=== PATIENT | male | born 1940 | race Caucasian/White ===

== ENCOUNTER → 2016-10-05 | Outpatient (CLI) | payer OTHER ==
[~2016-10-05] MED LIST: AMLO-114 PO; BNC40 PO; CLOP1TAB15 PO; CRD4 PO; CRG25 PO; CYCL5TAB PO; FURO80TA63 PO; INSDGI SC; LEVO50TA6 PO; LISI-461 PO; METF1TAB53 PO; TAMS0.4C59 PO; VSC/5 PO; [UNRECOGNIZED DRUG - CODE] PO
== END | disposition home or self-care (01) ==
LOC: C.PATHSPEC 17:17
PROVIDERS: ATTEND Plastic Surgery
DX: D03.62 Melanoma in situ of left upper limb, including shoulder (principal)

== ENCOUNTER 2019-07-23 18:27 | Inpatient (IN) ==
--- NOTE | 2019-07-23 18:38 | Emergency Department Note ---
Impression & Plan CHARLIE (acute kidney injury), Acute dehydration, Diarrhea, Weakness ED Provider Note NAME: CHANEL WOLFE AGE: 78 SEX: M : 1940 ARRIVES VIA: Ambulance INFORMANT: Patient, ED PROVIDER(S): Sandip Rivero DO CHIEF COMPLAINT: Kidney issues HPI: Patient is a 78-year-old male who was referred in by PCP for kidney issues per the patient. Patient notes that he has had diarrhea which has been about 2- 3 times a day with only a small amount out at a time. This has been present for the past week. He denies any belly pain. Denies any nausea/vomiting. No dysu eh urgency or frequency. No headache chest pain shortness of breath fevers or any other complaints. He does note that he feels a little weak. He lives at home. Patient has been treated for infection of his right toe which he notes is significantly improved. He is on IV cefepime 3 times a day. ROS: See above HPI for pertinent positives & negatives. A total of 10 systems reviewed and were otherwise negative. PAST MEDICAL HISTORY:See Below PAST SURGICAL HISTORY:See Below FAMILY HISTORY:See Below SOCIAL HISTORY:See Below HOME MEDICATIONS:See Below ALLERGIES:See Below VITALS:See Below PHYSICAL EXAMINATION: GENERAL: Sitting up in bed, alert, well appearing, well nourished, no distress, non-toxic EYE EXAM: normal conjunctiva. PERRL and EOM's grossly intact. OROPHARYNX: no exudate, no erythema, lips, buccal mucosa, and tongue normal and mucous membranes are moist NECK: supple, no nuchal rigidity, no adenopathy, non-tender LUNGS: Clear to auscultation. Normal chest wall mechanics HEART: no murmurs, S1 normal and S2 normal ABDOMEN: abdomen soft, non-tender, normo-active bowel sounds, no masses, no rebound or guarding. BACK: Back is symmetrical on inspection and there is no deformity, no midline tenderness, no CVA tenderness. SKIN: no rashes and no bruising UPPER EXTREMITIES: upper extremities are grossly normal. PICC line in left mid humerus. LOWER EXTREMITIES: No pitting edema. NEURO EXAM: Normal sensorium, cranial nerves II-XII grossly intact, normal speech, no gross weakness of arms, no gross weakness of legs. MEDICAL DECISION MAKING: Patient is a 78-year-old male with a past medical history of diabetes and an infection of his foot on IV cefepime presents the ER for weakness. He has been having diarrhea for the past week about 3 times a day with a low volume. He denies any belly pain. He initially denies any headache, chest pain, shortness of breath, nausea or vomiting. Later he did admit that he had some chest tightness yesterday due to stress. Labs show no significant leukocytosis or anemia. BMP with a slightly low CO2 at 20 consistent with diarrhea. Creatinine is up at 3 with an elevated BUN. Baseline creatinine previously was about 1.2. LFTs bilirubin and troponin was unremarkable. Patient was updated bedside. Given IV fluids. Discussed with the hospitalist for observation due to the CHARLIE. Triage Nursing notes reviewed. Prior medical records reviewed Vital Signs: reviewed and remarkable for no significant abnormalities Differential diagnosis: Differential diagnosis includes etiologies such as ectopic , dysfunction uterine bleeding, bleeding dyscrasia, trauma, infection, as well as others were entertained. ER treatment provided: See below Diagnostics interpreted by me: ECG: Sinus bradycardia Rate of 58 No PVCs Normal QTC Cardiac Monitoring: Sinus rhythm rate of 61 Laboratory studies: As stated above and show below. Imaging studies: Portable AP upright 1 view of the chest shows no focal infiltrate or pneumothorax. Consultation(s): Discussed with Dr. Vasques ED COURSE: Procedures: none Critical Care: None Past Med/Surg History Social History Preferred Language: Beninese Budget Coordinator Required: No Beliefs That Will Affect Care: None Current Living Situation: Spouse Other Information That Helps Us Care for You: No Feels Safe at Home: Yes Safety Concerns: Feels Safe At This Time Smoking Status: Former smoker Tobacco Type: cigarettes ; Cigarettes Per Day: one and a half packs 50 years ago ; Do You Dip or Chew Tobacco: No ; Hx Alcohol Use: No Hx Substance Use: No Allergies Allergies Allergy/AdvReac Type Severity Reaction Status Date / Time Sulfa (Sulfonamide Allergy Unknown HIVES Verified 07/23/19 19:23 Antibiotics) Home Meds Home Medications Medication Instructions Recorded Confirmed acetaminophen [Tylenol Extra 500 mg PO Q6H PRN 07/23/19 07/23/19 Strength] amlodipine 10 mg PO DAILY 07/23/19 07/23/19 ammonium lactate 1 applic TOPICAL DAILY 07/23/19 07/23/19 aspirin [Aspir-81] 81 mg PO DAILY 07/23/19 07/23/19 atorvastatin 10 mg PO HS 07/23/19 07/23/19 carvedilol [Coreg] 25 mg PO BID 07/23/19 07/23/19 cefepime [Maxipime] 2 g IV Q8 07/23/19 07/23/19 clopidogrel [Plavix] 75 mg PO DAILY 07/23/19 07/23/19 doxazosin 4 mg PO DAILY 07/23/19 07/23/19 gabapentin [Neurontin] 300 mg PO TID 07/23/19 07/23/19 insulin glargine [Lantus Solostar 20 unit SUBCUT DAILY 07/23/19 07/23/19 U-100 Insulin] levothyroxine 50 mcg PO DAILY 07/23/19 07/23/19 lisinopril 10 mg PO DAILY 07/23/19 07/23/19 metformin 1,000 mg PO BID 07/23/19 07/23/19 mirabegron [Myrbetriq] 25 mg PO DAILY 07/23/19 07/23/19 multivitamin 1 tab PO DAILY 07/23/19 07/23/19 pentoxifylline 400 mg PO BID 07/23/19 07/23/19 Results & Data (ED) Vital Signs Vital Signs - 24 hr 07/23/19 18:32 07/23/19 18:35 07/23/19 18:37 Temperature Temperature Source Pulse Rate 54 L 58 L Pulse Rate [Apical] Pulse Rate from SpO2 Sensor 55 L 58 L Pulse Rhythm Pulse Strength Respiratory Rate 24 21 Respiratory Effort / Characteristics Respiratory Depth Blood Pressure 179/76 H Blood Pressure [Right Arm] Blood Pressure Mean 87 Blood Pressure Mean [Right Arm] Pulse Oximetry 98 97 98 Oxygen Delivery Method Room Air Sepsis Recent Fever Within 48 Hours Sepsis New/Unexplained Change in Mental Status Sepsis Action Taken by Nursing 07/23/19 18:38 07/23/19 19:00 07/23/19 19:30 Temperature 36.8 C Temperature Source Oral Pulse Rate 62 55 L 50 L Pulse Rate [Apical] Pulse Rate from SpO2 Sensor 54 L 51 L Pulse Rhythm Regular Pulse Strength Normal Respiratory Rate 18 20 19 Respiratory Effort / Characteristics Non-Labored Respiratory Depth Normal Blood Pressure 179/76 H Blood Pressure [Right Arm] Blood Pressure Mean 110 Blood Pressure Mean [Right Arm] Pulse Oximetry 97 98 99 Oxygen Delivery Method Room Air Sepsis Recent Fever Within 48 Hours No Sepsis New/Unexplained Change in Mental Status No Sepsis Action Taken by Nursing No Action Required 07/23/19 20:00 07/23/19 20:13 07/23/19 20:14 Temperature Temperature Source Pulse Rate 45 L 56 L Pulse Rate [Apical] 54 L Pulse Rate from SpO2 Sensor 45 L 55 L Pulse Rhythm Pulse Strength Respiratory Rate 20 22 18 Respiratory Effort / Characteristics Respiratory Depth Blood Pressure 162/70 H Blood Pressure [Right Arm] 162/70 H Blood Pressure Mean 88 Blood Pressure Mean [Right Arm] 100 Pulse Oximetry 99 98 100 Oxygen Delivery Method Sepsis Recent Fever Within 48 Hours Sepsis New/Unexplained Change in Mental Status Sepsis Action Taken by Nursing 07/23/19 20:30 07/23/19 21:00 07/23/19 21:01 Temperature Temperature Source Pulse Rate 60 62 59 L Pulse Rate [Apical] Pulse Rate from SpO2 Sensor 60 59 L 58 L Pulse Rhythm Pulse Strength Respiratory Rate 20 19 20 Respiratory Effort / Characteristics Respiratory Depth Blood Pressure 162/76 H Blood Pressure [Right Arm] Blood Pressure Mean 93 Blood Pressure Mean [Right Arm] Pulse Oximetry 99 98 98 Oxygen Delivery Method Sepsis Recent Fever Within 48 Hours Sepsis New/Unexplained Change in Mental Status Sepsis Action Taken by Nursing Laboratory Data Result diagrams: 07/23/19 18:51 07/23/19 18:51 Lab Results 07/23/19 07/23/19 Range/Units 18:51 18:51 WBC 6.87 (4.8-10.8) K/uL RBC 3.93 L (4.7-6.1) M/uL Hgb 12.1 L (14.0-18.0) g/dL Hct 34.2 L (42-52) % MCV 87.0 (80-100) fL MCH 30.8 (25-34) pg MCHC 35.4 (32-36) g/dL RDW Std Deviation 42.6 (36.4-46.3) fL RDW Coeff of Jimmy 13.2 (11.5-14.5) % Plt Count 151 (130-400) K/uL MPV 10.5 H (7.4-10.4) fL Immature Gran % (Auto) 0.3 % Neut % (Auto) 72.5 % Lymph % (Auto) 16.6 % Major % (Auto) 7.1 % Eos % (Auto) 2.9 % Baso % (Auto) 0.6 % Immature Gran # (Auto) 0.02 (0.00-0.02) K/uL Neut # (Auto) 4.98 (1.4-6.5) K/uL Lymph # (Auto) 1.14 L (1.2-3.4) K/uL Major # (Auto) 0.49 (0.11-0.59) K/uL Eos # (Auto) 0.20 (0-0.5) K/uL Baso # (Auto) 0.04 (0-0.2) K/uL Absolute Nucleated RBC 0.04 H (0-0) K/uL Nucleated RBC % (auto) 0.6 % Sodium 137 (136-145) mmol/L Potassium 4.7 (3.5-5.1) mmol/L Chloride 110 H (98-107) mmol/L Carbon Dioxide 20 L (21-32) mmol/L Anion Gap 7.0 (3-11) BUN 70 H (7-18) mg/dl Creatinine 3.02 H (0.6-1.4) mg/dl Est Cr Clr Drug Dosing 20.2 ml/min Est GFR ( Amer) 21.9 Est GFR (Non-Af Amer) 18.9 BUN/Creatinine Ratio 23.1 H (10-20) Glucose 107 H (70-99) mg/dl Calcium 9.5 (8.5-10.1) mg/dl Magnesium 2.1 (1.8-2.4) mg/dl Total Bilirubin 0.3 (0.2-1) mg/dl AST 18 (15-37) U/L ALT 32 (12-78) U/L Alkaline Phosphatase 66 (45-117) U/L Troponin I < 0.015 (0-0.045) ng/ml Total Protein 7.1 (6.4-8.2) gm/dl Albumin 3.3 L (3.4-5.0) gm/dl Globulin 3.8 (2.5-4.0) gm/dl Albumin/Globulin Ratio 0.9 (0.9-2) TSH 4.110 (0.300-4.500) uIu/ml Administered Medications Discontinued Medications Sodium Chloride (Nss 1000ml) 1,000 mls @ 999 mls/hr IV .Q1H1M AKASH Stop: 07/23/19 19:45 Last Infusion: 07/23/19 20:12 Dose: 0 mls/hr Documented by: [id number] Admin: 07/23/19 19:13 Dose: 999 mls/hr Documented by: [id number] Discharge Plan Visit Data *Final* Discharge Date/Time: 07/23/19 21:42 Chief Complaint: Abnormal Labs/Diagnostic Testing Stated Complaint: ABNORMAL LABS ED Provider: Sandip Rivero Discharge Problem: CHARLIE (acute kidney injury), Acute dehydration, Diarrhea, Weakness Patient Disposition: Admitted As Inpatient Discharge Instructions Interventions: ED Discharge Assessment Last Done: 07/23/19 21:42 Discharge Problem: Diarrhea Qualifiers: Diarrhea type: unspecified type Qualified Code(s): R19.7 - Diarrhea, unspecified
[2019-07-23] MEDS ORDERED: SODIUM CHLORIDE 0.9% 1000ML 1,000 ML IV SCH (18:45)
[2019-07-23 19:09] LABS: Basophils # (auto) 0.04 K/uL (0-0.2); Basophils % (auto) 0.6 %; Eosinophils % (auto) 2.9 %; Hematocrit (blood only) 34.2 % (42-52); Hemoglobin 12.1 g/dL (14.0-18.0); Immature Granulocytes # (auto) 0.02 K/uL (0.00-0.02); Immature Granulocytes % (auto) 0.3 %; Lymphocytes # (auto) 1.14 K/uL (1.2-3.4); Lymphocytes % (auto) 16.6 %; Mean Corpuscular Hemoglobin 30.8 pg (25-34); Mean Corpuscular Hgb Conc 35.4 g/dL (32-36); Mean Platelet Volume 10.5 fL (7.4-10.4); Monocytes # (auto) 0.49 K/uL (0.11-0.59); Monocytes % (auto) 7.1 %; Neutrophils # (auto) 4.98 K/uL (1.4-6.5); Neutrophils % (auto) 72.5 %; Nucleated RBC # (auto) 0.04 K/uL (0-0); Nucleated RBC % (auto) 0.6 %; Platelet Count 151 K/uL (130-400); RDW Coefficient of Variation 13.2 % (11.5-14.5); RDW Standard Deviation 42.6 fL (36.4-46.3); Red Blood Count 3.93 M/uL (4.7-6.1); White Blood Count 6.87 K/uL (4.8-10.8)
--- NOTE | 2019-07-23 19:17 | XRay Report ---
XR chest 1V portable CLINICAL HISTORY: weakness COMPARISON STUDY: Chest radiograph January 30, 2013. FINDINGS: Lung volumes are mildly diminished with elevation of the hemidiaphragms. This is unchanged. Lungs are clear. There is no pneumothorax or pleural effusion. Cardiac size is normal. Mediastinal c ontours are normal. There is no evidence for pulmonary edema. Left PICC is in place. Catheter tip pro jects over the proximal SVC. IMPRESSION: No acute cardiopulmonary findings. ACT 112: Negative or not required by law. Electronically signed by: Maurilio Arboleda M.D. 07/23/2019 7:16 PM
[2019-07-23 19:26] LABS: Alanine Aminotransferase 32 U/L (12-78); Albumin Level 3.3 gm/dl (3.4-5.0); Aspartate Aminotransferase 18 U/L (15-37); BUN Creatinine Ratio 23.1 (10-20); Blood Urea Nitrogen 70 mg/dl (7-18); Calcium 9.5 mg/dl (8.5-10.1); Carbon Dioxide 20 mmol/L (21-32); Chloride 110 mmol/L (98-107); Creatinine Clr Calc Pharmacy 20.2 ml/min; Est GFR (African American) 21.9; Est GFR (Non-African American) 18.9; Glucose 107 mg/dl (70-99); Magnesium 2.1 mg/dl (1.8-2.4); Potassium 4.7 mmol/L (3.5-5.1); Sodium 137 mmol/L (136-145)
[2019-07-23 19:37] LABS: Albumin Globulin Ratio 0.9 (0.9-2); Alkaline Phosphatase 66 U/L (45-117); Bilirubin,Total 0.3 mg/dl (0.2-1); Globulin 3.8 gm/dl (2.5-4.0); Total Protein 7.1 gm/dl (6.4-8.2); Troponin I < 0.015 ng/ml (0-0.045)
[2019-07-23 22:05] LABS: Appearance Urine Clear (Clear); Bacteria Urine Automated Negative (Negative); Bilirubin Urine Negative (Negative); Blood Urine 2+ (Negative); Color Urine Yellow; Epithelial Cell Urine Auto 20-30 /lpf (0-5); Glucose Urine UA Negative (Negative); Ketones Urine Negative (Negative); Leukocyte Esterase Urine Negative (Negative); Nitrite Urine Negative (Negative); Protein Urine 2+ (Negative); RBC Urine Automated 0-4 /hpf (0-4); Specific Gravity Urine 1.017 (1.000-1.030); Urobilinogen Urine Negative (Negative)
[2019-07-23] MEDS ORDERED: ONDANSETRON INJ 2 MG/ML 2 ML VIAL IV PRN (22:19)
[2019-07-23] MEDS ORDERED: POLYETHYLENE (MIRALAX) 17 GM PACK PO PRN (22:19)
[2019-07-23] MEDS ORDERED: ACETAMINOPHEN 325 MG TAB PO PRN (22:19)
[2019-07-23] MEDS ORDERED: MAGNESIUM HYDROXIDE SUSP 30 ML UDC PO PRN (22:19)
[2019-07-23] MEDS ORDERED: ALUMINUM/MAGNESIUM SUSP 30 ML UDC PO PRN (22:19)
[2019-07-23] MEDS ORDERED: GLUCAGON FOR INJ 1 MG VIAL IM PRN (22:30)
[2019-07-23] MEDS ORDERED: GLUCOSE 40% GEL 15 GM TUBE PO PRN ×2 (22:30→22:32)
[2019-07-23] MEDS ORDERED: DEXTROSE 50% 50 ML SYRINGE IV PRN ×2 (22:30→22:32)
[2019-07-23] MEDS ORDERED: GLUCOSE 10 TABS/TUBE PO PRN ×2 (22:30→22:32)
[2019-07-23] MEDS ORDERED: CARBOHYDRATES FOR HYPOGLYCEMIA PO PRN (22:32)
[2019-07-23] MEDS ORDERED: GLUCAGON FOR INJ 1 MG VIAL SQ PRN (22:32)
--- NOTE | 2019-07-23 22:33 | History & Physical Report ---
Date of Service July 23, 2019 Assessment & Plan (1) Kidney injury: Steph Baird is a 78y/o M with PMH significant for T2DM, peripheral vascular disease, and a foot infection; presented to the emergency room after being having labs drawn by [facility] this afternoon, and was told he had an abnormal lab and need to be evaluated. Kidney injury: - [facility] monitored Cr weekly from 06/24 with Cr 1.2, increased to 2.1 on 07/15, and then 3.0 on admission - patient with inadequate oral intake over the last several weeks in the setting of continued diarrhea - ? if 2/2 to pre-renal etiology vs intrinsic damage - Urine lytes and creatinine ordered for FeNa calculation - Urinalysis ordered - encourage oral intake, can reduce IV supplementation once oral intake improves - continue to monitor Diarrhea: - seems unlikely to be C. diff related; however, with chronic cephalosporin abx treatment raises suspicion for this chronic diarrhea - C. diff ordered - continue to monitor T2DM: - holding home oral regimen - continue Lantus SQ daily - started SSI - continue to monitor Peripheral vascular disease: - continue home Plavix Foot infection: - [facility] discontinued abx today - continue to monitor Diet: Carb consistent DVT ppx: continue Plavix Code Status: Full code (2) Peripheral vascular disease: (3) Foot infection: (4) Diabetes: Admission and Anticipated Discharge Date Admission Date: July 23, 2019 History of Present Illness Chief Complaint: kidney injury Primary Care Provider: Daniel Trivedi MD Steph Baird is a 78y/o M with PMH significant for T2DM, peripheral vascular disease, and a foot infection; presented to the emergency room after being having labs drawn by [facility] this afternoon, and was told he had an abnormal lab and need to be further evaluated. Patient has been following with [facility] for a foot infection for >8 weeks, and over this time he has been treated with Cefepime out of apparent concern for the infection spreading into his bone. During this time, patient notes that he has consistently had diarrhea about 2-3 times a day with only a small amount out at a time, and occasionally with solid formed stool during this time. He denies abdominal pain, discomfort, nausea, vomiting, dysuria, changes in urinary frequency, or urgency. He does note that he feels a little weak and that this has just been the case for awhile. Has very little interest in most meals, and over this time has had lowered oral intake; he attributes this to a recent argument with insurance that has made him more stressed than normal, however, it has been present over the last several weeks. At most over the last week he has drank about 16 ounces of fluids, with occasional oatmeal. He lives at home. Patient has been treated for infection of his right toe which he notes has improved, he states that the antibiotics were stopped this afternoon after he was called about the elevated kidney levels. [facility] has been trending his labs over the last several weeks, with noted Cr of 1.2 on 06/24 and continued raise on weekly checks. Allergies Allergy/AdvReac Type Severity Reaction Status Date / Time Sulfa (Sulfonamide Allergy Unknown HIVES Verified 07/23/19 19:23 Antibiotics) Home Medications Home Medications Medication Instructions Recorded Confirmed Type acetaminophen [Tylenol Extra 500 mg PO Q6H PRN 07/23/19 07/23/19 History Strength] amlodipine 10 mg PO DAILY 07/23/19 07/23/19 History ammonium lactate 1 applic TOPICAL DAILY 07/23/19 07/23/19 History aspirin [Aspir-81] 81 mg PO DAILY 07/23/19 07/23/19 History atorvastatin 10 mg PO HS 07/23/19 07/23/19 History carvedilol [Coreg] 25 mg PO BID 07/23/19 07/23/19 History cefepime [Maxipime] 2 g IV Q8 07/23/19 07/23/19 History clopidogrel [Plavix] 75 mg PO DAILY 07/23/19 07/23/19 History doxazosin 4 mg PO DAILY 07/23/19 07/23/19 History gabapentin [Neurontin] 300 mg PO TID 07/23/19 07/23/19 History insulin glargine [Lantus Solostar 20 unit SUBCUT DAILY 07/23/19 07/23/19 History U-100 Insulin] levothyroxine 50 mcg PO DAILY 07/23/19 07/23/19 History lisinopril 10 mg PO DAILY 07/23/19 07/23/19 History metformin 1,000 mg PO BID 07/23/19 07/23/19 History mirabegron [Myrbetriq] 25 mg PO HS 07/23/19 07/24/19 History multivitamin 1 tab PO DAILY 07/23/19 07/23/19 History pentoxifylline 400 mg PO BID 07/23/19 07/23/19 History Past Med/Surg History Social History Preferred Language: Nepali Communication Ability: Effective 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 Truck 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 Required: No Beliefs That Will Affect Care: None marital status: Current Living Situation: Spouse Other Information That Helps Us Care for You: No Feels Safe at Home: Yes Safety Concerns: Feels Safe At This Time Smoking Status: Former smoker Tobacco Type: cigarettes ; Cigarettes Per Day: one and a half packs 50 years ago ; Do You Dip or Chew Tobacco: No ; Hx Alcohol Use: No Hx Substance Use: No Review of Systems Review of Systems: All systems reviewed & are unremarkable except as noted in HPI & below Physical Exam Constitutional: WD/WN, vitals as above Eyes: PERRL, conjunctivae normal, anicteric sclerae ENMT: external ear and nose normal, oropharynx normal Neck: normal visual inspection Respiratory: normal respiratory effort, lungs clear to auscultation Cardiovascular: Rate/Rhythm: regular rate and regular rhythm Heart Sounds: normal S1 and normal S2; no gallop, no murmur and no cardiac rub Vessels: no JVD Extremities: no pedal edema Gastrointestinal (Abdomen): normal bowel sounds, soft, nontender, no hepatosplenomegaly Musculoskeletal: no cyanosis or clubbing, extremities motor strength 5/5 Skin: no rashes, warm and dry Neurologic: patellar DTR's 2+ bilat, sensation intact Psychiatric: A+Ox3, euthymic affect Lymphatic: no cervical or axillary lymphadenopathy Results & Data Results & Data ([facility] Vital Signs (Past 12 Hours) Vital Signs Temp Pulse Pulse Resp BP BP Pulse Ox 07/23/19 21:30 55 L 23 98 07/23/19 21:01 59 L 20 162/76 H 98 07/23/19 21:00 62 19 98 07/23/19 20:30 60 20 99 07/23/19 20:14 54 L 18 162/70 H 100 07/23/19 20:13 56 L 22 162/70 H 98 07/23/19 20:00 45 L 20 99 07/23/19 19:30 50 L 19 99 07/23/19 19:00 55 L 20 98 07/23/19 18:38 36.8 C 62 18 179/76 H 97 07/23/19 18:37 58 L 21 98 07/23/19 18:35 97 07/23/19 18:32 54 L 24 179/76 H 98 Laboratory Results 07/23/19 07/23/19 07/23/19 Range/Units 22:43 21:32 18:51 WBC 6.87 (4.8-10.8) K/uL RBC 3.93 L (4.7-6.1) M/uL Hgb 12.1 L (14.0-18.0) g/dL Hct 34.2 L (42-52) % MCV 87.0 (80-100) fL MCH 30.8 (25-34) pg MCHC 35.4 (32-36) g/dL RDW Std Deviation 42.6 (36.4-46.3) fL RDW Coeff of Jimmy 13.2 (11.5-14.5) % Plt Count 151 (130-400) K/uL MPV 10.5 H (7.4-10.4) fL Immature Gran % (Auto) 0.3 % Neut % (Auto) 72.5 % Lymph % (Auto) 16.6 % Ponce % (Auto) 7.1 % Eos % (Auto) 2.9 % Baso % (Auto) 0.6 % Immature Gran # (Auto) 0.02 (0.00-0.02) K/uL Neut # (Auto) 4.98 (1.4-6.5) K/uL Lymph # (Auto) 1.14 L (1.2-3.4) K/uL Ponce # (Auto) 0.49 (0.11-0.59) K/uL Eos # (Auto) 0.20 (0-0.5) K/uL Baso # (Auto) 0.04 (0-0.2) K/uL Absolute Nucleated RBC 0.04 H (0-0) K/uL Nucleated RBC % (auto) 0.6 % Sodium (136-145) mmol/L Potassium (3.5-5.1) mmol/L Chloride (98-107) mmol/L Carbon Dioxide (21-32) mmol/L Anion Gap (3-11) BUN (7-18) mg/dl Creatinine (0.6-1.4) mg/dl Est Cr Clr Drug Dosing ml/min Est GFR ( Amer) Est GFR (Non-Af Amer) BUN/Creatinine Ratio (10-20) Glucose (70-99) mg/dl POC Glucose Pending Calcium (8.5-10.1) mg/dl Magnesium (1.8-2.4) mg/dl Total Bilirubin (0.2-1) mg/dl AST (15-37) U/L ALT (12-78) U/L Alkaline Phosphatase (45-117) U/L Troponin I (0-0.045) ng/ml Total Protein (6.4-8.2) gm/dl Albumin (3.4-5.0) gm/dl Globulin (2.5-4.0) gm/dl Albumin/Globulin Ratio (0.9-2) TSH (0.300-4.500) uIu/ml Urine Color Yellow Urine Appearance Clear (Clear) Urine pH 5.0 (4.5-7.5) Ur Specific T[place] 1.017 (1.000-1.030) Urine Protein 2+ H (Negative) Urine Glucose (UA) Negative (Negative) Urine Ketones Negative (Negative) Urine Blood 2+ H (Negative) Urine Nitrite Negative (Negative) Urine Bilirubin Negative (Negative) Urine Urobilinogen Negative (Negative) Ur Leukocyte Esterase Negative (Negative) Urine WBC (Auto) 5-10 H (0-5) /hpf Urine RBC (Auto) 0-4 (0-4) /hpf U Hyaline Cast (Auto) 1-5 (0-5) /lpf U Epithel Cells (Auto) 20-30 H (0-5) /lpf Urine Bacteria (Auto) Negative (Negative) Granular Casts 1-5 H (0) /lpf Urine Yeast Not Reportable 07/23/19 Range/Units 18:51 WBC (4.8-10.8) K/uL RBC (4.7-6.1) M/uL Hgb (14.0-18.0) g/dL Hct (42-52) % MCV (80-100) fL MCH (25-34) pg MCHC (32-36) g/dL RDW Std Deviation (36.4-46.3) fL RDW Coeff of Jimmy (11.5-14.5) % Plt Count (130-400) K/uL MPV (7.4-10.4) fL Immature Gran % (Auto) % Neut % (Auto) % Lymph % (Auto) % Ponce % (Auto) % Eos % (Auto) % Baso % (Auto) % Immature Gran # (Auto) (0.00-0.02) K/uL Neut # (Auto) (1.4-6.5) K/uL Lymph # (Auto) (1.2-3.4) K/uL Ponce # (Auto) (0.11-0.59) K/uL Eos # (Auto) (0-0.5) K/uL Baso # (Auto) (0-0.2) K/uL Absolute Nucleated RBC (0-0) K/uL Nucleated RBC % (auto) % Sodium 137 (136-145) mmol/L Potassium 4.7 (3.5-5.1) mmol/L Chloride 110 H (98-107) mmol/L Carbon Dioxide 20 L (21-32) mmol/L Anion Gap 7.0 (3-11) BUN 70 H (7-18) mg/dl Creatinine 3.02 H (0.6-1.4) mg/dl Est Cr Clr Drug Dosing 20.2 ml/min Est GFR ( Amer) 21.9 Est GFR (Non-Af Amer) 18.9 BUN/Creatinine Ratio 23.1 H (10-20) Glucose 107 H (70-99) mg/dl POC Glucose Calcium 9.5 (8.5-10.1) mg/dl Magnesium 2.1 (1.8-2.4) mg/dl Total Bilirubin 0.3 (0.2-1) mg/dl AST 18 (15-37) U/L ALT 32 (12-78) U/L Alkaline Phosphatase 66 (45-117) U/L Troponin I < 0.015 (0-0.045) ng/ml Total Protein 7.1 (6.4-8.2) gm/dl Albumin 3.3 L (3.4-5.0) gm/dl Globulin 3.8 (2.5-4.0) gm/dl Albumin/Globulin Ratio 0.9 (0.9-2) TSH 4.110 (0.300-4.500) uIu/ml Urine Color Urine Appearance (Clear) Urine pH (4.5-7.5) Ur Specific [place] (1.000-1.030) Urine Protein (Negative) Urine Glucose (UA) (Negative) Urine Ketones (Negative) Urine Blood (Negative) Urine Nitrite (Negative) Urine Bilirubin (Negative) Urine Urobilinogen (Negative) Ur Leukocyte Esterase (Negative) Urine WBC (Auto) (0-5) /hpf Urine RBC (Auto) (0-4) /hpf U Hyaline Cast (Auto) (0-5) /lpf U Epithel Cells (Auto) (0-5) /lpf Urine Bacteria (Auto) (Negative) Granular Casts (0) /lpf Urine Yeast Medications Administered Current Inpatient Medications Acetaminophen (Tylenol) 650 mg PO Q4H PRN PRN Reason: pain/fever Stop: 08/22/19 22:18 Al Hydrox/Mg Hydrox/Simethicone (Maalox) 30 ml PO Q6H PRN PRN Reason: Dyspepsia Stop: 08/22/19 22:18 Amlodipine Besylate (Norvasc) 10 mg PO DAILY AKASH Stop: 08/23/19 08:59 Aspirin (Ecotrin Ectab) 81 mg PO DAILY AKASH Stop: 08/23/19 08:59 Atorvastatin Calcium (Lipitor) 10 mg PO HS AKASH Stop: 08/23/19 20:59 Carvedilol (Coreg) 25 mg PO BID AKASH Stop: 08/23/19 08:59 Clopidogrel Bisulfate (Plavix) 75 mg PO DAILY AKASH Stop: 08/23/19 08:59 Dextrose (Dextrose 50%) 25 - 50 ml IV UD PRN; Protocol PRN Reason: Hypoglycemia Protocol Stop: 08/22/19 22:29 Doxazosin Mesylate (Cardura) 4 mg PO DAILY AKASH Stop: 08/23/19 08:59 Gabapentin (Neurontin) 300 mg PO TID AKASH Stop: 08/23/19 08:59 Glucagon (Glucagen) 1 mg IM UD PRN; Protocol PRN Reason: Hypoglycemia Protocol Stop: 08/22/19 22:29 Glucose (Glucose 40%) 15 - 30 gm PO UD PRN; Protocol PRN Reason: Hypoglycemia Protocol Stop: 08/22/19 22:29 Glucose (Dex4 Glucose) 4 - 8 tabs PO UD PRN; Protocol PRN Reason: Hypoglycemia Protocol Stop: 08/22/19 22:29 Heparin Sodium (Beef Lung) (Heparin Sod 10 Unit/Ml Flush) 5 ml FLUSH PRN PRN PRN Reason: Flush Stop: 08/23/19 00:19 Insulin Aspart (Novolog Flexpen) 0 units SC ACHS AKASH Stop: 08/23/19 07:29 Insulin Glargine (Lantus Solostar Pen) 20 units SQ DAILY AKASH Stop: 08/23/19 08:59 Levothyroxine Sodium (Synthroid) 50 mcg PO DAILYBB AKASH Stop: 08/23/19 06:29 Lisinopril (Zestril) 10 mg PO DAILY AKASH Stop: 08/23/19 08:59 Magnesium Hydroxide (Milk Of Magnesia) 30 ml PO Q6H PRN PRN Reason: Constipation Stop: 08/22/19 22:18 Mirabegron (Myrbetriq Er) 25 mg PO DAILY AKASH Stop: 08/23/19 08:59 Miscellaneous (Carbohydrates For Hypoglycemia) 15 - 30 gm PO UD PRN PRN Reason: Hypoglycemia Treatment Stop: 08/22/19 22:29 Ondansetron HCl (Zofran) 4 mg IV Q6H PRN PRN Reason: Nausea Stop: 08/22/19 22:18 Pentoxifylline (Trental) 400 mg PO BID AKASH Stop: 08/23/19 08:59 Polyethylene Glycol (Miralax Powder Packet) 17 gm PO DAILY PRN PRN Reason: Constipation Stop: 08/22/19 22:18 Code Status & VTE Plan Code Status Full code Supervising Physician Co-Signing Physician Notes Attending addendum: I have physically seen this patient, have supervised the medical residents activities, and agree with the H&P unless as otherwise noted. Assessment and Plan: Acute kidney injury- Creatinine 3.0 upon admission, with baseline 1.2 Follow urine culture and sensitivity. Secondary to dehydration associated with diarrhea on chronic IV antibiotics Serial BMP and magnesium levels. Holding any further antibiotics at this time. Diarrhea send stool for C. difficile. Differential includes antibiotic associated diarrhea. Remainder of orders and notations as noted. Resident Activity Tracking Resident Involvement: Resident Care Provided Care Provided: Adult Hospital Medicine
[2019-07-24 01:04] LABS: Creatinine Urine Random 52.1 mg/dl; Urine Potassium 27.2 mmol/L
[2019-07-24] MEDS: LEVOTHYROXINE SODIUM 50 MCG TABLET PO SCH (06:12)
[2019-07-24] MEDS: DOXAZosin MESYLATE 4 MG TAB PO SCH (08:45)
[2019-07-24] MEDS: INSULIN ASPART 100 UNITS/ML 3 ML PEN SC SCH ×4 (08:52→21:33)
[2019-07-24] MEDS: carvediloL 25 MG TAB PO SCH ×2 (08:53→21:30)
[2019-07-24] MEDS: MIRABEGRON ER 25 MG TAB PO SCH ×3 (08:53→21:27)
[2019-07-24] MEDS: AMLODIPINE BESYLATE 5 MG TAB PO SCH (08:53)
[2019-07-24] MEDS: GABAPENTIN 300 MG CAP PO SCH ×4 (08:53→20:31)
[2019-07-24] MEDS: INSULIN GLARGINE SOLOSTAR 100 UNITS/ML 3 ML PEN SQ SCH (08:53)
[2019-07-24] MEDS: ASPIRIN 81 MG ECTAB PO SCH (08:53)
[2019-07-24] MEDS: PENTOXIFYLLINE 400MG EXT REL TAB PO SCH ×2 (08:54→20:32)
[2019-07-24] MEDS: CLOPIDOGREL BISULFATE 75 MG TAB PO SCH (08:54)
[2019-07-24] MEDS: lisinopriL 10 MG TAB PO SCH ×2 (08:54→09:17)
[2019-07-24 10:58] LABS: BUN Creatinine Ratio 22.4 (10-20); Calcium 8.8 mg/dl (8.5-10.1); Creatinine Clr Calc Pharmacy 20.4 ml/min; Est GFR (African American) 22.1; Est GFR (Non-African American) 19.1; Potassium 4.5 mmol/L (3.5-5.1)
[2019-07-24] MEDS ORDERED: Nursing to Pharmacy Communication ONE (11:04)
[2019-07-24 11:16] LABS: Estimated Average Glucose 146 mg/dl; Hemoglobin A1C 6.7 % (4.5-5.6)
[2019-07-24] MEDS: SODIUM CHLORIDE 0.9% 1000ML 1,000 ML IV SCH ×2 (11:46→23:47)
[2019-07-24] MEDS: LACTOBACILLUS ACIDOPHILUS (FLORANEX) TAB PO SCH ×2 (11:47→16:24)
--- NOTE | 2019-07-24 12:15 | Hospitalist Progress Note ---
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 diff related; however, with chronic cephalosporin abx treatment raises suspicion for this chronic diarrhea - C. diff not collected yet given no bowel movement making cdiff less likely Likely abx related, add probioitic (4) Diabetic foot ulcer: - Followed by [facility] (Tala Alonzo) and ID (Ladan) discontinued abx on 07/22 WCC c/s pending (5) BPH loc w urin obs/LUTS: continue home meds (6) Diabetic peripheral neuropathy associated with type 2 diabetes mellitus: - holding home oral regimen - continue Lantus SQ daily - started SSI - continue to monitor (7) Peripheral vascular disease: - continue home Plavix, aspirin (8) DVT prophylaxis: plavix at baseline Admission and Anticipated Discharge Date Admission Date: July 24, 2019 Subjective Pt states his appetite is improved and he ate his breakfast. He states he still feels "not right", but is having difficulty describing this. More or less just not as well as usual. No pain to his R foot, but a bit stiff today. Pt denies hx of renal c/s or abn renal function. He states that ID with [facility] was checking cr Qweek during ongoing abx use. States he was told that there was a "jump in his numbers" and sent to the ED. Abx stopped. States he tried yogurt for the last 2 weeks for his diarrhea, but no help. States about 2-3x/day and not excessive, just not having formed stools often. Again notes that he has not been eating or drinking much the last week or so. Pt denies fever, SOB, chest pain, abd pain, n/v/c, LE swelling. Review of Systems Review of Systems: Pertinent positives and negatives reviewed in HPI--all others negative Physical Exam Constitutional: WD/WN, vitals as above Eyes: normal visual junior by confrontation and + anicteric sclerae Neck: normal visual inspection and trachea midline Respiratory: normal respiratory effort, lungs clear to auscultation Cardiovascular: Rate/Rhythm: regular rate and regular rhythm Gastrointestinal (Abdomen): Inspection/Auscultation: abdomen not distended Percussion/Palpation: abdomen soft; abdomen nontender Musculoskeletal: Head/Neck/Chest: normocephalic and head atraumatic negative for edema, peripheral pulses intact Skin: no rashes, warm and dry Neurologic: awake; not confused Speech / Cognition: normal speech Psychiatric: A+Ox3, euthymic affect Results & Data Results & Data ([facility]) Vital Signs (Past 12 Hours) Vital Signs Temp Pulse Pulse Resp BP Pulse Ox 07/24/19 11:36 36.9 C 57 L 20 126/61 96 07/24/19 08:47 64 171/72 H 07/24/19 07:39 91 H 07/24/19 06:27 36.8 C 57 L 18 148/72 H 95 PG Care Time/CCT Total # of Minutes Spent Total Time Spent with Patient: Total time spent is greater than 50% in coordination of care (as documented) at patient's floor/unit and/or counseling patient: Coding Level of Care Code 70304 Subseq Hosp Care Lvl 3 Diagnoses CHARLIE (acute kidney injury) N17.9 Acute dehydration E86.0 Diarrhea R19.7 Diarrhea type: unspecified type Diabetic foot ulcer E11.621; L97.509 BPH loc w urin obs/LUTS N40.1 Diabetic peripheral neuropathy associated with type 2 diabetes mellitus E11.42 Peripheral vascular disease I73.9 DVT prophylaxis Z29.9 (1) Diarrhea Diarrhea type: unspecified type Qualified Code(s): R19.7 - Diarrhea, unspecified
--- NOTE | 2019-07-24 16:16 | Ultrasound Report ---
ULTRASOUND KIDNEYS AND BLADDER CLINICAL HISTORY: Elevated serum creatinine. COMPARISON STUDY: No priors. TECHNIQUE: Real-time, grayscale, and color flow sonography of the kidneys and bladder is performed. I mages are reviewed in the transverse and longitudinal planes. FINDINGS: Kidneys: The kidneys are normal in size and echotexture. The right kidney measures 9.5 cm in length a nd the left kidney measures 10.8 cm in length. There is no hydronephrosis. No shadowing renal calculi are identified. There is no sonographic evidence of contour deforming renal mass lesion. No perineph padmini fluid is identified. Bladder: The bladder is normal in appearance. Only the right ureteral jet was visualized. Intralumina l debris is noted. IMPRESSION: 1. The kidneys are normal in size and without hydronephrosis. 2. Intraluminal debris is noted in the bladder. Correlation with urinalysis will be required. ACT 112: Negative or not required by law. Electronically signed by: Francis South M.D. 07/24/2019 4:15 PM
[2019-07-24] MEDS: ATORVASTATIN 10 MG TAB PO SCH (20:31)
--- NOTE | 2019-07-24 22:39 | Billing Data ---
Date of Service July 24, 2019 Coding Level of Care Code 49351 Initial Inpt Care Lvl 2
[2019-07-25] MEDS: LEVOTHYROXINE SODIUM 50 MCG TABLET PO SCH (06:10)
[2019-07-25 06:53] LABS: BUN Creatinine Ratio 22.3 (10-20); Calcium 8.3 mg/dl (8.5-10.1); Creatinine Clr Calc Pharmacy 21.1 ml/min; Est GFR (African American) 23.1; Est GFR (Non-African American) 19.9; Potassium 4.1 mmol/L (3.5-5.1)
[2019-07-25] MEDS: LACTOBACILLUS ACIDOPHILUS (FLORANEX) TAB PO SCH ×3 (08:45→16:49)
[2019-07-25] MEDS: ASPIRIN 81 MG ECTAB PO SCH (08:46)
[2019-07-25] MEDS: DOXAZosin MESYLATE 4 MG TAB PO SCH (08:46)
[2019-07-25] MEDS: CLOPIDOGREL BISULFATE 75 MG TAB PO SCH (08:46)
[2019-07-25] MEDS: AMLODIPINE BESYLATE 5 MG TAB PO SCH (08:46)
[2019-07-25] MEDS: lisinopriL 10 MG TAB PO SCH ×3 (08:46→20:33)
[2019-07-25] MEDS: GABAPENTIN 300 MG CAP PO SCH ×3 (08:46→20:33)
[2019-07-25] MEDS: PENTOXIFYLLINE 400MG EXT REL TAB PO SCH ×2 (08:46→20:35)
[2019-07-25] MEDS: INSULIN GLARGINE SOLOSTAR 100 UNITS/ML 3 ML PEN SQ SCH (08:47)
[2019-07-25] MEDS: carvediloL 25 MG TAB PO SCH ×2 (08:47→20:34)
[2019-07-25] MEDS: INSULIN ASPART 100 UNITS/ML 3 ML PEN SC SCH ×4 (08:47→20:40)
[2019-07-25] MEDS ORDERED: Nursing to Pharmacy Communication ONE (09:05)
--- NOTE | 2019-07-25 10:18 | Electrocardiogram Report ---
Test Reason : Blood Pressure : / mmHG Vent. Rate : 058 BPM Atrial Rate : 058 BPM P-R Int : 200 ms QRS Dur : 094 ms QT Int : 398 ms P-R-T Axes : 034 012 032 degrees QTc Int : 390 ms Poor data quality, interpretation may be adversely affected Sinus bradycardia Otherwise normal ECG When compared with ECG of 30-JAN-2013 15:06, No significant change was found Confirmed by Eliezer Amado ([id number]) on 07/25/2019 10:18:34 AM Referred By: Emma Verduzco Confirmed By:Eliezer Amado
--- NOTE | 2019-07-25 11:13 | Hospitalist Progress Note ---
Date of Service July 25, 2019 Assessment & Plan (1) Kidney injury: Patient's creatinine has not improved. Patient did have some proteinuria as well as an elevated FeNa. Considering long-term cefepime use, consider AIN as a diagnosis. No real improvement with fluids. Will check urine eosinophils. Will ask nephrology to consult for further recommendations. Patient is no longer on antibiotics. (2) Foot infection: This appears to be resolved. In fact, patient was to discontinue the cefepime on 07/27. For now we will hold off on any further antibiotic use. (3) Diabetes: Continue medications as ordered. Blood glucose on [facility] earlier this morning was somewhat low but Accu-Chek was elevated. Patient is on sliding scale. Admission and Anticipated Discharge Date Admission Date: July 24, 2019 Subjective Patient seen and examined. Patient is sitting in a chair next to the bed, denies any acute complaint. Has been afebrile with mildly elevated blood pressure. He tells me that his foot is almost completely healed. He did note some issues with word finding, especially after speaking for a longer period of time. However, I did not note any significant expressive aphasia during our conversation. He did note some generalized weakness. Physical Exam Constitutional: cooperative; no acute distress Neck: trachea midline, no thyromegaly Respiratory: normal respiratory effort Auscultation: lungs clear to auscultation bilaterally; no crackles, no rales, no rhonchi and no wheezes Cardiovascular: Rate/Rhythm: regular rate and regular rhythm Heart Sounds: normal S1, normal S2 and + murmur Gastrointestinal (Abdomen): Inspection/Auscultation: abdomen normal to inspection Percussion/Palpation: abdomen soft; abdomen nontender, no guarding, abdomen not rigid and no hepatosplenomegaly Musculoskeletal: Left second toe, previously infected but per patient is essentially healed completely Skin: no rashes, warm and dry Results & Data Results & Data ([facility]) Vital Signs (Past 12 Hours) Vital Signs Temp Pulse Resp BP Pulse Ox 07/25/19 06:42 36.6 C 59 L 18 147/66 H 95 Diagnostic Findings ULTRASOUND KIDNEYS AND BLADDER CLINICAL HISTORY: Elevated serum creatinine. COMPARISON STUDY: No priors. TECHNIQUE: Real-time, grayscale, and color flow sonography of the kidneys and bladder is performed. Images are reviewed in the transverse and longitudinal planes. FINDINGS: Kidneys: The kidneys are normal in size and echotexture. The right kidney measures 9.5 cm in length and the left kidney measures 10.8 cm in length. There is no hydronephrosis. No shadowing renal calculi are identified. There is no sonographic evidence of contour deforming renal mass lesion. No perinephric fluid is identified. Bladder: The bladder is normal in appearance. Only the right ureteral jet was visualized. Intraluminal debris is noted. IMPRESSION: 1. The kidneys are normal in size and without hydronephrosis. PG Care Time/CCT Total # of Minutes Spent Total Time Spent with Patient: Total time spent is greater than 50% in coordination of care (as documented) at patient's floor/unit and/or counseling patient: Coding Level of Care Code 18703 Subseq Hosp Care Lvl 2 Diagnoses Kidney injury S37.009A Foot infection L08.9 Diabetes E11.9
[2019-07-25] MEDS: SODIUM CHLORIDE 0.9% 1000ML 1,000 ML IV SCH ×2 (12:24→23:42)
[2019-07-25] MEDS: MIRABEGRON ER 25 MG TAB PO SCH (20:34)
[2019-07-25] MEDS: ATORVASTATIN 10 MG TAB PO SCH (20:35)
[2019-07-26] MEDS: LEVOTHYROXINE SODIUM 50 MCG TABLET PO SCH (06:11)
[2019-07-26 06:34] LABS: BUN Creatinine Ratio 22.1 (10-20); Calcium 7.8 mg/dl (8.5-10.1); Creatinine Clr Calc Pharmacy 22.1 ml/min; Est GFR (African American) 24.4; Potassium 4.3 mmol/L (3.5-5.1)
[2019-07-26] MEDS: LACTOBACILLUS ACIDOPHILUS (FLORANEX) TAB PO SCH ×3 (08:18→16:49)
[2019-07-26] MEDS: ASPIRIN 81 MG ECTAB PO SCH (08:19)
[2019-07-26] MEDS: carvediloL 25 MG TAB PO SCH ×2 (08:19→20:35)
[2019-07-26] MEDS: CLOPIDOGREL BISULFATE 75 MG TAB PO SCH (08:19)
[2019-07-26] MEDS: PENTOXIFYLLINE 400MG EXT REL TAB PO SCH ×2 (08:19→20:32)
[2019-07-26] MEDS: AMLODIPINE BESYLATE 5 MG TAB PO SCH (08:19)
[2019-07-26] MEDS: GABAPENTIN 300 MG CAP PO SCH ×3 (08:19→20:33)
[2019-07-26] MEDS: DOXAZosin MESYLATE 4 MG TAB PO SCH (08:19)
[2019-07-26] MEDS: INSULIN GLARGINE SOLOSTAR 100 UNITS/ML 3 ML PEN SQ SCH (08:24)
[2019-07-26] MEDS: INSULIN ASPART 100 UNITS/ML 3 ML PEN SC SCH ×4 (08:24→21:42)
--- NOTE | 2019-07-26 10:34 | Hospitalist Progress Note ---
Date of Service July 26, 2019 Assessment & Plan (1) Kidney injury: Patient's creatinine has not improved. Patient did have some proteinuria as well as an elevated FeNa. Considering long-term cefepime use, consider AIN as a diagnosis. No real improvement with fluids. Awaiting urine eosinophils along with nephrology consultation. Patient is no longer on antibiotics. Continue to monitor renal function (2) Foot infection: This appears to be resolved. In fact, patient was to discontinue the cefepime on 07/27. For now we will hold off on any further antibiotic use. PT/OT consulted, can continue continue working with the patient as needed. (3) Diabetes: Continue medications as ordered. Blood glucose on [facility] earlier this morning was somewhat low but Accu-Chek was elevated. Patient is on sliding scale. Admission and Anticipated Discharge Date Admission Date: July 24, 2019 Subjective Patient with no new complaints. He is complaining of some deconditioning, PT/OT is already working with the patient. He notes that he has not had a bowel movement today but did have one yesterday. He has ongoing frequent urination, is on IV fluids. Unfortunately, his renal function by labs did not improve much, from 65/2.89 to 61/2.76. Physical Exam Constitutional: cooperative; no acute distress Neck: trachea midline, no thyromegaly Respiratory: normal respiratory effort Auscultation: lungs clear to auscultation bilaterally; no crackles, no rales, no rhonchi and no wheezes Cardiovascular: Rate/Rhythm: regular rate and regular rhythm Heart Sounds: normal S1 and normal S2 Gastrointestinal (Abdomen): Inspection/Auscultation: abdomen normal to inspection Percussion/Palpation: abdomen soft; abdomen nontender, no guardin g, abdomen not rigid and no hepatosplenomegaly Skin: no rashes, warm and dry Results & Data Results & Data ([facility]) Vital Signs (Past 12 Hours) Vital Signs Temp Pulse Resp BP Pulse Ox 07/26/19 08:15 63 07/26/19 07:16 36.5 C 54 L 20 155/73 H 96 07/26/19 02:33 36.4 C L 62 19 159/70 H 96 07/25/19 23:25 36.8 C 51 L 17 149/64 H 96 PG Care Time/CCT Total # of Minutes Spent Total Time Spent with Patient: Total time spent is greater than 50% in coordination of care (as documented) at patient's floor/unit and/or counseling patient: Coding Level of Care Code 65347 Subseq Hosp Care Lvl 2 Diagnoses Kidney injury S37.009A Foot infection L08.9 Diabetes E11.9
[2019-07-26] MEDS: SODIUM CHLORIDE 0.9% 1000ML 1,000 ML IV SCH (12:03)
--- NOTE | 2019-07-26 12:52 | Nephrology Consultation ---
Date of Consultation July 26, 2019 Assessment & Plan (1) CHARLIE (acute kidney injury): Mr. Baird is a 78-year-old male with DMII, hypertension, PAD, and a infected lesion on his right great toe. He was admitted with decreased appetite, diarrhea, slight tremors and weakness. The patient was referred for admission due to an elevated serum creatinine. Creatinine has been stable to subtly improved since admission. Baseline creatinine 1.2 mg/dL. Renal US negative for obstruction. UA +2 protein, microscopy demonstrating a few WBCs and granular casts. Clinical presentation is consistent with prerenal physiology due to dehydration and ATN. The patient is maintained on an GM. He denies any NSAID use. Noting that creatinine has been stable, AIN is unlikely but cannot be excluded. Urine eosinophils are not likely to help with diagnosis. In either way, it appears antibiotics have been stopped. There is no indication for tissue diagnosis or steroids at this time. An appropriately positive fluid balance of >5 L has been achieved. Weight has increased at least 4 kg. Volume status appears euvolemic at this time. Diarrhea has resolved. Steph is taking adequate PO. IVF's have been stopped. BP remains slightly high, lisinopril has not been held. It should be reasonable to continue with appropriate monitoring. Medications overall are acceptable but a dose adjustment of gabapentin, reducing from 300 mg TID to once daily should be considered. If Steph remains hospitalized, please recheck a metabolic profile tomorrow. Otherwise please coordinate outpatient follow up in the nephrology clinic next week. Nephrology will follow peripherally mainly by monitoring labs during the hospitalization so please call with any questions or concerns. History of Present Illness Reason for Consultation: CHARLIE Requesting Physician: Milton Esparza DO Attending Physician: Milton Esparza DO History of Present Illness Mr. Steph Baird is a 78-year-old male with diabetes mellitus II, hypertension, and PAD. He was admitted to [facility] on July 22 with an elevated serum creatinine. Laboratory studies were obtained by his education reporter. Steph has a persistent lesion on his right great toe for which he has been maintained on cefepime as an outpatient. He stated that recent MRI did not show involvement of the bone but there remained concern. Steph became concerned that the medication or infection were causing him to develop weakness and a slight tremor. He was also experiencing some low blood pressure, decreased appetite, and multiple watery stools each day at home. Laboratory studies demonstrated a serum creatinine of 3.0 mg/dL. Prior baseline creatinine was known to be 1.2 mg/dL on June 24. He was admitted for medical evaluation and management. IV saline has been provided to maintain a positive fluid balance. +5.4 L from admission at t his time and weight has increased 4.3 kg. Renal US demonstrated no evidence of obstruction. Steph is non-oliguric. Electrolytes are acceptable. UA demonstrated a few WBC's, 2+ protein, and some granular casts. He remains on lisinopril. Creatinine has improved slightly to 2.76 mg/dL. C diff testing has been negative. Diarrhea has resolved. OVerall, symptoms are improving. Steph denies any lightheadedness or dizziness. His appetite is good. Tremor is also improving. Allergies Allergy/AdvReac Type Severity Reaction Status Date / Time Sulfa (Sulfonamide Allergy Unknown HIVES Verified 07/23/19 19:23 Antibiotics) Home Medications Home Medications Medication Instructions Recorded Confirmed Type acetaminophen [Tylenol Extra 500 mg PO Q6H PRN 07/23/19 07/23/19 History Strength] amlodipine 10 mg PO DAILY 07/23/19 07/23/19 History ammonium lactate 1 applic TOPICAL DAILY 07/23/19 07/23/19 History aspirin [Aspir-81] 81 mg PO DAILY 07/23/19 07/23/19 History atorvastatin 10 mg PO HS 07/23/19 07/23/19 History carvedilol [Coreg] 25 mg PO BID 07/23/19 07/23/19 History cefepime [Maxipime] 2 g IV Q8 07/23/19 07/23/19 History clopidogrel [Plavix] 75 mg PO DAILY 07/23/19 07/23/19 History doxazosin 4 mg PO DAILY 07/23/19 07/23/19 History gabapentin [Neurontin] 300 mg PO TID 07/23/19 07/23/19 History insulin glargine [Lantus Solostar 20 unit SUBCUT DAILY 07/23/19 07/23/19 History U-100 Insulin] levothyroxine 50 mcg PO DAILY 07/23/19 07/23/19 History lisinopril 10 mg PO DAILY 07/23/19 07/23/19 History metformin 1,000 mg PO BID 07/23/19 07/23/19 History mirabegron [Myrbetriq] 25 mg PO HS 07/23/19 07/24/19 History multivitamin 1 tab PO DAILY 07/23/19 07/23/19 History pentoxifylline 400 mg PO BID 07/23/19 07/23/19 History Patient History Medical History Diabetic foot ulcer Diabetic peripheral neuropathy associated with type 2 diabetes mellitus Foot infection Peripheral vascular disease Social History Preferred Language: Slovenian Communication 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 Constitutional: well developed and + well hydrated; no acute distress, not ill appearing and not edematous Eyes: + anicteric sclerae ENMT: Mouth: no oral mucosal abnormality and oral mucous membranes not dry Neck: normal visual inspection and trachea midline Respiratory: normal respiratory effort Cardiovascular: Extremities: + edema (trace pedal edema) Musculoskeletal: Extremities: no cyanosis <0.5 cm erythematous circular lesion with callous formation and slight edema over the right great toe Skin: turgor not decreased Neurologic: Motor/Sensory: + tremor; no asterixis Results & Data Vital Signs (Past 12 Hours) Vital Signs Temp Pulse Resp BP Pulse Ox 07/26/19 08:15 63 07/26/19 07:16 36.5 C 54 L 20 155/73 H 96 07/26/19 02:33 36.4 C L 62 19 159/70 H 96 Laboratory Results Laboratory Results - last 24 hr 07/25/19 07/25/19 07/26/19 16:35 20:12 05:25 Sodium 140 Potassium 4.3 Chloride 113 H Carbon Dioxide 23 Anion Gap 4.0 BUN 61 H Creatinine 2.76 H Est Cr Clr Drug Dosing 22.1 Est GFR ( Amer) 24.4 Est GFR (Non-Af Amer) 21.0 BUN/Creatinine Ratio 22.1 H Glucose 73 POC Glucose 138 H 107 H Calcium 7.8 L Magnesium 2.0 07/26/19 07/26/19 07:28 11:39 Sodium Potassium Chloride Carbon Dioxide Anion Gap BUN Creatinine Est Cr Clr Drug Dosing Est GFR ( Amer) Est GFR (Non-Af Amer) BUN/Creatinine Ratio Glucose POC Glucose 75 209 H Calcium Magnesium PG Care Time/CCT Total # of Minutes Spent Total Time Spent with Patient: Total time spent is greater than 50% in coordination of care (as documented) at patient's floor/unit and/or counseling patient: Coding Level of Care Code 10821 Inpt Consult Level 4 Diagnoses CHARLIE (acute kidney injury) N17.9
[2019-07-26] MEDS: CARBOHYDRATES FOR HYPOGLYCEMIA PO PRN (20:25)
[2019-07-26] MEDS: ATORVASTATIN 10 MG TAB PO SCH (20:32)
[2019-07-26] MEDS: MIRABEGRON ER 25 MG TAB PO SCH (20:33)
[2019-07-26] MEDS: lisinopriL 10 MG TAB PO SCH (20:35)
[2019-07-27] MEDS: CARBOHYDRATES FOR HYPOGLYCEMIA PO PRN (03:12)
[2019-07-27] MEDS: LEVOTHYROXINE SODIUM 50 MCG TABLET PO SCH (05:35)
[2019-07-27 06:47] LABS: Basophils # (auto) 0.01 K/uL (0-0.2); Basophils % (auto) 0.2 %; Eosinophils # (auto) 0.27 K/uL (0-0.5); Eosinophils % (auto) 4.7 %; Hematocrit (blood only) 29.4 % (42-52); Hemoglobin 10.4 g/dL (14.0-18.0); Immature Granulocytes # (auto) 0.01 K/uL (0.00-0.02); Immature Granulocytes % (auto) 0.2 %; Lymphocytes # (auto) 1.39 K/uL (1.2-3.4); Lymphocytes % (auto) 24.3 %; Mean Corpuscular Hemoglobin 30.4 pg (25-34); Mean Corpuscular Hgb Conc 35.4 g/dL (32-36); Mean Platelet Volume 10.1 fL (7.4-10.4); Monocytes # (auto) 0.54 K/uL (0.11-0.59); Monocytes % (auto) 9.4 %; Neutrophils % (auto) 61.2 %; Platelet Count 129 K/uL (130-400); RDW Coefficient of Variation 13.4 % (11.5-14.5); RDW Standard Deviation 42.1 fL (36.4-46.3); Red Blood Count 3.42 M/uL (4.7-6.1); White Blood Count 5.72 K/uL (4.8-10.8)
[2019-07-27 07:08] LABS: BUN Creatinine Ratio 22.6 (10-20); Calcium 7.7 mg/dl (8.5-10.1); Creatinine Clr Calc Pharmacy 25.2 ml/min; Est GFR (African American) 28.6; Est GFR (Non-African American) 24.7; Potassium 4.3 mmol/L (3.5-5.1)
[2019-07-27] MEDS: carvediloL 25 MG TAB PO SCH (08:09)
[2019-07-27] MEDS: CLOPIDOGREL BISULFATE 75 MG TAB PO SCH (08:10)
[2019-07-27] MEDS: LACTOBACILLUS ACIDOPHILUS (FLORANEX) TAB PO SCH ×2 (08:10→13:14)
[2019-07-27] MEDS: PENTOXIFYLLINE 400MG EXT REL TAB PO SCH (08:10)
[2019-07-27] MEDS: ASPIRIN 81 MG ECTAB PO SCH (08:10)
[2019-07-27] MEDS: INSULIN GLARGINE SOLOSTAR 100 UNITS/ML 3 ML PEN SQ SCH (08:11)
[2019-07-27] MEDS: AMLODIPINE BESYLATE 5 MG TAB PO SCH (08:11)
[2019-07-27] MEDS: DOXAZosin MESYLATE 4 MG TAB PO SCH (08:11)
[2019-07-27] MEDS: INSULIN ASPART 100 UNITS/ML 3 ML PEN SC SCH ×2 (08:15→13:13)
[2019-07-27] MEDS: GABAPENTIN 300 MG CAP PO SCH (08:23)
--- NOTE | 2019-07-27 11:50 | Discharge Summary ---
Date of Service July 27, 2019 Admission HPI Per Admitting Provider Steph Baird is a 78y/o M with PMH significant for T2DM, peripheral vascular disease, and a foot infection; presented to the emergency room after being having labs drawn by [facility] this afternoon, and was told he had an abnormal lab and need to be further evaluated. Patient has been following with [facility] for a foot infection for >8 weeks, and over this time he has been treated with Cefepime out of apparent concern for the infection spreading into his bone. During this time, patient notes that he has consistently had diarrhea about 2-3 times a day with only a small amount out at a time, and occasionally with solid formed stool during this time. He denies abdominal pain, discomfort, nausea, vomiting, dysuria, changes in urinary frequency, or urgency. He does note that he feels a little weak and that this has just been the case for awhile. Has very little interest in most meals, and over this time has had lowered oral intake; he attributes this to a recent argument with insurance that has made him more stressed than normal, however, it has been present over the last several weeks. At most over the last week he has drank about 16 ounces of fluids, with occasional oatmeal. He lives at home. Patient has been treated for infection of his right toe which he notes has improved, he states that the antibiotics were stopped this afternoon after he was called about the elevated kidney levels. [facility] has been trending his labs over the last several weeks, with noted Cr of 1.2 on 06/24 and continued raise on weekly checks. Admission Exam Per Admitting Provider Constitutional: WD/WN, vitals as above Eyes: PERRL, conjunctivae normal, anicteric sclerae ENMT: external ear and nose normal, oropharynx normal Neck: normal visual inspection Respiratory: normal respiratory effort, lungs clear to auscultation Cardiovascular: Rate/Rhythm: regular rate and regular rhythm Heart Sounds: normal S1 and normal S2; no gallop, no murmur and no cardiac rub Vessels: no JVD Extremities: no pedal edema Gastrointestinal (Abdomen): normal bowel sounds, soft, nontender, no hepatosplenomegaly Musculoskeletal: no cyanosis or clubbing, extremities motor strength 5/5 Skin: no rashes, warm and dry Neurologic: patellar DTR's 2+ bilat, sensation intact Psychiatric: A+Ox3, euthymic affect Lymphatic: no cervical or axillary lymphadenopathy Principal Diagnosis 1. Acute kidney injury, possible side effect of cefepime versus dehydration/ATN 2. Type 2 diabetes 3. Peripheral vascular disease 4. Diabetic foot ulcer, successfully treated with cefepime Discharge Exam Constitutional cooperative; no acute distress Neck trachea midline, no thyromegaly Respiratory normal respiratory effort Auscultation: lungs clear to auscultation bilaterally; no crackles, no rales, no rhonchi and no wheezes Cardiovascular Rate/Rhythm: regular rate and regular rhythm Heart Sounds: normal S1 and normal S2 Gastrointestinal (Abdomen) Inspection/Auscultation: abdomen normal to inspection Percussion/Palpation: abdomen soft; abdomen nontender, no guarding, abdomen not rigid and no hepatosplenomegaly Musculoskeletal Left foot without obvious wound, patient previously had edema of t the left second digit which tells me acutely resolved Skin no rashes, warm and dry Discharge Data Allergies Allergy/AdvReac Type Severity Reaction Status Date / Time Sulfa (Sulfonamide Allergy Unknown HIVES Verified 07/23/19 19:23 Antibiotics) Consultations 07/23/19 19:41 ED Decision to Admit Stat 07/25/19 13:08 Consult Nephrology Routine Ordered Studies 07/24/19 11:11 US renal/blad retro comp Routine Hospital Course (1) Kidney injury: Patient's creatinine has not improved. Patient did have some proteinuria as well as an elevated FeNa. We did consult nephrology, consideration to AIN versus ATN versus dehydration. Patient was hydrated aggressively normal saline. He did have significant urine output. Creatinine was initially 3.02 on presentation. This is down to 2.42 at time of discharge. I did discuss with Dr. Juárez earlier, plan to discharge with a recheck of his BMP in 1 week with copy sent to him and his primary. Patient should follow-up for an appointment after. As the patient's infection is resolved, no further cefepime is needed. He did have a PICC line in place which can be removed prior to his discharge. (2) Foot infection: This appears to be resolved. In fact, patient was to discontinue the cefepime on 07/27. For now we will hold off on any further antibiotic use. PT/OT consulted, can continue continue working with the patient as needed. (3) Diabetes: Continue medications as ordered. Blood glucose on BMP earlier this morning was somewhat low but Accu-Chek was elevated. Patient is on sliding scale. Total Time Total Time Spent Total Time Spent (In Minutes): Time spent with discharge in excess of 30 minutes Discharge Plan Discharge Items Patient Disposition: Home - Home Health Services Reason For Visit: KIDNEY INJURY Discharge Diagnosis: 1. Acute renal failure, consider side effect of cefepime 2. Type 2 diabetes mellitus 3. Previous osteomyelitis of the left foot, since resolved 4. BPH by history 5. Peripheral vascular disease by history Condition on Discharge: Good Activity: Resume your previous activity Activity Comment: Ambulate with rolling walker as previously instructed Lifting: Gradually increase as tolerated Weightbearing: Full weightbearing Non-emergency contact: Primary Care Provider and Factory Representative Call non-emergency contact if: your symptoms worsen and your temperature is above 101 Follow-up/Referrals: Raul Juárez DO [Physician] - (Follow 1 to 2 weeks with lab work. Call for appointment) Daniel Trivedi MD [Primary Care Provider] - Diet: Carb Consistent or DM2 Ambulatory Orders: Basic Metabolic Panel (Routine) Timeframe: 1 Week Location: Determined by Patient Ordered By: Milton Luna Attending Provider Instructions: Increase fluid intake as possible Pending Studies at Discharge: No Stand-Alone Forms: My [facility] [employer], Smoking Cessation Medications and DC Order Prescriptions: Continued multivitamin Tablet 1 tab PO DAILY RF: 0 carvedilol [Coreg] 25 mg tablet 25 mg PO BID RF: 0 atorvastatin 10 mg Tablet 10 mg PO HS RF: 0 clopidogrel [Plavix] 75 mg tablet 75 mg PO DAILY RF: 0 aspirin [Aspir-81] 81 mg Tablet,Delayed Release (Dr/Ec) 81 mg PO DAILY RF: 0 acetaminophen [Tylenol Extra Strength] 500 mg Tablet 500 mg PO Q6H PRN (Reason: Pain) RF: 0 pentoxifylline 400 mg tablet extended release 400 mg PO BID RF: 0 levothyroxine 50 mcg tablet 50 mcg PO DAILY RF: 0 metformin 1,000 mg tablet 1,000 mg PO BID RF: 0 lisinopril 10 mg tablet 10 mg PO DAILY RF: 0 gabapentin [Neurontin] 300 mg capsule 300 mg PO TID RF: 0 doxazosin 4 mg tablet 4 mg PO DAILY RF: 0 ammonium lactate 12 % Cream 1 applic TOPICAL DAILY RF: 0 Lantus Solostar U-100 Insulin 100 unit/mL (3 mL) insulin pen 20 unit SUBCUT DAILY RF: 0 Myrbetriq 25 mg tablet extended release 24 hr 25 mg PO HS RF: 0 amlodipine 10 mg tablet 10 mg PO DAILY RF: 0 Discontinued cefepime [Maxipime] 2 gram recon soln 2 g IV Q8 RF: 0 Krames/Other Patient Handouts: Diabetes Type 2 Managing Admission Data Admit Date/Time: 07/24/19 11:14 Attending Provider: Milton Esparza Admit Provider: Yang Elmore Primary Care Provider: Daniel Trivedi Other Providers: Felipe Chandler ; [facility],Home Healthcare ; Raul Juárez Coding Level of Care Code D/C Day Management >30 mins Diagnoses Kidney injury S37.009A Foot infection L08.9 Diabetes E11.9
--- NOTE | 2019-07-27 12:23 | Nephrology Progress Note ---
Date of Service July 27, 2019 Assessment & Plan (1) CHARLIE (acute kidney injury): -- CHARLIE related to dehydration in the setting of GM inhibitor therapy. Recent antibiotic therapy and AIN also a concern. Antibiotics have been stopped -- Renal US was negative for obstruction -- Volume status and electrolyte balance are acceptable. Continue to monitor -- Hold Lisinopril until kidney function has recovered -- Baseline Cr has been 1.2 -- If discharge is anticipated, please continue to hold Lisinopril and have patient schedule follow up office visit w/ Dr. Juárez in 7 - 14 days Subjective Mr. Baird was seen & examined in his hospital room this morning. He reports that his diarrhea is improved and he is tolerating his diet. He voiced no new medical concerns. Review of Systems Constitutional: no fever, no chills and no weakness Eyes: no worsening vision and no problem reported Ear, Nose, Mouth, Throat: no problem reported Respiratory: no cough and no dyspnea Cardiovascular: no chest pain, no palpitations and no edema Gastrointestinal: no abdominal pain, no nausea and no vomiting Genitourinary: no dysuria, no urinary hesitancy and no hematuria Musculoskeletal: no back pain Integumentary: no rash Neurologic: no falls, no dizziness and no confusion Physical Exam Constitutional: not in distress Eyes: PERRL, conjunctivae normal, anicteric sclerae ENMT: external ear and nose normal, oropharynx normal Neck: trachea midline, no thyromegaly Respiratory: normal respiratory effort, lungs clear to auscultation Cardiovascular: RRR, no murmur, no edema Gastrointestinal (Abdomen): normal bowel sounds, soft, nontender, no hepatosplenomegaly Musculoskeletal: Extremities: no cyanosis Skin: no rashes, warm and dry Neurologic: awake; not confused Results & Data Vital Signs (Past 12 Hours) Vital Signs Temp Pulse Resp BP Pulse Ox 07/27/19 07:23 36.7 C 55 L 18 149/68 H 96 Laboratory Results Laboratory Tests 07/27/19 07/27/19 06:34 06:34 WBC 5.72 Hgb 10.4 L Hct 29.4 L Plt Count 129 L Sodium 137 Potassium 4.3 Chloride 113 H Carbon Dioxide 21 BUN 55 H Creatinine 2.42 H D PG Care Time/CCT Total # of Minutes Spent Total Time Spent with Patient: Total time spent is greater than 50% in coordination of care (as documented) at patient's floor/unit and/or counseling patient: Coding Level of Care Code 08431 Subseq Hosp Care Lvl 3 Diagnoses CHARLIE (acute kidney injury) N17.9
== END 2019-07-27 15:42 | disposition home health service (06) | DRG 684 ==
LOC: 2W 18:27 → ED 18:27 → SUATTDRO 21:26 → 2W 21:42 → SUATTDRO 07-24 11:14

== ENCOUNTER 2020-04-10 16:22 | Inpatient (IN) ==
--- NOTE | 2020-04-10 17:12 | Emergency Department Note ---
Impression & Plan COVID-19, Weakness, Fall, Hypoxia ED Provider Note Provider: Ashwin Treviño MD DATE OF SERVICE:04/10/2020 CHIEF COMPLAINT: Weakness HISTORY OF PRESENT ILLNESS: Patient is a 79-year-old gentleman history of diabetes, BPH, PVD, hypertension presenting here via ambulance today due to weakness. Patient states his is ill in the hospital and he was diagnosed with Covid from a swab 2 days ago. States today he felt very weak and was in his house and went to go sit down on a rolling office chair and it slid out from under him and he went down to the ground. Denies striking his head or loss of consciousness. Denies chest pain or significant shortness of breath. States that sometimes if he walks a little bit of distance he gets short of breath. Denies any abdominal symptoms of abdominal pain, nausea, vomiting, or significant diarrhea. Patient states his legs are very weak and is able to get up after this. Denies significant pain. States called ambulance and they were able to get him up and standing and he did have significant pain with this but still felt very weak in his legs. Denies significant back pain at this point. States he lives alone. Patient states he more or less slid to the ground and that was very minimal fall. Was on the ground for about 2 hours. REVIEW OF SYSTEMS: A total of 10 review of systems was obtained and negative except as stated above in the HPI. PAST MEDICAL HISTORY: As noted above MEDICATIONS: Reviewed home medications SOCIAL HISTORY: , lives at home usually with his who is currently hospitalized, distant former smoker PHYSICAL EXAM: GENERAL: alert and oriented in no acute distress on stretcher Head: normocephalic and atraumatic EYES: No injection, discharge or icterus. NECK: Trachea midline. Supple. ENT: Mucous membranes pink and moist. LUNGS: Airway patent. No retractions. Breath sounds clear with good air entry bilaterally. HEART: Regular rate and rhythm. No chest wall tenderness ABDOMEN: Soft and non-tender, without guarding or rebound. SKIN: Acyanotic, warm, dry, without rashes EXTREMITIES: With some mild trace bilateral swelling of the lower extremities no significant pain with palpation or ROM of the lower extremities. No significant tenderness of the hip area. NEUROLOGICAL: No focal deficits. No aphasia. No facial droop or slurred speech. EK bpm normal sinus rhythm without PVC or PAC. No acute ST segment elevation or depression. Normal QTC. CONTINUOUS CARDIAC MONITORING: was ordered and showed a heart rate of 65 bpm in normal sinus rhythm Patient's laboratory studies and imaging reviewed. Differential includes Infection, dehydration, metabolic abnormality, hypo/hype rglycemia, electrolyte disturbance, anemia, hypoxia, cardiac sources, intracerebral event, toxicologic, neurologic, as well as other pathologies. IMPRESSION/MEDICAL DECISION MAKING: Patient presents after weakness and fall today. Is coronavirus positive maintained on precautions here. Exam without significant findings for traumatic injury but a chest x-ray and pelvis x-ray were obtained. Did not strike his head lose conscious and do not believe any imaging is head or neck at this point. Denies significant chest pain and pulse ox is around 90% on room air. Denies significant shortness of breath. Basic labs EKG chest x-ray as well as the pelvics were obtained. Concern for weakness related to his coronavirus infection. With his permission discussed with his via phone who states she has some concerns about ability around at home given his weakness. She also states she has a virus although doing better than him unsure how will she be able to care for him at home at the current time. Blood work shows some slight leukopenia consistent with a viral infection. Somewhat improved anemia compared to previous. No significant electrolyte abnormality. No evidence of UTI. No significant thyroid dysfunction or evidence of ACS. Troponin not elevated. Did desaturate into the high 80s on room air here without any exertion. X-rays per my review and radiology without significant evidence of fractures. Some hypoinflation on the chest x-ray consistent likely with his mild viral illness. Given some steroid given his hypoxia discussed with him and his feel that further observation here in care would be reasonable given his significant weakness and mild hypoxia. Lower suspicion this represents acute PE at this point given minimal oxygen requirement and history. DIAGNOSIS: COVID-19, weakness, fall, hypoxia DISPOSITION: Hospitalist will evaluate Patient was agreeable with this plan. Past Med/Surg History Medical History (Updated 04/10/20 @ 18:43 by Ashwin Treviño M.D.) Diabetic foot ulcer Diabetic peripheral neuropathy associated with type 2 diabetes mellitus Foot infection Peripheral vascular disease Social History Smoking Status: Never smoker Cigarettes Per Day: one and a half packs 50 years ago; Hx Alcohol Use: No Hx Substance Use: No Preferred Language: Swedish Communication Ability: Effective Dynamometer Tester Required: No Beliefs That Will Affect Care: None marital status: Current Living Situation: Spouse Feels Safe at Home: Yes Assistive Devices: Walker Allergies Allergies Allergy/AdvReac Type Severity Reaction Status Date / Time Sulfa (Sulfonamide Allergy Unknown Hives Verified 04/10/20 17:45 Antibiotics) Home Meds Home Medications Medication Instructions Recorded Confirmed Lantus Solostar U-100 Insulin 20 unit SUBCUT QAM 07/23/19 04/10/20 acetaminophen [Tylenol Extra 500 mg PO Q6H PRN 07/23/19 04/10/20 Strength] amlodipine 10 mg PO DAILY 07/23/19 04/10/20 ammonium lactate 1 applic TOPICAL DAILY 07/23/19 04/10/20 atorvastatin 10 mg PO HS 07/23/19 04/10/20 carvedilol [Coreg] 25 mg PO BID 07/23/19 04/10/20 clopidogrel [Plavix] 75 mg PO DAILY 07/23/19 04/10/20 gabapentin [Neurontin] 300 mg PO TID 07/23/19 04/10/20 levothyroxine 50 mcg PO DAILY 07/23/19 04/10/20 metformin 1,000 mg PO BID 07/23/19 04/10/20 multivitamin 1 tab PO DAILY 07/23/19 04/10/20 pentoxifylline 400 mg PO BID 07/23/19 04/10/20 cholecalciferol (vitamin D3) 10 20 mcg PO DAILY cap 03/31/20 04/10/20 mcg (400 unit) capsule doxazosin 4 mg tablet 4 mg PO BID tab 03/31/20 04/10/20 aspirin [Aspirin Low Dose] 81 mg PO DAILY 04/10/20 04/10/20 azithromycin See Rx Instructions .ROUTE .COMPLEX 04/10/20 04/10/20 Previous Rx's Medication Instructions Recorded mirabegron 50 mg tablet,extended 50 mg PO DAILY #90 tab 03/23/20 release 24 hr solifenacin 10 mg tablet 10 mg PO DAILY #30 tab 03/23/20 Results & Data (ED) Vital Signs Vital Signs - 24 hr 04/10/20 16:28 04/10/20 17:03 04/10/20 18:06 Temperature 36.8 C Temperature Source Oral Pulse Rate 62 65 Pulse Rate from SpO2 Sensor 60 Pulse Rhythm Regular Pulse Strength Normal Respiratory Rate 20 20 Respiratory Effort / Characteristics Non-Labored Respiratory Depth Normal Respiratory Pattern Regular Blood Pressure 154/72 H 148/68 H Blood Pressure Mean 99 97 Blood Pressure Position Sitting Pulse Oximetry 90 86 L 99 Oxygen Delivery Method Room Air Room Air Nasal Cannula Oxygen Flow Rate 2 Sepsis Recent Fever Within 48 Hours No Sepsis New/Unexplained Change in Mental Status No Sepsis Action Taken by Nursing No Action Required Oxygen Flow Rate - Titration 2 Pulse Oximetry Post Tiitration 96 04/10/20 19:00 04/10/20 19:30 04/10/20 20:00 Temperature Temperature Source Pulse Rate 66 61 61 Pulse Rate from SpO2 Sensor 61 Pulse Rhythm Pulse Strength Respiratory Rate 21 20 19 Respiratory Effort / Characteristics Respiratory Depth Respiratory Pattern Blood Pressure Blood Pressure Mean Blood Pressure Position Pulse Oximetry 99 Oxygen Delivery Method Oxygen Flow Rate Sepsis Recent Fever Within 48 Hours Sepsis New/Unexplained Change in Mental Status Sepsis Action Taken by Nursing Oxygen Flow Rate - Titration Pulse Oximetry Post Tiitration 04/10/20 20:10 04/10/20 20:20 04/10/20 20:30 Temperature Temperature Source Pulse Rate 61 62 62 Pulse Rate from SpO2 Sensor Pulse Rhythm Pulse Strength Respiratory Rate 20 19 20 Respiratory Effort / Characteristics Respiratory Depth Respiratory Pattern Blood Pressure Blood Pressure Mean Blood Pressure Position Pulse Oximetry Oxygen Delivery Method Oxygen Flow Rate Sepsis Recent Fever Within 48 Hours Sepsis New/Unexplained Change in Mental Status Sepsis Action Taken by Nursing Oxygen Flow Rate - Titration Pulse Oximetry Post Tiitration 04/10/20 20:40 04/10/20 20:50 04/10/20 21:00 Temperature Temperature Source Pulse Rate 62 61 65 Pulse Rate from SpO2 Sensor Pulse Rhythm Pulse Strength Respiratory Rate 21 22 22 Respiratory Effort / Characteristics Respiratory Depth Respiratory Pattern Blood Pressure Blood Pressure Mean Blood Pressure Position Pulse Oximetry Oxygen Delivery Method Oxygen Flow Rate Sepsis Recent Fever Within 48 Hours Sepsis New/Unexplained Change in Mental Status Sepsis Action Taken by Nursing Oxygen Flow Rate - Titration Pulse Oximetry Post Tiitration 04/10/20 21:10 04/10/20 21:20 04/10/20 21:30 Temperature Temperature Source Pulse Rate 62 63 62 Pulse Rate from SpO2 Sensor Pulse Rhythm Pulse Strength Respiratory Rate 21 20 19 Respiratory Effort / Characteristics Respiratory Depth Respiratory Pattern Blood Pressure Blood Pressure Mean Blood Pressure Position Pulse Oximetry Oxygen Delivery Method Oxygen Flow Rate Sepsis Recent Fever Within 48 Hours Sepsis New/Unexplained Change in Mental Status Sepsis Action Taken by Nursing Oxygen Flow Rate - Titration Pulse Oximetry Post Tiitration 04/10/20 21:40 04/10/20 21:46 04/10/20 21:50 Temperature Temperature Source Pulse Rate 63 71 63 Pulse Rate from SpO2 Sensor 63 Pulse Rhythm Pulse Strength Respiratory Rate 24 22 20 Respiratory Effort / Characteristics Respiratory Depth Respiratory Pattern Blood Pressure 148/68 H Blood Pressure Mean 97 Blood Pressure Position Pulse Oximetry Oxygen Delivery Method Oxygen Flow Rate Sepsis Recent Fever Within 48 Hours Sepsis New/Unexplained Change in Mental Status Sepsis Action Taken by Nursing Oxygen Flow Rate - Titration Pulse Oximetry Post Tiitration Laboratory Data Result diagrams: 04/10/20 17:20 04/10/20 17:20 Lab Results 04/10/20 04/10/20 04/10/20 Range/Units 17:05 17:20 17:20 WBC 4.49 L (4.8-10.8) K/uL RBC 3.98 L (4.7-6.1) M/uL Hgb 12.2 L (14.0-18.0) g/dL Hct 34.6 L (42-52) % MCV 86.9 (80-100) fL MCH 30.7 (25-34) pg MCHC 35.3 (32-36) g/dL RDW Std Deviation 44.0 (36.4-46.3) fL RDW Coeff of Jimmy 13.7 (11.5-14.5) % Plt Count 133 (130-400) K/uL MPV 9.8 (7.4-10.4) fL Immature Gran % (Auto) 0.2 % Neut % (Auto) 67.5 % Lymph % (Auto) 17.4 % [place] % (Auto) 14.7 % Eos % (Auto) 0.0 % Baso % (Auto) 0.2 % Neut # (Auto) 3.03 (1.4-6.5) K/uL Lymph # (Auto) 0.78 L (1.2-3.4) K/uL [place] # (Auto) 0.66 H (0.11-0.59) K/uL Eos # (Auto) 0.00 (0-0.5) K/uL Baso # (Auto) 0.01 (0-0.2) K/uL Immature Gran # (Auto) 0.01 (0.00-0.02) K/uL PT 11.4 (9.0-12.0) Seconds INR 1.1 (0.9-1.1) Sodium (136-145) mmol/L Potassium (3.5-5.1) mmol/L Chloride (98-107) mmol/L Carbon Dioxide (21-32) mmol/L Anion Gap (3-11) BUN (7-18) mg/dl Creatinine (0.6-1.4) mg/dl Est Cr Clr Drug Dosing ml/min Est GFR ( Amer) Est GFR (Non-Af Amer) BUN/Creatinine Ratio (10-20) Glucose (70-99) mg/dl Calcium (8.5-10.1) mg/dl Magnesium (1.8-2.4) mg/dl Total Bilirubin (0.2-1) mg/dl AST (15-37) U/L ALT (12-78) U/L Alkaline Phosphatase (45-117) U/L Total Creatine Kinase (39-308) U/L Troponin I (0-0.045) ng/ml Total Protein (6.4-8.2) gm/dl Albumin (3.4-5.0) gm/dl Globulin (2.5-4.0) gm/dl Albumin/Globulin Ratio (0.9-2) TSH (0.300-4.500) uIu/ml Urine Color Yellow Urine Appearance Clear (Clear) Urine pH 5.0 (4.5-7.5) Ur Specific [place] 1.024 (1.000-1.030) Urine Protein 2+ H (Negative) Urine Glucose (UA) Negative (Negative) Urine Ketones Trace H (Negative) Urine Blood Negative (Negative) Urine Nitrite Negative (Negative) Urine Bilirubin Negative (Negative) Urine Urobilinogen Negative (Negative) Ur Leukocyte Esterase Negative (Negative) Urine WBC (Auto) 1-5 (0-5) /hpf Urine RBC (Auto) 0-4 (0-4) /hpf U Hyaline Cast (Auto) 1-5 (0-5) /lpf U Epithel Cells (Auto) 5-10 H (0-5) /lpf Urine Bacteria (Auto) Negative (Negative) Blood Type Antibody Screen 12/25/20 12/25/20 Range/Units 17:20 17:36 WBC (4.8-10.8) K/uL RBC (4.7-6.1) M/uL Hgb (14.0-18.0) g/dL Hct (42-52) % MCV (80-100) fL MCH (25-34) pg MCHC (32-36) g/dL RDW Std Deviation (36.4-46.3) fL RDW Coeff of Jimmy (11.5-14.5) % Plt Count (130-400) K/uL MPV (7.4-10.4) fL Immature Gran % (Auto) % Neut % (Auto) % Lymph % (Auto) % [place] % (Auto) % Eos % (Auto) % Baso % (Auto) % Neut # (Auto) (1.4-6.5) K/uL Lymph # (Auto) (1.2-3.4) K/uL [place] # (Auto) (0.11-0.59) K/uL Eos # (Auto) (0-0.5) K/uL Baso # (Auto) (0-0.2) K/uL Immature Gran # (Auto) (0.00-0.02) K/uL PT (9.0-12.0) Seconds INR (0.9-1.1) Sodium 136 (136-145) mmol/L Potassium 3.7 (3.5-5.1) mmol/L Chloride 101 (98-107) mmol/L Carbon Dioxide 28 (21-32) mmol/L Anion Gap 6.0 (3-11) BUN 22 H (7-18) mg/dl Creatinine 1.38 (0.6-1.4) mg/dl Est Cr Clr Drug Dosing 48.4 ml/min Est GFR ( Amer) 56.0 Est GFR (Non-Af Amer) 48.3 BUN/Creatinine Ratio 15.7 (10-20) Glucose 135 H (70-99) mg/dl Calcium 8.9 (8.5-10.1) mg/dl Magnesium 1.8 (1.8-2.4) mg/dl Total Bilirubin 0.5 (0.2-1) mg/dl AST 23 (15-37) U/L ALT 23 (12-78) U/L Alkaline Phosphatase 68 (45-117) U/L Total Creatine Kinase 123 (39-308) U/L Troponin I < 0.015 (0-0.045) ng/ml Total Protein 6.7 (6.4-8.2) gm/dl Albumin 3.7 (3.4-5.0) gm/dl Globulin 3.0 (2.5-4.0) gm/dl Albumin/Globulin Ratio 1.2 (0.9-2) TSH 2.920 (0.300-4.500) uIu/ml Urine Color Urine Appearance (Clear) Urine pH (4.5-7.5) Ur Specific [place] (1.000-1.030) Urine Protein (Negative) Urine Glucose (UA) (Negative) Urine Ketones (Negative) Urine Blood (Negative) Urine Nitrite (Negative) Urine Bilirubin (Negative) Urine Urobilinogen (Negative) Ur Leukocyte Esterase (Negative) Urine WBC (Auto) (0-5) /hpf Urine RBC (Auto) (0-4) /hpf U Hyaline Cast (Auto) (0-5) /lpf U Epithel Cells (Auto) (0-5) /lpf Urine Bacteria (Auto) (Negative) Blood Type O Negative Antibody Screen NEGATIVE Administered Medications Discontinued Medications Dexamethasone (Dexamethasone Sod Inj 10 Mg/Ml Vial) 6 mg IV NOW ONE Stop: 04/10/20 18:37 Last Admin: 04/10/20 18:46 Dose: 6 mg Documented by: [id number] Sodium Chloride (Nss) 250 mls @ 999 mls/hr IV .Q16M ONE Stop: 04/10/20 18:50 Last Infusion: 04/10/20 19:16 Dose: 0 mls/hr Documented by: [id number] Admin: 04/10/20 18:46 Dose: 999 mls/hr Documented by: [id number] Discharge Plan Visit Data Chief Complaint: Weakness ED Provider: Ashwin Treviño Discharge Problem: COVID-19, Weakness, Fall, Hypoxia Patient Disposition: Being Evaluated by Hospitalist Forms Stand Alone Forms: [facility] Prescriptions Prescriptions: No Action Myrbetriq 50 mg tablet extended release 24 hr 50 mg PO DAILY Qty: 90 RF: 3 solifenacin [Vesicare] 10 mg tablet 10 mg PO DAILY Qty: 30 RF: 11 cholecalciferol (vitamin D3) 10 mcg (400 unit) capsule 20 mcg PO DAILY RF: 0 multivitamin Tablet 1 tab PO DAILY RF: 0 carvedilol [Coreg] 25 mg tablet 25 mg PO BID RF: 0 atorvastatin 10 mg Tablet 10 mg PO HS RF: 0 clopidogrel [Plavix] 75 mg tablet 75 mg PO DAILY RF: 0 acetaminophen [Tylenol Extra Strength] 500 mg Tablet 500 mg PO Q6H PRN (Reason: Pain) RF: 0 pentoxifylline 400 mg tablet extended release 400 mg PO BID RF: 0 levothyroxine 50 mcg tablet 50 mcg PO DAILY RF: 0 metformin 1,000 mg tablet 1,000 mg PO BID RF: 0 gabapentin [Neurontin] 300 mg capsule 300 mg PO TID RF: 0 ammonium lactate 12 % Cream 1 applic TOPICAL DAILY RF: 0 Lantus Solostar U-100 Insulin 100 unit/mL (3 mL) insulin pen 20 unit SUBCUT QAM RF: 0 amlodipine 10 mg tablet 10 mg PO DAILY RF: 0 doxazosin 4 mg tablet 4 mg PO BID RF: 0 azithromycin 250 mg tablet See Rx Instructions .ROUTE .COMPLEX RF: 0 aspirin [Aspirin Low Dose] 81 mg Tablet,Delayed Release (Dr/Ec) 81 mg PO DAILY RF: 0 Referrals Referrals: Daniel Trivedi MD [Primary Care Provider] - Discharge Problem: Fall Qualifiers: Encounter type: initial encounter Qualified Code(s): W19.XXXA - Unspecified fall, initial encounter
[2020-04-10 17:36] LABS: Basophils # (auto) 0.01 K/uL (0-0.2); Basophils % (auto) 0.2 %; Hematocrit (blood only) 34.6 % (42-52); Hemoglobin 12.2 g/dL (14.0-18.0); Immature Granulocytes # (auto) 0.01 K/uL (0.00-0.02); Immature Granulocytes % (auto) 0.2 %; Lymphocytes # (auto) 0.78 K/uL (1.2-3.4); Lymphocytes % (auto) 17.4 %; Mean Corpuscular Hemoglobin 30.7 pg (25-34); Mean Corpuscular Hgb Conc 35.3 g/dL (32-36); Mean Corpuscular Volume 86.9 fL (80-100); Mean Platelet Volume 9.8 fL (7.4-10.4); Monocytes # (auto) 0.66 K/uL (0.11-0.59); Monocytes % (auto) 14.7 %; Neutrophils # (auto) 3.03 K/uL (1.4-6.5); Neutrophils % (auto) 67.5 %; Platelet Count 133 K/uL (130-400); RDW Coefficient of Variation 13.7 % (11.5-14.5); Red Blood Count 3.98 M/uL (4.7-6.1); White Blood Count 4.49 K/uL (4.8-10.8)
[2020-04-10 17:39] LABS: Appearance Urine Clear (Clear); Bacteria Urine Automated Negative (Negative); Bilirubin Urine Negative (Negative); Blood Urine Negative (Negative); Color Urine Yellow; Glucose Urine UA Negative (Negative); Ketones Urine Trace (Negative); Leukocyte Esterase Urine Negative (Negative); Nitrite Urine Negative (Negative); Protein Urine 2+ (Negative); RBC Urine Automated 0-4 /hpf (0-4); Specific Gravity Urine 1.024 (1.000-1.030); Urobilinogen Urine Negative (Negative)
[2020-04-10 17:44] LABS: INR 1.1 (0.9-1.1); Prothrombin Time 11.4 Seconds (9.0-12.0)
[2020-04-10 17:52] LABS: Alanine Aminotransferase 23 U/L (12-78); Albumin Level 3.7 gm/dl (3.4-5.0); Aspartate Aminotransferase 23 U/L (15-37); BUN Creatinine Ratio 15.7 (10-20); Blood Urea Nitrogen 22 mg/dl (7-18); Calcium 8.9 mg/dl (8.5-10.1); Carbon Dioxide 28 mmol/L (21-32); Chloride 101 mmol/L (98-107); Creatinine Clr Calc Pharmacy 48.4 ml/min; Est GFR (Non-African American) 48.3; Glucose 135 mg/dl (70-99); Magnesium 1.8 mg/dl (1.8-2.4); Potassium 3.7 mmol/L (3.5-5.1); Sodium 136 mmol/L (136-145)
--- NOTE | 2020-04-10 17:55 | XRay Report ---
XR chest 1V portable CLINICAL HISTORY: weakness COMPARISON STUDY: 07/23/2019 FINDINGS: The heart is borderline enlarged. There are low lung volumes. There are increased parenchym al markings likely on a hypoventilatory bases although an infectious/inflammatory processes could mary ann ear similar. There is no pneumothorax identified. There are no significant pleural effusions. IMPRESSION: 1. Low lung volumes with increased bilateral markings likely on a hypoventilatory basis. ACT 112: Negative or not required by law. Electronically signed by: Abimael Downey M.D. 04/10/2020 5:54 PM
--- NOTE | 2020-04-10 17:56 | XRay Report ---
XR pelvis 1-2V routine CLINICAL HISTORY: Pelvic pain status post trauma COMPARISON: None. DISCUSSION: Degenerative changes are present within the lower lumbar spine. There is no SI joint vazquez tases. There is no symphysis diastases. There are extensive vascular calcifications. No hip fractures are visualized. There is no dislocation. IMPRESSION: No acute fractures or dislocations identified. ACT 112: Negative or not required by law. Electronically signed by: Abimael Downey M.D. 04/10/2020 5:55 PM
[2020-04-10 18:03] LABS: Albumin Globulin Ratio 1.2 (0.9-2); Alkaline Phosphatase 68 U/L (45-117); Bilirubin,Total 0.5 mg/dl (0.2-1); Creatine Kinase 123 U/L (39-308); Total Protein 6.7 gm/dl (6.4-8.2); Troponin I < 0.015 ng/ml (0-0.045)
[2020-04-10] MEDS ORDERED: SODIUM CHLORIDE 0.9% 250 ML IV ONE (18:35)
[2020-04-10] MEDS ORDERED: DEXAMETHASONE SOD INJ 10 MG/ML VIAL IV ONE (18:36)
--- NOTE | 2020-04-10 22:43 | History & Physical Report ---
Date of Service April 10, 2020 Assessment & Plan (1) Pneumonia due to COVID-19 virus: Pneumonia due to COVID-19 virus with hypoxia, generalized weakness and fall- Dexamethasone 6 mg IV every morning Remdesivir IV per protocol Azithromycin 500 mg IV daily NSS + KCl 20 mEq at 60 mils per hour Oxygen titration to keep pulse ox 94 to 95% Will likely need PT and OT consults prior to discharge Present on Admission?: Yes (2) Hypoxia: See above Present on Admission?: Yes (3) Peripheral vascular disease: Peripheral vascular disease/hypertension- Continue pentoxifylline, carvedilol and amlodipine Continue aspirin and clopidogrel Present on Admission?: Yes (4) Hypertension: See above Present on Admission?: Yes (5) Hyperlipidemia: Continue atorvastatin Present on Admission?: Yes (6) Diabetes: Reduce Lantus insulin in half. Placed on Accu-Cheks before meals and at bedtime with NovoLog coverage per scale May need increase Lantus if becomes hyperglycemic on dexamethasone Hold metformin Present on Admission?: Yes (7) Hypothyroidism (acquired): Continue levothyroxine Present on Admission?: Yes (8) Diabetic peripheral neuropathy associated with type 2 diabetes mellitus: Continue gabapentin Present on Admission?: Yes (9) Benign prostatic hyperplasia (BPH) with urinary urgency: Continue doxazosin, mirabegron and solifenacin Present on Admission?: Yes History of Present Illness Chief Complaint: The patient presents to the emergency department with complaint of severe weakness, generalized fatigue, shortness of breath and dyspnea on exertion, and landed on the ground when he went to sit on a rolling chair that went out from under him earlier in the evening Primary Care Provider: Daniel Trivedi MD The patient is a 79-year-old male with past medical history including BPH with LUTS, peripheral vascular disease, diabetic peripheral neuropathy, diabetic foot ulcer, diabetes mellitus, acute kidney injury and recent diagnosis with COVID-19 infection from swab 2 days previously. He reports his is presently ill in the hospital, which prompted his COVID-19 testing. His pulse ox upon arrival to the emergency department was 86% on room air. He does report loss of taste and smell, and thus has little appetite Allergies Allergy/AdvReac Type Severity Reaction Status Date / Time Sulfa (Sulfonamide Allergy Unknown Hives Verified 04/10/20 17:45 Antibiotics) Home Medications Medication Instructions Recorded Confirmed Type Lantus Solostar U-100 Insulin 20 unit SUBCUT QAM 07/23/19 04/10/20 History acetaminophen [Tylenol Extra 500 mg PO Q6H PRN 07/23/19 04/10/20 History Strength] amlodipine 10 mg PO DAILY 07/23/19 04/10/20 History ammonium lactate 1 applic TOPICAL DAILY 07/23/19 04/10/20 History atorvastatin 10 mg PO HS 07/23/19 04/10/20 History carvedilol [Coreg] 25 mg PO BID 07/23/19 04/10/20 History clopidogrel [Plavix] 75 mg PO DAILY 07/23/19 04/10/20 History gabapentin [Neurontin] 300 mg PO TID 07/23/19 04/10/20 History levothyroxine 50 mcg PO DAILY 07/23/19 04/10/20 History metformin 1,000 mg PO BID 07/23/19 04/10/20 History multivitamin 1 tab PO DAILY 07/23/19 04/10/20 History pentoxifylline 400 mg PO BID 07/23/19 04/10/20 History mirabegron 50 mg tablet,extended 50 mg PO DAILY #90 tab 03/23/20 04/10/20 Rx release 24 hr solifenacin 10 mg tablet 10 mg PO DAILY #30 tab 03/23/20 04/10/20 Rx cholecalciferol (vitamin D3) 10 20 mcg PO DAILY cap 03/31/20 04/10/20 History mcg (400 unit) capsule doxazosin 4 mg tablet 4 mg PO BID tab 03/31/20 04/10/20 History aspirin [Aspirin Low Dose] 81 mg PO DAILY 04/10/20 04/10/20 History azithromycin See Rx Instructions .ROUTE .COMPLEX 04/10/20 04/10/20 History Past Med/Surg History Medical History (Updated 04/11/20 @ 04:40 by Felipe Chandler MD) Diabetic foot ulcer Diabetic peripheral neuropathy associated with type 2 diabetes mellitus Foot infection Hyperlipidemia Hypertension Hypothyroidism (acquired) Peripheral vascular disease Social History Smoking Status: Never smoker Cigarettes Per Day: one and a half packs 50 years ago; Hx Alcohol Use: No Hx Substance Use: No Preferred Language: Macedonian Communication Ability: Effective Through Operator Required: No Beliefs That Will Affect Care: None marital status: Current Living Situation: Spouse Feels Safe at Home: Yes Assistive Devices: Walker Review of Systems Review of Systems: The patient denies chest pain, palpitations, cough, lower extremity swelling, sore throat, fevers, chills, sweats, nausea, vomiting, diarrhea , constipation, abdominal pain, pelvic pain, blood in urine or stool, dysuria, urinary frequency or urgency, headache, memory loss, loss of consciousness, rash, abnormal bruising or bleeding, imbalance, focal weakness, generalized arthralgias or myalgias, back or neck pain, or night sweats. The review of systems is otherwise negative other than for that already noted above, and at least 10 systems have been reviewed. Physical Exam Physical Exam: The patient is awake, alert and oriented 3, looks very fatigued, normocephalic and atraumatic, lying in bed and in no acute distress. HEENT--PERRL, EOMI, mucous membranes and oropharynx dry. Neck--supple. No JVD. No bruits. Thyroid normal, trachea midline, no adenopathy. Heart--normal S1 and S2. No murmurs, rubs or gallops. Lungs--coarse breath sounds bilaterally. No respiratory distress, no accessory muscle use. Abdomen--normal bowel sounds and soft. Nontender. Nondistended, no hernias or masses, no organomegaly. Extremities--no cyanosis or clubbing. No edema. Dermatologic--normal skin turgor, normal color, no abnormal lymph nodes, no rash. Neurologic--cranial nerves II through XII grossly intact. Rheumatologic--normal range of motion. Psychiatric--normal affect. Results & Data Results & Data ([facility]) Vital Signs (Past 12 Hours) Vital Signs Temp Pulse Resp BP Pulse Ox 04/10/20 21:50 63 20 04/10/20 21:46 71 22 148/68 H 04/10/20 21:40 63 24 04/10/20 21:30 62 19 04/10/20 21:20 63 20 04/10/20 21:10 62 21 04/10/20 21:00 65 22 04/10/20 20:50 61 22 04/10/20 20:40 62 21 04/10/20 20:30 62 20 04/10/20 20:20 62 19 04/10/20 20:10 61 20 04/10/20 20:00 61 19 04/10/20 19:30 61 20 04/10/20 19:00 66 21 99 04/10/20 18:06 65 20 148/68 H 99 04/10/20 17:03 86 L 04/10/20 16:28 98.2 F 62 20 154/72 H 90 Laboratory Results Laboratory Results WBC 4.49 K/uL (4.8-10.8) L 04/10/20 17:20 RBC 3.98 M/uL (4.7-6.1) L 04/10/20 17:20 Hgb 12.2 g/dL (14.0-18.0) L 04/10/20 17:20 Hct 34.6 % (42-52) L 04/10/20 17:20 MCV 86.9 fL (80-100) 04/10/20 17:20 MCH 30.7 pg (25-34) 04/10/20 17:20 MCHC 35.3 g/dL (32-36) 04/10/20 17:20 RDW Std Deviation 44.0 fL (36.4-46.3) 04/10/20 17:20 RDW Coeff of Jimmy 13.7 % (11.5-14.5) 04/10/20 17:20 Plt Count 133 K/uL (130-400) 04/10/20 17:20 MPV 9.8 fL (7.4-10.4) 04/10/20 17:20 Immature Gran % (Auto) 0.2 % 04/10/20 17:20 Neut % (Auto) 67.5 % 04/10/20 17:20 Lymph % (Auto) 17.4 % 04/10/20 17:20 Boundary % (Auto) 14.7 % 04/10/20 17:20 Eos % (Auto) 0.0 % 04/10/20 17:20 Baso % (Auto) 0.2 % 04/10/20 17:20 Neut # (Auto) 3.03 K/uL (1.4-6.5) 04/10/20 17:20 Lymph # (Auto) 0.78 K/uL (1.2-3.4) L 04/10/20 17:20 Boundary # (Auto) 0.66 K/uL (0.11-0.59) H 04/10/20 17:20 Eos # (Auto) 0.00 K/uL (0-0.5) 04/10/20 17:20 Baso # (Auto) 0.01 K/uL (0-0.2) 04/10/20 17:20 Immature Gran # (Auto) 0.01 K/uL (0.00-0.02) 04/10/20 17:20 PT 11.4 Seconds (9.0-12.0) 04/10/20 17:20 INR 1.1 (0.9-1.1) 04/10/20 17:20 Sodium 136 mmol/L (136-145) 04/10/20 17:20 Potassium 3.7 mmol/L (3.5-5.1) 04/10/20 17:20 Chloride 101 mmol/L (98-107) 04/10/20 17:20 Carbon Dioxide 28 mmol/L (21-32) 04/10/20 17:20 Anion Gap 6.0 (3-11) 04/10/20 17:20 BUN 22 mg/dl (7-18) H 04/10/20 17:20 Creatinine 1.38 mg/dl (0.6-1.4) 04/10/20 17:20 Est Cr Clr Drug Dosing 48.4 ml/min 04/10/20 17:20 Est GFR ( Amer) 56.0 04/10/20 17:20 Est GFR (Non-Af Amer) 48.3 04/10/20 17:20 BUN/Creatinine Ratio 15.7 (10-20) 04/10/20 17:20 Glucose 135 mg/dl (70-99) H 04/10/20 17:20 POC Glucose 252 mg/dl (70-99) H 04/11/20 02:39 Calcium 8.9 mg/dl (8.5-10.1) 04/10/20 17:20 Magnesium 1.8 mg/dl (1.8-2.4) 04/10/20 17:20 Total Bilirubin 0.5 mg/dl (0.2-1) 04/10/20 17:20 AST 23 U/L (15-37) 12/25/20 17:20 ALT 23 U/L (12-78) 04/10/20 17:20 Alkaline Phosphatase 68 U/L (45-117) 04/10/20 17:20 Total Creatine Kinase 123 U/L (39-308) 04/10/20 17:20 Troponin I < 0.015 ng/ml (0-0.045) 04/10/20 17:20 Total Protein 6.7 gm/dl (6.4-8.2) 04/10/20 17:20 Albumin 3.7 gm/dl (3.4-5.0) 04/10/20 17:20 Globulin 3.0 gm/dl (2.5-4.0) 04/10/20 17:20 Albumin/Globulin Ratio 1.2 (0.9-2) 04/10/20 17:20 TSH 2.920 uIu/ml (0.300-4.500) 04/10/20 17:20 Urine Color Yellow 04/10/20 17:05 Urine Appearance Clear (Clear) 04/10/20 17:05 Urine pH 5.0 (4.5-7.5) 04/10/20 17:05 Ur Specific [place] 1.024 (1.000-1.030) 04/10/20 17:05 Urine Protein 2+ (Negative) H 04/10/20 17:05 Urine Glucose (UA) Negative (Negative) 04/10/20 17:05 Urine Ketones Trace (Negative) H 04/10/20 17:05 Urine Blood Negative (Negative) 04/10/20 17:05 Urine Nitrite Negative (Negative) 04/10/20 17:05 Urine Bilirubin Negative (Negative) 04/10/20 17:05 Urine Urobilinogen Negative (Negative) 04/10/20 17:05 Ur Leukocyte Esterase Negative (Negative) 04/10/20 17:05 Urine WBC (Auto) 1-5 /hpf (0-5) 04/10/20 17:05 Urine RBC (Auto) 0-4 /hpf (0-4) 04/10/20 17:05 U Hyaline Cast (Auto) 1-5 /lpf (0-5) 04/10/20 17:05 U Epithel Cells (Auto) 5-10 /lpf (0-5) H 04/10/20 17:05 Urine Bacteria (Auto) Negative (Negative) 04/10/20 17:05 Blood Type O Negative 04/10/20 17:36 Antibody Screen NEGATIVE 04/10/20 17:36 Diagnostic Findings [facility], [id number] XRay Report Patient: CHANEL WOLFE Date: 04/10/20MR#: [id number]: [id number] HUMA SHULTZAcct ID:[id number]: Date: [address] [place] [address] Zip: [place], [place] [address]Fvr: 79Location: EDSex: MRoom/Bed:Att Phy:Diagnosis: COVID +, SOBPri Phy: Daniel Trivedi, GAURIervice Date: 04/10Fa Phy:Interpreting Phy: Abimael Downey MDAdmit Phy: Ordering Phy: Ashwin Treviño M.D. cc: ~ XR chest 1V portable CLINICAL HISTORY: weakness COMPARISON STUDY: 07/23/2019 FINDINGS: The heart is borderline enlarged. There are low lung volumes. There are increased parenchymal markings likely on a hypoventilatory bases although an infectious/inflammatory processes could appear similar. There is no pneumothorax identified. There are no significant pleural effusions. IMPRESSION: 1. Low lung volumes with increased bilateral markings likely on a hypoventilatory basis. ACT 112: Negative or not required by law. Electronically signed by: Abimael Downey M.D. 04/10/2020 5:54 PM Dictated: 04/10/201752Transcribed: 04/10/20 1753 [facility], [id number] XRay Report Patient: CHANEL WOLFE Date: 04/10/20MR#: [id number]: [id number] HUMA SHULTZAcct ID:[id number]: Date: [address] [place] [address] Zip: [place], [place] [address]Hhg: 79Location: EDSex: MRoom/Bed:Att Phy:Diagnosis: COVID +, SOBPri Phy: Daniel Trivedi, MDService Date: 12/25/20Fam Phy:Interpreting Phy: Abimael Downey MDAdmit Phy: Ordering Phy: Ashwin Treviño M.D. cc: ~ XR pelvis 1-2V routine CLINICAL HISTORY: Pelvic pain status post trauma COMPARISON: None. DISCUSSION: Degenerative changes are present within the lower lumbar spine. There is no SI joint diastases. There is no symphysis diastases. There are extensive vascular calcifications. No hip fractures are visualized. There is no dislocation. IMPRESSION: No acute fractures or dislocations identified. ACT 112: Negative or not required by law. Electronically signed by: Abimael Downey M.D. 04/10/2020 5:55 PM Dictated: 04/10/201753Transcribed: 04/10/201753 Code Status & VTE Plan Code Status Full code VTE Prophylaxis Plan VTE Prophylaxis will be ordered: Yes PG Care Time/CCT Total # of Minutes Spent Total Time Spent with Patient: Total time spent is greater than 50% in coordination of care (as documented) at patient's floor/unit and/or counseling patient: Coding Level of Care Code 45676 Initial Inpt Care Lvl 3 Diagnoses Pneumonia due to COVID-19 virus U07.1; J12.89 Hypoxia R09.02 Peripheral vascular disease I73.9 Hypertension I10 Hyperlipidemia E78.5 Diabetes E11.9 Hypothyroidism (acquired) E03.9 Diabetic peripheral neuropathy associated with type 2 diabetes mellitus E11.42 Benign prostatic hyperplasia (BPH) with urinary urgency N40.1; R39.15
[2020-04-11] MEDS ORDERED: GLUCAGON FOR INJ 1 MG VIAL SQ PRN (01:55)
[2020-04-11] MEDS ORDERED: ACETAMINOPHEN 325 MG TAB PO PRN (01:55)
[2020-04-11] MEDS ORDERED: GLUCOSE 40% GEL 15 GM TUBE PO PRN (01:55)
[2020-04-11] MEDS ORDERED: DEXTROSE 50% 50 ML SYRINGE IV PRN (01:55)
[2020-04-11] MEDS ORDERED: CARBOHYDRATES FOR HYPOGLYCEMIA PO PRN (01:55)
[2020-04-11] MEDS ORDERED: NSS + 20MEQ KCL 20 MEQ/1,000 ML BAG IV SCH (01:55)
[2020-04-11] MEDS ORDERED: ONDANSETRON INJ 2 MG/ML 2 ML VIAL IV PRN (01:55)
[2020-04-11] MEDS ORDERED: GLUCOSE 10 TABS/TUBE PO PRN (01:55)
[2020-04-11] MEDS: PENTOXIFYLLINE 400MG EXT REL TAB PO SCH ×3 (02:37→21:34)
[2020-04-11] MEDS: GABAPENTIN 300 MG CAP PO SCH ×4 (02:38→21:34)
[2020-04-11] MEDS: ATORVASTATIN 10 MG TAB PO SCH ×2 (02:38→21:34)
[2020-04-11] MEDS: DOXAZosin MESYLATE 4 MG TAB PO SCH ×2 (02:39→21:33)
[2020-04-11] MEDS: carvediloL 25 MG TAB PO SCH ×3 (02:39→21:33)
[2020-04-11] MEDS: INSULIN ASPART 100 UNITS/ML 3 ML PEN SC SCH ×5 (02:51→21:14)
[2020-04-11] MEDS ORDERED: REMDESIVIR 200 MG in SODIUM CHLORIDE 0.9% 210 ML IV ONE (03:00)
[2020-04-11 04:37] LABS: Hemoglobin 11.7 g/dL (14.0-18.0); Mean Corpuscular Hemoglobin 30.7 pg (25-34); Mean Corpuscular Hgb Conc 35.5 g/dL (32-36); Mean Corpuscular Volume 86.6 fL (80-100); Mean Platelet Volume 9.9 fL (7.4-10.4); Monocytes # (auto) 0.08 K/uL (0.11-0.59); Monocytes % (auto) 3.4 %; Neutrophils # (auto) 1.87 K/uL (1.4-6.5); Neutrophils % (auto) 79.6 %; Platelet Count 127 K/uL (130-400); RDW Coefficient of Variation 13.5 % (11.5-14.5); RDW Standard Deviation 43.2 fL (36.4-46.3); Red Blood Count 3.81 M/uL (4.7-6.1); White Blood Count 2.35 K/uL (4.8-10.8)
[2020-04-11] MEDS: SODIUM CHLORIDE 0.9% 10ML FLUSH IV SCH (05:10)
[2020-04-11 05:16] LABS: Alanine Aminotransferase 20 U/L (12-78); Albumin Level 3.2 gm/dl (3.4-5.0); Aspartate Aminotransferase 15 U/L (15-37); BUN Creatinine Ratio 18.3 (10-20); Blood Urea Nitrogen 22 mg/dl (7-18); Calcium 7.8 mg/dl (8.5-10.1); Carbon Dioxide 27 mmol/L (21-32); Chloride 104 mmol/L (98-107); Creatinine Clr Calc Pharmacy 55.2 ml/min; Est GFR (African American) 65.6; Est GFR (Non-African American) 56.6; Glucose 210 mg/dl (70-99); Potassium 3.4 mmol/L (3.5-5.1); Sodium 135 mmol/L (136-145)
[2020-04-11 05:21] LABS: Albumin Globulin Ratio 1.1 (0.9-2); Alkaline Phosphatase 62 U/L (45-117); Bilirubin,Total 0.5 mg/dl (0.2-1); Total Protein 6.2 gm/dl (6.4-8.2); Troponin I < 0.015 ng/ml (0-0.045)
[2020-04-11 06:31] LABS: Estimated Average Glucose 131 mg/dl; Hemoglobin A1C 6.2 % (4.5-5.6)
[2020-04-11] MEDS: LEVOTHYROXINE SODIUM 50 MCG TABLET PO SCH (06:35)
--- NOTE | 2020-04-11 08:41 | Hospitalist Progress Note ---
Date of Service April 11, 2020 Assessment & Plan (1) Pneumonia due to COVID-19 virus: Pneumonia due to COVID-19 virus with hypoxia, generalized weakness and fall- Dexamethasone 6 mg IV last planned dose 04/21/20 Remdesivir IV 5 doses LD 04/16 Azithromycin 500 mg IV daily Oxygen titration to keep pulse ox 89% Will likely need PT and OT consults prior to discharge (2) Hypoxia: See above (3) Peripheral vascular disease: Peripheral vascular disease/hypertension- Continue pentoxifylline, carvedilol and amlodipine Continue aspirin and clopidogrel (4) Hypertension: See above (5) Hyperlipidemia: Continue atorvastatin (6) Diabetes: Reduce Lantus insulin in half. Placed on Accu-Cheks before meals and at bedtime with NovoLog coverage per scale May need increase Lantus if becomes hyperglycemic on dexamethasone Hold metformin (7) Hypothyroidism (acquired): Continue levothyroxine (8) Diabetic peripheral neuropathy associated with type 2 diabetes mellitus: Continue gabapentin (9) Benign prostatic hyperplasia (BPH) with urinary urgency: Continue doxazosin, mirabegron and solifenacin Admission and Anticipated Discharge Date Admission Date: April 10, 2020 Subjective Patient was seen in the ER holding area he was dyspneic with exertion he had to get out of the bed to go to the bathroom cannot stand without 2 person assist was helped to the bedside commode his oxygen supplementation however has been going down he is only been on 2 L of nasal cannula oxygen Review of Systems Review of Systems: Moderate distress and significant fatigue no headache, blurry or double vision no speech or swallowing issues no chest pain, pressure or palpitations Persistent shortness of breath, nonproductive cough no abdominal pain, nausea or vomiting, diarrhea or constipation no dysuria, hematuria or frequency no focal joint pain or swelling no back pain, CVA tenderness or radicular pain no bruising, bleeding or rashes no focal signs of weakness or numbness or altered sensation no complaints of anxiety or depression.. Physical Exam Physical Exam: The patient appeared significantly ill Vital signs as documented. Lungs are coarse bilaterally with decreased breath sounds at the bases Cardiac exam, Rhythm is regular.. Systolic ejection murmur Abdominal exam reveals normal bowel sounds, soft non tender, no masses Extremities are nonedematous and both pedal pulses are normal. Neurologic exam is alert and oriented, no focal loss of strength or sensation Skin is without bruises or rashes Psychologically is without concerns for anxiety or depression. Results & Data Results & Data ([facility]) Vital Signs (Past 12 Hours) Vital Signs Temp Pulse Pulse Resp BP BP Pulse Ox 04/11/20 07:52 97.7 F 56 L 15 141/70 H 97 04/11/20 06:00 55 L 18 125/63 98 04/11/20 04:02 62 18 137/64 92 04/11/20 03:02 62 18 150/71 H 97 04/10/20 23:17 65 16 137/69 04/10/20 23:10 69 20 04/10/20 23:00 64 21 04/10/20 22:50 77 16 04/10/20 22:40 66 21 04/10/20 22:30 64 22 04/10/20 22:20 65 22 04/10/20 22:10 63 22 04/10/20 22:00 64 23 04/10/20 21:50 63 20 04/10/20 21:46 71 22 148/68 H 04/10/20 21:40 63 24 04/10/20 21:30 62 19 04/10/20 21:20 63 20 04/10/20 21:10 62 21 04/10/20 21:00 65 22 04/10/20 20:50 61 22 04/10/20 20:40 62 21 PG Care Time/CCT Total # of Minutes Spent Total Time Spent with Patient: Total time spent is greater than 50% in coordination of care (as documented) at patient's floor/unit and/or counseling patient: Coding Level of Care Code 26174 Subseq Hosp Care Lvl 3 Diagnoses Pneumonia due to COVID-19 virus U07.1; J12.89 Hypoxia R09.02 Peripheral vascular disease I73.9 Hypertension I10 Hyperlipidemia E78.5 Diabetes E11.9 Hypothyroidism (acquired) E03.9 Diabetic peripheral neuropathy associated with type 2 diabetes mellitus E11.42 Benign prostatic hyperplasia (BPH) with urinary urgency N40.1; R39.15
[2020-04-11] MEDS: VESICARE~ORDER AWAITING ACTION SCH ×2 (08:46→15:31)
[2020-04-11] MEDS: AZITHROMYCIN 500 MG in DEXTROSE 5% 250 ML IV SCH (09:09)
[2020-04-11] MEDS: AMMONIUM LACTATE 12% LOTION 225 GM BTL EXT SCH (09:15)
[2020-04-11] MEDS: dexAMETHasone 6 MG in SYRINGE 0 ML IV SCH (09:16)
[2020-04-11] MEDS: MIRABEGRON ER 25 MG TAB PO SCH (09:18)
[2020-04-11] MEDS: amLODIPine BESYLATE 5 MG TAB PO SCH (09:18)
[2020-04-11] MEDS: CHOLECALCIFEROL 1,000 UNITS 25 MCG TAB PO SCH (09:19)
[2020-04-11] MEDS: ZINC SULFATE 220 MG CAPSULE PO SCH (09:19)
[2020-04-11] MEDS: MULTIVITAMIN TAB PO SCH (09:19)
[2020-04-11] MEDS: CLOPIDOGREL BISULFATE 75 MG TAB PO SCH (09:19)
[2020-04-11] MEDS: ASPIRIN 81 MG ECTAB PO SCH (09:20)
[2020-04-11] MEDS: ENOXAPARIN INJ 40 MG/0.4 ML SYR SQ SCH (09:21)
[2020-04-11] MEDS: INSULIN GLARGINE SOLOSTAR 100 UNITS/ML 3 ML PEN SQ SCH (09:35)
--- NOTE | 2020-04-11 13:31 | Electrocardiogram Report ---
Test Reason : Blood Pressure : / mmHG Vent. Rate : 064 BPM Atrial Rate : 064 BPM P-R Int : 190 ms QRS Dur : 108 ms QT Int : 420 ms P-R-T Axes : 055 040 002 degrees QTc Int : 433 ms Normal sinus rhythm Septal infarct , age undetermined Abnormal ECG When compared with ECG of 23-JUL-2019 18:50, Septal infarct is now Present Confirmed by Daniel Kraus ([id number]) on 04/11/2020 1:30:27 PM Referred By: REFERRED SELF Confirmed By:Daniel Kraus
[2020-04-11] MEDS ORDERED: REMDESIVIR 100 MG in SODIUM CHLORIDE 0.9% 230 ML IV SCH (20:00)
[2020-04-12] MEDS: VESICARE~ORDER AWAITING ACTION SCH ×4 (00:44→23:21)
[2020-04-12] MEDS: SODIUM CHLORIDE 0.9% 10ML FLUSH IV SCH (02:58)
[2020-04-12] MEDS: LEVOTHYROXINE SODIUM 50 MCG TABLET PO SCH (05:07)
[2020-04-12] MEDS: GABAPENTIN 300 MG CAP PO SCH ×3 (08:28→21:21)
[2020-04-12] MEDS: dexAMETHasone 6 MG in SYRINGE 0 ML IV SCH (08:28)
[2020-04-12] MEDS: CLOPIDOGREL BISULFATE 75 MG TAB PO SCH (08:29)
[2020-04-12] MEDS: PENTOXIFYLLINE 400MG EXT REL TAB PO SCH ×2 (08:29→21:20)
[2020-04-12] MEDS: ZINC SULFATE 220 MG CAPSULE PO SCH (08:29)
[2020-04-12] MEDS: MULTIVITAMIN TAB PO SCH (08:29)
[2020-04-12] MEDS: ASPIRIN 81 MG ECTAB PO SCH (08:30)
[2020-04-12] MEDS: ENOXAPARIN INJ 40 MG/0.4 ML SYR SQ SCH (08:30)
[2020-04-12] MEDS: MIRABEGRON ER 25 MG TAB PO SCH (08:30)
[2020-04-12] MEDS: amLODIPine BESYLATE 5 MG TAB PO SCH (08:31)
[2020-04-12] MEDS: AMMONIUM LACTATE 12% LOTION 225 GM BTL EXT SCH (08:31)
[2020-04-12] MEDS: carvediloL 25 MG TAB PO SCH ×2 (08:32→21:21)
[2020-04-12] MEDS: CHOLECALCIFEROL 1,000 UNITS 25 MCG TAB PO SCH (08:32)
[2020-04-12] MEDS: INSULIN GLARGINE SOLOSTAR 100 UNITS/ML 3 ML PEN SQ SCH ×2 (08:38→21:14)
[2020-04-12] MEDS: INSULIN ASPART 100 UNITS/ML 3 ML PEN SC SCH ×4 (08:39→21:14)
[2020-04-12] MEDS: AZITHROMYCIN 500 MG in DEXTROSE 5% 250 ML IV SCH (08:44)
[2020-04-12 09:11] LABS: Hematocrit (blood only) 36.8 % (42-52); Immature Granulocytes # (auto) 0.01 K/uL (0.00-0.02); Immature Granulocytes % (auto) 0.1 %; Lymphocytes # (auto) 0.59 K/uL (1.2-3.4); Lymphocytes % (auto) 6.3 %; Mean Corpuscular Hemoglobin 30.6 pg (25-34); Mean Corpuscular Hgb Conc 35.3 g/dL (32-36); Mean Corpuscular Volume 86.6 fL (80-100); Monocytes # (auto) 0.86 K/uL (0.11-0.59); Monocytes % (auto) 9.2 %; Neutrophils # (auto) 7.91 K/uL (1.4-6.5); Neutrophils % (auto) 84.4 %; Platelet Count 144 K/uL (130-400); RDW Coefficient of Variation 13.8 % (11.5-14.5); RDW Standard Deviation 43.9 fL (36.4-46.3); Red Blood Count 4.25 M/uL (4.7-6.1); White Blood Count 9.37 K/uL (4.8-10.8)
[2020-04-12 10:12] LABS: Alanine Aminotransferase 21 U/L (12-78); Albumin Level 3.2 gm/dl (3.4-5.0); Alkaline Phosphatase 65 U/L (45-117); Aspartate Aminotransferase 18 U/L (15-37); BUN Creatinine Ratio 22.6 (10-20); Bilirubin,Total 0.3 mg/dl (0.2-1); Blood Urea Nitrogen 25 mg/dl (7-18); Calcium 8.4 mg/dl (8.5-10.1); Carbon Dioxide 26 mmol/L (21-32); Chloride 104 mmol/L (98-107); Creatinine Clr Calc Pharmacy 59.5 ml/min; Est GFR (Non-African American) 62.1; Globulin 3.1 gm/dl (2.5-4.0); Glucose 167 mg/dl (70-99); Sodium 138 mmol/L (136-145); Total Protein 6.4 gm/dl (6.4-8.2); Troponin I < 0.015 ng/ml (0-0.045)
--- NOTE | 2020-04-12 14:33 | Hospitalist Progress Note ---
Date of Service April 12, 2020 Assessment & Plan (1) Pneumonia due to COVID-19 virus: Pneumonia due to COVID-19 virus with hypoxia, generalized weakness and fall-improving Dexamethasone 6 mg IV will stop 04/13 if on room air Remdesivir IV will stop as now on room air Azithromycin 500 mg IV daily Will likely need PT and OT consults prior to discharge (2) Hypoxia: See above (3) Peripheral vascular disease: Peripheral vascular disease/hypertension- Continue pentoxifylline, carvedilol and amlodipine Continue aspirin and clopidogrel (4) Hypertension: See above (5) Hyperlipidemia: Continue atorvastatin (6) Diabetes: Reduce Lantus insulin in half. Placed on Accu-Cheks before meals and at bedtime with NovoLog coverage per scale May need increase Lantus if becomes hyperglycemic on dexamethasone Hold metformin (7) Hypothyroidism (acquired): Continue levothyroxine (8) Diabetic peripheral neuropathy associated with type 2 diabetes mellitus: Continue gabapentin (9) Benign prostatic hyperplasia (BPH) with urinary urgency: Continue doxazosin, mirabegron and solifenacin Admission and Anticipated Discharge Date Admission Date: April 10, 2020 Subjective Patient has improved with less dyspnea with exertion oxygen supplementation however has been going down he is been tapered to room air Review of Systems Review of Systems: Moderate distress and significant fatigue no headache, blurry or double vision no speech or swallowing issues no chest pain, pressure or palpitations Persistent shortness of breath, nonproductive cough no abdominal pain, nausea or vomiting, diarrhea or constipation no dysuria, hematuria or frequency no focal joint pain or swelling no back pain, CVA tenderness or radicular pain no bruising, bleeding or rashes no focal signs of weakness or numbness or altered sensation no complaints of anxiety or depression.. Physical Exam Physical Exam: The patient appeared significantly ill Vital signs as documented. Lungs are coarse bilaterally with decreased breath sounds at the bases Cardiac exam, Rhythm is regular.. Systolic ejection murmur Abdominal exam reveals normal bowel sounds, soft non tender, no masses Extremities are nonedematous and both pedal pulses are normal. Neurologic exam is alert and oriented, no focal loss of strength or sensation Skin is without bruises or rashes Psychologically is without concerns for anxiety or depression. Results & Data Results & Data ([facility]) Vital Signs (Past 12 Hours) Vital Signs Temp Pulse Pulse Resp BP BP Pulse Ox 04/12/20 11:36 97.9 F 57 L 18 145/69 H 96 04/12/20 08:00 54 L 04/12/20 07:47 98.1 F 57 L 17 151/76 H 96 04/12/20 03:48 97.7 F 56 L 16 148/70 H 95 PG Care Time/CCT Total # of Minutes Spent Total Time Spent with Patient: Total time spent is greater than 50% in coordination of care (as documented) at patient's floor/unit and/or counseling patient: Coding Level of Care Code 54709 Subseq Hosp Care Lvl 3 Diagnoses Pneumonia due to COVID-19 virus U07.1; J12.89 Hypoxia R09.02 Peripheral vascular disease I73.9 Hypertension I10 Hyperlipidemia E78.5 Diabetes E11.9 Hypothyroidism (acquired) E03.9 Diabetic peripheral neuropathy associated with type 2 diabetes mellitus E11.42 Benign prostatic hyperplasia (BPH) with urinary urgency N40.1; R39.15
[2020-04-12] MEDS: ATORVASTATIN 10 MG TAB PO SCH (21:20)
[2020-04-12] MEDS: DOXAZosin MESYLATE 4 MG TAB PO SCH (21:21)
[2020-04-13] MEDS: LEVOTHYROXINE SODIUM 50 MCG TABLET PO SCH (06:04)
[2020-04-13] MEDS: VESICARE~ORDER AWAITING ACTION SCH ×2 (08:32→12:16)
[2020-04-13] MEDS: CLOPIDOGREL BISULFATE 75 MG TAB PO SCH (08:32)
[2020-04-13] MEDS: MIRABEGRON ER 25 MG TAB PO SCH (08:33)
[2020-04-13] MEDS: amLODIPine BESYLATE 5 MG TAB PO SCH (08:33)
[2020-04-13] MEDS: MULTIVITAMIN TAB PO SCH (08:33)
[2020-04-13] MEDS: carvediloL 25 MG TAB PO SCH ×2 (08:34→21:34)
[2020-04-13] MEDS: ZINC SULFATE 220 MG CAPSULE PO SCH (08:34)
[2020-04-13] MEDS: PENTOXIFYLLINE 400MG EXT REL TAB PO SCH ×2 (08:34→21:34)
[2020-04-13] MEDS: CHOLECALCIFEROL 1,000 UNITS 25 MCG TAB PO SCH (08:34)
[2020-04-13] MEDS: ENOXAPARIN INJ 40 MG/0.4 ML SYR SQ SCH (08:35)
[2020-04-13] MEDS: GABAPENTIN 300 MG CAP PO SCH ×3 (08:35→21:33)
[2020-04-13] MEDS: ASPIRIN 81 MG ECTAB PO SCH (08:35)
[2020-04-13] MEDS: AMMONIUM LACTATE 12% LOTION 225 GM BTL EXT SCH (08:36)
[2020-04-13] MEDS: INSULIN GLARGINE SOLOSTAR 100 UNITS/ML 3 ML PEN SQ SCH ×2 (08:36→21:38)
[2020-04-13] MEDS: INSULIN ASPART 100 UNITS/ML 3 ML PEN SC SCH ×4 (08:37→21:37)
[2020-04-13 08:39] LABS: Hematocrit (blood only) 38.4 % (42-52); Hemoglobin 13.1 g/dL (14.0-18.0); Immature Granulocytes # (auto) 0.03 K/uL (0.00-0.02); Immature Granulocytes % (auto) 0.3 %; Lymphocytes # (auto) 0.63 K/uL (1.2-3.4); Lymphocytes % (auto) 5.4 %; Mean Corpuscular Hemoglobin 29.9 pg (25-34); Mean Corpuscular Hgb Conc 34.1 g/dL (32-36); Mean Corpuscular Volume 87.7 fL (80-100); Mean Platelet Volume 10.6 fL (7.4-10.4); Monocytes # (auto) 1.26 K/uL (0.11-0.59); Monocytes % (auto) 10.9 %; Neutrophils # (auto) 9.66 K/uL (1.4-6.5); Neutrophils % (auto) 83.4 %; Platelet Count 161 K/uL (130-400); RDW Coefficient of Variation 13.6 % (11.5-14.5); RDW Standard Deviation 43.9 fL (36.4-46.3); Red Blood Count 4.38 M/uL (4.7-6.1); White Blood Count 11.58 K/uL (4.8-10.8)
[2020-04-13] MEDS: dexAMETHasone 6 MG in SYRINGE 0 ML IV SCH (08:51)
[2020-04-13 09:17] LABS: Albumin Level 3.2 gm/dl (3.4-5.0); BUN Creatinine Ratio 23.3 (10-20); Calcium 8.8 mg/dl (8.5-10.1); Creatinine Clr Calc Pharmacy 61.6 ml/min; Est GFR (African American) 76.1; Est GFR (Non-African American) 65.7; Potassium 3.6 mmol/L (3.5-5.1)
[2020-04-13 09:20] LABS: Bilirubin,Total 0.4 mg/dl (0.2-1); Globulin 3.1 gm/dl (2.5-4.0); Total Protein 6.4 gm/dl (6.4-8.2)
[2020-04-13] MEDS: AZITHROMYCIN 500 MG in DEXTROSE 5% 250 ML IV SCH (09:42)
--- NOTE | 2020-04-13 16:27 | Hospitalist Progress Note ---
Date of Service April 13, 2020 Assessment & Plan (1) Pneumonia due to COVID-19 virus: Pneumonia due to COVID-19 virus with hypoxia, generalized weakness and fall-improving Dexamethasone 6 mg IV will stop 04/13 if on room air Remdesivir IV will stop as now on room air Azithromycin 500 mg change to po PT and OT consults recommending home (2) Hypoxia: See above (3) Peripheral vascular disease: Peripheral vascular disease/hypertension- Continue pentoxifylline, carvedilol and amlodipine Continue aspirin and clopidogrel (4) Hypertension: See above (5) Hyperlipidemia: Continue atorvastatin (6) Diabetes: Reduce Lantus insulin in half. Placed on Accu-Cheks before meals and at bedtime with NovoLog coverage per scale May need increase Lantus if becomes hyperglycemic on dexamethasone Hold metformin (7) Hypothyroidism (acquired): Continue levothyroxine (8) Diabetic peripheral neuropathy associated with type 2 diabetes mellitus: Continue gabapentin (9) Benign prostatic hyperplasia (BPH) with urinary urgency: Continue doxazosin, mirabegron and solifenacin Admission and Anticipated Discharge Date Admission Date: April 10, 2020 Subjective Patient has improved with resolved dyspnea with exertion oxygen supplementation has been going down he is been tapered to room air Review of Systems Review of Systems: Moderate distress and significant fatigue no headache, blurry or double vision no speech or swallowing issues no chest pain, pressure or palpitations Persistent shortness of breath, nonproductive cough no abdominal pain, nausea or vomiting, diarrhea or constipation no dysuria, hematuria or frequency no focal joint pain or swelling no back pain, CVA tenderness or radicular pain no bruising, bleeding or rashes no focal signs of weakness or numbness or altered sensation no complaints of anxiety or depression.. Physical Exam Physical Exam: The patient appeared significantly ill Vital signs as documented. Lungs are coarse bilaterally with decreased breath sounds at the bases Cardiac exam, Rhythm is regular.. Systolic ejection murmur Abdominal exam reveals normal bowel sounds, soft non tender, no masses Extremities are nonedematous and both pedal pulses are normal. Neurologic exam is alert and oriented, no focal loss of strength or sensation Skin is without bruises or rashes Psychologically is without concerns for anxiety or depression. Results & Data Results & Data ([facility]) Vital Signs (Past 12 Hours) Vital Signs Temp Pulse Resp BP Pulse Ox 04/13/20 15:44 97.3 F L 55 L 19 133/67 94 04/13/20 07:37 97.9 F 83 79 H 153/75 H 94 PG Care Time/CCT Total # of Minutes Spent Total Time Spent with Patient: Total time spent is greater than 50% in coordination of care (as documented) at patient's floor/unit and/or counseling patient: Coding Level of Care Code 18959 Subseq Hosp Care Lvl 3 Diagnoses Pneumonia due to COVID-19 virus U07.1; J12.89 Hypoxia R09.02 Peripheral vascular disease I73.9 Hypertension I10 Hyperlipidemia E78.5 Diabetes E11.9 Hypothyroidism (acquired) E03.9 Diabetic peripheral neuropathy associated with type 2 diabetes mellitus E11.42 Benign prostatic hyperplasia (BPH) with urinary urgency N40.1; R39.15
[2020-04-13] MEDS ORDERED: COUGH DROP (SUGAR FREE) LOZ 24 LOZ/1 BOX BUCCAL PRN (20:45)
[2020-04-13] MEDS: DOXAZosin MESYLATE 4 MG TAB PO SCH (21:33)
[2020-04-13] MEDS: ATORVASTATIN 10 MG TAB PO SCH (21:34)
[2020-04-14] MEDS: VESICARE~ORDER AWAITING ACTION SCH ×4 (02:37→23:17)
[2020-04-14] MEDS: LEVOTHYROXINE SODIUM 50 MCG TABLET PO SCH (06:23)
[2020-04-14] MEDS: PENTOXIFYLLINE 400MG EXT REL TAB PO SCH ×2 (08:52→21:44)
[2020-04-14] MEDS: carvediloL 25 MG TAB PO SCH ×2 (08:52→21:43)
[2020-04-14] MEDS: INSULIN ASPART 100 UNITS/ML 3 ML PEN SC SCH ×4 (09:19→21:41)
[2020-04-14] MEDS: GABAPENTIN 300 MG CAP PO SCH ×3 (09:20→21:44)
[2020-04-14] MEDS: AMMONIUM LACTATE 12% LOTION 225 GM BTL EXT SCH (09:20)
[2020-04-14] MEDS: ASPIRIN 81 MG ECTAB PO SCH (09:21)
[2020-04-14] MEDS: CLOPIDOGREL BISULFATE 75 MG TAB PO SCH (09:21)
[2020-04-14] MEDS: ZINC SULFATE 220 MG CAPSULE PO SCH (09:21)
[2020-04-14] MEDS: amLODIPine BESYLATE 5 MG TAB PO SCH (09:21)
[2020-04-14] MEDS: MULTIVITAMIN TAB PO SCH (09:22)
[2020-04-14] MEDS: MIRABEGRON ER 25 MG TAB PO SCH (09:22)
[2020-04-14] MEDS: CHOLECALCIFEROL 1,000 UNITS 25 MCG TAB PO SCH (09:22)
[2020-04-14] MEDS: ENOXAPARIN INJ 40 MG/0.4 ML SYR SQ SCH (09:23)
[2020-04-14] MEDS: AZITHROMYCIN 250 MG TAB PO SCH (09:23)
[2020-04-14] MEDS: INSULIN GLARGINE SOLOSTAR 100 UNITS/ML 3 ML PEN SQ SCH ×2 (09:24→21:40)
--- NOTE | 2020-04-14 15:32 | Hospitalist Progress Note ---
Date of Service April 14, 2020 Assessment & Plan (1) Pneumonia due to COVID-19 virus: Pneumonia due to COVID-19 virus with hypoxia, generalized weakness and fall-improving Dexamethasone 6 mg IV will stop 04/13 if on room air Remdesivir IV will stop as now on room air Azithromycin 500 mg change to po 250 mg last dose 04/15/20 PT and OT consults recommending home updated 04/14/30 (2) Hypoxia: See above (3) Peripheral vascular disease: Peripheral vascular disease/hypertension- Continue pentoxifylline, carvedilol and amlodipine Continue aspirin and clopidogrel (4) Hypertension: See above (5) Hyperlipidemia: Continue atorvastatin (6) Diabetes: split lantus dose to bid Placed on Accu-Cheks before meals and at bedtime with NovoLog coverage per scale (7) Hypothyroidism (acquired): Continue levothyroxine (8) Diabetic peripheral neuropathy associated with type 2 diabetes mellitus: Continue gabapentin (9) Benign prostatic hyperplasia (BPH) with urinary urgency: Continue doxazosin, mirabegron and solifenacin Admission and Anticipated Discharge Date Admission Date: April 10, 2020 Subjective Patient has improved with resolved dyspnea with exertion oxygen supplementation has been going down he is been tapered to room air Review of Systems Review of Systems: Moderate distress and significant fatigue no headache, blurry or double vision no speech or swallowing issues no chest pain, pressure or palpitations Persistent shortness of breath, nonproductive cough no abdominal pain, nausea or vomiting, diarrhea or constipation no dysuria, hematuria or frequency no focal joint pain or swelling no back pain, CVA tenderness or radicular pain no bruising, bleeding or rashes no focal signs of weakness or numbness or altered sensation no complaints of anxiety or depression.. Physical Exam Physical Exam: The patient appeared significantly ill Vital signs as documented. Lungs are coarse bilaterally with decreased breath sounds at the bases Cardiac exam, Rhythm is regular.. Systolic ejection murmur Abdominal exam reveals normal bowel sounds, soft non tender, no masses Extremities are nonedematous and both pedal pulses are normal. Neurologic exam is alert and oriented, no focal loss of strength or sensation Skin is without bruises or rashes Psychologically is without concerns for anxiety or depression. Results & Data Results & Data ([facility]) Vital Signs (Past 12 Hours) Vital Signs Temp Pulse Resp BP BP Pulse Ox 04/14/20 15:10 98.1 F 54 L 16 152/83 H 92 04/14/20 08:07 98.1 F 55 L 16 176/82 H 92 PG Care Time/CCT Total # of Minutes Spent Total Time Spent with Patient: Total time spent is greater than 50% in coordination of care (as documented) at patient's floor/unit and/or counseling patient: Coding Level of Care Code 31713 Subseq Hosp Care Lvl 2 Diagnoses Pneumonia due to COVID-19 virus U07.1; J12.89 Hypoxia R09.02 Peripheral vascular disease I73.9 Hypertension I10 Hyperlipidemia E78.5 Diabetes E11.9 Hypothyroidism (acquired) E03.9 Diabetic peripheral neuropathy associated with type 2 diabetes mellitus E11.42 Benign prostatic hyperplasia (BPH) with urinary urgency N40.1; R39.15
[2020-04-14] MEDS: ATORVASTATIN 10 MG TAB PO SCH (21:43)
[2020-04-14] MEDS: DOXAZosin MESYLATE 4 MG TAB PO SCH (21:44)
[2020-04-15] MEDS: LEVOTHYROXINE SODIUM 50 MCG TABLET PO SCH (05:41)
[2020-04-15] MEDS: VESICARE~ORDER AWAITING ACTION SCH (08:44)
[2020-04-15] MEDS: INSULIN ASPART 100 UNITS/ML 3 ML PEN SC SCH ×2 (09:07→13:23)
[2020-04-15] MEDS: ENOXAPARIN INJ 40 MG/0.4 ML SYR SQ SCH (09:07)
[2020-04-15] MEDS: INSULIN GLARGINE SOLOSTAR 100 UNITS/ML 3 ML PEN SQ SCH (09:10)
[2020-04-15] MEDS: carvediloL 25 MG TAB PO SCH (09:10)
[2020-04-15] MEDS: MIRABEGRON ER 25 MG TAB PO SCH (09:12)
[2020-04-15] MEDS: MULTIVITAMIN TAB PO SCH (09:12)
[2020-04-15] MEDS: AZITHROMYCIN 250 MG TAB PO SCH (09:12)
[2020-04-15] MEDS: ASPIRIN 81 MG ECTAB PO SCH (09:13)
[2020-04-15] MEDS: CHOLECALCIFEROL 1,000 UNITS 25 MCG TAB PO SCH (09:13)
[2020-04-15] MEDS: PENTOXIFYLLINE 400MG EXT REL TAB PO SCH (09:13)
[2020-04-15] MEDS: ZINC SULFATE 220 MG CAPSULE PO SCH (09:13)
[2020-04-15] MEDS: amLODIPine BESYLATE 5 MG TAB PO SCH (09:13)
[2020-04-15] MEDS: GABAPENTIN 300 MG CAP PO SCH ×2 (09:14→13:23)
[2020-04-15] MEDS: CLOPIDOGREL BISULFATE 75 MG TAB PO SCH (09:14)
[2020-04-15] MEDS: AMMONIUM LACTATE 12% LOTION 225 GM BTL EXT SCH (09:15)
--- NOTE | 2020-04-15 18:48 | Discharge Summary ---
Date of Service April 15, 2020 Admission HPI Per Admitting Provider The patient is a 79-year-old male with past medical history including BPH with LUTS, peripheral vascular disease, diabetic peripheral neuropathy, diabetic foot ulcer, diabetes mellitus, acute kidney injury and recent diagnosis with COVID-19 infection from swab 2 days previously. He reports his is presently ill in the hospital, which prompted his COVID-19 testing. His pulse ox upon arrival to the emergency department was 86% on room air. He does report loss of taste and smell, and thus has little appetite Principal Diagnosis pneumonia covid Discharge Exam The patient appeared well Vital signs as documented. Lungs are prove still some left-sided of rales will have home on azithromycin Cardiac exam, Rhythm is regular.. No murmurs, rubs or gallops. Abdominal exam reveals normal bowel sounds, soft non tender, no masses Extremities are nonedematous and both pedal pulses are normal. Neurologic exam is alert and oriented, no focal loss of strength or sensation Skin is without bruises or rashes Psychologically is without concerns for anxiety or depression. Discharge Data Allergies Allergy/AdvReac Type Severity Reaction Status Date / Time Sulfa (Sulfonamide Allergy Unknown Hives Verified 04/10/20 17:45 Antibiotics) Consultations 04/10/20 19:26 ED Decision to Admit Stat 04/11/20 01:55 Consult Case Management - Discharge Planning Routine Hospital Course (1) Pneumonia due to COVID-19 virus: Pneumonia due to COVID-19 virus with hypoxia, generalized weakness and fall-improving Dexamethasone 6 mg IV did l stop 04/13 on room air Remdesivir IV did stop as now on room air Azithromycin 500 mg change to po 250 mg of 2 additional doses for home PT and OT consults recommending home and walking 145 feet updated 04/14/30 patient: Day of discharge is agreeable take the patient home she is also Covid positive (2) Hypoxia: See above (3) Peripheral vascular disease: Peripheral vascular disease/hypertension- Continue pentoxifylline, carvedilol and amlodipine Continue aspirin and clopidogrel (4) Hypertension: See above (5) Hyperlipidemia: Continue atorvastatin (6) Diabetes: split lantus dose to bid Placed on Accu-Cheks before meals and at bedtime with NovoLog coverage per scale (7) Hypothyroidism (acquired): Continue levothyroxine (8) Diabetic peripheral neuropathy associated with type 2 diabetes mellitus: Continue gabapentin (9) Benign prostatic hyperplasia (BPH) with urinary urgency: Continue doxazosin, mirabegron and solifenacin Total Time Total Time Spent Total Time Spent (In Minutes): It required greater than 30 minutes to prepare this patient for discharge Discharge Plan Discharge Items Patient Disposition: Home - Self-Care Reason For Visit: PNEUMONIA DUE TO COVID 19 VIRUS WITH HXPOXIA Discharge Diagnosis: covid pneumonia Activity: Per Instructions section Activity Comment: please move daily but gradually increase activity Non-emergency contact: Primary Care Provider Call non-emergency contact if: you have any medication questions and your symptoms worsen Follow-up/Referrals: Daniel Trivedi MD [Primary Care Provider] - Diet: Regular Addtl Attending Provider Instructions: Home Isolation COVID-19 Instructions The following information about Home Isolation is from the CDC Website: https://www.cdc.gov/coronavirus/2019-ncov/hcp/afbasuii-fjsmkgf-gujjuw.html Stay home except to get medical care People who are mildly ill with COVID-19 are able to isolate at home during their illness. You should restrict activities outside your home, except for getting medical care. Do not go to work, school, or public areas. Avoid using public transportation, ride-sharing, or taxis. Separate yourself from other people and animals in your home People: As much as possible, you should stay in a specific room and away from other people in your home. Also, you should use a separate bathroom, if available. Animals: You should restrict contact with pets and other animals while you are sick with COVID-19, just like you would around other people. Although there have not been reports of pets or other animals becoming sick with COVID-19, it is still recommended that people sick with COVID-19 limit contact with animals until more information is known about the virus. When possible, have another member of your household care for your animals while you are sick. If you are sick with COVID-19, avoid contact with your pet, including petting, snuggling, being kissed or licked, and sharing food. If you must care for your pet or be around animals while you are sick, wash your hands before and after you interact with pets and wear a face mask. Call ahead before visiting your doctor If you have a medical appointment, call the healthcare provider and tell them that you have or may have COVID-19. This will help the healthcare providers office take steps to keep other people from getting infected or exposed. Wear a face mask You should wear a face mask when you are around other people (e.g., sharing a room or vehicle) or pets and before you enter a healthcare providers office. If you are not able to wear a face mask (for example, because it causes trouble breathing), then people who live with you should not stay in the same room with you, or they should wear a face mask if they enter your room. Cover your coughs and sneezes Cover your mouth and nose with a tissue when you cough or sneeze. Throw used tissues in a lined trash can. Immediately wash your hands with soap and water for at least 20 seconds or, if soap and water are not available, clean your hands with an alcohol-based hand hoister that contains at least 60% alcohol. Clean your hands often Wash your hands often with soap and water for at least 20 seconds, especially after blowing your nose, coughing, or sneezing; going to the bathroom; and before eating or preparing food. If soap and water are not readily available, use an alcohol-based hand hoister with at least 60% alcohol, covering all surfaces of your hands and rubbing them together until they feel dry. Soap and water are the best option if hands are visibly dirty. Avoid touching your eyes, nose, and mouth with unwashed hands. Avoid sharing personal household items You should not share dishes, drinking glasses, cups, eating utensils, towels, or bedding with other people or pets in your home. After using these items, they should be washed thoroughly with soap and water. Clean all high-touch surfaces everyday High touch surfaces include counters, tabletops, doorknobs, bathroom fixtures, toilets, phones, keyboards, tablets, and bedside tables. Also, clean any surfaces that may have blood, stool, or body fluids on them. Use a household cleaning spray or wipe, according to the label instructions. Labels contain instructions for safe and effective use of the cleaning product including precautions you should take when applying the product, such as wearing gloves and making sure you have good ventilation during use of the product. Monitor your symptoms Seek prompt medical attention if your illness is worsening (e.g., difficulty breathing).Beforeseeking care, call your healthcare provider and tell them that you have, or are being evaluated for, COVID-19. Put on a face mask before you enter the facility. These steps will help the healthcare providers office to keep other people in the office or waiting room from getting infected or exposed. Ask your healthcare provider to call the local or state health department. Persons who are placed under active monitoring or facilitated self-monitoring should follow instructions provided by their local health department or occupational health professionals, as appropriate. When working with your local health department check their available hours. If you have a medical emergency and need to call 911, notify the dispatch personnel that you have, or are being evaluated for COVID-19. If possible, put on a face mask before emergency medical services arrive. Discontinuing home isolation Patients with confirmed COVID-19 should remain under home isolation precautions until the risk of secondary transmission to others is thought to be low. The decision to discontinue home isolation precautions should be made on a [id number] basis, in consultation with healthcare providers and formerly [facility] and [facility] health departments. Pending Studies at Discharge: Yes Stand-Alone Forms: [facility], Smoking Cessation Medications and DC Order Prescriptions: New azithromycin 250 mg Tablet 250 mg PO QAM Qty: 2 RF: 0 Continued Myrbetriq 50 mg tablet extended release 24 hr 50 mg PO DAILY Qty: 90 RF: 3 solifenacin [Vesicare] 10 mg tablet 10 mg PO DAILY Qty: 30 RF: 11 cholecalciferol (vitamin D3) 10 mcg (400 unit) capsule 20 mcg PO DAILY RF: 0 multivitamin Tablet 1 tab PO DAILY RF: 0 carvedilol [Coreg] 25 mg tablet 25 mg PO BID RF: 0 atorvastatin 10 mg Tablet 10 mg PO HS RF: 0 clopidogrel [Plavix] 75 mg tablet 75 mg PO DAILY RF: 0 acetaminophen [Tylenol Extra Strength] 500 mg Tablet 500 mg PO Q6H PRN (Reason: Pain) RF: 0 pentoxifylline 400 mg tablet extended release 400 mg PO BID RF: 0 levothyroxine 50 mcg tablet 50 mcg PO DAILY RF: 0 metformin 1,000 mg tablet 1,000 mg PO BID RF: 0 gabapentin [Neurontin] 300 mg capsule 300 mg PO TID RF: 0 ammonium lactate 12 % Cream 1 applic TOPICAL DAILY RF: 0 Lantus Solostar U-100 Insulin 100 unit/mL (3 mL) insulin pen 20 unit SUBCUT QAM RF: 0 amlodipine 10 mg tablet 10 mg PO DAILY RF: 0 doxazosin 4 mg tablet 4 mg PO BID RF: 0 aspirin [Aspirin Low Dose] 81 mg Tablet,Delayed Release (Dr/Ec) 81 mg PO DAILY RF: 0 Discontinued azithromycin 250 mg tablet See Rx Instructions .ROUTE .COMPLEX RF: 0 Discharge Orders: Discharge Order (Routine); Ordered 04/15/20 Ordered By: Abran Boland/Other Patient Handouts: Managing Type 2 Diabetes Admission Data Admit Date/Time: 04/10/20 20:46 Attending Provider: Abran Siddiqui Admit Provider: Felipe Chandler Primary Care Provider: Daniel Trivedi Other Providers: Felipe Chandler ; [facility] Other Interventions: Discharge Summary Assessment (RN) Last Done: 04/15/20 14:44 Coding Level of Care Code D/C Day Management >30 mins Diagnoses Pneumonia due to COVID-19 virus U07.1; J12.89 Hypoxia R09.02 Peripheral vascular disease I73.9 Hypertension I10 Hyperlipidemia E78.5 Diabetes E11.9 Hypothyroidism (acquired) E03.9 Diabetic peripheral neuropathy associated with type 2 diabetes mellitus E11.42 Benign prostatic hyperplasia (BPH) with urinary urgency N40.1; R39.15
== END 2020-04-15 16:27 | disposition home or self-care (01) | DRG 177 ==
LOC: ED 16:22 → EDINP 20:46 → SUATTDRO 20:46 → 2S 04-11 16:21 → 3E 04-13 19:36

== ENCOUNTER 2020-05-10 08:00 | Observation (INO) ==
[2020-05-10] MEDS ORDERED: SODIUM CHLORIDE 0.9% 1000ML 1,000 ML IV SCH (08:45)
--- NOTE | 2020-05-10 09:00 | Emergency Department Note ---
History of Present Illness General Chief complaint: Illness Time Seen by Provider: 05/10/20 08:17 Source: patient Mode of arrival: EMS Limitations: no limitations History of Present Illness Provider complaint: Generalized weakness This is a 79-year-old male who presents to the ED with a chief complaint of generalized weakness. The patient states that he feels dehydrated. He has been having decreased p.o. intake. He states that this morning he was weak and went to the bathroom. He states that his legs gave out while he was going to the bathroom and he could not get off the floor. EMS was called and transported the patient here. The patient reports that he was discharged from [facility] about a week ago. He had Covid on April 10, 2020. The patient has no additional complaints this time. Denies any fevers. No nausea or vomiting. No chest pains or shortness of breath. No abdominal pains. Home Medications Medication Instructions Recorded Confirmed Type Lantus Solostar U-100 Insulin 20 unit SUBCUT QA 07/23/19 05/10/20 History amlodipine 10 mg PO QAM 07/23/19 05/10/20 History atorvastatin 10 mg PO HS 07/23/19 05/10/20 History carvedilol [Coreg] 25 mg PO BIDM 07/23/19 05/10/20 History clopidogrel [Plavix] 75 mg PO QAM 07/23/19 05/10/20 History gabapentin [Neurontin] 300 mg PO TIDM 07/23/19 05/10/20 History levothyroxine 50 mcg PO DAILYBB 07/23/19 05/10/20 History metformin 1,000 mg PO BIDM 07/23/19 05/10/20 History multivitamin 1 tab PO QAM 07/23/19 05/10/20 History pentoxifylline 400 mg PO BIDM 07/23/19 05/10/20 History doxazosin 4 mg tablet 4 mg PO BID tab 03/31/20 05/10/20 History aspirin [Aspirin Low Dose] 81 mg PO QAM 04/10/20 05/10/20 History Myrbetriq 50 mg PO QAM 05/10/20 05/10/20 History ascorbic acid (vitamin C) [Vitamin 500 mg PO BIDM 05/10/20 05/10/20 History C] cholecalciferol (vitamin D3) 25 mcg PO QAM 05/10/20 05/10/20 History [Vitamin D3] solifenacin [Vesicare] 10 mg PO QAM 05/10/20 05/10/20 History zinc sulfate 220 mg PO QAM 05/10/20 05/10/20 History Allergies Allergy/AdvReac Type Severity Reaction Status Date / Time Sulfa (Sulfonamide Allergy Unknown Hives Verified 05/10/20 08:55 Antibiotics) Past Med/Surg History Medical History Diabetic foot ulcer Diabetic peripheral neuropathy associated with type 2 diabetes mellitus Foot infection Hyperlipidemia Hypertension Hypothyroidism (acquired) Peripheral vascular disease Social History Smoking Status: Former smoker Cigarettes Per Day: one and a half packs 50 years ago; Second Hand Exposure: No; Hx Alcohol Use: No Hx Substance Use: No Preferred Language: Macedonian Communication Ability: Effective 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 Beliefs That Will Affect Care: None marital status: Current Living Situation: Spouse Feels Safe at Home: Yes Assistive Devices: Walker Review of Systems A total of 10 systems reviewed and were otherwise negative Physical Exam Vital Signs Vital Signs - 24 hr 05/10/20 08:08 05/10/20 08:10 05/10/20 08:31 Temperature 36.6 C Temperature Source Oral Pulse Rate 117 H 59 L Pulse Rate from SpO2 Sensor 59 L Respiratory Rate 20 16 Respiratory Effort / Characteristics Non-Labored Respiratory Depth Normal Respiratory Pattern Regular Blood Pressure 162/75 H 134/69 Blood Pressure Mean 104 87 Pulse Oximetry 99 95 100 Oxygen Delivery Method Room Air Room Air Room Air Sepsis Recent Fever Within 48 Hours No Sepsis New/Unexplained Change in Mental Status N/A Sepsis Action Taken by Nursing No Action Required 05/10/20 09:00 05/10/20 09:01 05/10/20 09:30 Temperature Temperature Source Pulse Rate 58 L 57 L 57 L Pulse Rate from SpO2 Sensor 58 L 57 L 57 L Respiratory Rate 21 17 16 Respiratory Effort / Characteristics Respiratory Depth Respiratory Pattern Blood Pressure 140/67 157/69 H Blood Pressure Mean 102 113 Pulse Oximetry 94 94 95 Oxygen Delivery Method Room Air Sepsis Recent Fever Within 48 Hours Sepsis New/Unexplained Change in Mental Status Sepsis Action Taken by Nursing 05/10/20 09:31 05/10/20 10:00 05/10/20 10:30 Temperature Temperature Source Pulse Rate 59 L 64 63 Pulse Rate from SpO2 Sensor 59 L Respiratory Rate 15 15 12 Respiratory Effort / Characteristics Respiratory Depth Respiratory Pattern Blood Pressure 147/69 H 144/69 H Blood Pressure Mean 97 114 Pulse Oximetry 94 95 95 Oxygen Delivery Method Room Air Room Air Sepsis Recent Fever Within 48 Hours Sepsis New/Unexplained Change in Mental Status Sepsis Action Taken by Nursing 05/10/20 11:00 05/10/20 11:01 05/10/20 11:30 Temperature Temperature Source Pulse Rate 63 62 61 Pulse Rate from SpO2 Sensor Respiratory Rate 20 20 14 Respiratory Effort / Characteristics Respiratory Depth Respiratory Pattern Blood Pressure 145/68 H 127/69 Blood Pressure Mean 95 100 Pulse Oximetry Oxygen Delivery Method Sepsis Recent Fever Within 48 Hours Sepsis New/Unexplained Change in Mental Status Sepsis Action Taken by Nursing CONSTITUTIONAL/VITAL SIGNS: Reviewed / noted above. GENERAL: Non-toxic in appearance. INTEGUMENTARY: Warm, dry, and [place]. HEAD: Normocephalic. EYES: without scleral icterus or trauma. ENT/OROPHARYNX: clear and dry. LYMPHADENOPATHY/NECK: Is supple without lymphadenopathy or meningismus. RESPIRATORY: Lungs clear and equal. CARDIOVASCULAR: Regular rate and rhythm. GI/ABDOMEN: Soft and nontender. No organomegaly or pulsatile mass. No rebound or guarding. Normal bowel sounds. EXTREMITIES: Warm and well perfused. BACK: No CVA tenderness. NEUROLOGICAL: Intact without focal deficits. PSYCHIATRIC: normal affect. MUSCULOSKELETAL: Normally developed with good muscle tone. TRIAGE NURSING DOCUMENTATION REVIEWED. Course Administered Medications Discontinued Medications Sodium Chloride (Nss 1000ml) 1,000 mls @ 999 mls/hr IV .Q1H1M [facility] Stop: 05/10/20 09:45 Last Infusion: 05/10/20 10:08 Dose: 0 mls/hr Documented by: [id number] Admin: 05/10/20 09:05 Dose: 999 mls/hr Documented by: [id number] Medical Decision Making Differential Diagnosis Differential includes acute coronary syndrome, myocardial infarction, CVA, TIA, anemia, infection, pneumonia, UTI, pyelonephritis, poor nutrition, dehydration, electrolyte disturbance,hypoglycemia. Medical Records Attestation: I reviewed the patient's medical records. Home Medications Current Medication List: was personally reviewed by me Laboratory Data Attestation: I reviewed the patient's lab results. Result diagrams: 05/10/20 08:48 05/10/20 08:48 Lab Results 05/10/20 05/10/20 05/10/20 Range/Units 08:48 08:48 08:48 WBC 4.34 L (4.8-10.8) K/uL RBC 4.00 L (4.7-6.1) M/uL Hgb 12.3 L (14.0-18.0) g/dL Hct 35.1 L (42-52) % MCV 87.8 (80-100) fL MCH 30.8 (25-34) pg MCHC 35.0 (32-36) g/dL RDW Std Deviation 45.9 (36.4-46.3) fL RDW Coeff of Jimmy 14.2 (11.5-14.5) % Plt Count 168 (130-400) K/uL MPV 9.0 (7.4-10.4) fL Immature Gran % (Auto) 0.2 % Neut % (Auto) 62.5 % Lymph % (Auto) 20.0 % [place] % (Auto) 11.3 % Eos % (Auto) 5.8 % Baso % (Auto) 0.2 % Neut # (Auto) 2.71 (1.4-6.5) K/uL Lymph # (Auto) 0.87 L (1.2-3.4) K/uL [place] # (Auto) 0.49 (0.11-0.59) K/uL Eos # (Auto) 0.25 (0-0.5) K/uL Baso # (Auto) 0.01 (0-0.2) K/uL Immature Gran # (Auto) 0.01 (0.00-0.02) K/uL PT 12.2 H (9.0-12.0) Seconds INR 1.2 H (0.9-1.1) Sodium 139 (136-145) mmol/L Potassium 3.8 (3.5-5.1) mmol/L Chloride 103 (98-107) mmol/L Carbon Dioxide 31 (21-32) mmol/L Anion Gap 6.0 (3-11) BUN 16 (7-18) mg/dl Creatinine 1.05 (0.6-1.4) mg/dl Est Cr Clr Drug Dosing 57.0 ml/min Est GFR ( Amer) 77.9 Est GFR (Non-Af Amer) 67.2 BUN/Creatinine Ratio 15.2 (10-20) Glucose 96 (70-99) mg/dl Calcium 9.1 (8.5-10.1) mg/dl Total Bilirubin 0.5 (0.2-1) mg/dl AST 8 L (15-37) U/L ALT 26 (12-78) U/L Alkaline Phosphatase 84 (45-117) U/L Total Creatine Kinase 33 L (39-308) U/L Troponin I < 0.015 (0-0.045) ng/ml Total Protein 6.6 (6.4-8.2) gm/dl Albumin 3.1 L (3.4-5.0) gm/dl Globulin 3.5 (2.5-4.0) gm/dl Albumin/Globulin Ratio 0.9 (0.9-2) TSH 5.240 H (0.300-4.500) uIu/ml Free T4 1.44 (0.8-1.6) ng/dl Urine Color Urine Appearance (Clear) Urine pH (4.5-7.5) Ur Specific Tyner (1.000-1.030) Urine Protein (Negative) Urine Glucose (UA) (Negative) Urine Ketones (Negative) Urine Blood (Negative) Urine Nitrite (Negative) Urine Bilirubin (Negative) Urine Urobilinogen (Negative) Ur Leukocyte Esterase (Negative) Urine WBC (Auto) (0-5) /hpf Urine RBC (Auto) (0-4) /hpf U Hyaline Cast (Auto) (0-5) /lpf U Epithel Cells (Auto) (0-5) /lpf Urine Bacteria (Auto) (Negative) COVID-19 Eval Order SARS-CoV-2, RNA, NAAT (NEGATIVE) 05/10/20 05/10/20 05/10/20 Range/Units 09:50 Unknown Unknown WBC (4.8-10.8) K/uL RBC (4.7-6.1) M/uL Hgb (14.0-18.0) g/dL Hct (42-52) % MCV (80-100) fL MCH (25-34) pg MCHC (32-36) g/dL RDW Std Deviation (36.4-46.3) fL RDW Coeff of Jimmy (11.5-14.5) % Plt Count (130-400) K/uL MPV (7.4-10.4) fL Immature Gran % (Auto) % Neut % (Auto) % Lymph % (Auto) % [place] % (Auto) % Eos % (Auto) % Baso % (Auto) % Neut # (Auto) (1.4-6.5) K/uL Lymph # (Auto) (1.2-3.4) K/uL [place] # (Auto) (0.11-0.59) K/uL Eos # (Auto) (0-0.5) K/uL Baso # (Auto) (0-0.2) K/uL Immature Gran # (Auto) (0.00-0.02) K/uL PT (9.0-12.0) Seconds INR (0.9-1.1) Sodium (136-145) mmol/L Potassium (3.5-5.1) mmol/L Chloride (98-107) mmol/L Carbon Dioxide (21-32) mmol/L Anion Gap (3-11) BUN (7-18) mg/dl Creatinine (0.6-1.4) mg/dl Est Cr Clr Drug Dosing ml/min Est GFR ( Amer) Est GFR (Non-Af Amer) BUN/Creatinine Ratio (10-20) Glucose (70-99) mg/dl Calcium (8.5-10.1) mg/dl Total Bilirubin (0.2-1) mg/dl AST (15-37) U/L ALT (12-78) U/L Alkaline Phosphatase (45-117) U/L Total Creatine Kinase (39-308) U/L Troponin I (0-0.045) ng/ml Total Protein (6.4-8.2) gm/dl Albumin (3.4-5.0) gm/dl Globulin (2.5-4.0) gm/dl Albumin/Globulin Ratio (0.9-2) TSH (0.300-4.500) uIu/ml Free T4 (0.8-1.6) ng/dl Urine Color Yellow Urine Appearance Cloudy A (Clear) Urine pH 7.0 (4.5-7.5) Ur Specific Tyner 1.011 (1.000-1.030) Urine Protein Negative (Negative) Urine Glucose (UA) Negative (Negative) Urine Ketones Negative (Negative) Urine Blood Negative (Negative) Urine Nitrite Negative (Negative) Urine Bilirubin Negative (Negative) Urine Urobilinogen Negative (Negative) Ur Leukocyte Esterase Negative (Negative) Urine WBC (Auto) 0 (0-5) /hpf Urine RBC (Auto) 0-4 (0-4) /hpf U Hyaline Cast (Auto) 0 (0-5) /lpf U Epithel Cells (Auto) 0-5 (0-5) /lpf Urine Bacteria (Auto) Negative (Negative) [facility], RNA, NAAT NEGATIVE (NEGATIVE) Imaging Data Radiologist's Impression: SINGLE VIEW CHEST CLINICAL HISTORY: Generalized weakness. Covid. FINDINGS: An AP, portable, upright chest radiograph is compared to study dated 04/17/2020. The heart is enlarged noting atherosclerotic calcification of the thoracic aorta. There are low lung volumes. Multifocal bilateral airspace opacities are similar to 04/17/2020 examination. Small pleural effusions are suspected. No pneumothorax is seen. The skeletal structures are osteopenic. The bony thorax is grossly intact. Calcific tendinopathy is noted in the left shoulder. IMPRESSION: 1. Cardiomegaly. 2. Multifocal airspace opacities are similar in appearance to the 04/17/2020 examination. This could represent a multifocal infectious/inflammatory pneu monitis and/or mild pulmonary edema. Clinical correlation will be essential. 3. Small pleural effusions. ECG Data Attestation: I personally reviewed and interpreted this ECG as follows: Indication: + weakness Rate (beats per minute): 60 Rhythm: + normal sinus ECG Intervals/blocks: + First degree AV block ECG ST segments: no ST elevation ECG Findings: no PVCs MDM Narrative Patient presents with generalized weakness and dehydration. Details as noted above. The patient's vital signs reveal hypertension and tachycardia. He is afebrile. The patient's laboratory studies including a CBC and chemistry panel were unremarkable. Troponin is negative. Urine did not show infection. EKG showed a normal sinus rhythm at a rate of 60. Chest x-ray reveals bilateral airspace opacities similar to previous x-ray. Because of the patient's ongoing weakness in his symptoms, he will be seen by the hospitalist for further evaluation and care. The patient clinically does not have a clear-cut pneumonia at this point and these may be residual findings on his chest x-ray from his Covid. Placement at [facility] was not attempted because there facility is full at this time. Impression & Plan Generalized weakness, Post-COVID syndrome Discharge Plan Visit Data Chief Complaint: Illness ED Provider: Raul Horowitz Discharge Problem: Generalized weakness, Post-COVID syndrome Patient Disposition: Being Evaluated by Hospitalist Forms Stand Alone Forms: My [facility] Prescriptions Prescriptions: No Action multivitamin Tablet 1 tab PO QAM RF: 0 carvedilol [Coreg] 25 mg tablet 25 mg PO BIDM RF: 0 atorvastatin 10 mg Tablet 10 mg PO HS RF: 0 clopidogrel [Plavix] 75 mg tablet 75 mg PO QAM RF: 0 pentoxifylline 400 mg tablet extended release 400 mg PO BIDM RF: 0 levothyroxine 50 mcg tablet 50 mcg PO DAILYBB RF: 0 metformin 1,000 mg tablet 1,000 mg PO BIDM RF: 0 gabapentin [Neurontin] 300 mg capsule 300 mg PO TIDM RF: 0 Lantus Solostar U-100 Insulin 100 unit/mL (3 mL) insulin pen 20 unit SUBCUT QAM RF: 0 amlodipine 10 mg tablet 10 mg PO QAM RF: 0 doxazosin 4 mg tablet 4 mg PO BID RF: 0 aspirin [Aspirin Low Dose] 81 mg Tablet,Delayed Release (Dr/Ec) 81 mg PO QAM RF: 0 zinc sulfate 220 mg Tablet 220 mg PO QAM RF: 0 ascorbic acid (vitamin C) [Vitamin C] 500 mg Tablet 500 mg PO BIDM RF: 0 cholecalciferol (vitamin D3) [Vitamin D3] 25 mcg (1,000 unit) Tablet 25 mcg PO QAM RF: 0 solifenacin [Vesicare] 10 mg tablet 10 mg PO QAM RF: 0 Myrbetriq 50 mg tablet extended release 24 hr 50 mg PO QAM RF: 0 Referrals Referrals: Daniel Trivedi MD [Primary Care Provider] -
[2020-05-10 09:04] LABS: Basophils # (auto) 0.01 K/uL (0-0.2); Basophils % (auto) 0.2 %; Eosinophils # (auto) 0.25 K/uL (0-0.5); Eosinophils % (auto) 5.8 %; Hematocrit (blood only) 35.1 % (42-52); Hemoglobin 12.3 g/dL (14.0-18.0); Immature Granulocytes # (auto) 0.01 K/uL (0.00-0.02); Immature Granulocytes % (auto) 0.2 %; Lymphocytes # (auto) 0.87 K/uL (1.2-3.4); Mean Corpuscular Hemoglobin 30.8 pg (25-34); Mean Corpuscular Volume 87.8 fL (80-100); Monocytes # (auto) 0.49 K/uL (0.11-0.59); Monocytes % (auto) 11.3 %; Neutrophils # (auto) 2.71 K/uL (1.4-6.5); Neutrophils % (auto) 62.5 %; Platelet Count 168 K/uL (130-400); RDW Coefficient of Variation 14.2 % (11.5-14.5); RDW Standard Deviation 45.9 fL (36.4-46.3); White Blood Count 4.34 K/uL (4.8-10.8)
[2020-05-10 09:19] LABS: INR 1.2 (0.9-1.1); Prothrombin Time 12.2 Seconds (9.0-12.0)
--- NOTE | 2020-05-10 09:19 | XRay Report ---
SINGLE VIEW CHEST CLINICAL HISTORY: Generalized weakness. Covid. FINDINGS: An AP, portable, upright chest radiograph is compared to study dated 04/17/2020. The heart is enlarged noting atherosclerotic calcification of the thoracic aorta. There are low lung volumes. Mul tifocal bilateral airspace opacities are similar to 04/17/2020 examination. Small pleural effusions are suspected. No pneumothorax is seen. The skeletal structures are osteopenic. The bony thorax is gross ly intact. Calcific tendinopathy is noted in the left shoulder. IMPRESSION: 1. Cardiomegaly. 2. Multifocal airspace opacities are similar in appearance to the 04/17/2020 examination. This could re present a multifocal infectious/inflammatory pneumonitis and/or mild pulmonary edema. Clinical correl ation will be essential. 3. Small pleural effusions. ACT 112: Negative or not required by law. Electronically signed by: Francis South M.D. 05/10/2020 9:18 AM
[2020-05-10 09:24] LABS: Alanine Aminotransferase 26 U/L (12-78); Albumin Level 3.1 gm/dl (3.4-5.0); Aspartate Aminotransferase 8 U/L (15-37); BUN Creatinine Ratio 15.2 (10-20); Blood Urea Nitrogen 16 mg/dl (7-18); Calcium 9.1 mg/dl (8.5-10.1); Carbon Dioxide 31 mmol/L (21-32); Chloride 103 mmol/L (98-107); Est GFR (African American) 77.9; Est GFR (Non-African American) 67.2; Glucose 96 mg/dl (70-99); Potassium 3.8 mmol/L (3.5-5.1); Sodium 139 mmol/L (136-145)
[2020-05-10 09:35] LABS: Albumin Globulin Ratio 0.9 (0.9-2); Alkaline Phosphatase 84 U/L (45-117); Bilirubin,Total 0.5 mg/dl (0.2-1); Creatine Kinase 33 U/L (39-308); Globulin 3.5 gm/dl (2.5-4.0); Total Protein 6.6 gm/dl (6.4-8.2); Troponin I < 0.015 ng/ml (0-0.045)
[2020-05-10 09:47] LABS: T4 Free Thyroxine 1.44 ng/dl (0.8-1.6)
[2020-05-10 10:01] LABS: Appearance Urine Cloudy (Clear); Bacteria Urine Automated Negative (Negative); Bilirubin Urine Negative (Negative); Blood Urine Negative (Negative); Cast Urine Automated 0 /lpf (0-5); Color Urine Yellow; Epithelial Cell Urine Auto 0-5 /lpf (0-5); Glucose Urine UA Negative (Negative); Ketones Urine Negative (Negative); Leukocyte Esterase Urine Negative (Negative); Nitrite Urine Negative (Negative); Protein Urine Negative (Negative); RBC Urine Automated 0-4 /hpf (0-4); Specific Gravity Urine 1.011 (1.000-1.030); Urobilinogen Urine Negative (Negative); WBC Urine Automated 0 /hpf (0-5)
--- NOTE | 2020-05-10 10:53 | History & Physical Report ---
Date of Service May 10, 2020 Assessment & Plan (1) Fall: ?muscle spasm in b/l lower extremities (Mg level in AM) vs. sudden weakness from lumbar spinal stenosis vs. generalized weakness from recent COVID- 19 vs. balance from diabetes neuropathy No objective weakness on exam PT/OT (2) Generalized weakness: As above. PT/OT evals (3) History of COVID-19: No need for ongoing isolation. Finished course of dexamethasone (4) Hypothyroidism (acquired): TSH 5.24, free T4 1.44 Continue levothyroxine 50 mcg PO daily (5) Hyperlipidemia: Continue atorvastatin 10mg PO daily (6) Hypertension: Continue routine medications: amlodipine 10mg PO daily, carvedilol 25mg PO BID, doxazosin 4mg PO BID (7) Diabetic peripheral neuropathy associated with type 2 diabetes mellitus: Continue gabapentin 300mg PO TID (8) Diabetes: HbA1C 6.2 in March Given unclear appetite and low HbA1C will hold his usual Lantus and continue metformin only a this time with BSG ACHS T2DM diet (9) Peripheral edema: Persistent but improving CXR. O2 sats 96% on room air. Given poor oral intake will defer his previous prescribed diuretics at this time. BNP in AM (10) DVT prophylaxis: No SCDs due to risk of falling. Given likely short stay will defer anticoagulation at current time. Admission and Anticipated Discharge Date Admission Date: May 10, 2020 History of Present Illness Chief Complaint: Generalized weakness Primary Care Provider: Daniel Trivedi MD Steph Baird is a 79 year old male who presents to the ER with fall earlier today with sudden onset weakness. Since recent discharge for COVID-19 pneumonia he reports doing generally well although he thinks he gets dehydrated easily due to decreased PO intake. This morning he was feeling weak and while walking to the bathroom suddenly felt his legs give way. Thinks he may have had muscle twitches in his legs. He does report increased swelling in his bilateral lower extremities however shortness of breath has resolved. He has had two recent hospitalizations for COVID-19 pneumonia. Initial admission for hypoxia and COVID-19 from Apr 10-. Then subsequently from Apr 17 to with worsening hypoxia despite home O2 and generalized weakness. He was discharged to [facility] on the last occasion but subsequently discharged home from there. In the ER CXR similar to prior. Labs were generally unremarkable. He was referred to medicine for admission and ongoing management for weakness, fall, PNA. Allergies Allergy/AdvReac Type Severity Reaction Status Date / Time Sulfa (Sulfonamide Allergy Unknown Hives Verified 05/10/20 08:55 Antibiotics) Home Medications Medication Instructions Recorded Confirmed Type Lantus Solostar U-100 Insulin 20 unit SUBCUT QAM 07/23/19 05/10/20 History amlodipine 10 mg PO QAM 07/23/19 05/10/20 History atorvastatin 10 mg PO HS 07/23/19 05/10/20 History carvedilol [Coreg] 25 mg PO BIDM 07/23/19 05/10/20 History clopidogrel [Plavix] 75 mg PO QAM 07/23/19 05/10/20 History gabapentin [Neurontin] 300 mg PO TIDM 07/23/19 05/10/20 History levothyroxine 50 mcg PO DAILYBB 07/23/19 05/10/20 History metformin 1,000 mg PO BIDM 07/23/19 05/10/20 History multivitamin 1 tab PO QAM 07/23/19 05/10/20 History pentoxifylline 400 mg PO BIDM 07/23/19 05/10/20 History doxazosin 4 mg tablet 4 mg PO BID tab 03/31/20 05/10/20 History aspirin [Aspirin Low Dose] 81 mg PO QAM 04/10/20 05/10/20 History Myrbetriq 50 mg PO QAM 05/10/20 05/10/20 History ascorbic acid (vitamin C) [Vitamin 500 mg PO BIDM 05/10/20 05/10/20 History C] cholecalciferol (vitamin D3) 25 mcg PO QAM 05/10/20 05/10/20 History [Vitamin D3] solifenacin [Vesicare] 10 mg PO QAM 05/10/20 05/10/20 History zinc sulfate 220 mg PO QAM 05/10/20 05/10/20 History Past Med/Surg History Medical History Diabetic foot ulcer Diabetic peripheral neuropathy associated with type 2 diabetes mellitus Foot infection Hyperlipidemia Hypertension Hypothyroidism (acquired) Peripheral vascular disease Social History Smoking Status: Former smoker Cigarettes Per Day: one and a half packs 50 years ago; Second Hand Exposure: No; Hx Alcohol Use: No Hx Substance Use: No Preferred Language: Croatian Communication Ability: Effective Legislative Correspondent Required: No Beliefs That Will Affect Care: None marital status: Current Living Situation: Spouse Other Information That Helps Us Care for You: No Feels Safe at Home: Yes Safety Concerns: Feels Safe At This Time Assistive Devices: Walker Review of Systems Review of Systems: All systems reviewed & are unremarkable except as noted in HPI & below Physical Exam Constitutional: well developed and well nourished; no acute distress Eyes: + anicteric sclerae; normal pupil size ENMT: external ear and nose normal, oropharynx normal Neck: trachea midline Respiratory: normal respiratory effort and able to speak in complete sentences Auscultation: + diminished lung sounds (bibasal) and + crackles (fine b/l bases); no wheezes Cardiovascular: Rate/Rhythm: regular rate and regular rhythm Heart Sounds: no murmur Extremities: normal capillary refill and + pedal edema (1+ b/l equal edema to knees equal); no calf tenderness Musculoskeletal: no cyanosis or clubbing, extremities motor strength 5/5 Skin: no rashes, warm and dry Neurologic: awake; no focal motor deficits (b/l LE equal with MRC 5/5 power) Psychiatric: A+Ox3, euthymic affect Results & Data Results & Data ([facility]) Vital Signs (Past 12 Hours) Vital Signs Temp Pulse Resp BP Pulse Ox 05/10/20 09:31 59 L 15 94 05/10/20 09:30 57 L 16 157/69 H 95 05/10/20 09:01 57 L 17 94 05/10/20 09:00 58 L 21 140/67 94 05/10/20 08:31 59 L 16 134/69 100 05/10/20 08:10 95 05/10/20 08:08 36.6 C 117 H 20 162/75 H 99 Diagnostic Findings SINGLE VIEW CHEST IMPRESSION: 1. Cardiomegaly. 2. Multifocal airspace opacities are similar in appearance to the 04/17/2020 examination. This could represent a multifocal infectious/inflammatory pneumonitis and/or mild pulmonary edema. Clinical correlation will be essential. 3. Small pleural effusions. Medications Administered ER Medications given: NSS 1L bolus ECG Rate (beats per minute): 61 Findings: + other (nonspecific T wave abnormality) Comparison ECG Date: from (Apr 17, 2020) Change: no significant change Code Status & VTE Plan Code Status Full VTE Prophylaxis Plan VTE Prophylaxis will be ordered: No PG Care Time/CCT Total # of Minutes Spent Total Time Spent with Patient: Total time spent is greater than 50% in coordination of care (as documented) at patient's floor/unit and/or counseling patient: Coding Level of Care Code 60350 OBS Care - Level 3 Diagnoses Fall W19.XXXA Encounter type: initial encounter Generalized weakness R53.1 History of COVID-19 Z86.16 Hypothyroidism (acquired) E03.9 Hyperlipidemia E78.5 Hypertension I10 Diabetic peripheral neuropathy associated with type 2 diabetes mellitus E11.42 Diabetes E11.9 Peripheral edema R60.9 DVT prophylaxis Z29.9 (1) Fall Encounter type: initial encounter Qualified Code(s): W19.XXXA - Unspecified fall, initial encounter
--- NOTE | 2020-05-10 14:10 | Electrocardiogram Report ---
Test Reason : Blood Pressure : / mmHG Vent. Rate : 061 BPM Atrial Rate : 061 BPM P-R Int : 204 ms QRS Dur : 100 ms QT Int : 418 ms P-R-T Axes : 040 009 007 degrees QTc Int : 420 ms Normal sinus rhythm Nonspecific T wave abnormality When compared with ECG of 17-APR-2020 10:59, RSR' pattern in V1 is no longer Present Confirmed by Dionisio Borden ([id number]) on 05/10/2020 2:10:31 PM Referred By: REFERRED SELF Confirmed By:Dionisio Borden
[2020-05-10] MEDS ORDERED: ALUMINUM/MAGNESIUM SUSP 30 ML UDC PO PRN (15:24)
[2020-05-10] MEDS ORDERED: ONDANSETRON INJ 2 MG/ML 2 ML VIAL IV PRN (15:24)
[2020-05-10] MEDS ORDERED: ACETAMINOPHEN 325 MG TAB PO PRN (15:24)
[2020-05-10] MEDS: GABAPENTIN 300 MG CAP PO SCH (17:11)
[2020-05-10] MEDS: carvediloL 25 MG TAB PO SCH (17:12)
[2020-05-10] MEDS: PENTOXIFYLLINE 400MG EXT REL TAB PO SCH (17:12)
[2020-05-10] MEDS: metFORMIN HCL 500 MG TAB PO SCH (17:12)
[2020-05-10] MEDS: ASCORBIC ACID 500 MG TAB PO SCH (17:12)
[2020-05-10] MEDS ORDERED: GLUCOSE 40% GEL 15 GM TUBE PO PRN (18:00)
[2020-05-10] MEDS ORDERED: GLUCAGON FOR INJ 1 MG VIAL SQ PRN (18:00)
[2020-05-10] MEDS ORDERED: DEXTROSE 50% 50 ML SYRINGE IV PRN (18:00)
[2020-05-10] MEDS ORDERED: GLUCOSE 10 TABS/TUBE PO PRN (18:00)
[2020-05-10] MEDS ORDERED: CARBOHYDRATES FOR HYPOGLYCEMIA PO PRN (18:00)
[2020-05-10] MEDS: DOXAZosin MESYLATE 4 MG TAB PO SCH (21:26)
[2020-05-10] MEDS ORDERED: Nursing to Pharmacy Communication SCH (21:30)
[2020-05-10] MEDS: MIRABEGRON ER 25 MG TAB PO SCH (21:53)
[2020-05-11] MEDS: LEVOTHYROXINE SODIUM 50 MCG TABLET PO SCH (05:35)
[2020-05-11 08:00] LABS: BUN Creatinine Ratio 12.7 (10-20); Calcium 8.4 mg/dl (8.5-10.1); Est GFR (African American) 72.8; Est GFR (Non-African American) 62.8; Magnesium 1.9 mg/dl (1.8-2.4); Potassium 3.6 mmol/L (3.5-5.1)
[2020-05-11] MEDS: ASPIRIN 81 MG ECTAB PO SCH (08:48)
[2020-05-11] MEDS: amLODIPine BESYLATE 5 MG TAB PO SCH (08:48)
[2020-05-11] MEDS: metFORMIN HCL 500 MG TAB PO SCH ×2 (08:48→17:31)
[2020-05-11] MEDS: ASCORBIC ACID 500 MG TAB PO SCH ×2 (08:49→17:31)
[2020-05-11] MEDS: ZINC SULFATE 220 MG CAPSULE PO SCH (08:49)
[2020-05-11] MEDS: MULTIVITAMIN TAB PO SCH (08:49)
[2020-05-11] MEDS: CHOLECALCIFEROL 1,000 UNITS 25 MCG TAB PO SCH (08:49)
[2020-05-11] MEDS: CLOPIDOGREL BISULFATE 75 MG TAB PO SCH (08:49)
[2020-05-11] MEDS: PENTOXIFYLLINE 400MG EXT REL TAB PO SCH ×2 (08:50→17:31)
[2020-05-11] MEDS: DOXAZosin MESYLATE 4 MG TAB PO SCH ×2 (08:50→20:54)
[2020-05-11] MEDS: GABAPENTIN 300 MG CAP PO SCH ×3 (08:50→17:31)
[2020-05-11] MEDS: SOLIFENACIN 10 MG SCH (08:52)
[2020-05-11] MEDS: carvediloL 25 MG TAB PO SCH ×2 (08:58→17:30)
[2020-05-11] MEDS ORDERED: MIRABEGRON ER 25 MG TAB PO SCH (09:00)
[2020-05-11] MEDS: POLYETHYLENE (MIRALAX) 17 GM PACK PO SCH (12:14)
[2020-05-11] MEDS: DOCUSATE SODIUM 100 MG CAP PO SCH ×2 (12:14→17:32)
[2020-05-11] MEDS ORDERED: GLUCOSE 10 TABS/TUBE PO PRN (13:08)
[2020-05-11] MEDS ORDERED: GLUCOSE 40% GEL 15 GM TUBE PO PRN (13:08)
[2020-05-11] MEDS ORDERED: GLUCAGON FOR INJ 1 MG VIAL SQ PRN (13:08)
[2020-05-11] MEDS ORDERED: DEXTROSE 50% 50 ML SYRINGE IV PRN (13:08)
[2020-05-11] MEDS ORDERED: CARBOHYDRATES FOR HYPOGLYCEMIA PO PRN (13:08)
[2020-05-11] MEDS: INSULIN ASPART 100 UNITS/ML 3 ML PEN SC SCH ×3 (14:05→20:55)
--- NOTE | 2020-05-11 17:03 | Hospitalist Progress Note ---
Date of Service May 11, 2020 Assessment & Plan (1) Fall: Was walking and legs felt like hamstrings were twitching and then felt weak and lowered himself to the ground. ?muscle spasm in b/l lower extremities vs. generalized weakness from recent COVID-19 vs. balance from diabetes neuropathy He reports since he got home from rehab at [facility] one week prior, he has not really been doing much activity at the house-sitting around watching TV, etc. No objective weakness on exam here No signs or symptoms of ongoing infection, VSS PT/OT recommends home with home health but pt feels too weak to go home yet today (2) Generalized weakness: As above. Also encouraged laxatives to have a BM (3) History of COVID-19: No need for ongoing isolation. CXR with opacities residual from before, not requiring O2, doing well other than gen weakness Finished course of dexamethasone (4) Hypothyroidism (acquired): TSH 5.24, free T4 1.44 Continue levothyroxine 50 mcg PO daily and f/u as outpt (5) Hyperlipidemia: Continue atorvastatin 10mg PO daily (6) Hypertension: BPs stable Continue routine medications: amlodipine 10mg PO daily, carvedilol 25mg PO BID, doxazosin 4mg PO BID (7) Diabetic peripheral neuropathy associated with type 2 diabetes mellitus: Continue gabapentin 300mg PO TID (8) Diabetes: HbA1C 6.2 in March with hyperglycemia, add on Novolog SSI continue metformin T2DM diet (9) Peripheral edema: Persistent but improving CXR. O2 sats 96% on room air. Given poor oral intake will defer his previous prescribed diuretics at this time. BNP normal (10) DVT prophylaxis: No SCDs due to risk of falling. Given likely short stay will defer anticoagulation at current time. Dispo-continued stay for pt comfort, work on BM today and hopeful for dc to home with HH tomorrow Admission and Anticipated Discharge Date Admission Date: May 10, 2020 Subjective Pt still feels weak in general, but not specifically in his legs. Denies any low back, no numbness or focal weakness in his legs, denies radiating pain down the legs. No CP/SOB. Has not moved his bowels in 2 days and has been having hard stools lately. Is eating. Worked with PT who recommended home with home health. Pt refuses to go back to rehab. Review of Systems Review of Systems: All systems reviewed & are unremarkable except as noted in HPI & below Physical Exam Constitutional: WD/WN, vitals as above Eyes: + anicteric sclerae Neck: trachea midline, no thyromegaly Respiratory: normal respiratory effort, lungs clear to auscultation Cardiovascular: RRR, no murmur, no edema Chest (Breasts): Chest: normal inspection of chest Gastrointestinal (Abdomen): normal bowel sounds, soft, nontender, no hepatosplenomegaly Musculoskeletal: Extremities: extremities normal to inspection; no cyanosis and no clubbing Skin: no rashes, warm and dry Neurologic: moves all extremities and awake; no focal motor deficits (5/5 strength throughout) Motor/Sensory: no sensory deficit (intact to lt touch throughout LEs bilat) Psychiatric: A+Ox3, euthymic affect Genitourinary: no testicular masses, no penis abnormality Lymphatic: no lymphedema Results & Data Results & Data ([facility]) Vital Signs (Past 12 Hours) Vital Signs Temp Pulse Resp BP BP Pulse Ox 05/11/20 14:58 36.4 C L 59 L 18 153/82 H 94 05/11/20 08:57 66 177/92 H 96 05/11/20 07:45 36.7 C 56 L 16 138/65 95 Laboratory Results Labs reviewed PG Care Time/CCT Total # of Minutes Spent Total Time Spent with Patient: Total time spent is greater than 50% in coordination of care (as documented) at patient's floor/unit and/or counseling patient: Coding Level of Care Code 02726 Subseq Hosp Care Lvl 2 Diagnoses Fall W19.XXXA Encounter type: initial encounter Generalized weakness R53.1 History of COVID-19 Z86.16 Hypothyroidism (acquired) E03.9 Hyperlipidemia E78.5 Hypertension I10 Diabetic peripheral neuropathy associated with type 2 diabetes mellitus E11.42 Diabetes E11.9 Peripheral edema R60.9 DVT prophylaxis Z29.9 (1) Fall Encounter type: initial encounter Qualified Code(s): W19.XXXA - Unspecified fall, initial encounter
[2020-05-11] MEDS: MIRABEGRON ER 25 MG TAB PO SCH (20:54)
[2020-05-11] MEDS ORDERED: SOLIFENACIN 10 MG PO SCH (21:00)
[2020-05-12] MEDS: LEVOTHYROXINE SODIUM 50 MCG TABLET PO SCH (05:48)
[2020-05-12 07:20] LABS: Estimated Average Glucose 131 mg/dl; Hemoglobin A1C 6.2 % (4.5-5.6)
[2020-05-12] MEDS: INSULIN ASPART 100 UNITS/ML 3 ML PEN SC SCH ×2 (08:37→12:40)
[2020-05-12] MEDS: carvediloL 25 MG TAB PO SCH (08:38)
[2020-05-12] MEDS: metFORMIN HCL 500 MG TAB PO SCH (08:39)
[2020-05-12] MEDS: GABAPENTIN 300 MG CAP PO SCH ×2 (08:40→11:54)
[2020-05-12] MEDS: PENTOXIFYLLINE 400MG EXT REL TAB PO SCH (08:41)
[2020-05-12] MEDS: ASCORBIC ACID 500 MG TAB PO SCH (08:42)
[2020-05-12] MEDS: DOXAZosin MESYLATE 4 MG TAB PO SCH (08:42)
[2020-05-12] MEDS: DOCUSATE SODIUM 100 MG CAP PO SCH (08:43)
[2020-05-12] MEDS: POLYETHYLENE (MIRALAX) 17 GM PACK PO SCH (08:43)
[2020-05-12] MEDS: MULTIVITAMIN TAB PO SCH (08:44)
[2020-05-12] MEDS: amLODIPine BESYLATE 5 MG TAB PO SCH (08:44)
[2020-05-12] MEDS: ZINC SULFATE 220 MG CAPSULE PO SCH (08:45)
[2020-05-12] MEDS: ASPIRIN 81 MG ECTAB PO SCH (08:45)
[2020-05-12] MEDS: CLOPIDOGREL BISULFATE 75 MG TAB PO SCH (08:45)
[2020-05-12] MEDS: CHOLECALCIFEROL 1,000 UNITS 25 MCG TAB PO SCH (08:46)
[2020-05-12] MEDS: SOLIFENACIN 10 MG SCH (08:50)
--- NOTE | 2020-05-12 14:30 | Discharge Summary ---
Date of Service May 12, 2020 Admission HPI Per Admitting Provider Steph Baird is a 79 year old male who presents to the ER with fall earlier today with sudden onset weakness. Since recent discharge for COVID-19 pneumonia he reports doing generally well although he thinks he gets dehydrated easily due to decreased PO intake. This morning he was feeling weak and while walking to the bathroom suddenly felt his legs give way. Thinks he may have had muscle twitches in his legs. He does report increased swelling in his bilateral lower extremities however shortness of breath has resolved. He has had two recent hospitalizations for COVID-19 pneumonia. Initial admission for hypoxia and COVID-19 from Apr 10-. Then subsequently from Apr 17 to with worsening hypoxia despite home O2 and generalized weakness. He was discharged to [facility] on the last occasion but subsequently discharged home from there. In the ER CXR similar to prior. Labs were generally unremarkable. He was referred to medicine for admission and ongoing management for weakness, fall, PNA. Principal Diagnosis Generalized weakness, deconditioning Discharge Exam Constitutional WD/WN, vitals as above Eyes + anicteric sclerae Neck trachea midline, no thyromegaly Respiratory normal respiratory effort Auscultation: + crackles (mild crackles at bases); no rhonchi and no wheezes Cardiovascular RRR, no murmur, no edema Chest (Breasts) Chest: normal inspection of chest Gastrointestinal (Abdomen) normal bowel sounds, soft, nontender, no hepatosplenomegaly Musculoskeletal Extremities: extremities normal to inspection; no cyanosis and no clubbing Skin no rashes, warm and dry Neurologic moves all extremities and awake; no focal motor deficits (5/5 strength throughout) Motor/Sensory: no sensory deficit (intact to lt touch throughout LEs bilat) Psychiatric A+Ox3, euthymic affect Lymphatic no lymphedema Discharge Data Allergies Allergy/AdvReac Type Severity Reaction Status Date / Time Sulfa (Sulfonamide Allergy Unknown Hives Verified 05/10/20 08:55 Antibiotics) Consultations 05/10/20 10:16 ED Decision to Admit Stat Ordered Studies CXR Hospital Course (1) Fall: Was walking and legs felt like hamstrings were twitching and then felt weak and lowered himself to the ground. ?muscle spasm in b/l lower extremities vs. generalized weakness from recent COVID-19 vs. balance from diabetes neuropathy He reports since he got home from rehab at [facility] one week prior, he has not really been doing much activity at the house-sitting around watching TV, etc. He had two hospitalizations in the last month related to COVID-19 and hypoxia--> then went to rehab. Since being home from rehab he has not been doing much activity No objective weakness on exam here and seen by PT/OT who recommend home with home health. He was ambulating the wards on the day of discharge. He was eating/drinking, moving his bowels No signs or symptoms of ongoing infection, VSS (2) Generalized weakness: As above. Also encouraged laxatives to continue to have regular BM (3) History of COVID-19: No need for ongoing isolation. CXR with opacities residual from before, not requiring O2, doing well other than gen weakness Finished course of dexamethasone after last admission (4) Hypothyroidism (acquired): TSH 5.24, free T4 1.44 Continue levothyroxine 50 mcg PO daily and f/u as outpt (5) Hyperlipidemia: Continue atorvastatin 10mg PO daily (6) Hypertension: BPs stable Continue routine medications: amlodipine 10mg PO daily, carvedilol 25mg PO BID, doxazosin 4mg PO BID (7) Diabetic peripheral neuropathy associated with type 2 diabetes mellitus: Continue gabapentin 300mg PO TID (8) Diabetes: HbA1C 6.2 in March with hyperglycemia due to not receiving his usual insulin upon admission- was given Novolog SSI and Lantus continue metformin T2DM diet (9) Peripheral edema: Persistent but improving CXR. O2 sats 96% on room air. BNP normal (10) DVT prophylaxis: No SCDs due to risk of falling. Given likely short stay will defer anticoagulation at current time. Dispo-stable for dc to home with HH today Total Time Total Time Spent Total Time Spent (In Minutes): 35 min Total Time Includes: Examination of the Patient, Discharge Planning and Medication Reconciliation Discharge Plan Discharge Items Patient Disposition: Home - Home Health Services Reason For Visit: GENERALIZED WEAKNESS Discharge Diagnosis: Generalized weakness, deconditioning, fall Condition on Discharge: Good Activity: As commented below Lifting: Gradually increase as tolerated Bathing: No limitations Exercise/Sports: Gradually increase as tolerated Exercise Comment: with home PT/OT Weightbearing: Full weightbearing Non-emergency contact: Primary Care Provider Call non-emergency contact if: you have any medication questions and your symptoms worsen Follow-up/Referrals: Daniel Trivedi MD [Primary Care Provider] - 05/18/20 10:10 am (Follow up within 1-2 weeks.) Diet: Carb Consistent or DM2 and Heart Healthy Addtl Attending Provider Instructions: You were admitted to the hospital after having a fall with weakness. Your workup was negative for abnormalities and it is felt you have generalized deconditioning due to recent hospitalizations. Please continue home physical and occupational therapy. Follow up with your PCP within 1-2 weeks. Pending Studies at Discharge: No Stand-Alone Forms: My [facility] Medications and DC Order Prescriptions: New docusate sodium 100 mg Capsule 100 mg PO BID Qty: 30 RF: 0 polyethylene glycol 3350 [Miralax] 17 gram Powder In Packet 17 g PO DAILY Qty: 30 RF: 0 Continued multivitamin Tablet 1 tab PO QAM RF: 0 carvedilol [Coreg] 25 mg tablet 25 mg PO BIDM RF: 0 atorvastatin 10 mg Tablet 10 mg PO HS RF: 0 clopidogrel [Plavix] 75 mg tablet 75 mg PO QAM RF: 0 pentoxifylline 400 mg tablet extended release 400 mg PO BIDM RF: 0 levothyroxine 50 mcg tablet 50 mcg PO DAILYBB RF: 0 metformin 1,000 mg tablet 1,000 mg PO BIDM RF: 0 gabapentin [Neurontin] 300 mg capsule 300 mg PO TIDM RF: 0 Lantus Solostar U-100 Insulin 100 unit/mL (3 mL) insulin pen 20 unit SUBCUT QAM RF: 0 amlodipine 10 mg tablet 10 mg PO QAM RF: 0 doxazosin 4 mg tablet 4 mg PO BID RF: 0 aspirin [Aspirin Low Dose] 81 mg Tablet,Delayed Release (Dr/Ec) 81 mg PO QAM RF: 0 zinc sulfate 220 mg Tablet 220 mg PO QAM RF: 0 ascorbic acid (vitamin C) [Vitamin C] 500 mg Tablet 500 mg PO BIDM RF: 0 cholecalciferol (vitamin D3) [Vitamin D3] 25 mcg (1,000 unit) Tablet 25 mcg PO QAM RF: 0 solifenacin [Vesicare] 10 mg tablet 10 mg PO QAM RF: 0 Myrbetriq 50 mg tablet extended release 24 hr 50 mg PO QAM RF: 0 Discharge Orders: Discharge Order (Routine); Ordered 05/12/20 Ordered By: Sarah Boland/Other Patient Handouts: Managing Type 2 Diabetes Admission Data Admit Date/Time: 05/10/20 11:11 Attending Provider: Sarah Vaughn Admit Provider: Arley Thompson Primary Care Provider: Daniel Trivedi Other Providers: Arley Thompson ; [facility] Coding Level of Care Code 97691 OBS Care - Discharge Diagnoses Fall W19.XXXA Encounter type: initial encounter Generalized weakness R53.1 History of COVID-19 Z86.16 Hypothyroidism (acquired) E03.9 Hyperlipidemia E78.5 Hypertension I10 Diabetic peripheral neuropathy associated with type 2 diabetes mellitus E11.42 Diabetes E11.9 Peripheral edema R60.9 DVT prophylaxis Z29.9
[2020-05-12] MEDS ORDERED: INSULIN GLARGINE SOLOSTAR 100 UNITS/ML 3 ML PEN SQ SCH (14:45)
== END 2020-05-12 16:50 | disposition home health service (06) ==
LOC: 3W 08:00 → ED 08:00 → SUATTDRO 11:11 → 3W 13:33

== ENCOUNTER 2020-10-26 09:29 | Inpatient (IN) ==
[2020-10-26 10:21] LABS: Basophils # (auto) 0.01 K/uL (0-0.2); Basophils % (auto) 0.2 %; Eosinophils # (auto) 0.31 K/uL (0-0.5); Eosinophils % (auto) 5.8 %; Hematocrit (blood only) 34.3 % (42-52); Hemoglobin 11.7 g/dL (14.0-18.0); Lymphocytes % (auto) 22.4 %; Mean Corpuscular Hemoglobin 30.1 pg (25-34); Mean Corpuscular Hgb Conc 34.1 g/dL (32-36); Mean Corpuscular Volume 88.2 fL (80-100); Mean Platelet Volume 9.7 fL (7.4-10.4); Monocytes # (auto) 0.51 K/uL (0.11-0.59); Monocytes % (auto) 9.5 %; Neutrophils # (auto) 3.32 K/uL (1.4-6.5); Neutrophils % (auto) 62.1 %; Platelet Count 159 K/uL (130-400); RDW Coefficient of Variation 14.6 % (11.5-14.5); RDW Standard Deviation 47.3 fL (36.4-46.3); Red Blood Count 3.89 M/uL (4.7-6.1); White Blood Count 5.35 K/uL (4.8-10.8)
[2020-10-26 10:22] LABS: Appearance Urine Cloudy (Clear); Bacteria Urine Automated Negative (Negative); Bilirubin Urine Negative (Negative); Blood Urine Negative (Negative); Cast Urine Automated 0 /lpf (0-5); Color Urine Yellow; Glucose Urine UA Negative (Negative); Ketones Urine Negative (Negative); Leukocyte Esterase Urine Negative (Negative); Nitrite Urine Negative (Negative); Protein Urine Trace (Negative); RBC Urine Automated 0-4 /hpf (0-4); Specific Gravity Urine 1.015 (1.000-1.030); Urobilinogen Urine Negative (Negative)
--- NOTE | 2020-10-26 10:27 | Emergency Department Note ---
Impression & Plan Hypoglycemia, Acute confusion ED Provider Note INFORMANT: Patient and ED PROVIDER(S): Yamil Giraldo MD CHIEF COMPLAINT: Confusion PLAN: Disposition: Admitted Condition: Good Outpatient prescription management: none Referral: None patient presented MEDICAL DECISION MAKING: Due to increased confusion. He had weakness as well. The patient had hypoglycemia for EMS and was treated with glucose. He seemed to improve somewhat. He was noted to be very bradycardic on monitoring with a sinus bradycardia that varied from the high 30s to low 50s. states that he is typically in the 60 range at home. The patient is legs have edema but there is no signs of cellulitis. Work-up was initiated. His head CT did not reveal any acute findings. Patient's CBC and chemistry panel were unremarkable except for mild anemia. The patient started to feel worse and his blood glucose was checked. He was found to be mildly hypoglycemic again. He was given IV dextrose. Urinalysis was unremarkable. His ECG did not reveal any ischemia. Given his general decline, bradycardia, hypoglycemia, And confusion I discussed further management in the hospital.. The patient's and patient were in agreement. Consultation was made with the [facility] service, Dr. Flores. Triage Nursing notes reviewed and agree them. Vital Signs: reviewed and remarkable for no significant abnormalities Differential diagnosis: Infection, dehydration, metabolic abnormality, hypo/hyperglycemia, electrolyte disturbance, anemia, hypoxia, cardiac sources, intracerebral event, toxicologic, neurologic, as well as other pathologies. Diagnostics interpreted by me: ECG: Twelve-lead ECG reveals sinus bradycardia 49 bpm. First-degree AV block. Include right bundle branch block. No ST elevation or depression. No PACs or PVCs. Cardiac Monitoring: Cardiac monitoring ordered by me: The patient was placed on continuous cardiac monitoring and observed. It revealed a sinus bradycardic rhythm with heart rates Imaging studies: Head CT: A noncontrast CT scan of the head was performed and was negative for tumor, fracture, intracranial hemorrhage, or other acute pathology. HPI: The patient is a 79 year old male who presents to the Emergency Room with complaints of hypoglycemia. This started today and was 52 for the ambulance. The patient also notes the following associated symptoms, confusion, weakness, lower extermity edema and redness. The patient has glucose for relieving fac tors. Current pain is rated as 3/10, Chronic low back pain from spinal stenosis. Pt denies LOC, headache, fevers, chills, diaphoresis, visual changes, neck pain, chest pain, breathing difficulties, nausea, vomiting, abdominal pain, melena, hematochezia, urinary symptoms, numbness, lymphadenopathy, rash, or other complaints. ROS: See above HPI for pertinent positives & negatives. A total of 10 systems reviewed and were otherwise negative. PAST MEDICAL HISTORY:See Below , spinal stenosis, HTN PAST SURGICAL HISTORY:See Below, FAMILY HISTORY:See Below SOCIAL HISTORY:See Below, HOME MEDICATIONS:See Below ALLERGIES:See Below VITALS:See Below PHYSICAL EXAMINATION: GENERAL: Awake, alert, tired-appearing, in no distress HENT: Normocephalic, atraumatic. Oropharynx unremarkable. EYES: Normal conjunctiva. Sclera non-icteric. NECK: Inspection normal. Non-tender. Supple. No nuchal rigidity. FROM. No masses. RESPIRATORY: Clear to auscultation. No wheezes. No rales. Normal respiratory effort. CARDIAC: Normal rate. Normal rhythm. No murmurs. No rubs. Extremities warm and well perfused. Pulses equal. No JVD. GI: Soft, non-distended. No tenderness to palpation. No rebound or guarding. No masses. RECTAL: Deferred. MUSCULOSKELETAL: Atraumatic. Chest examination reveals no tenderness. The back is symmetrical on inspection without obvious abnormality. There is no CVA tenderness to palpation. No joint edema. LOWER EXTREMITIES: Calves are equal size bilaterally and non-tender. No edema. No discoloration. NEURO: Normal sensorium. No sensory or motor deficits noted. SKIN: No rash or jaundice noted. Yamil Giraldo MD Past Med/Surg History Medical History Chiari malformation (02/14/13) Diabetic foot ulcer Diabetic peripheral neuropathy associated with type 2 diabetes mellitus Hyperlipidemia Hypertension Hypothyroidism (acquired) Peripheral vascular disease Social History Smoking Status: Former smoker Tobacco Type: Cigarettes Cigarettes Per Day: one and a half packs 50 years ago; Second Hand Exposure: No; Do You Dip or Chew Tobacco: No; Hx Alcohol Use: No Hx Substance Use: No Preferred Language: German Communication Ability: Effective Communication Ability Comment: effective at communication, but lack of memory about self and events Tour Escort Required: No Beliefs That Will Affect Care: None marital status: Current Living Situation: Spouse Other Information That Helps Us Care for You: No Feels Safe at Home: Yes Safety Concerns: Feels Safe At This Time Assistive Devices: Walker Allergies Allergies Allergy/AdvReac Type Severity Reaction Status Date / Time Sulfa (Sulfonamide Allergy Unknown Hives Verified 10/26/20 10:54 Antibiotics) Home Meds Home Medications Medication Instructions Recorded Confirmed Lantus Solostar U-100 Insulin 20 unit SUBCUT QAM 07/23/19 10/26/20 atorvastatin 10 mg PO HS 07/23/19 10/26/20 clopidogrel [Plavix] 75 mg PO QAM 07/23/19 10/26/20 gabapentin [Neurontin] 300 mg PO TIDM 07/23/19 10/26/20 levothyroxine 50 mcg PO DAILYBB 07/23/19 10/26/20 metformin 1,000 mg PO BIDM 07/23/19 10/26/20 multivitamin 1 tab PO QAM 07/23/19 10/26/20 pentoxifylline 400 mg PO BIDM 07/23/19 10/26/20 doxazosin 4 mg tablet 4 mg PO BID tab 03/31/20 10/26/20 aspirin [Aspirin Low Dose] 81 mg PO QAM 04/10/20 10/26/20 ascorbic acid (vitamin C) [Vitamin 500 mg PO BIDM 05/10/20 10/26/20 C] cholecalciferol (vitamin D3) 25 mcg PO QAM 05/10/20 10/26/20 [Vitamin D3] solifenacin [Vesicare] 10 mg PO QAM 05/10/20 10/26/20 carvedilol 25 mg tablet 25 mg PO BID tab 10/06/20 10/26/20 mirabegron 50 mg tablet,extended 50 mg PO DAILY 10/06/20 10/26/20 release 24 hr amlodipine 10 mg PO DAILY 10/26/20 10/26/20 Previous Rx's Medication Instructions Recorded docusate sodium 100 mg PO BID #30 cap 05/12/20 losartan 25 mg tablet 25 mg PO DAILY #90 tab 10/06/20 Results & Data (ED) Vital Signs Vital Signs - 24 hr 10/26/20 09:36 10/26/20 09:41 10/26/20 10:01 Temperature 36.5 C Temperature Source Oral Pulse Rate 51 L 49 L 51 L Pulse Rate [Left] Pulse Rate from SpO2 Sensor 51 L 50 L Pulse Rhythm Regular Pulse Rhythm [Left] Pulse Strength Normal Pulse Strength [Left] Respiratory Rate 16 16 18 Respiratory Effort / Characteristics Non-Labored Spontaneous Respiratory Depth Normal Respiratory Pattern Regular Blood Pressure 183/81 H 183/81 H 190/78 H Blood Pressure [Right Arm] Blood Pressure Mean 115 115 115 Blood Pressure Mean [Right Arm] Blood Pressure Position [Right Arm] Pulse Oximetry 95 94 97 Oxygen Delivery Method Room Air Room Air Room Air Sepsis Recent Fever Within 48 Hours No Sepsis New/Unexplained Change in Mental Status N/A Sepsis Action Taken by Nursing No Action Required 10/26/20 10:31 10/26/20 11:01 10/26/20 11:30 Temperature Temperature Source Pulse Rate 47 L 50 L 46 L Pulse Rate [Left] Pulse Rate from SpO2 Sensor 46 L 50 L 47 L Pulse Rhythm Pulse Rhythm [Left] Pulse Strength Pulse Strength [Left] Respiratory Rate 19 21 14 Respiratory Effort / Characteristics Respiratory Depth Respiratory Pattern Blood Pressure 176/89 H 189/77 H 180/82 H Blood Pressure [Right Arm] Blood Pressure Mean 118 114 114 Blood Pressure Mean [Right Arm] Blood Pressure Position [Right Arm] Pulse Oximetry 96 97 96 Oxygen Delivery Method Sepsis Recent Fever Within 48 Hours Sepsis New/Unexplained Change in Mental Status Sepsis Action Taken by Nursing 10/26/20 12:00 10/26/20 12:30 10/26/20 13:00 Temperature Temperature Source Pulse Rate 46 L 44 L 47 L Pulse Rate [Left] 47 L Pulse Rate from SpO2 Sensor Pulse Rhythm Pulse Rhythm [Left] Regular Pulse Strength Pulse Strength [Left] Normal Respiratory Rate 18 18 17 Respiratory Effort / Characteristics Non-Labored Spontaneous Accessory Muscle Use Respiratory Depth Normal Respiratory Pattern Regular Blood Pressure 185/76 H 165/77 H 195/81 H Blood Pressure [Right Arm] 185/76 H Blood Pressure Mean 112 106 119 Blood Pressure Mean [Right Arm] 112 Blood Pressure Position [Right Arm] Lying Pulse Oximetry 99 Oxygen Delivery Method Room Air Sepsis Recent Fever Within 48 Hours Sepsis New/Unexplained Change in Mental Status Sepsis Action Taken by Nursing 10/26/20 13:30 10/26/20 14:00 10/26/20 14:30 Temperature Temperature Source Pulse Rate 48 L 46 L 47 L Pulse Rate [Left] Pulse Rate from SpO2 Sensor Pulse Rhythm Pulse Rhythm [Left] Pulse Strength Pulse Strength [Left] Respiratory Rate 24 18 14 Respiratory Effort / Characteristics Respiratory Depth Respiratory Pattern Blood Pressure 203/85 H 188/84 H 197/85 H Blood Pressure [Right Arm] Blood Pressure Mean 124 118 122 Blood Pressure Mean [Right Arm] Blood Pressure Position [Right Arm] Pulse Oximetry Oxygen Delivery Method Sepsis Recent Fever Within 48 Hours Sepsis New/Unexplained Change in Mental Status Sepsis Action Taken by Nursing 10/26/20 15:00 10/26/20 15:07 10/26/20 15:31 Temperature Temperature Source Pulse Rate 52 L 45 L Pulse Rate [Left] 46 L Pulse Rate from SpO2 Sensor Pulse Rhythm Pulse Rhythm [Left] Regular Pulse Strength Pulse Strength [Left] Normal Respiratory Rate 17 21 18 Respiratory Effort / Characteristics Non-Labored Spontaneous Respiratory Depth Normal Respiratory Pattern Blood Pressure 174/81 H 188/120 H Blood Pressure [Right Arm] 174/81 H Blood Pressure Mean 112 142 Blood Pressure Mean [Right Arm] 112 Blood Pressure Position [Right Arm] Lying Pulse Oximetry 99 Oxygen Delivery Method Room Air Sepsis Recent Fever Within 48 Hours Sepsis New/Unexplained Change in Mental Status Sepsis Action Taken by Nursing Laboratory Data Result diagrams: 10/27/20 05:09 10/27/20 05:09 Lab Results 10/26/20 10/26/20 10/26/20 Range/Units 09:35 09:55 09:55 WBC 5.35 (4.8-10.8) K/uL RBC 3.89 L (4.7-6.1) M/uL Hgb 11.7 L (14.0-18.0) g/dL Hct 34.3 L (42-52) % MCV 88.2 (80-100) fL MCH 30.1 (25-34) pg MCHC 34.1 (32-36) g/dL RDW Std Deviation 47.3 H (36.4-46.3) fL RDW Coeff of Jimmy 14.6 H (11.5-14.5) % Plt Count 159 (130-400) K/uL MPV 9.7 (7.4-10.4) fL Immature Gran % (Auto) 0.0 % Neut % (Auto) 62.1 % Lymph % (Auto) 22.4 % [place] % (Auto) 9.5 % Eos % (Auto) 5.8 % Baso % (Auto) 0.2 % Neut # (Auto) 3.32 (1.4-6.5) K/uL Lymph # (Auto) 1.20 (1.2-3.4) K/uL [place] # (Auto) 0.51 (0.11-0.59) K/uL Eos # (Auto) 0.31 (0-0.5) K/uL Baso # (Auto) 0.01 (0-0.2) K/uL Immature Gran # (Auto) 0.00 (0.00-0.02) K/uL Sodium 140 (136-145) mmol/L Potassium 3.6 (3.5-5.1) mmol/L Chloride 107 (98-107) mmol/L Carbon Dioxide 33 H (21-32) mmol/L Anion Gap 0 L (3-11) BUN 19 H (7-18) mg/dl Creatinine 1.13 (0.6-1.4) mg/dl Est Cr Clr Drug Dosing 60.1 ml/min Est GFR ( Amer) 71.3 ml/min Est GFR (Non-Af Amer) 61.5 ml/min BUN/Creatinine Ratio 17.2 (10-20) Glucose 124 H (70-99) mg/dl POC Glucose 140 H (70-99) mg/dl Calcium 8.5 (8.5-10.1) mg/dl Total Bilirubin 0.5 (0.2-1) mg/dl AST 15 (15-37) U/L ALT 19 (12-78) U/L Alkaline Phosphatase 65 (45-117) U/L Troponin I (0-0.045) ng/ml Total Protein 6.1 L (6.4-8.2) gm/dl Albumin 3.3 L (3.4-5.0) gm/dl Globulin 2.8 (2.5-4.0) gm/dl Albumin/Globulin Ratio 1.2 (0.9-2) Procalcitonin (0-0.5) ng/ml TSH (0.300-4.500) uIu/ml Free T4 (0.8-1.6) ng/dl Urine Color Urine Appearance (Clear) Urine pH (4.5-7.5) Ur Specific [place] (1.000-1.030) Urine Protein (Negative) Urine Glucose (UA) (Negative) Urine Ketones (Negative) Urine Blood (Negative) Urine Nitrite (Negative) Urine Bilirubin (Negative) Urine Urobilinogen (Negative) Ur Leukocyte Esterase (Negative) Urine WBC (Auto) (0-5) /hpf Urine RBC (Auto) (0-4) /hpf U Hyaline Cast (Auto) (0-5) /lpf U Epithel Cells (Auto) (0-5) /lpf Urine Bacteria (Auto) (Negative) Lyme Disease IgG Ab (Negative) Lyme Disease IgM Ab (Negative) COVID-19 Eval Order SARS-CoV-2 (PCR) (Negative) 10/26/20 10/26/20 10/26/20 Range/Units 09:55 09:55 09:55 WBC (4.8-10.8) K/uL RBC (4.7-6.1) M/uL Hgb (14.0-18.0) g/dL Hct (42-52) % MCV (80-100) fL MCH (25-34) pg MCHC (32-36) g/dL RDW Std Deviation (36.4-46.3) fL RDW Coeff of Jimmy (11.5-14.5) % Plt Count (130-400) K/uL MPV (7.4-10.4) fL Immature Gran % (Auto) % Neut % (Auto) % Lymph % (Auto) % [place] % (Auto) % Eos % (Auto) % Baso % (Auto) % Neut # (Auto) (1.4-6.5) K/uL Lymph # (Auto) (1.2-3.4) K/uL [place] # (Auto) (0.11-0.59) K/uL Eos # (Auto) (0-0.5) K/uL Baso # (Auto) (0-0.2) K/uL Immature Gran # (Auto) (0.00-0.02) K/uL Sodium (136-145) mmol/L Potassium (3.5-5.1) mmol/L Chloride (98-107) mmol/L Carbon Dioxide (21-32) mmol/L Anion Gap (3-11) BUN (7-18) mg/dl Creatinine (0.6-1.4) mg/dl Est Cr Clr Drug Dosing ml/min Est GFR ( Amer) ml/min Est GFR (Non-Af Amer) ml/min BUN/Creatinine Ratio (10-20) Glucose (70-99) mg/dl POC Glucose (70-99) mg/dl Calcium (8.5-10.1) mg/dl Total Bilirubin (0.2-1) mg/dl AST (15-37) U/L ALT (12-78) U/L Alkaline Phosphatase (45-117) U/L Troponin I < 0.015 (0-0.045) ng/ml Total Protein (6.4-8.2) gm/dl Albumin (3.4-5.0) gm/dl Globulin (2.5-4.0) gm/dl Albumin/Globulin Ratio (0.9-2) Procalcitonin (0-0.5) ng/ml TSH (0.300-4.500) uIu/ml Free T4 (0.8-1.6) ng/dl Urine Color Yellow Urine Appearance Cloudy A (Clear) Urine pH 6.0 (4.5-7.5) Ur Specific [place] 1.015 (1.000-1.030) Urine Protein Trace H (Negative) Urine Glucose (UA) Negative (Negative) Urine Ketones Negative (Negative) Urine Blood Negative (Negative) Urine Nitrite Negative (Negative) Urine Bilirubin Negative (Negative) Urine Urobilinogen Negative (Negative) Ur Leukocyte Esterase Negative (Negative) Urine WBC (Auto) 1-5 (0-5) /hpf Urine RBC (Auto) 0-4 (0-4) /hpf U Hyaline Cast (Auto) 0 (0-5) /lpf U Epithel Cells (Auto) 5-10 H (0-5) /lpf Urine Bacteria (Auto) Negative (Negative) Lyme Disease IgG Ab Negative (Negative) Lyme Disease IgM Ab Negative (Negative) COVID-19 Eval Order SARS-CoV-2 (PCR) (Negative) 10/26/20 10/26/20 10/26/20 Range/Units 09:55 10:35 10:35 WBC (4.8-10.8) K/uL RBC (4.7-6.1) M/uL Hgb (14.0-18.0) g/dL Hct (42-52) % MCV (80-100) fL MCH (25-34) pg MCHC (32-36) g/dL RDW Std Deviation (36.4-46.3) fL RDW Coeff of Jimmy (11.5-14.5) % Plt Count (130-400) K/uL MPV (7.4-10.4) fL Immature Gran % (Auto) % Neut % (Auto) % Lymph % (Auto) % [place] % (Auto) % Eos % (Auto) % Baso % (Auto) % Neut # (Auto) (1.4-6.5) K/uL Lymph # (Auto) (1.2-3.4) K/uL [place] # (Auto) (0.11-0.59) K/uL Eos # (Auto) (0-0.5) K/uL Baso # (Auto) (0-0.2) K/uL Immature Gran # (Auto) (0.00-0.02) K/uL Sodium (136-145) mmol/L Potassium (3.5-5.1) mmol/L Chloride (98-107) mmol/L Carbon Dioxide (21-32) mmol/L Anion Gap (3-11) BUN (7-18) mg/dl Creatinine (0.6-1.4) mg/dl Est Cr Clr Drug Dosing ml/min Est GFR ( Amer) ml/min Est GFR (Non-Af Amer) ml/min BUN/Creatinine Ratio (10-20) Glucose (70-99) mg/dl POC Glucose (70-99) mg/dl Calcium (8.5-10.1) mg/dl Total Bilirubin (0.2-1) mg/dl AST (15-37) U/L ALT (12-78) U/L Alkaline Phosphatase (45-117) U/L Troponin I (0-0.045) ng/ml Total Protein (6.4-8.2) gm/dl Albumin (3.4-5.0) gm/dl Globulin (2.5-4.0) gm/dl Albumin/Globulin Ratio (0.9-2) Procalcitonin (0-0.5) ng/ml TSH 4.540 H (0.300-4.500) uIu/ml Free T4 1.15 (0.8-1.6) ng/dl Urine Color Urine Appearance (Clear) Urine pH (4.5-7.5) Ur Specific [place] (1.000-1.030) Urine Protein (Negative) Urine Glucose (UA) (Negative) Urine Ketones (Negative) Urine Blood (Negative) Urine Nitrite (Negative) Urine Bilirubin (Negative) Urine Urobilinogen (Negative) Ur Leukocyte Esterase (Negative) Urine WBC (Auto) (0-5) /hpf Urine RBC (Auto) (0-4) /hpf U Hyaline Cast (Auto) (0-5) /lpf U Epithel Cells (Auto) (0-5) /lpf Urine Bacteria (Auto) (Negative) Lyme Disease IgG Ab (Negative) Lyme Disease IgM Ab (Negative) COVID-19 Eval Order Covid19 at [facility] SARS-CoV-2 (PCR) NEGATIVE (Negative) 10/26/20 10/26/20 10/26/20 Range/Units 14:05 14:07 14:54 WBC (4.8-10.8) K/uL RBC (4.7-6.1) M/uL Hgb (14.0-18.0) g/dL Hct (42-52) % MCV (80-100) fL MCH (25-34) pg MCHC (32-36) g/dL RDW Std Deviation (36.4-46.3) fL RDW Coeff of Jimmy (11.5-14.5) % Plt Count (130-400) K/uL MPV (7.4-10.4) fL Immature Gran % (Auto) % Neut % (Auto) % Lymph % (Auto) % [place] % (Auto) % Eos % (Auto) % Baso % (Auto) % Neut # (Auto) (1.4-6.5) K/uL Lymph # (Auto) (1.2-3.4) K/uL [place] # (Auto) (0.11-0.59) K/uL Eos # (Auto) (0-0.5) K/uL Baso # (Auto) (0-0.2) K/uL Immature Gran # (Auto) (0.00-0.02) K/uL Sodium (136-145) mmol/L Potassium (3.5-5.1) mmol/L Chloride (98-107) mmol/L Carbon Dioxide (21-32) mmol/L Anion Gap (3-11) BUN (7-18) mg/dl Creatinine (0.6-1.4) mg/dl Est Cr Clr Drug Dosing ml/min Est GFR ( Amer) ml/min Est GFR (Non-Af Amer) ml/min BUN/Creatinine Ratio (10-20) Glucose (70-99) mg/dl POC Glucose 67 L* 73 111 H (70-99) mg/dl Calcium (8.5-10.1) mg/dl Total Bilirubin (0.2-1) mg/dl AST (15-37) U/L ALT (12-78) U/L Alkaline Phosphatase (45-117) U/L Troponin I (0-0.045) ng/ml Total Protein (6.4-8.2) gm/dl Albumin (3.4-5.0) gm/dl Globulin (2.5-4.0) gm/dl Albumin/Globulin Ratio (0.9-2) Procalcitonin (0-0.5) ng/ml TSH (0.300-4.500) uIu/ml Free T4 (0.8-1.6) ng/dl Urine Color Urine Appearance (Clear) Urine pH (4.5-7.5) Ur Specific [place] (1.000-1.030) Urine Protein (Negative) Urine Glucose (UA) (Negative) Urine Ketones (Negative) Urine Blood (Negative) Urine Nitrite (Negative) Urine Bilirubin (Negative) Urine Urobilinogen (Negative) Ur Leukocyte Esterase (Negative) Urine WBC (Auto) (0-5) /hpf Urine RBC (Auto) (0-4) /hpf U Hyaline Cast (Auto) (0-5) /lpf U Epithel Cells (Auto) (0-5) /lpf Urine Bacteria (Auto) (Negative) Lyme Disease IgG Ab (Negative) Lyme Disease IgM Ab (Negative) COVID-19 Eval Order SARS-CoV-2 (PCR) (Negative) 10/26/20 Range/Units 15:30 WBC (4.8-10.8) K/uL RBC (4.7-6.1) M/uL Hgb (14.0-18.0) g/dL Hct (42-52) % MCV (80-100) fL MCH (25-34) pg MCHC (32-36) g/dL RDW Std Deviation (36.4-46.3) fL RDW Coeff of Jimmy (11.5-14.5) % Plt Count (130-400) K/uL MPV (7.4-10.4) fL Immature Gran % (Auto) % Neut % (Auto) % Lymph % (Auto) % [place] % (Auto) % Eos % (Auto) % Baso % (Auto) % Neut # (Auto) (1.4-6.5) K/uL Lymph # (Auto) (1.2-3.4) K/uL [place] # (Auto) (0.11-0.59) K/uL Eos # (Auto) (0-0.5) K/uL Baso # (Auto) (0-0.2) K/uL Immature Gran # (Auto) (0.00-0.02) K/uL Sodium (136-145) mmol/L Potassium (3.5-5.1) mmol/L Chloride (98-107) mmol/L Carbon Dioxide (21-32) mmol/L Anion Gap (3-11) BUN (7-18) mg/dl Creatinine (0.6-1.4) mg/dl Est Cr Clr Drug Dosing ml/min Est GFR ( Amer) ml/min Est GFR (Non-Af Amer) ml/min BUN/Creatinine Ratio (10-20) Glucose (70-99) mg/dl POC Glucose (70-99) mg/dl Calcium (8.5-10.1) mg/dl Total Bilirubin (0.2-1) mg/dl AST (15-37) U/L ALT (12-78) U/L Alkaline Phosphatase (45-117) U/L Troponin I (0-0.045) ng/ml Total Protein (6.4-8.2) gm/dl Albumin (3.4-5.0) gm/dl Globulin (2.5-4.0) gm/dl Albumin/Globulin Ratio (0.9-2) Procalcitonin < 0.05 (0-0.5) ng/ml TSH (0.300-4.500) uIu/ml Free T4 (0.8-1.6) ng/dl Urine Color Urine Appearance (Clear) Urine pH (4.5-7.5) Ur Specific [place] (1.000-1.030) Urine Protein (Negative) Urine Glucose (UA) (Negative) Urine Ketones (Negative) Urine Blood (Negative) Urine Nitrite (Negative) Urine Bilirubin (Negative) Urine Urobilinogen (Negative) Ur Leukocyte Esterase (Negative) Urine WBC (Auto) (0-5) /hpf Urine RBC (Auto) (0-4) /hpf U Hyaline Cast (Auto) (0-5) /lpf U Epithel Cells (Auto) (0-5) /lpf Urine Bacteria (Auto) (Negative) Lyme Disease IgG Ab (Negative) Lyme Disease IgM Ab (Negative) COVID-19 Eval Order SARS-CoV-2 (PCR) (Negative) Administered Medications Ascorbic Acid (Ascorbic Acid 500 Mg Tab) 500 mg PO BIDM AKASH Stop: 11/25/20 17:50 Last Admin: 10/26/20 18:27 Dose: 500 mg Documented by: [id number] Atorvastatin Calcium (Atorvastatin 10 Mg Tab) 10 mg PO HS AKASH Stop: 11/25/20 20:59 Last Admin: 10/26/20 22:23 Dose: 10 mg Documented by: [id number] Docusate Sodium (Docusate Sodium 100 Mg Cap) 100 mg PO BID AKASH Stop: 11/25/20 20:59 Last Admin: 10/26/20 22:24 Dose: 100 mg Documented by: [id number] Doxazosin Mesylate (Doxazosin Mesylate 4 Mg Tab) 4 mg PO BID AKASH Stop: 11/25/20 20:59 Last Admin: 10/26/20 22:24 Dose: 4 mg Documented by: [id number] Gabapentin (Gabapentin 300 Mg Cap) 300 mg PO TIDM AKASH Stop: 11/25/20 17:50 Last Admin: 10/26/20 18:28 Dose: 300 mg Documented by: [id number] Heparin Sodium (Porcine) (Heparin Sod 5,000 Unit/0.5 Ml Vial) 5,000 units SQ Q8 AKASH Stop: 11/25/20 21:59 Last Admin: 10/27/20 06:07 Dose: 5,000 units Documented by: [id number] Admin: 10/26/20 23:10 Dose: 5,000 units Documented by: [id number] Insulin Aspart (Insulin Aspart 100 Units/Ml 3 Ml Pen) 0 units SC ACHS [facility] Stop: 11/25/20 18:29 Last Admin: 10/26/20 22:24 Dose: Not Given Documented by: [id number] Admin: 10/26/20 18:32 Dose: Not Given Documented by: [id number] Levothyroxine Sodium (Levothyroxine Sodium 50 Mcg Tablet) 50 mcg PO DAILYBB [facility] Stop: 11/26/20 06:29 Last Admin: 10/27/20 06:08 Dose: 50 mcg Documented by: [id number] Mirabegron (Mirabegron Er 25 Mg Tab) 50 mg PO HS [facility] Stop: 11/25/20 22:14 Last Admin: 10/26/20 22:24 Dose: 50 mg Documented by: [id number] Miscellaneous (Order Awaiting Action (Solifenacin [Vesicare] 10 Mg Tablet)) 1 ea N/A QS [facility] Stop: 11/26/20 00:00 Last Admin: 10/26/20 23:11 Dose: Not Given Documented by: [id number] Miscellaneous (Carbohydrates For Hypoglycemia ) 15 - 30 gm PO UD PRN PRN Reason: Hypoglycemia Treatment Stop: 11/25/20 18:14 Last Admin: 10/26/20 18:25 Dose: 15 gm Documented by: [id number] Pentoxifylline (Pentoxifylline 400mg Ext Rel Tab) 400 mg PO BIDM [facility] Stop: 11/25/20 17:50 Last Admin: 10/26/20 18:30 Dose: 400 mg Documented by: [id number] Discontinued Medications Dextrose (Dextrose 50% 50 Ml Syringe) 25 ml IV NOW ONE Stop: 10/26/20 14:08 Last Admin: 10/26/20 14:14 Dose: 25 ml Documented by: [id number] Insulin Aspart (Insulin Aspart 100 Units/Ml 3 Ml Pen) 0 units SC 0000,[id number] [facility] Stop: 10/27/20 04:01 Last Admin: 10/27/20 05:34 Dose: Not Given Documented by: [id number] Cosigned by: [id number] Admin: 10/27/20 00:07 Dose: Not Given Documented by: [id number] Cosigned by: [id number] Discharge Plan Visit Data Chief Complaint: Hypoglycemia ED Provider: Yamil Giraldo Discharge Problem: Hypoglycemia, Acute confusion Patient Disposition: Admitted As Inpatient Discharge Instructions Interventions: ED Discharge Assessment Last Done: 10/26/20 17:35
[2020-10-26 10:40] LABS: Albumin Level 3.3 gm/dl (3.4-5.0); BUN Creatinine Ratio 17.2 (10-20); Calcium 8.5 mg/dl (8.5-10.1); Creatinine Clr Calc Pharmacy 60.1 ml/min; Est GFR (African American) 71.3 ml/min; Est GFR (Non-African American) 61.5 ml/min; Potassium 3.6 mmol/L (3.5-5.1)
[2020-10-26 10:42] LABS: Albumin Globulin Ratio 1.2 (0.9-2); Bilirubin,Total 0.5 mg/dl (0.2-1); Globulin 2.8 gm/dl (2.5-4.0); Total Protein 6.1 gm/dl (6.4-8.2)
--- NOTE | 2020-10-26 11:24 | CT Scan Report ---
CT head/brain wo con CLINICAL HISTORY: 79 years-old Male with confusion. Acutely altered mental status TECHNIQUE: Multiple axial CT images of the head were obtained without contrast. A dose lowering tech nique was utilized adhering to the principles of ALARA. CT DOSE: 638.56 mGycm COMPARISON: None. FINDINGS: No acute intracranial hemorrhage, midline shift, intracranial mass, hydrocephalus, territorial ischem ia or abnormal extra-axial collection. Age-related involutional changes. Patchy white matter hypodens ities suggestive of chronic microvascular ischemic disease. Cerebral vascular calcifications. The calvarium is intact. Mastoid air cells are clear. Mild mucosal thickening of the ethmoid air chinmay ls. Hypoplastic frontal sinuses. Unremarkable soft tissues. Prior bilateral lens repair. IMPRESSION: No acute intracranial abnormality. ACT 112: Negative or not required by law. The above report was generated using voice recognition software. It may contain grammatical, syntax o r spelling errors. Electronically signed by: Choco Davalos M.D. 10/26/2020 11:23 AM
[2020-10-26 14:06] LABS: Lyme Ab IgG w/WB Rflx Negative (Negative); Lyme Ab IgM w/WB Rflx Negative (Negative)
[2020-10-26] MEDS ORDERED: DEXTROSE 50% 50 ML SYRINGE IV ONE (14:07)
--- NOTE | 2020-10-26 14:50 | History & Physical Report ---
Date of Service October 26, 2020 Assessment & Plan (1) Acute confusion: Patient with a 2 week history of confusion, and generalized weakness which had worsened over the past 24 hours. Patient also found to be hypoglycemic and bradycardic Will check for lyme Check thyroid admit to tele (2) Hypoglycemia: Patient has low blood sugar, may be due to his forgetfulness. May be overmedicating vs CKD (decreased renal excretion as well as decreased renal gluconeogenesis will closely monitor his blood sugar and insulin usage while he is here (3) History of COVID-19: no longer active. However he has not recovered from his episode during this past winter. (4) Hypothyroidism (acquired): as statyed above, will check thyroid panel resume levothyroxine. (5) Hyperlipidemia: continue statin (6) Hypertension: hold beta romain will closely monitor hr, WILL RESUME LOSARTAN (7) Bradycardia: will hold beta romain and monitor. DVT: heparin History of Present Illness Chief Complaint: confusion Primary Care Provider: Daniel Trivedi MD Steph Baird is a 79 year old male who presents to the ER with a 2 week history of confusion. Patient has not been the same since he was diagnosed with COVID this past year and his is worried about that his confusion may be due to COVID-19. reports that he did improve and was at his best in August, but never was back to his pre covid level of alertness. She reports he is walking slower and talking slower. He was able to tend to his garden which he enjoys and was able to file his taxes. The last 2 weeks though he has been more confused, and yesterday appeared to have owned. He has chronic back pain but is not taking narcotics, only tylenol. When patient was brought into the ER, he was found to be hypoglycemic ENROUTE VIA THE AMBULANCE. Allergies Allergy/AdvReac Type Severity Reaction Status Date / Time Sulfa (Sulfonamide Allergy Unknown Hives Verified 10/26/20 10:54 Antibiotics) Home Medications Medication Instructions Recorded Confirmed Type Lantus Solostar U-100 Insulin 20 unit SUBCUT QAM 07/23/19 10/26/20 History atorvastatin 10 mg PO HS 07/23/19 10/26/20 History clopidogrel [Plavix] 75 mg PO QAM 07/23/19 10/26/20 History gabapentin [Neurontin] 300 mg PO TIDM 07/23/19 10/26/20 History levothyroxine 50 mcg PO DAILYBB 07/23/19 10/26/20 History metformin 1,000 mg PO BIDM 07/23/19 10/26/20 History multivitamin 1 tab PO QAM 07/23/19 10/26/20 History pentoxifylline 400 mg PO BIDM 07/23/19 10/26/20 History doxazosin 4 mg tablet 4 mg PO BID tab 03/31/20 10/26/20 History aspirin [Aspirin Low Dose] 81 mg PO QAM 04/10/20 10/26/20 History ascorbic acid (vitamin C) [Vitamin 500 mg PO BIDM 05/10/20 10/26/20 History C] cholecalciferol (vitamin D3) 25 mcg PO QAM 05/10/20 10/26/20 History [Vitamin D3] solifenacin [Vesicare] 10 mg PO QAM 05/10/20 10/26/20 History docusate sodium 100 mg PO BID #30 cap 05/12/20 10/26/20 Rx carvedilol 25 mg tablet 25 mg PO BID tab 10/06/20 10/26/20 History losartan 25 mg tablet 25 mg PO DAILY #90 tab 10/06/20 10/26/20 Rx mirabegron 50 mg tablet,extended 50 mg PO DAILY 10/06/20 10/26/20 History release 24 hr amlodipine 10 mg PO DAILY 10/26/20 10/26/20 History Past Med/Surg History Medical History Chiari malformation (02/14/13) Diabetic foot ulcer Diabetic peripheral neuropathy associated with type 2 diabetes mellitus Hyperlipidemia Hypertension Hypothyroidism (acquired) Peripheral vascular disease Social History Smoking Status: Former smoker Tobacco Type: Cigarettes Cigarettes Per Day: one and a half packs 50 years ago; Second Hand Exposure: No; Do You Dip or Chew Tobacco: No; Hx Alcohol Use: No Hx Substance Use: No Preferred Language: Kazakh Communication Ability: Effective Communication Ability Comment: effective at communication, but lack of memory about self and events 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 Beliefs That Will Affect Care: None marital status: Current Living Situation: Spouse Other Information That Helps Us Care for You: No Feels Safe at Home: Yes Safety Concerns: Feels Safe At This Time Assistive Devices: Walker Review of Systems Review of Systems: Unobtainable due to cognitive status Physical Exam Constitutional: WD/WN, vitals as above Eyes: PERRL, conjunctivae normal, anicteric sclerae ENMT: external ear and nose normal, oropharynx normal Neck: trachea midline, no thyromegaly Respiratory: normal respiratory effort, lungs clear to auscultation Cardiovascular: Rate/Rhythm: + bradycardic Gastrointestinal (Abdomen): normal bowel sounds, soft, nontender, no hepatosplenomegaly Musculoskeletal: no cyanosis or clubbing, extremities motor strength 5/5 Neurologic: PERRL, EOMI, accommodation nl, no face palsy, no dysarthria Psychiatric: Orientation: alert, oriented to person and oriented to place; + not oriented to time Results & Data Results [facility] Vital Signs (Past 12 Hours) Vital Signs Temp Pulse Pulse Resp BP BP Pulse Ox 10/26/20 12:30 44 L 18 165/77 H 10/26/20 12:00 46 L 47 L 18 185/76 H 185/76 H 99 10/26/20 11:30 46 L 14 180/82 H 96 10/26/20 11:01 50 L 21 189/77 H 97 10/26/20 10:31 47 L 19 176/89 H 96 10/26/20 10:01 51 L 18 190/78 H 97 10/26/20 09:41 36.5 C 49 L 16 183/81 H 94 10/26/20 09:36 51 L 16 183/81 H 95 PG Care Time/CCT Total # of Minutes Spent Total Time Spent with Patient: Total time spent is greater than 50% in coordination of care (as documented) at patient's floor/unit and/or counseling patient: Coding Level of Care Code 23644 Initial Inpt Care Lvl 3 Diagnoses Acute confusion R41.0 Hypoglycemia E16.2 History of COVID-19 Z86.16 Hypothyroidism (acquired) E03.9 Hyperlipidemia E78.5 Hypertension I10 Bradycardia R00.1
[2020-10-26] MEDS ORDERED: ACETAMINOPHEN 325 MG TAB PO PRN (15:53)
[2020-10-26 16:29] LABS: T4 Free Thyroxine 1.15 ng/dl (0.8-1.6); Thyroid Stimulating Hormone 4.54 uIu/ml (0.300-4.500)
--- NOTE | 2020-10-26 17:47 | Electrocardiogram Report ---
Test Reason : Blood Pressure : / mmHG Vent. Rate : 049 BPM Atrial Rate : 049 BPM P-R Int : 254 ms QRS Dur : 108 ms QT Int : 450 ms P-R-T Axes : 041 003 -08 degrees QTc Int : 406 ms Poor data quality, interpretation may be adversely affected Sinus bradycardia with 1st degree A-V block Incomplete right bundle branch block Borderline ECG When compared with ECG of 10-MAY-2020 08:06, MI interval has increased Incomplete right bundle branch block is now Present Confirmed by Yury De Dios ([id number]) on 10/26/2020 5:47:02 PM Referred By: Confirmed By:Chuy De Dios
[2020-10-26] MEDS ORDERED: hydrALAZINE HCL 20 MG/ML VIAL IV PRN (17:56)
[2020-10-26] MEDS ORDERED: PHARMACY GLYCEMIC MGMT CONSULT PRN (18:05)
[2020-10-26] MEDS ORDERED: GLUCAGON FOR INJ 1 MG VIAL IM PRN (18:15)
[2020-10-26] MEDS ORDERED: GLUCOSE 40% GEL 15 GM TUBE PO PRN (18:15)
[2020-10-26] MEDS ORDERED: CARBOHYDRATES FOR HYPOGLYCEMIA PO PRN (18:15)
[2020-10-26] MEDS ORDERED: GLUCOSE 10 TABS/TUBE PO PRN (18:15)
[2020-10-26] MEDS ORDERED: DEXTROSE 50% 50 ML SYRINGE IV PRN (18:15)
[2020-10-26] MEDS: ASCORBIC ACID 500 MG TAB PO SCH (18:27)
[2020-10-26] MEDS: GABAPENTIN 300 MG CAP PO SCH (18:28)
[2020-10-26] MEDS: PENTOXIFYLLINE 400MG EXT REL TAB PO SCH (18:30)
[2020-10-26] MEDS: INSULIN ASPART 100 UNITS/ML 3 ML PEN SC SCH ×2 (18:32→22:24)
[2020-10-26] MEDS ORDERED: Nursing to Pharmacy Communication SCH (22:00)
[2020-10-26] MEDS: ATORVASTATIN 10 MG TAB PO SCH (22:23)
[2020-10-26] MEDS: DOCUSATE SODIUM 100 MG CAP PO SCH (22:24)
[2020-10-26] MEDS: MIRABEGRON ER 25 MG TAB PO SCH (22:24)
[2020-10-26] MEDS: DOXAZosin MESYLATE 4 MG TAB PO SCH (22:24)
[2020-10-26] MEDS: HEPARIN SOD 5,000 UNIT/0.5 ML VIAL SQ SCH (23:10)
[2020-10-27] MEDS: INSULIN ASPART 100 UNITS/ML 3 ML PEN SC SCH ×6 (00:07→20:25)
[2020-10-27 05:37] LABS: Hematocrit (blood only) 35.1 % (42-52); Hemoglobin 11.9 g/dL (14.0-18.0); Mean Corpuscular Hemoglobin 29.8 pg (25-34); Mean Corpuscular Hgb Conc 33.9 g/dL (32-36); Mean Platelet Volume 9.9 fL (7.4-10.4); Platelet Count 165 K/uL (130-400); RDW Coefficient of Variation 14.5 % (11.5-14.5); Red Blood Count 3.99 M/uL (4.7-6.1)
[2020-10-27] MEDS: HEPARIN SOD 5,000 UNIT/0.5 ML VIAL SQ SCH ×3 (06:07→21:01)
[2020-10-27] MEDS: LEVOTHYROXINE SODIUM 50 MCG TABLET PO SCH (06:08)
[2020-10-27 06:11] LABS: Calcium 8.4 mg/dl (8.5-10.1); Est GFR (African American) 71.3 ml/min; Est GFR (Non-African American) 61.5 ml/min; Potassium 3.6 mmol/L (3.5-5.1)
[2020-10-27 08:18] LABS: Estimated Average Glucose 117 mg/dl; Hemoglobin A1C 5.7 % (4.5-5.6)
[2020-10-27] MEDS ORDERED: MIRABEGRON ER 25 MG TAB PO SCH (09:00)
[2020-10-27] MEDS ORDERED: LOSARTAN POTASSIUM 25 MG TAB PO SCH (09:00)
[2020-10-27] MEDS ORDERED: INSULIN GLARGINE SOLOSTAR 100 UNITS/ML 3 ML PEN SQ SCH (09:00)
[2020-10-27] MEDS: DOCUSATE SODIUM 100 MG CAP PO SCH ×2 (09:12→20:19)
[2020-10-27] MEDS: DOXAZosin MESYLATE 4 MG TAB PO SCH ×2 (09:13→20:23)
[2020-10-27] MEDS: CHOLECALCIFEROL 1,000 UNITS 25 MCG TAB PO SCH (09:14)
[2020-10-27] MEDS: PENTOXIFYLLINE 400MG EXT REL TAB PO SCH ×2 (09:14→17:24)
[2020-10-27] MEDS: ASCORBIC ACID 500 MG TAB PO SCH ×2 (09:14→17:22)
[2020-10-27] MEDS: CLOPIDOGREL BISULFATE 75 MG TAB PO SCH (09:15)
[2020-10-27] MEDS: ASPIRIN 81 MG ECTAB PO SCH (09:15)
[2020-10-27] MEDS: MULTIVITAMIN TAB PO SCH (09:15)
[2020-10-27] MEDS: GABAPENTIN 300 MG CAP PO SCH ×3 (09:15→17:23)
--- NOTE | 2020-10-27 10:25 | Pharmacy Report ---
Pharmacy Glycemic Short Note 2 - Date of Service October 27, 2020 - Glycemic Short BSG Results (Last 24 hours): 10/26/20 10/26/20 10/26/20 09:55 14:05 14:07 Glucose 124 H POC Glucose 67 L* 73 10/26/20 10/26/20 10/26/20 14:54 18:13 18:19 Glucose POC Glucose 111 H 64 L* 67 L* 10/26/20 10/26/20 10/27/20 18:45 22:13 00:01 Glucose POC Glucose 90 112 H 103 H 10/27/20 10/27/20 10/27/20 05:09 05:32 07:54 Glucose 95 POC Glucose 100 H 93 OUTPATIENT ANTIDIABETIC REGIMEN: * Lantus 20 units Q AM * Metformin 1gm PO BID * A1c = 5.7% 10/27/20 ASSESSMENT: * Patient admitted for confusion, hypoglycemia, bradycardia * Hypoglycemia has since resolved * 0 units of insulin have been administered since admission. * Patient is ordered a diet. Will continue Novolog correctional insulin alone at this time, with plans to likely resume small prandial insulin dose if post- prandial hyperglycemia observed. Will continue to hold basal insulin given latest A1c and recent hypoglycemic events. PLAN FOR INPATIENT GLYCEMIC CONTROL: * Hold outpatient oral diabetes medications (metformin) * Basal insulin * HOLD * Bolus insulin * NovoLog per scale ACHS or Q6hrs while NPO * Goal Range: Low 120 mg/dL - High 150 mg/dL * Correction Factor: 25 mg/dL/unit * Nutritional / Prandial insulin per carb ratio: none PLAN FOR DISCHARGE: * TO BE DETERMINED
[2020-10-27] MEDS ORDERED: LOSARTAN POTASSIUM 25 MG TAB PO ONE (11:20)
--- NOTE | 2020-10-27 12:41 | Magnetic Resonance Report ---
MR brain wo con HISTORY: 79 years-old Male confusion,r/o CVA acutely altered mental status with weakness COMPARISON: Head CT 10/26/2020 TECHNIQUE: Multiplanar multisequence MRI of the brain was obtained without the use of IV contrast. FINDINGS: There is no restricted diffusion to suggest acute or subacute infarct. No acute intracranial hemorrha ge, midline shift, abnormal extra-axial collection, hydrocephalus or intracranial mass. Age-related i nvolutional changes. 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 Extensive T2/FL AIR hyperintensities throughout the white matter. The cerebral venous sinuses and major arterial flow voids are patent. Mastoid air cells are clear. Mild mucosal thickening of the paranasal sinuses. The skull and soft tissues are unremarkable. Prior bilateral lens repair. IMPRESSION: 1. No acute intracranial abnormality. No acute or subacute infarct. 2. Age-related involutional changes with advanced chronic microvascular ischemic disease. ACT 112: Negative or not required by law. The above report was generated using voice recognition software. It may contain grammatical, syntax o r spelling errors. Electronically signed by: Choco Davalos M.D. 10/27/2020 12:40 PM
--- NOTE | 2020-10-27 15:18 | Cardiology Consultation ---
Date of Consultation October 27, 2020 Assessment & Plan (1) Bradycardia: At the time of presentation the patient did have heart rates documented in the high 40s. This was a sinus bradycardia. No evidence of high degree heart block. This later improved to heart rates generally in the 50s and occasionally 60s. His mentation appears better today although we do not have a good baseline upon which to make a determination. He does not describe symptoms of bradycardia at other times. While he could have an element of chronotropic incompetence, he appears very sedentary and I do not believe is limited by heart rate. I do not believe there is a good correlation between his confusion and b radycardia. In fact, review of his records suggest that during prior admissions he oftentimes has heart rates in the 50s. At the same time, he may not require as much carvedilol. This certainly reduces his overall heart rate. He does have a history of vascular disease but no known coronary disease. History of Present Illness Reason for Consultation: Bradycardia Requesting Physician: Johana Attending Physician: Sarah Vaughn MD History of Present Illness The patient is a 79-year-old gentleman without a known history of cardiac disease who was admitted to the hospital for symptoms of confusion. The patient has had several admissions over the past few months primarily associated with COVID-19. According to his the patient has been more confused recently. Discussing his symptoms this morning the patient did not endorse symptoms of dizziness or lightheadedness. He does state that he has some gait instability and has fallen once over the past few months. However, he did not believe this involved dizziness. He did not endorse symptoms of syncope. He has not had palpitations. He seems to be quite inactive overall. He states that previously he exercise but has not done so recently. He is able to ambulate around his residence but did not report limiting symptoms such as dyspnea or chest pain. Allergies Allergy/AdvReac Type Severity Reaction Status Date / Time Sulfa (Sulfonamide Allergy Unknown Hives Verified 10/26/20 10:54 Antibiotics) Home Medications Medication Instructions Recorded Confirmed Type atorvastatin 10 mg tablet 10 mg PO HS 07/23/19 10/26/20 History clopidogrel 75 mg tablet (Plavix) 75 mg PO QAM 07/23/19 10/26/20 History gabapentin 300 mg capsule 300 mg PO TIDM 07/23/19 10/26/20 History (Neurontin) levothyroxine 50 mcg tablet 50 mcg PO DAILYBB 07/23/19 10/26/20 History metformin 1,000 mg tablet 1,000 mg PO BIDM 07/23/19 10/26/20 History multivitamin 1 tab PO QAM 07/23/19 10/26/20 History pentoxifylline 400 mg 400 mg PO BIDM 07/23/19 10/26/20 History tablet,extended release doxazosin 4 mg tablet 4 mg PO BID tab 03/31/20 10/26/20 History aspirin 81 mg tablet,delayed 81 mg PO QAM 04/10/20 10/26/20 History release (Aspirin Low Dose) ascorbic acid (vitamin C) 500 mg 500 mg PO BIDM 05/10/20 10/26/20 History tablet (Vitamin C) cholecalciferol (vitamin D3) 25 25 mcg PO QAM 05/10/20 10/26/20 History mcg (1,000 unit) tablet (Vitamin D3) docusate sodium 100 mg capsule 100 mg PO BID #30 cap 05/12/20 10/26/20 Rx mirabegron 50 mg tablet,extended 50 mg PO DAILY 10/06/20 10/26/20 History release 24 hr (Myrbetriq) amlodipine 5 mg tablet (Norvasc) 5 mg PO QAM #30 tab 10/28/20 Rx carvedilol 3.125 mg tablet 3.125 mg PO BID #60 tab 10/28/20 Rx ferrous sulfate 325 mg (65 mg 325 mg PO BID #60 tab 10/28/20 Rx iron) tablet insulin glargine 100 unit/mL (3 8 unit SUBCUT QAM #0 ml 10/28/20 10/26/20 Rx mL) subcutaneous pen (Lantus Solostar U-100 Insulin) losartan 50 mg tablet 50 mg PO DAILY #30 tab 10/28/20 Rx methylcellulose (with sugar) 2 2 g PO DAILY #454 g 10/28/20 Rx gram/19 gram oral powder (Fiber Therapy (methylcellulose-sugar)) polyethylene glycol 3350 17 gram 17 g PO DAILY #30 ea 10/28/20 Rx oral powder packet (Miralax) sennosides 8.6 mg tablet (Senokot) 8.6 mg PO QAM #30 tab 10/28/20 Rx thiamine HCl (vitamin B1) 100 mg 100 mg PO DAILY #30 tab 10/28/20 Rx tablet Patient History Medical History Chiari malformation (02/14/13) Diabetic foot ulcer Diabetic peripheral neuropathy associated with type 2 diabetes mellitus Hyperlipidemia Hypertension Hypothyroidism (acquired) Peripheral vascular disease Social History Smoking Status: Former smoker Tobacco Type: Cigarettes Cigarettes Per Day: one and a half packs 50 years ago; Second Hand Exposure: No; Hx Alcohol Use: No Hx Substance Use: No Preferred Language: [place] Communication Ability: Impaired 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 Mood and affect appeared normal. He answered all questions appropriately. HEENT: Pupils are equal and reactive to light and accommodation. Extraocular movements are intact. The sclerae are anicteric. Neuro: Cranial nerves intact Neck: Patient's neck is supple. He has palpable carotid pulses bilaterally without bruits on auscultation. There is no evidence of jugular venous distention. The thyroid is not enlarged. Lungs: Clear to auscultation bilaterally. He has good air movement without use of accessory muscles. No rales wheezes or rhonchi. Cardiac: Heart demonstrates a regular rate and rhythm. Normal S1 and S2. No murmurs on examination. Pulses: The patient has palpable radial pulses bilaterally that are equal in intensity Extremities: There was no evidence of hypoperfusion. There is no cyanosis or clubbing. Mild lower extremity edema. Skin: I did not appreciate any rashes on examination today. Atrial fibrillation Results & Data ([facility]) Vital Signs (Past 12 Hours) Vital Signs Temp Pulse Resp BP Pulse Ox 10/27/20 13:00 63 20 10/27/20 12:21 36.8 C 62 17 10/27/20 10:32 59 L 23 186/88 H 97 Laboratory Results Abnormal Lab Results 10/26/20 10/26/20 10/26/20 09:55 15:30 17:43 WBC RBC Hgb Hct MCV MCH MCHC RDW Std Deviation RDW Coeff of Jimmy Plt Count MPV Sodium Potassium Chloride Carbon Dioxide Anion Gap BUN Creatinine Est Cr Clr Drug Dosing Est GFR ( Amer) Est GFR (Non-Af Amer) BUN/Creatinine Ratio Glucose POC Glucose Estimat Average Glucose Hemoglobin A1c Calcium Procalcitonin < 0.05 TSH 4.540 H Free T4 1.15 Nasal Screen MRSA (PCR) Negative 10/26/20 10/26/20 10/26/20 18:13 18:19 18:45 WBC RBC Hgb Hct MCV MCH MCHC RDW Std Deviation RDW Coeff of Jimmy Plt Count MPV Sodium Potassium Chloride Carbon Dioxide Anion Gap BUN Creatinine Est Cr Clr Drug Dosing Est GFR ( Amer) Est GFR (Non-Af Amer) BUN/Creatinine Ratio Glucose POC Glucose 64 L* 67 L* 90 Estimat Average Glucose Hemoglobin A1c Calcium Procalcitonin TSH Free T4 Nasal Screen MRSA (PCR) 10/26/20 10/27/20 10/27/20 22:13 00:01 05:09 WBC 6.30 RBC 3.99 L Hgb 11.9 L Hct 35.1 L MCV 88.0 MCH 29.8 MCHC 33.9 RDW Std Deviation 47.0 H RDW Coeff of Jimmy 14.5 Plt Count 165 MPV 9.9 Sodium Potassium Chloride Carbon Dioxide Anion Gap BUN Creatinine Est Cr Clr Drug Dosing Est GFR ( Amer) Est GFR (Non-Af Amer) BUN/Creatinine Ratio Glucose POC Glucose 112 H 103 H Estimat Average Glucose Hemoglobin A1c Calcium Procalcitonin TSH Free T4 Nasal Screen MRSA (PCR) 10/27/20 10/27/20 10/27/20 05:09 05:09 05:32 WBC RBC Hgb Hct MCV MCH MCHC RDW Std Deviation RDW Coeff of Jimmy Plt Count MPV Sodium 141 Potassium 3.6 Chloride 107 Carbon Dioxide 31 Anion Gap 3.0 BUN 17 Creatinine 1.13 Est Cr Clr Drug Dosing 55.0 Est GFR ( Amer) 71.3 Est GFR (Non-Af Amer) 61.5 BUN/Creatinine Ratio 15.0 Glucose 95 POC Glucose 100 H Estimat Average Glucose 117 Hemoglobin A1c 5.7 H Calcium 8.4 L Procalcitonin TSH Free T4 Nasal Screen MRSA (PCR) 10/27/20 10/27/20 07:54 12:17 WBC RBC Hgb Hct MCV MCH MCHC RDW Std Deviation RDW Coeff of Jimmy Plt Count MPV Sodium Potassium Chloride Carbon Dioxide Anion Gap BUN Creatinine Est Cr Clr Drug Dosing Est GFR ( Amer) Est GFR (Non-Af Amer) BUN/Creatinine Ratio Glucose POC Glucose 93 134 H Estimat Average Glucose Hemoglobin A1c Calcium Procalcitonin TSH Free T4 Nasal Screen MRSA (PCR) PG Care Time/CCT Total # of Minutes Spent Total Time Spent with Patient: Total time spent is greater than 50% in coordination of care (as documented) at patient's floor/unit and/or counseling patient: Coding Level of Care Code 89729 Initial Inpt Care Lvl 3 Diagnoses Bradycardia R00.1
[2020-10-27] MEDS: carvediloL 12.5 MG TAB PO SCH ×2 (16:12→20:27)
--- NOTE | 2020-10-27 18:40 | Hospitalist Progress Note ---
Date of Service October 27, 2020 Assessment & Plan (1) Acute confusion: Patient and his mostly describe worsening confusion and dementia over the last several months but especially worse in the last week patient with a 2 week history of confusion, and generalized weakness which had worsened over the past 1 week or so. Could be secondary to hypertensive encephalopathy versus constipation. TSH borderline elevated Covid negative, Lyme negative Perhaps some bradycardia is related but most likely not. Also with hypoglycemia Could be with developing dementia -Check brain MRI-no stroke but shows significant microvascular ischemic changes -Check B12 level, B1 level -Needs improved blood pressure control-decreased carvedilol to 12.5 mg twice daily due to bradycardia,, so will increase losartan to 50 mg daily -May need to add low-dose amlodipine back on to his regimen as this was discont inued 3 weeks ago for peripheral edema -Start bowel regimen for significant constipation -Treating hypoglycemia as below (2) Hypoglycemia: Hemoglobin A1c now only 5.7% He is being overmedicated with Lantus -Reduce home Lantus down to 15 units once daily -Encouraged to check blood sugars 4 times a day at home as he is typically only checking it twice a day (3) Bradycardia: Heart rates in the 30s to 40s upon admission without any high-grade blocks With incomplete right bundle branch block and first-degree AV block on EKG Initially held carvedilol -Appreciate cardiology consultation-plan to reduce dose of carvedilol to 12.5 mg p.o. twice daily Continue to monitor on telemetry (4) History of COVID-19: no longer active. However he has not recovered from his episode during this past winter with persistent "brain fog" (5) Hypothyroidism (acquired): TSH borderline elevated at 4.54 Continue home dose levothyroxine for now and repeat TSH in 4 weeks Consider increasing dose given some confusion and bradycardia (6) Hyperlipidemia: continue statin (7) Hypertension: Uncontrolled as above Increase losartan to 50 and consider adding on low-dose amlodipine Lowering dose of carvedilol as above for bradycardia IV hydralazine as needed (8) Diabetes: As noted above and hypoglycemia (9) Peripheral edema: Improved as per with discontinuing amlodipine but still residual Consider low-dose diuretic which also help blood pressure (10) Constipation: Start senna/docusate and MiraLAX daily (11) Anemia: Mild at 11.9, normocytic Check iron studies, B12, folate (12) DVT prophylaxis: Heparin SQ Disposition-continued stay on telemetry PT/OT consultations placed-recommending group home facility- would prefer [facility] Will involve case management Admission and Anticipated Discharge Date Admission Date: October 26, 2020 Subjective Patient reports constipation for several days, feeling off balance lately and feeling like he is in a "brain fog." He had some leg swelling which had been addressed by nephrology at his appointment 3 weeks ago by discontinuation of his amlodipine. Later in the day went back to see him and his is present and she reports that since stopping the amlodipine, his blood pressures have been persistently in the 160s to 170s systolic at home. He denies headache or numbness or tingling. He is becoming forgetful and his questions if he is developing dementia. He also reports that at times he sees a purple [place] in front of him. His also says that he has been looking out the window and saying there is a traffic light. I discussed his care with cardiology today. Telemetry with sinus bradycardia, first-degree AV block, rates in the 50s. Review of Systems Review of Systems: All systems reviewed & are unremarkable except as noted in HPI & below Physical Exam Constitutional: WD/WN, vitals as above Eyes: PERRL, conjunctivae normal, anicteric sclerae ENMT: external ear and nose normal, oropharynx normal Neck: trachea midline, no thyromegaly Respiratory: normal respiratory effort, lungs clear to auscultation Cardiovascular: Rate/Rhythm: regular rhythm and + bradycardic Heart Sounds: no murmur Extremities: + edema (Trace pitting edema to the mid tibia bilaterally) Chest (Breasts): Chest: normal inspection of chest Gastrointestinal (Abdomen): normal bowel sounds, soft, nontender, no hepatosplenomegaly Musculoskeletal: Extremities: extremities normal to inspection; no cyanosis and no clubbing Skin: no rashes, warm and dry Neurologic: PERRL, EOMI, accommodation nl, no face palsy, no dysarthria moves all extremities, awake and + confused (Occasionally); no focal motor deficits Motor/Sensory: no tremor Psychiatric: Orientation: alert, oriented to person, oriented to place, oriented to time and cooperative Speech: normal rate/rhythm/volume of speech Cognition: recent memory grossly intact Lymphatic: no lymphedema Results & Data Results & Data ([facility]) Vital Signs (Past 12 Hours) Vital Signs Temp Pulse Resp BP Pulse Ox 10/27/20 16:40 36.7 C 10/27/20 16:10 56 L 15 192/80 H 10/27/20 13:00 63 20 10/27/20 12:21 36.8 C 62 17 10/27/20 10:32 59 L 23 186/88 H 97 Laboratory Results 10/27/20 10/27/20 10/27/20 Range/Units 16:27 12:17 07:54 WBC (4.8-10.8) K/uL RBC (4.7-6.1) M/uL Hgb (14.0-18.0) g/dL Hct (42-52) % MCV (80-100) fL MCH (25-34) pg MCHC (32-36) g/dL RDW Std Deviation (36.4-46.3) fL RDW Coeff of Jimmy (11.5-14.5) % Plt Count (130-400) K/uL MPV (7.4-10.4) fL Sodium (136-145) mmol/L Potassium (3.5-5.1) mmol/L Chloride (98-107) mmol/L Carbon Dioxide (21-32) mmol/L Anion Gap (3-11) BUN (7-18) mg/dl Creatinine (0.6-1.4) mg/dl Est Cr Clr Drug Dosing ml/min Est GFR ( Amer) ml/min Est GFR (Non-Af Amer) ml/min BUN/Creatinine Ratio (10-20) Glucose (70-99) mg/dl POC Glucose 206 H 134 H 93 (70-99) mg/dl Estimat Average Glucose mg/dl Hemoglobin A1c (4.5-5.6) % Calcium (8.5-10.1) mg/dl Nasal Screen MRSA (PCR) (Negative) 10/27/20 10/27/20 10/27/20 Range/Units 05:32 05:09 05:09 WBC (4.8-10.8) K/uL RBC (4.7-6.1) M/uL Hgb (14.0-18.0) g/dL Hct (42-52) % MCV (80-100) fL MCH (25-34) pg MCHC (32-36) g/dL RDW Std Deviation (36.4-46.3) fL RDW Coeff of Jimmy (11.5-14.5) % Plt Count (130-400) K/uL MPV (7.4-10.4) fL Sodium 141 (136-145) mmol/L Potassium 3.6 (3.5-5.1) mmol/L Chloride 107 (98-107) mmol/L Carbon Dioxide 31 (21-32) mmol/L Anion Gap 3.0 (3-11) BUN 17 (7-18) mg/dl Creatinine 1.13 (0.6-1.4) mg/dl Est Cr Clr Drug Dosing 55.0 ml/min Est GFR ( Amer) 71.3 ml/min Est GFR (Non-Af Amer) 61.5 ml/min BUN/Creatinine Ratio 15.0 (10-20) Glucose 95 (70-99) mg/dl POC Glucose 100 H (70-99) mg/dl Estimat Average Glucose 117 mg/dl Hemoglobin A1c 5.7 H (4.5-5.6) % Calcium 8.4 L (8.5-10.1) mg/dl Nasal Screen MRSA (PCR) (Negative) 10/27/20 10/27/20 10/26/20 Range/Units 05:09 00:01 22:13 WBC 6.30 (4.8-10.8) K/uL RBC 3.99 L (4.7-6.1) M/uL Hgb 11.9 L (14.0-18.0) g/dL Hct 35.1 L (42-52) % MCV 88.0 (80-100) fL MCH 29.8 (25-34) pg MCHC 33.9 (32-36) g/dL RDW Std Deviation 47.0 H (36.4-46.3) fL RDW Coeff of Jimmy 14.5 (11.5-14.5) % Plt Count 165 (130-400) K/uL MPV 9.9 (7.4-10.4) fL Sodium (136-145) mmol/L Potassium (3.5-5.1) mmol/L Chloride (98-107) mmol/L Carbon Dioxide (21-32) mmol/L Anion Gap (3-11) BUN (7-18) mg/dl Creatinine (0.6-1.4) mg/dl Est Cr Clr Drug Dosing ml/min Est GFR ( Amer) ml/min Est GFR (Non-Af Amer) ml/min BUN/Creatinine Ratio (10-20) Glucose (70-99) mg/dl POC Glucose 103 H 112 H (70-99) mg/dl Estimat Average Glucose mg/dl Hemoglobin A1c (4.5-5.6) % Calcium (8.5-10.1) mg/dl Nasal Screen MRSA (PCR) (Negative) 10/26/20 Range/Units 17:43 WBC (4.8-10.8) K/uL RBC (4.7-6.1) M/uL Hgb (14.0-18.0) g/dL Hct (42-52) % MCV (80-100) fL MCH (25-34) pg MCHC (32-36) g/dL RDW Std Deviation (36.4-46.3) fL RDW Coeff of Jimmy (11.5-14.5) % Plt Count (130-400) K/uL MPV (7.4-10.4) fL Sodium (136-145) mmol/L Potassium (3.5-5.1) mmol/L Chloride (98-107) mmol/L Carbon Dioxide (21-32) mmol/L Anion Gap (3-11) BUN (7-18) mg/dl Creatinine (0.6-1.4) mg/dl Est Cr Clr Drug Dosing ml/min Est GFR ( Amer) ml/min Est GFR (Non-Af Amer) ml/min BUN/Creatinine Ratio (10-20) Glucose (70-99) mg/dl POC Glucose (70-99) mg/dl Estimat Average Glucose mg/dl Hemoglobin A1c (4.5-5.6) % Calcium (8.5-10.1) mg/dl Nasal Screen MRSA (PCR) Negative (Negative) Diagnostic Findings Brain MRI 10/27/20 08:45 MR brain wo con HISTORY: 79 years-old Male confusion,r/o CVA acutely altered mental status with weakness COMPARISON: Head CT 10/26/2020 TECHNIQUE: Multiplanar multisequence MRI of the brain was obtained without the use of IV contrast. FINDINGS: There is no restricted diffusion to suggest acute or subacute infarct. No acute intracranial hemorrhage, midline shift, abnormal extra-axial collection, hydrocephalus or intracranial mass. Age-related involutional changes. 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 Extensive T2/FLAIR hyperintensities throughout the white matter. The cerebral venous sinuses and major arterial flow voids are patent. Mastoid air cells are clear. Mild mucosal thickening of the paranasal sinuses. The skull and soft tissues are unremarkable. Prior bilateral lens repair. IMPRESSION: 1. No acute intracranial abnormality. No acute or subacute infarct. 2. Age-related involutional changes with advanced chronic microvascular ischemic disease. ACT 112: Negative or not required by law. The above report was generated using voice recognition software. It may contain grammatical, syntax or spelling errors. Electronically signed by: Choco Davalos M.D. 10/27/2020 12:40 PM PG Care Time/CCT Total # of Minutes Spent Total Time Spent with Patient: Total time spent is greater than 50% in coordination of care (as documented) at patient's floor/unit and/or counseling patient: Coding Level of Care Code 01999 Subseq Hosp Care Lvl 3 Diagnoses Acute confusion R41.0 Hypoglycemia E16.2 Bradycardia R00.1 History of COVID-19 Z86.16 Hypothyroidism (acquired) E03.9 Hyperlipidemia E78.5 Hypertension I10 Diabetes E11.9 Peripheral edema R60.9 Constipation K59.00 Anemia D64.9 DVT prophylaxis Z29.9
[2020-10-27] MEDS: ATORVASTATIN 10 MG TAB PO SCH (20:19)
[2020-10-27] MEDS: MIRABEGRON ER 25 MG TAB PO SCH (20:19)
[2020-10-27] MEDS: SENNA 8.6 MG TAB PO SCH (20:20)
[2020-10-28 05:33] LABS: BUN Creatinine Ratio 17.4 (10-20); Calcium 8.7 mg/dl (8.5-10.1); Creatinine Clr Calc Pharmacy 48.5 ml/min; Est GFR (African American) 61.3 ml/min; Est GFR (Non-African American) 52.9 ml/min; Potassium 3.7 mmol/L (3.5-5.1)
[2020-10-28 05:38] LABS: Ferritin 16.4 ng/ml (8-388)
[2020-10-28] MEDS: HEPARIN SOD 5,000 UNIT/0.5 ML VIAL SQ SCH ×2 (06:02→14:05)
[2020-10-28] MEDS: LEVOTHYROXINE SODIUM 50 MCG TABLET PO SCH (06:03)
[2020-10-28 07:19] LABS: Folate (Folic Acid) > 20.00 ng/ml (>5.38); Vitamin B12 535 pg/ml (193-986)
[2020-10-28] MEDS: INSULIN ASPART 100 UNITS/ML 3 ML PEN SC SCH ×2 (08:00→12:41)
[2020-10-28] MEDS: CHOLECALCIFEROL 1,000 UNITS 25 MCG TAB PO SCH (08:01)
[2020-10-28] MEDS: CLOPIDOGREL BISULFATE 75 MG TAB PO SCH (08:01)
[2020-10-28] MEDS: MULTIVITAMIN TAB PO SCH (08:01)
[2020-10-28] MEDS: ASCORBIC ACID 500 MG TAB PO SCH (08:01)
[2020-10-28] MEDS: SENNA 8.6 MG TAB PO SCH (08:01)
[2020-10-28] MEDS: ASPIRIN 81 MG ECTAB PO SCH (08:01)
[2020-10-28] MEDS: GABAPENTIN 300 MG CAP PO SCH ×2 (08:02→12:42)
[2020-10-28] MEDS: PENTOXIFYLLINE 400MG EXT REL TAB PO SCH (08:02)
[2020-10-28] MEDS: DOXAZosin MESYLATE 4 MG TAB PO SCH (08:02)
[2020-10-28] MEDS: DOCUSATE SODIUM 100 MG CAP PO SCH (08:02)
[2020-10-28] MEDS: carvediloL 12.5 MG TAB PO SCH (08:03)
[2020-10-28] MEDS ORDERED: POLYETHYLENE (MIRALAX) 17 GM PACK PO SCH (09:00)
[2020-10-28] MEDS ORDERED: carvediloL 6.25 MG TAB PO SCH (09:00)
[2020-10-28] MEDS ORDERED: LOSARTAN POTASSIUM 50 MG TAB PO SCH (09:00)
[2020-10-28] MEDS ORDERED: INSULIN GLARGINE SOLOSTAR 100 UNITS/ML 3 ML PEN SC ONE (11:15)
[2020-10-28] MEDS ORDERED: amLODIPine BESYLATE 5 MG TAB PO ONE (12:45)
[2020-10-28] MEDS ORDERED: carvediloL 3.125 MG TAB PO SCH (12:45)
[2020-10-28] MEDS ORDERED: METHYLCELLULOSE POWDER 454 GM JAR PO SCH (13:00)
--- NOTE | 2020-10-28 13:04 | Pharmacy Report ---
Pharmacy Glycemic Short Note 2 - Date of Service October 28, 2020 - Glycemic Short BSG Results (Last 24 hours): 10/27/20 10/27/20 10/28/20 16:27 20:14 04:53 Glucose 103 H POC Glucose 206 H 182 H 10/28/20 10/28/20 07:58 11:37 Glucose POC Glucose 104 H 202 H OUTPATIENT ANTIDIABETIC REGIMEN: * Lantus 20 units Q AM * Metformin 1gm PO BID * A1c = 5.7% 10/27/20 ASSESSMENT: 10/29/20 * Patient now consuming diet per RN, and BSG increased substantially post- prandially. Will add CHO ratio * AM fasting BSG now trending up, but still within range. Now that patient is consuming po, will add back very low dose x1 this AM 10/28/20 * Patient admitted for confusion, hypoglycemia, bradycardia * Hypoglycemia has since resolved * 0 units of insulin have been administered since admission. * Patient is ordered a diet. Will continue Novolog correctional insulin alone at this time, with plans to likely resume small prandial insulin dose if post- prandial hyperglycemia observed. Will continue to hold basal insulin given latest A1c and recent hypoglycemic events. PLAN FOR INPATIENT GLYCEMIC CONTROL: * Hold outpatient oral diabetes medications (metformin) * Basal insulin * Lantus 8 units SC x1 now * Bolus insulin * NovoLog per scale ACHS or Q6hrs while NPO * Goal Range: Low 110 mg/dL - High 140 mg/dL * Correction Factor: 25 mg/dL/unit * Nutritional / Prandial insulin per carb ratio: 9 g CHO/unit PLAN FOR DISCHARGE: * TO BE DETERMINED
--- NOTE | 2020-10-28 13:25 | Discharge Summary ---
Date of Service October 28, 2020 Admission HPI Per Admitting Provider Steph Baird is a 79 year old male who presents to the ER with a 2 week history of confusion. Patient has not been the same since he was diagnosed with COVID this past year and his is worried about that his confusion may be due to COVID-19. reports that he did improve and was at his best in August, but never was back to his pre covid level of alertness. She reports he is walking slower and talking slower. He was able to tend to his garden which he enjoys and was able to file his taxes. The last 2 weeks though he has been more confused, and yesterday appeared to have owned. He has chronic back pain but is not taking narcotics, only tylenol. When patient was brought into the ER, he was found to be hypoglycemic ENROUTE VIA THE AMBULANCE. Principal Diagnosis Acute metabolic encephalopathy, hypoglycemia, bradycardia, uncontrolled HTN Discharge Exam Constitutional WD/WN, vitals as above Eyes PERRL, conjunctivae normal, anicteric sclerae ENMT external ear and nose normal, oropharynx normal Neck trachea midline, no thyromegaly Respiratory normal respiratory effort, lungs clear to auscultation Cardiovascular Rate/Rhythm: regular rhythm and + bradycardic Heart Sounds: no murmur Extremities: + edema (Trace pitting edema to the mid tibia bilaterally) Chest (Breasts) Chest: normal inspection of chest Gastrointestinal (Abdomen) normal bowel sounds, soft, nontender, no hepatosplenomegaly Musculoskeletal Extremities: extremities normal to inspection; no cyanosis and no clubbing Skin no rashes, warm and dry Neurologic PERRL, EOMI, accommodation nl, no face palsy, no dysarthria moves all extremities, awake and + confused (Occasionally); no focal motor deficits Motor/Sensory: no tremor Psychiatric Orientation: alert, oriented to person, oriented to place, oriented to time and cooperative Speech: normal rate/rhythm/volume of speech Cognition: recent memory grossly intact Lymphatic no lymphedema Discharge Data Allergies Allergy/AdvReac Type Severity Reaction Status Date / Time Sulfa (Sulfonamide Allergy Unknown Hives Verified 10/26/20 10:54 Antibiotics) Consultations 10/27/20 08:43 Consult Cardiology Routine Ordered Studies 10/26/20 10:27 CT head/brain wo con Stat 10/27/20 08:45 MR brain wo con Urgent Head CT 10/26/20 10:27 CT head/brain wo con CLINICAL HISTORY: 79 years-old Male with confusion. Acutely altered mental s tatus TECHNIQUE: Multiple axial CT images of the head were obtained without contrast. A dose lowering technique was utilized adhering to the principles of ALARA. CT DOSE: 638.56 mGycm COMPARISON: None. FINDINGS: No acute intracranial hemorrhage, midline shift, intracranial mass, hydrocephalus, territorial ischemia or abnormal extra-axial collection. Age- related involutional changes. Patchy white matter hypodensities suggestive of chronic microvascular ischemic disease. Cerebral vascular calcifications. The calvarium is intact. Mastoid air cells are clear. Mild mucosal thickening of the ethmoid air cells. Hypoplastic frontal sinuses. Unremarkable soft tissues. Prior bilateral lens repair. IMPRESSION: No acute intracranial abnormality. ACT 112: Negative or not required by law. The above report was generated using voice recognition software. It may contain grammatical, syntax or spelling errors. Electronically signed by: hCoco Davalos M.D. 10/26/2020 11:23 AM Brain MRI 10/27/20 08:45 MR brain wo con HISTORY: 79 years-old Male confusion,r/o CVA acutely altered mental status with weakness COMPARISON: Head CT 10/26/2020 TECHNIQUE: Multiplanar multisequence MRI of the brain was obtained without the use of IV contrast. FINDINGS: There is no restricted diffusion to suggest acute or subacute infarct. No acute intracranial hemorrhage, midline shift, abnormal extra-axial collection, hydrocephalus or intracranial mass. Age-related involutional changes. 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 Extensive T2/FLAIR hyperintensities throughout the white matter. The cerebral venous sinuses and major arterial flow voids are patent. Mastoid air cells are clear. Mild mucosal thickening of the paranasal sinuses. The skull and soft tissues are unremarkable. Prior bilateral lens repair. IMPRESSION: 1. No acute intracranial abnormality. No acute or subacute infarct. 2. Age-related involutional changes with advanced chronic microvascular ischemic disease. ACT 112: Negative or not required by law. The above report was generated using voice recognition software. It may contain grammatical, syntax or spelling errors. Electronically signed by: Choco Davalos M.D. 10/27/2020 12:40 PM Hospital Course (1) Acute confusion: Patient and his mostly describe worsening confusion and dementia over the last several months but especially worse in the last week patient with a 2 week history of confusion, and generalized weakness which had worsened over the past 1 week or so. Could be secondary to hypertensive encephalopathy versus constipation, vs medication side effect perhaps from Vesicare which was started in 03/2020? TSH borderline elevated Covid negative, Lyme negative Perhaps some bradycardia is related but most likely not. Also with hypoglycemia which is now resolved Could be with developing dementia underlying as well -Checked brain MRI-no stroke but shows significant microvascular ischemic changes -Check B12 level-normal; B1 level pending -Needs improved blood pressure control-decreased carvedilol to 3.125 mg twice daily due to bradycardia,, and will increase losartan to 50 mg daily, add amlodipine 5mg daily back on (discontinued one month ago for peripheral edema but was on 10mg dose) -Start bowel regimen for significant constipation -Treating hypoglycemia as below -dc Vesicare -empirically start thiamine 100mg po daily -if not improving over next month, consult Neuro as outpt for dementia workup (2) Hypoglycemia: Hemoglobin A1c now only 5.7% He is being overmedicated with Lantus -Reduce home Lantus down to 8 units once daily -Encouraged to check blood sugars 4 times a day at home as he is typically only checking it twice a day (3) Bradycardia: Heart rates in the 30s to 40s upon admission without any high-grade blocks With incomplete right bundle branch block and first-degree AV block on EKG Initially held carvedilol and HR improved to the 60s -Appreciate cardiology consultation-plan to reduce dose of carvedilol--> down to 3.125mg bid (4) History of COVID-19: no longer active. However he has not recovered from his episode during this past winter with persistent "brain fog" (5) Hypothyroidism (acquired): TSH borderline elevated at 4.54 Continue home dose levothyroxine for now and repeat TSH in 4 weeks Consider increasing dose given some confusion and bradycardia (6) Hyperlipidemia: continue statin (7) Hypertension: Uncontrolled as above Increased losartan to 50 and restarted amlodipine 5mg daily Lowering dose of carvedilol as above for bradycardia (8) Diabetes: As noted above and hypoglycemia (9) Peripheral edema: Improved with discontinuing amlodipine but still residual avoid diuretics given recent h/o CHARLIE in setting of lisinopril use (10) Constipation: Start senna/docusate and MiraLAX daily, add Citrucel daily (11) Anemia: Mild at 11.9, normocytic Check iron studies, B12, folate--> Fe deficient, B12 and folate normal start Fe tabs (12) DVT prophylaxis: Heparin SQ Disposition-dc to rehab today Total Time Total Time Spent Total Time Spent (In Minutes): 45 min Discharge Plan Discharge Items Patient Disposition: Transfer Inpatient Rehab Fac Reason For Visit: CONFUSION, HYPOGLYCEMIA, BRADYCARDIA Discharge Diagnosis: Confusion, hypoglycemia, Uncontrolled hypertension, bradycardia Condition on Discharge: Fair Activity: As commented below Lifting: Gradually increase as tolerated Bathing: No limitations Exercise/Sports: Gradually increase as tolerated Weightbearing: Full weightbearing Non-emergency contact: Primary Care Provider Call non-emergency contact if: you have any medication questions and your symptoms worsen Follow-up/Referrals: Daniel Trivedi MD [Primary Care Provider] - Diet: Heart Healthy Addtl Attending Provider Instructions: You were admitted with low blood glucose, low heart rate, and worsening confusion. Your carvedilol dose was lowered to help increase your heart rate. Your elevated blood pressure, constipation, and low blood glucose and heart rate might all be contributing to your worsening confusion lately. You were started back on amlodipine and had your losartan dose increased to help with your elevated blood pressures. You were also started on a bowel regimen to help improve your constipation. You were found to have a mild iron deficiency and were started on iron tablets. Your vitamin B1 level was drawn an dis pending at the time of discharge, but you were started on a thiamine supplement to help improve memory also. The Vesicare medication you are on can also cause confusion and this will be discontinued to see if this helps improve your memory. If your memory issues and confusion do not improve over the next few weeks, please schedule an appointment with a Neurologist for evaluation for dementia. Pending Studies at Discharge: Yes Stand-Alone Forms: My [facility] Skilled Items Patient informed of condition?: Yes DNR: Yes Discharge Level of Care: Acute rehab Communicable Disease: No Discharge Prognosis: Improving Lines: None Urinary Catheter: No Medications and DC Order Prescriptions: New losartan 50 mg Tablet 50 mg PO DAILY Qty: 30 RF: 0 amlodipine [Norvasc] 5 mg Tablet 5 mg PO QAM Qty: 30 RF: 0 carvedilol 3.125 mg Tablet 3.125 mg PO BID Qty: 60 RF: 0 Fiber Therapy (m-cell/sugar) 2 gram/19 gram Powder 2 g PO DAILY Qty: 454 RF: 0 polyethylene glycol 3350 [Miralax] 17 gram Powder In Packet 17 g PO DAILY Qty: 30 RF: 0 sennosides [Senokot] 8.6 mg Tablet 8.6 mg PO QAM Qty: 30 RF: 0 ferrous sulfate 325 mg (65 mg iron) tablet 325 mg PO BID Qty: 60 RF: 0 thiamine HCl (vitamin B1) 100 mg tablet 100 mg PO DAILY Qty: 30 RF: 0 Continued Myrbetriq 50 mg tablet extended release 24 hr 50 mg PO DAILY RF: 0 multivitamin Tablet 1 tab PO QAM RF: 0 atorvastatin 10 mg Tablet 10 mg PO HS RF: 0 clopidogrel [Plavix] 75 mg tablet 75 mg PO QAM RF: 0 pentoxifylline 400 mg tablet extended release 400 mg PO BIDM RF: 0 levothyroxine 50 mcg tablet 50 mcg PO DAILYBB RF: 0 metformin 1,000 mg tablet 1,000 mg PO BIDM RF: 0 gabapentin [Neurontin] 300 mg capsule 300 mg PO TIDM RF: 0 doxazosin 4 mg tablet 4 mg PO BID RF: 0 aspirin [Aspirin Low Dose] 81 mg Tablet,Delayed Release (Dr/Ec) 81 mg PO QAM RF: 0 ascorbic acid (vitamin C) [Vitamin C] 500 mg Tablet 500 mg PO BIDM RF: 0 cholecalciferol (vitamin D3) [Vitamin D3] 25 mcg (1,000 unit) Tablet 25 mcg PO QAM RF: 0 docusate sodium 100 mg Capsule 100 mg PO BID Qty: 30 RF: 0 Changed Lantus Solostar U-100 Insulin 100 unit/mL (3 mL) insulin pen 8 unit SUBCUT QAM Qty: 0 RF: 0 Discontinued losartan 25 mg tablet 25 mg PO DAILY Qty: 90 RF: 3 carvedilol [Coreg] 25 mg tablet 25 mg PO BID RF: 0 solifenacin [Vesicare] 10 mg tablet 10 mg PO QAM RF: 0 Discharge Orders: Discharge Order (Routine); Ordered 10/28/20 Ordered By: Sarah Vaughn Admission Data Admit Date/Time: 10/26/20 15:54 Attending Provider: Sarah Vaughn Admit Provider: Carlos Flores Primary Care Provider: Daniel Trivedi Other Providers: Yvon De Dios ; [facility] Coding Level of Care Code D/C DAY MANAGEMENT >30 MINS Diagnoses Acute confusion R41.0 Hypoglycemia E16.2 Bradycardia R00.1 History of COVID-19 Z86.16 Hypothyroidism (acquired) E03.9 Hyperlipidemia E78.5 Hypertension I10 Diabetes E11.9 Peripheral edema R60.9 Constipation K59.00 Anemia D64.9 DVT prophylaxis Z29.9
[2020-10-29] MEDS ORDERED: amLODIPine BESYLATE 5 MG TAB PO SCH (09:00)
== END 2020-10-28 16:25 | DRG 637 ==
LOC: ED 09:29 → SUATTDRO 15:54 → 1E 15:54

== ENCOUNTER 2022-12-03 00:30 | Inpatient (IN) ==
[2022-12-03] MEDS ORDERED: hydrALAZINE HCL 20 MG/ML VIAL IV STA ×3 (01:10→03:10)
--- NOTE | 2022-12-03 01:30 | Emergency Department Note ---
History of Present Illness General Chief complaint: Abdominal Pain Stated complaint: ABDOMINAL PAIN/HYPERTENSION Time Seen by Provider: 12/03/22 00:51 History of Present Illness Maximum Pain Intensity: 6 This 82-year-old male presents to the ER for hypertension and not feeling right today with some abdominal discomfort. Patient states the abdominal pain comes and goes. His was concerned and checked his blood pressure noticed it was high. They then came here. Patient's been taking all his medications as directed. Patient denies chest pain, dyspnea, numbness, tingling, localized weakness, fever, chills, flulike illness. Home Medications Medication Instructions Recorded Confirmed Type atorvastatin 10 mg tablet 10 mg PO HS 07/23/19 09/14/22 History clopidogrel 75 mg tablet (Plavix) 75 mg PO 1200 07/23/19 09/14/22 History gabapentin 300 mg capsule 300 mg PO AMHS 07/23/19 09/14/22 History (Neurontin) metformin 1,000 mg tablet 1,000 mg PO BIDM 07/23/19 09/14/22 History multivitamin 1 tab PO 1200 07/23/19 09/14/22 History pentoxifylline 400 mg 400 mg PO BIDM 07/23/19 09/14/22 History tablet,extended release doxazosin 4 mg tablet 4 mg PO AMHS 03/31/20 09/14/22 History aspirin 81 mg tablet,delayed 81 mg PO 1200 04/10/20 09/14/22 History release (Waqas Low Dose Aspirin) ascorbic acid (vitamin C) 500 mg 500 mg PO BIDM 05/10/20 09/14/22 History tablet (Vitamin C) cholecalciferol (vitamin D3) 25 25 mcg PO QDD 05/10/20 09/14/22 History mcg (1,000 unit) tablet (Vitamin D3) ferrous sulfate 325 mg (65 mg 325 mg PO QAM 02/26/21 09/14/22 History iron) tablet insulin glargine 100 unit/mL (3 12 unit subcut QA 02/26/21 09/14/22 History mL) subcutaneous pen (Lantus Solostar U-100 Insulin) levothyroxine 88 mcg capsule 88 mcg PO DAILYBB 07/16/21 09/14/22 History losartan 100 mg tablet 100 mg PO QAM 07/16/21 09/14/22 History ammonium lactate 12 % lotion 1 applic topical DAILY PRN PER [facility] 07/30/21 09/14/22 History NEEDED carvedilol 3.125 mg tablet 3.125 mg PO BIDM 07/30/21 09/14/22 History thiamine HCl (vitamin B1) 100 mg 100 mg PO 1200 07/30/21 09/14/22 History tablet solifenacin 10 mg tablet (Vesicare) 10 mg PO DAILY #90 tabs 12/29/21 09/14/22 Rx Allergies Allergy/AdvReac Type Severity Reaction Status Date / Time Sulfa (Sulfonamide Allergy Unknown Hives Verified 09/14/22 15:30 Antibiotics) Past Med/Surg History Medical History Bradycardia Chiari malformation (02/14/13) Diabetic foot ulcer Diabetic peripheral neuropathy associated with type 2 diabetes mellitus Foot infection Hyperlipidemia Hypertension Hypothyroidism (acquired) Oral candidiasis Peripheral vascular disease Pneumonia due to COVID-19 virus Family History Father Heart disease Mother Heart disease Other No family history of adverse response to anesthesia No family history of bleeding disorder Social History Smoking Status: Former smoker Tobacco Type: Cigarettes packs per day: 0.5; Second Hand Exposure: No; Do You Dip or Chew Tobacco: No; Hx Alcohol Use: No Hx Substance Use: No Preferred Language: Pashto Communication Ability: Impaired Communication Ability Comment: effective at communication, but lack of memory about self and events Cad Manager Required: No Beliefs That Will Affect Care: None marital status: Current Living Situation: Spouse Feels Safe at Home: Yes Assistive Devices: Walker Review of Systems A total of 10 systems reviewed and were otherwise negative Physical Exam Vital Signs Vital Signs - 24 hr 12/03/22 00:56 12/03/22 00:36 12/03/22 01:08 Temperature 36.7 C Temperature Source Oral Pulse Rate 66 65 56 L Pulse Rate [Apical] Pulse Rhythm [Apical] Pulse Strength [Apical] Respiratory Rate 13 13 Respiratory Effort / Characteristics Non-Labored Respiratory Depth Normal Respiratory Pattern Regular Blood Pressure 221/121 H Blood Pressure [Right Arm] Blood Pressure Mean 154 Blood Pressure Mean [Right Arm] Pulse Oximetry 96 96 Oxygen Delivery Method Room Air Room Air Sepsis Recent Fever Within 48 Hours No Sepsis New/Unexplained Change in Mental Status N/A Sepsis Action Taken by Nursing No Action Required 12/03/22 00:38 12/03/22 01:00 12/03/22 01:30 Temperature Temperature Source Pulse Rate 68 61 68 Pulse Rate [Apical] Pulse Rhythm [Apical] Pulse Strength [Apical] Respiratory Rate 13 16 12 Respiratory Effort / Characteristics Respiratory Depth Respiratory Pattern Blood Pressure 235/112 H 207/98 H Blood Pressure [Right Arm] Blood Pressure Mean 153 134 Blood Pressure Mean [Right Arm] Pulse Oximetry 97 96 Oxygen Delivery Method Room Air Room Air Sepsis Recent Fever Within 48 Hours Sepsis New/Unexplained Change in Mental Status Sepsis Action Taken by Nursing 12/03/22 01:40 12/03/22 03:00 Temperature Temperature Source Pulse Rate 70 Pulse Rate [Apical] 74 Pulse Rhythm [Apical] Regular Pulse Strength [Apical] Normal Respiratory Rate 15 24 Respiratory Effort / Characteristics Spontaneous Respiratory Depth Normal Respiratory Pattern Regular Blood Pressure 205/100 H Blood Pressure [Right Arm] 171/82 H Blood Pressure Mean 135 Blood Pressure Mean [Right Arm] 111 Pulse Oximetry 99 Oxygen Delivery Method Room Air Sepsis Recent Fever Within 48 Hours Sepsis New/Unexplained Change in Mental Status Sepsis Action Taken by Nursing VITALS: Vitals are noted on the nurse's note and reviewed by myself. Vital signs hypertensive. GENERAL: Pleasant male following commands, in no acute distress, nondiaphoretic, well-developed well-nourished. SKIN: Pressure ulcer to gluteal region, the rest of the skin was without rashes, erythema, or bruising. There is no tenting of the skin. Capillary reflex less than 2 seconds. HEAD: Normocephalic atraumatic. EARS: External auditory canals clear, EYES: Pupils equal round and reactive to light and accommodation. Conjunctivae without injection, sclerae without icterus. Extraocular movements intact. NOSE: Patent, turbinates without inflammation or discharge. MOUTH: Mucous membranes moist. Pharynx without erythema or exudate. Uvula midline. Airway patent. Tongue does not deviate. NECK: Supple without nuchal rigidity. No lymphadenopathy. No thyromegaly. Cervical spine is nontender. No JVD. HEART: Regular rate and rhythm LUNGS: Clear to auscultation bilaterally without wheezes, rales or rhonchi. No retractions or accessory muscle use. ABDOMEN: Positive bowel sounds x 4. Normal tympanic percussion. Soft, diffusely minimally tender, without masses or organomegaly. Kendall sign negative. No guarding or rebound tenderness. No CVA tenderness MUSCULOSKELETAL: No muscle atrophy, erythema, noted. NEURO: Patient was alert and oriented to person place and time. Normal sensation to light and sharp touch. No focal neurological deficits. Course Administered Medications Discontinued Medications Hydralazine HCl (Hydralazine Hcl 20 Mg/Ml Vial) 10 mg IV NOW STA Stop: 12/03/22 01:11 Last Admin: 12/03/22 01:26 Dose: 10 mg Documented By: ORMAIN Hydralazine HCl (Hydralazine Hcl 20 Mg/Ml Vial) 10 mg IV NOW STA Stop: 12/03/22 01:57 Last Admin: 12/03/22 03:07 Dose: 10 mg Documented By: ROMAIN Ioversol (Optiray 320 100ml) 92 ml IV ONCE ONE Stop: 12/03/22 02:27 Last Admin: 12/03/22 02:26 Dose: 92 ml Documented By: KIRK Medical Decision Making Medical Records Attestation: I reviewed the patient's medical records. Home Medications Current Medication List: was personally reviewed by me Laboratory Data Attestation: I reviewed the patient's lab results. 12/03/22 00:40 12/03/22 00:40 Lab Results 12/03/22 12/03/22 12/03/22 Range/Units 00:40 00:40 00:40 WBC 8.16 (4.8-10.8) K/ul RBC 4.89 (4.70-6.10) M/uL Hgb 15.1 (14.0-18.0) g/dl Hct 43.1 (42.0-52.0) % MCV 88.1 (80.0-100.0) fL MCH 30.9 (25.0-34.0) pg MCHC 35.0 (32.0-36.0) g/dL RDW Std Deviation 42.7 (36.4-46.3) fL RDW Coeff of Jimmy 13.2 (11.5-14.5) % Plt Count 154 (130-400) K/uL MPV 11.1 (9.4-12.4) fL Immature Gran % (Auto) 0.4 % Neut % (Auto) 73.2 % Lymph % (Auto) 16.1 % Cascade % (Auto) 5.9 % Eos % (Auto) 3.8 % Baso % (Auto) 0.6 % Neut # (Auto) 5.98 (1.40-6.50) K/uL Lymph # (Auto) 1.31 (1.2-3.4) K/uL Cascade # (Auto) 0.48 (0.11-0.59) K/uL Eos # (Auto) 0.31 (0-0.50) K/uL Baso # (Auto) 0.05 (0-0.2) K/uL Immature Gran # (Auto) 0.03 (0.01-0.20) K/uL Sodium 136 (136-145) mmol/L Potassium 3.9 (3.5-5.1) mmol/L Chloride 99 (98-107) mmol/L Carbon Dioxide 28 (21-32) mmol/L Anion Gap 9 (3-11) BUN 22 (6-23) mg/dl Creatinine 0.90 (0.6-1.4) mg/dl Est Cr Clr Drug Dosing 63.3 ml/min Est GFR ( Amer) 91.9 ml/min Est GFR (Non-Af Amer) 79.3 ml/min BUN/Creatinine Ratio 24.4 H (10-20) Glucose 155 H (70-99(Fasting)) mg/dl Calcium 9.5 (8.6-10.3) mg/dl Magnesium 1.7 (1.7-2.4) mg/dl Total Bilirubin 0.8 (0.2-1.0) mg/dl AST 17 (13-39) U/L ALT 13 (7-52) U/L Alkaline Phosphatase 68 (34-104) U/L Troponin I High Sens 11.3 Cancelled (0-20) pg/ml Total Protein 7.3 (6.0-8.3) gm/dl Albumin 4.6 (3.4-5.0) gm/dl Globulin 2.7 (2.5-4.0) gm/dl Albumin/Globulin Ratio 1.7 (0.9-2) Urine Color Urine Appearance (Clear) Urine pH (4.5-7.5) Ur Specific [place] (1.000-1.030) Urine Protein (Negative) Urine Glucose (UA) (Negative) Urine Ketones (Negative) Urine Blood (Negative) Urine Nitrite (Negative) Urine Bilirubin (Negative) Urine Urobilinogen (Negative) Ur Leukocyte Esterase (Negative) Urine WBC (Auto) (0-5) /hpf Urine RBC (Auto) (0-4) /hpf U Hyaline Cast (Auto) (0-5) /lpf U Epithel Cells (Auto) (0-5) /lpf Urine Bacteria (Auto) (Negative) 12/03/22 12/03/22 Range/Units 01:30 03:17 WBC (4.8-10.8) K/ul RBC (4.70-6.10) M/uL Hgb (14.0-18.0) g/dl Hct (42.0-52.0) % MCV (80.0-100.0) fL MCH (25.0-34.0) pg MCHC (32.0-36.0) g/dL RDW Std Deviation (36.4-46.3) fL RDW Coeff of Jimmy (11.5-14.5) % Plt Count (130-400) K/uL MPV (9.4-12.4) fL Immature Gran % (Auto) % Neut % (Auto) % Lymph % (Auto) % Cascade % (Auto) % Eos % (Auto) % Baso % (Auto) % Neut # (Auto) (1.40-6.50) K/uL Lymph # (Auto) (1.2-3.4) K/uL Cascade # (Auto) (0.11-0.59) K/uL Eos # (Auto) (0-0.50) K/uL Baso # (Auto) (0-0.2) K/uL Immature Gran # (Auto) (0.01-0.20) K/uL Sodium (136-145) mmol/L Potassium (3.5-5.1) mmol/L Chloride (98-107) mmol/L Carbon Dioxide (21-32) mmol/L Anion Gap (3-11) BUN (6-23) mg/dl Creatinine (0.6-1.4) mg/dl Est Cr Clr Drug Dosing ml/min Est GFR ( Amer) ml/min Est GFR (Non-Af Amer) ml/min BUN/Creatinine Ratio (10-20) Glucose (70-99(Fasting)) mg/dl Calcium (8.6-10.3) mg/dl Magnesium (1.7-2.4) mg/dl Total Bilirubin (0.2-1.0) mg/dl AST (13-39) U/L ALT (7-52) U/L Alkaline Phosphatase (34-104) U/L Troponin I High Sens 12.1 (0-20) pg/ml Total Protein (6.0-8.3) gm/dl Albumin (3.4-5.0) gm/dl Globulin (2.5-4.0) gm/dl Albumin/Globulin Ratio (0.9-2) Urine Color Yellow Urine Appearance Clear (Clear) Urine pH 8.0 H (4.5-7.5) Ur Specific [place] 1.011 (1.000-1.030) Urine Protein 2+ H (Negative) Urine Glucose (UA) Negative (Negative) Urine Ketones Trace H (Negative) Urine Blood Negative (Negative) Urine Nitrite Negative (Negative) Urine Bilirubin Negative (Negative) Urine Urobilinogen Negative (Negative) Ur Leukocyte Esterase Negative (Negative) Urine WBC (Auto) 0 (0-5) /hpf Urine RBC (Auto) 0-4 (0-4) /hpf U Hyaline Cast (Auto) 0 (0-5) /lpf U Epithel Cells (Auto) 0-5 (0-5) /lpf Urine Bacteria (Auto) Negative (Negative) Imaging Data Attestation: I personally reviewed and interpreted this imaging study as follows: Radiologist's Impression: Head CT 12/03/22 01:08 Exam(s): CT HEAD Without Contrast EXAM: CT Head Without Intravenous Contrast CLINICAL HISTORY: Hypertension. TECHNIQUE: Axial computed tomography images of the head/brain without intravenous contrast. CTDI is 19 mGy and DLP is 1012.43 mGy-cm. Automated exposure control was utilized for the study. A dose lowering technique was utilized adhering to the principles of ALARA. COMPARISON: CT head without contrast dated 07/30/2021 FINDINGS: Brain: No intracranial hemorrhage. No significant mass effect. No appreciable alteration in appearance of the parenchyma when compared to the previous examination with periventricular deep white matter hypodense changes noted. Ventricles: Unremarkable. No ventriculomegaly. Bones/joints: Unremarkable. No acute fracture. Soft tissues: Unremarkable. Vasculature: Atherosclerotic calcification of the cavernous internal carotid arteries and distal vertebral arteries. Sinuses: Unremarkable as visualized. No acute sinusitis. Mastoid air cells: Unremarkable as visualized. No mastoid effusion. IMPRESSION: No acute intracranial process or significant alteration from the previous examination with chronic underlying presumed age-related findings, as noted above. Electronically signed by: Jarod Mistry MD 12/03/22 02:57 AM Abdomen/Pelvis CT 12/03/22 01:56 Exam(s): CT ABDOMEN + PELVIS With Contrast IV Amt: 92 cc's of optiray 320 EXAM: CT Abdomen and Pelvis With Intravenous Contrast CLINICAL HISTORY: Mid Abd pain. TECHNIQUE: Axial computed tomography images of the abdomen and pelvis with intravenous contrast. CTDI is 39 mGy and DLP is 624.11 mGy-cm. Automated exposure control was utilized for the study. A dose lowering technique was utilized adhering to the principles of ALARA. CONTRAST: Patient received 92 cc's of optiray 320 of IV contrast COMPARISON: No relevant prior studies available. FINDINGS: Lung bases: curvilineal subsegmental changes noted in the posterior lower lobes. ABDOMEN: Liver: Unremarkable. No mass. Gallbladder and bile ducts: Unremarkable. No calcified stones. No ductal dilation. Pancreas: Unremarkable. No mass. No ductal dilation. Spleen: Unremarkable. No splenomegaly. Adrenals: Unremarkable. No mass. Kidneys and ureters: In addition to renal vascular calcifications, there is subcentimeter nonobstructive nephrolithiasis noted involving the superior poles of both kidneys. No hydronephrosis or definite ureteral stones. Stomach and bowel: No evidence for high-grade bowel obstruction. No definite asymmetric bowel mucosal abnormality. Mild stool burden. Diverticulosis without obvious diverticulitis. PELVIS: Appendix: No findings to suggest acute appendicitis. Bladder: Unremarkable. No mass. Reproductive: Unremarkable as visualized. ABDOMEN and PELVIS: Intraperitoneal space: Unremarkable. No free air. No significant fluid collection. Bones/joints: There is straightening of the normal lumbar lordosis, presumably related to degenerative ankylosis L2-3 and also at L4-L5. No acute osseous abnormality. No dislocation. Soft tissues: Unremarkable. Vasculature: At this chronic calcification of the aorta and iliac arteries. No aneurysm. Lymph nodes: Unremarkable. No enlarged lymph nodes. IMPRESSION: 1. No evidence for high-grade bowel obstruction. No definite asymmetric bowel mucosal abnormality. Mild stool burden. Diverticulosis without obvious diverticulitis. No free intraperitoneal fluid or pneumoperitoneum. 2. No other significant abnormality to suggest the patient's reported clinical symptoms. Presumed incidental findings, as noted above. Electronically signed by: Jarod Mistry MD 12/03/22 02:53 AM MDM Narrative Prior records/ancillary studies reviewed regarding the history above. Triage Nursing notes reviewed. Additional history obtained from family The patient's history was concerning for hypertension. Differential diagnosis: Etiologies such as benign hypertension, hypertensive emergency, cardiovascular pathology, pheochromocytoma, electrolyte abnormality, renal disease, endorgan damage, as well as others were entertained. Physical examination: As above. No signs of end organ damage. ER treatment provided: An order was placed for continuous cardiac monitoring. The monitor shows a rate of 50-100 with a sinus rhythm per my interpretation. Hydralazine was ordered On reassessment the patient felt better. Diagnostic interpretation by me: The electrocardiogram was ordered for HTN ECG: Normal sinus, first-degree AV block, poor baseline, no acute ST-T wave changes, rate of 66. Impression normal sinus rhythm with a first-degree AV block independently interpreted by myself I think arrhythmia is unlikely. EKG shows normal sinus rhythm with no interval abnormalities such as QT prolongation or WPW. There are no findings to suggest Brugada syndrome. Cardiac monitoring in the emergency department reveals no tachycardic or bradycardic dysrhythmia. Hypertrophic cardiomyopathy was considered but there are no clear historical elements pointing toward this. EKG is not suggestive. The QRS voltage is not extremely large and there are no suggestive Q waves. The labs Independently Interpreted by myself revealed first troponin negative and repeat was ordered and is negative Hyperglycemia without DKA Imaging studies: Chest x-ray with no acute consolidation, pneumothorax or free air per my independent interpretation Head CT negative for intracranial bleed per my independent interpretation CT of the abdomen pelvis negative for obstruction per my independent interpretation and report was reviewed as above Consultation: A consultation was placed with the hospitalist. The case was discussed and diagnostics were reviewed. The patient was evaluated in the ER for further treatment. This appears to be consistent with hypertensive urgency with feeling weak and abdominal pain. Patient was given a few rounds of blood pressure medicine and patient was still quite hypertensive and felt weak. Medicine was consulted and the case was discussed. Patient will be admitted to the medical service for further evaluation and treatment. Labs and diagnostics were independently interpreted by myself. EKG was nonischemic. First troponin was negative.. By the evaluation outlined above emergent etiologies such as hypertensive emergency, pheochromocytoma, endorgan damage, cardiac ischemia, aortic dissection, pulmonary embolism, pneumonia, pneumothorax, infections, gastrointestinal, as well as others were deemed relatively unlikely. The pt informed about the findings as listed above. All questions were answered and pleased with the treatment. The chart was completed utilizing [employer] Speech voice recognition software. Grammatical errors, random word insertions, pronoun errors, and incomplete sentences are an occassional consequence of this system due to software limitations, ambient noise, and hardware issues. Any formal questions or concerns about the content, text, or information contained within the body of this dictation should be directly addressed to the physician certified ophthalmic assistant for clarification. Impression & Plan Hypertensive urgency, Abdominal pain, acute, Weakness Discharge Plan Visit Data Chief Complaint: Abdominal Pain Stated Complaint: ABDOMINAL PAIN/HYPERTENSION ED Provider: Yamil Giraldo ED Midlevel Provider: Nadia Gregg Discharge Problem: Hypertensive urgency, Abdominal pain, acute, Weakness Patient Disposition: Admitted As Inpatient Condition: Fair Forms Stand Alone Forms: Sr.Pago Prescriptions Prescriptions: No Action solifenacin [Vesicare] 10 mg tablet 10 mg PO DAILY Qty: 90 3RF ferrous sulfate 325 mg (65 mg iron) tablet 325 mg PO QAM Lantus Solostar U-100 Insulin 100 unit/mL (3 mL) insulin pen 12 unit SUBCUT QAM levothyroxine 88 mcg capsule 88 mcg PO DAILYBB losartan 100 mg tablet 100 mg PO QAM multivitamin Tablet 1 tab PO 1200 atorvastatin 10 mg Tablet 10 mg PO HS clopidogrel [Plavix] 75 mg tablet 75 mg PO 1200 pentoxifylline 400 mg tablet extended release 400 mg PO BIDM metformin 1,000 mg tablet 1,000 mg PO BIDM gabapentin [Neurontin] 300 mg capsule 300 mg PO AMHS doxazosin 4 mg tablet 4 mg PO AMHS aspirin [Waqas Low Dose Aspirin] 81 mg Tablet,Delayed Release (Dr/Ec) 81 mg PO 1200 ascorbic acid (vitamin C) [Vitamin C] 500 mg Tablet 500 mg PO BIDM cholecalciferol (vitamin D3) [Vitamin D3] 25 mcg (1,000 unit) Tablet 25 mcg PO QDD thiamine HCl (vitamin B1) 100 mg tablet 100 mg PO 1200 ammonium lactate 12 % lotion 1 applic TOPICAL DAILY PRN (Reason: PER [facility] NEEDED) carvedilol 3.125 mg tablet 3.125 mg PO BIDM Referrals Referrals: Darlin Uribe [Primary Care Provider] -
[2022-12-03 01:50] LABS: Basophils # (auto) 0.05 K/uL (0-0.2); Basophils % (auto) 0.6 %; Eosinophils # (auto) 0.31 K/uL (0-0.50); Eosinophils % (auto) 3.8 %; Hematocrit (blood only) 43.1 % (42.0-52.0); Hemoglobin 15.1 g/dl (14.0-18.0); Immature Granulocytes # (auto) 0.03 K/uL (0.01-0.20); Immature Granulocytes % (auto) 0.4 %; Lymphocytes # (auto) 1.31 K/uL (1.2-3.4); Lymphocytes % (auto) 16.1 %; Mean Corpuscular Hemoglobin 30.9 pg (25.0-34.0); Mean Corpuscular Volume 88.1 fL (80.0-100.0); Mean Platelet Volume 11.1 fL (9.4-12.4); Monocytes # (auto) 0.48 K/uL (0.11-0.59); Monocytes % (auto) 5.9 %; Neutrophils # (auto) 5.98 K/uL (1.40-6.50); Neutrophils % (auto) 73.2 %; Platelet Count 154 K/uL (130-400); RDW Coefficient of Variation 13.2 % (11.5-14.5); RDW Standard Deviation 42.7 fL (36.4-46.3); Red Blood Count 4.89 M/uL (4.70-6.10); White Blood Count 8.16 K/ul (4.8-10.8)
[2022-12-03 01:53] LABS: Appearance Urine Clear (Clear); Bacteria Urine Automated Negative (Negative); Bilirubin Urine Negative (Negative); Blood Urine Negative (Negative); Cast Urine Automated 0 /lpf (0-5); Color Urine Yellow; Epithelial Cell Urine Auto 0-5 /lpf (0-5); Glucose Urine UA Negative (Negative); Ketones Urine Trace (Negative); Leukocyte Esterase Urine Negative (Negative); Nitrite Urine Negative (Negative); RBC Urine Automated 0-4 /hpf (0-4); Specific Gravity Urine 1.011 (1.000-1.030); Urobilinogen Urine Negative (Negative); WBC Urine Automated 0 /hpf (0-5)
[2022-12-03 01:54] LABS: Albumin Globulin Ratio 1.7 (0.9-2); Albumin Level 4.6 gm/dl (3.4-5.0); BUN Creatinine Ratio 24.4 (10-20); Bilirubin,Total 0.8 mg/dl (0.2-1.0); Calcium 9.5 mg/dl (8.6-10.3); Creatinine Clr Calc Pharmacy 63.3 ml/min; Est GFR (African American) 91.9 ml/min; Est GFR (Non-African American) 79.3 ml/min; Globulin 2.7 gm/dl (2.5-4.0); Magnesium 1.7 mg/dl (1.7-2.4); Potassium 3.9 mmol/L (3.5-5.1); Total Protein 7.3 gm/dl (6.0-8.3)
[2022-12-03 02:00] LABS: Protein Urine 2+ (Negative)
[2022-12-03 02:00] LABS: Troponin I High Sensitivity 11.3 pg/ml (0-20)
[2022-12-03] MEDS ORDERED: OPTIRAY 320 100ml IV ONE (02:26)
--- NOTE | 2022-12-03 02:54 | CT Scan Report ---
Exam(s): CT ABDOMEN + PELVIS With Contrast IV Amt: 92 cc's of optiray 320 EXAM: CT Abdomen and Pelvis With Intravenous Contrast CLINICAL HISTORY: Mid Abd pain. TECHNIQUE: Axial computed tomography images of the abdomen and pelvis with intravenous contrast. CTDI is 39 mGy and DLP is 624.11 mGy-cm. Automated exposure control was utilized for the study. A dose lowering technique was utilized adhering to the principles of ALARA. CONTRAST: Patient received 92 cc's of optiray 320 of IV contrast COMPARISON: No relevant prior studies available. FINDINGS: Lung bases: curvilineal subsegmental changes noted in the posterior lower lobes. ABDOMEN: Liver: Unremarkable. No mass. Gallbladder and bile ducts: Unremarkable. No calcified stones. No ductal dilation. Pancreas: Unremarkable. No mass. No ductal dilation. Spleen: Unremarkable. No splenomegaly. Adrenals: Unremarkable. No mass. Kidneys and ureters: In addition to renal vascular calcifications, there is subcentimeter nonobstructive nephrolithiasis noted involving the superior poles of both kidneys. No hydronephrosis or definite ureteral stones. Stomach and bowel: No evidence for high-grade bowel obstruction. No definite asymmetric bowel mucosal abnormality. Mild stool burden. Diverticulosis without obvious diverticulitis. PELVIS: Appendix: No findings to suggest acute appendicitis. Bladder: Unremarkable. No mass. Reproductive: Unremarkable as visualized. ABDOMEN and PELVIS: Intraperitoneal space: Unremarkable. No free air. No significant fluid collection. Bones/joints: There is straightening of the normal lumbar lordosis, presumably related to degenerative ankylosis L2-3 and also at L4-L5. No acute osseous abnormality. No dislocation. Soft tissues: Unremarkable. Vasculature: At this chronic calcification of the aorta and iliac arteries. No aneurysm. Lymph nodes: Unremarkable. No enlarged lymph nodes. IMPRESSION: 1. No evidence for high-grade bowel obstruction. No definite asymmetric bowel mucosal abnormality. Mild stool burden. Diverticulosis without obvious diverticulitis. No free intraperitoneal fluid or pneumoperitoneum. 2. No other significant abnormality to suggest the patient's reported clinical symptoms. Presumed incidental findings, as noted above. Electronically signed by: Jarod Mistry MD 12/03/22 02:53 AM
--- NOTE | 2022-12-03 02:58 | CT Scan Report ---
Exam(s): CT HEAD Without Contrast EXAM: CT Head Without Intravenous Contrast CLINICAL HISTORY: Hypertension. TECHNIQUE: Axial computed tomography images of the head/brain without intravenous contrast. CTDI is 19 mGy and DLP is 1012.43 mGy-cm. Automated exposure control was utilized for the study. A dose lowering technique was utilized adhering to the principles of ALARA. COMPARISON: CT head without contrast dated 07/30/2021 FINDINGS: Brain: No intracranial hemorrhage. No significant mass effect. No appreciable alteration in appearance of the parenchyma when compared to the previous examination with periventricular deep white matter hypodense changes noted. Ventricles: Unremarkable. No ventriculomegaly. Bones/joints: Unremarkable. No acute fracture. Soft tissues: Unremarkable. Vasculature: Atherosclerotic calcification of the cavernous internal carotid arteries and distal vertebral arteries. Sinuses: Unremarkable as visualized. No acute sinusitis. Mastoid air cells: Unremarkable as visualized. No mastoid effusion. IMPRESSION: No acute intracranial process or significant alteration from the previous examination with chronic underlying presumed age-related findings, as noted above. Electronically signed by: Jarod Mistry MD 12/03/22 02:57 AM
--- NOTE | 2022-12-03 04:30 | History & Physical Report ---
Date of Service December 03, 2022 Assessment & Plan (1) Hypothyroidism (acquired): (2) Hyperlipidemia: (3) Hypertension: (4) Benign prostatic hyperplasia (BPH) with urinary urgency: (5) Diabetic foot ulcer: (6) Diabetes: (7) BPH loc w urin obs/LUTS: (8) Diabetic peripheral neuropathy associated with type 2 diabetes mellitus: (9) Failure to thrive in adult: (10) Abdominal pain, acute: (11) Confusion and disorientation: (12) Weakness: Plan Confusion, disorientation, generalized weakness, elevated blood pressure, decreased ability patient to describe his symptoms- Patient reportedly had abdominal discomfort, however, he had a normal CT scan of the abdomen pelvis, and normal CBC with differential and no significant changes on chemistry other than his baseline CKD He appears dehydrated, and will place on IV fluids Elevated blood pressure/hypertension- I suspect patient did not take his blood pressure medications today We will continue carvedilol, doxazosin, losartan Hydralazine 10 mg IV every 4 hours as needed for systolic blood pressure greater than 160 Dehydration- NSS + KCl 20 mill equivalents at 125 mils per hour x1 L and then reassess Failure to thrive- Does not appear to be anything acute that would explain patient's symptomatology on the basis of imaging or laboratories We will see how the patient responds after getting some IV fluids, and see if there are any other problems that show themselves. Patient may be in need of a [facility] referral for the short-term or long- term care He looks too weak at this point to consult PT and OT Could consider an empiric course of stress dose hydrocortisone as patient does look somewhat adrenally insufficient, but would wait until after IV fluids History of Present Illness Chief Complaint: The patient was brought to the emergency department early in the morning due to patient reportedly having abdominal discomfort and just not feeling right today Primary Care Provider: Darlin Uribe The patient is a 82-year-old male with a past medical history including hypothyroidism, hyperlipidemia, hypertension, BPH with LUTS, peripheral vascular disease, diabetic peripheral neuropathy, diabetes mellitus, diabetic foot ulcer, peripheral edema. The patient is very lethargic, hardly able to communicate anything at this time. Family has gone home for the morning. He looks to be extremely fatigued, has an adrenal insufficiency Allergies Allergy/AdvReac Type Severity Reaction Status Date / Time Sulfa (Sulfonamide Allergy Unknown Hives Verified 09/14/22 15:30 Antibiotics) Home Medications Medication Instructions Recorded Confirmed Type atorvastatin 10 mg tablet 10 mg PO HS 07/23/19 09/14/22 History clopidogrel 75 mg tablet (Plavix) 75 mg PO 1200 07/23/19 09/14/22 History gabapentin 300 mg capsule 300 mg PO AMHS 07/23/19 09/14/22 History (Neurontin) metformin 1,000 mg tablet 1,000 mg PO BIDM 07/23/19 09/14/22 History multivitamin 1 tab PO 1200 07/23/19 09/14/22 History pentoxifylline 400 mg 400 mg PO BIDM 07/23/19 09/14/22 History tablet,extended release doxazosin 4 mg tablet 4 mg PO AMHS 03/31/20 09/14/22 History aspirin 81 mg tablet,delayed 81 mg PO 1200 04/10/20 09/14/22 History release (Waqas Low Dose Aspirin) ascorbic acid (vitamin C) 500 mg 500 mg PO BIDM 05/10/20 09/14/22 History tablet (Vitamin C) cholecalciferol (vitamin D3) 25 25 mcg PO QDD 05/10/20 09/14/22 History mcg (1,000 unit) tablet (Vitamin D3) ferrous sulfate 325 mg (65 mg 325 mg PO QAM 02/26/21 09/14/22 History iron) tablet insulin glargine 100 unit/mL (3 12 unit subcut QAM 02/26/21 09/14/22 History mL) subcutaneous pen (Lantus Solostar U-100 Insulin) levothyroxine 88 mcg capsule 88 mcg PO DAILYBB 07/16/21 09/14/22 History losartan 100 mg tablet 100 mg PO QAM 07/16/21 09/14/22 History ammonium lactate 12 % lotion 1 applic topical DAILY PRN PER [facility] 07/30/21 09/14/22 History NEEDED carvedilol 3.125 mg tablet 3.125 mg PO BIDM 07/30/21 09/14/22 History thiamine HCl (vitamin B1) 100 mg 100 mg PO 1200 07/30/21 09/14/22 History tablet solifenacin 10 mg tablet (Vesicare) 10 mg PO DAILY #90 tabs 12/29/21 09/14/22 Rx Past Med/Surg History Medical History (Updated 12/03/22 @ 05:55 by Felipe Chandler MD) Bradycardia Chiari malformation (02/14/13) Diabetic foot ulcer Diabetic peripheral neuropathy associated with type 2 diabetes mellitus Foot infection Hyperlipidemia Hypertension Hypothyroidism (acquired) Oral candidiasis Peripheral vascular disease Pneumonia due to COVID-19 virus Weakness Family History Father Heart disease Mother Heart disease Other No family history of adverse response to anesthesia No family history of bleeding disorder Social History Smoking Status: Former smoker Tobacco Type: Cigarettes packs per day: 0.5; Second Hand Exposure: No; Do You Dip or Chew Tobacco: No; Hx Alcohol Use: No Hx Substance Use: No Preferred Language: Bahamian Communication Ability: Impaired Communication Ability Comment: effective at communication, but lack of memory about self and events Waterproofer Helper Required: No Beliefs That Will Affect Care: None marital status: Current Living Situation: Spouse Feels Safe at Home: Yes Assistive Devices: Walker Review of Systems Review of Systems: Patient is unable to contribute HPI or review of systems due to extreme fatigue and lethargy Physical Exam Physical Exam: The patient is lethargic and unable to communicate, normocephalic and atraumatic, lying in bed and in no acute distress. HEENT--PERRL, EOMI, mucous membranes and oropharynx dry. Neck--supple. No JVD. No bruits. Thyroid normal, trachea midline, no adenopathy. Heart--normal S1 and S2. No murmurs, rubs or gallops. Lungs--clear bilaterally, no respiratory distress, no accessory muscle use. Abdomen--normal bowel sounds and soft. Nontender. Nondistended, no hernias or masses, no organomegaly. Extremities--no cyanosis or clubbing. No edema. There are good distal pulses b/l. Dermatologic--normal skin turgor, normal color, no abnormal lymph nodes, no rash. Neurologic--cranial nerves II through XII grossly intact. Rheumatologic--limited exam Psychiatric--limited ability to communicate due to severe lethargy and fatigue. Results & Data Results & Data Vital Signs (Past 12 Hours) Vital Signs Temp Pulse Pulse Resp BP BP Pulse Ox 12/03/22 03:00 74 24 171/82 H 99 12/03/22 01:40 70 15 205/100 H 12/03/22 01:30 68 12 207/98 H 12/03/22 01:00 61 16 235/112 H 96 12/03/22 00:38 68 13 97 12/03/22 01:08 56 L 13 96 12/03/22 00:36 36.7 C 65 13 221/121 H 96 12/03/22 00:56 66 O2 Del Method 12/03/22 03:00 Room Air 12/03/22 01:40 12/03/22 01:30 12/03/22 01:00 Room Air 12/03/22 00:38 Room Air 12/03/22 01:08 Room Air 12/03/22 00:36 Room Air 12/03/22 00:56 Laboratory Results Laboratory Results WBC 8.16 K/ul (4.8-10.8) 12/03/22 00:40 RBC 4.89 M/uL (4.70-6.10) 12/03/22 00:40 Hgb 15.1 g/dl (14.0-18.0) 12/03/22 00:40 Hct 43.1 % (42.0-52.0) 12/03/22 00:40 MCV 88.1 fL (80.0-100.0) 12/03/22 00:40 MCH 30.9 pg (25.0-34.0) 12/03/22 00:40 MCHC 35.0 g/dL (32.0-36.0) 12/03/22 00:40 RDW Std Deviation 42.7 fL (36.4-46.3) 12/03/22 00:40 RDW Coeff of Jimmy 13.2 % (11.5-14.5) 12/03/22 00:40 Plt Count 154 K/uL (130-400) 12/03/22 00:40 MPV 11.1 fL (9.4-12.4) 12/03/22 00:40 Immature Gran % (Auto) 0.4 % 12/03/22 00:40 Neut % (Auto) 73.2 % 12/03/22 00:40 Lymph % (Auto) 16.1 % 12/03/22 00:40 Jack % (Auto) 5.9 % 12/03/22 00:40 Eos % (Auto) 3.8 % 12/03/22 00:40 Baso % (Auto) 0.6 % 12/03/22 00:40 Neut # (Auto) 5.98 K/uL (1.40-6.50) 12/03/22 00:40 Lymph # (Auto) 1.31 K/uL (1.2-3.4) 12/03/22 00:40 Jack # (Auto) 0.48 K/uL (0.11-0.59) 12/03/22 00:40 Eos # (Auto) 0.31 K/uL (0-0.50) 12/03/22 00:40 Baso # (Auto) 0.05 K/uL (0-0.2) 12/03/22 00:40 Immature Gran # (Auto) 0.03 K/uL (0.01-0.20) 12/03/22 00:40 Sodium 136 mmol/L (136-145) 12/03/22 00:40 Potassium 3.9 mmol/L (3.5-5.1) 12/03/22 00:40 Chloride 99 mmol/L (98-107) 12/03/22 00:40 Carbon Dioxide 28 mmol/L (21-32) 12/03/22 00:40 Anion Gap 9 (3-11) 12/03/22 00:40 BUN 22 mg/dl (6-23) 12/03/22 00:40 Creatinine 0.90 mg/dl (0.6-1.4) 12/03/22 00:40 Est Cr Clr Drug Dosing 63.3 ml/min 12/03/22 00:40 Est GFR ( Amer) 91.9 ml/min 12/03/22 00:40 Est GFR (Non-Af Amer) 79.3 ml/min 12/03/22 00:40 BUN/Creatinine Ratio 24.4 (10-20) H 12/03/22 00:40 Glucose 155 mg/dl (70-99(Fasting)) H 12/03/22 00:40 Calcium 9.5 mg/dl (8.6-10.3) 12/03/22 00:40 Magnesium 1.7 mg/dl (1.7-2.4) 12/03/22 00:40 Total Bilirubin 0.8 mg/dl (0.2-1.0) 12/03/22 00:40 AST 17 U/L (13-39) 12/03/22 00:40 ALT 13 U/L (7-52) 12/03/22 00:40 Alkaline Phosphatase 68 U/L (34-104) 12/03/22 00:40 Troponin I High Sens 12.1 pg/ml (0-20) 12/03/22 03:17 Total Protein 7.3 gm/dl (6.0-8.3) 12/03/22 00:40 Albumin 4.6 gm/dl (3.4-5.0) 12/03/22 00:40 Globulin 2.7 gm/dl (2.5-4.0) 12/03/22 00:40 Albumin/Globulin Ratio 1.7 (0.9-2) 12/03/22 00:40 Urine Color Yellow 12/03/22 01:30 Urine Appearance Clear (Clear) 12/03/22 01:30 Urine pH 8.0 (4.5-7.5) H 12/03/22 01:30 Ur Specific [place] 1.011 (1.000-1.030) 12/03/22 01:30 Urine Protein 2+ (Negative) H 12/03/22 01:30 Urine Glucose (UA) Negative (Negative) 12/03/22 01:30 Urine Ketones Trace (Negative) H 12/03/22 01:30 Urine Blood Negative (Negative) 12/03/22 01:30 Urine Nitrite Negative (Negative) 12/03/22 01:30 Urine Bilirubin Negative (Negative) 12/03/22 01:30 Urine Urobilinogen Negative (Negative) 12/03/22 01:30 Ur Leukocyte Esterase Negative (Negative) 12/03/22 01:30 Urine WBC (Auto) 0 /hpf (0-5) 12/03/22 01:30 Urine RBC (Auto) 0-4 /hpf (0-4) 12/03/22 01:30 U Hyaline Cast (Auto) 0 /lpf (0-5) 12/03/22 01:30 U Epithel Cells (Auto) 0-5 /lpf (0-5) 12/03/22 01:30 Urine Bacteria (Auto) Negative (Negative) 12/03/22 01:[address] 12/03/22 01:08 Exam(s): CT HEAD Without Contrast EXAM: CT Head Without Intravenous Contrast CLINICAL HISTORY: Hypertension. TECHNIQUE: Axial computed tomography images of the head/brain without intravenous contrast. CTDI is 19 mGy and DLP is 1012.43 mGy-cm. Automated exposure control was utilized for the study. A dose lowering technique was utilized adhering to the principles of ALARA. COMPARISON: CT head without contrast dated 07/30/2021 FINDINGS: Brain: No intracranial hemorrhage. No significant mass effect. No appreciable alteration in appearance of the parenchyma when compared to the previous examination with periventricular deep white matter hypodense changes noted. Ventricles: Unremarkable. No ventriculomegaly. Bones/joints: Unremarkable. No acute fracture. Soft tissues: Unremarkable. Vasculature: Atherosclerotic calcification of the cavernous internal carotid arteries and distal vertebral arteries. Sinuses: Unremarkable as visualized. No acute sinusitis. Mastoid air cells: Unremarkable as visualized. No mastoid effusion. IMPRESSION: No acute intracranial process or significant alteration from the previous examination with chronic underlying presumed age-related findings, as noted above. Electronically signed by: Jarod Mistry MD 12/03/22 02:57 AM Abdomen/Pelvis CT 12/03/22 01:56 Exam(s): CT ABDOMEN + PELVIS With Contrast IV Amt: 92 cc's of optiray 320 EXAM: CT Abdomen and Pelvis With Intravenous Contrast CLINICAL HISTORY: Mid Abd pain. TECHNIQUE: Axial computed tomography images of the abdomen and pelvis with intravenous contrast. CTDI is 39 mGy and DLP is 624.11 mGy-cm. Automated exposure control was utilized for the study. A dose lowering technique was utilized adhering to the principles of ALARA. CONTRAST: Patient received 92 cc's of optiray 320 of IV contrast COMPARISON: No relevant prior studies available. FINDINGS: Lung bases: curvilineal subsegmental changes noted in the posterior lower lobes. ABDOMEN: Liver: Unremarkable. No mass. Gallbladder and bile ducts: Unremarkable. No calcified stones. No ductal dilation. Pancreas: Unremarkable. No mass. No ductal dilation. Spleen: Unremarkable. No splenomegaly. Adrenals: Unremarkable. No mass. Kidneys and ureters: In addition to renal vascular calcifications, there is subcentimeter nonobstructive nephrolithiasis noted involving the superior poles of both kidneys. No hydronephrosis or definite ureteral stones. Stomach and bowel: No evidence for high-grade bowel obstruction. No definite asymmetric bowel mucosal abnormality. Mild stool burden. Diverticulosis without obvious diverticulitis. PELVIS: Appendix: No findings to suggest acute appendicitis. Bladder: Unremarkable. No mass. Reproductive: Unremarkable as visualized. ABDOMEN and PELVIS: Intraperitoneal space: Unremarkable. No free air. No significant fluid collection. Bones/joints: There is straightening of the normal lumbar lordosis, presumably related to degenerative ankylosis L2-3 and also at L4-L5. No acute osseous abnormality. No dislocation. Soft tissues: Unremarkable. Vasculature: At this chronic calcification of the aorta and iliac arteries. No aneurysm. Lymph nodes: Unremarkable. No enlarged lymph nodes. IMPRESSION: 1. No evidence for high-grade bowel obstruction. No definite asymmetric bowel mucosal abnormality. Mild stool burden. Diverticulosis without obvious diverticulitis. No free intraperitoneal fluid or pneumoperitoneum. 2. No other significant abnormality to suggest the patient's reported clinical symptoms. Presumed incidental findings, as noted above. Electronically signed by: Jarod Mistry MD 12/03/22 02:53 AM Code Status & VTE Plan Code Status DNR/DNI VTE Prophylaxis Plan VTE Prophylaxis will be ordered: Yes PG Care Time/CCT Total # of Minutes Spent Total Time Spent with Patient: Total time spent is greater than 50% in coordination of care (as documented) at patient's floor/unit and/or counseling patient: Coding Level of Care Code 74727 INT INP/OBS CARE 3/75MIN Diagnoses Hypothyroidism (acquired) E03.9 Hyperlipidemia E78.5 Hypertension I10 Hypertension type: unspecified Benign prostatic hyperplasia (BPH) with urinary urgency N40.1; R39.15 Diabetic foot ulcer E11.621; L97.509 Diabetes E11.9 BPH loc w urin obs/LUTS N40.1 Diabetic peripheral neuropathy associated with type 2 diabetes mellitus E11.42 Failure to thrive in adult R62.7 Abdominal pain, acute R10.9 Confusion and disorientation R41.0 Weakness R53.1 (3) Hypertension Hypertension type: unspecified Qualified Code(s): I10 - Essential (primary) hypertension
--- NOTE | 2022-12-03 07:44 | XRay Report ---
XR chest 1V portable HISTORY: 82 years-old Male Hypertension COMPARISON: 07/30/2021 TECHNIQUE: AP view of the chest FINDINGS: Cardiac silhouette is enlarged. Atherosclerosis of the thoracic aorta. There is no pneumothorax, pleu ral effusion, airspace consolidation or overt pulmonary edema. Lungs are mildly hypoinflated. The bon es appear grossly intact. IMPRESSION: Cardiomegaly without acute process. ACT 112: Negative or not required by law. The above report was generated using voice recognition software. It may contain grammatical, syntax o r spelling errors. Electronically signed by: Choco Davalos M.D. 12/03/2022 7:43 AM
[2022-12-03] MEDS ORDERED: GLUCOSE 10 TAB/TUBE PO PRN (09:08)
[2022-12-03] MEDS ORDERED: ONDANSETRON INJ 2 MG/ML 2 ML VIAL IV PRN (09:08)
[2022-12-03] MEDS ORDERED: GLUCOSE 40% GEL 15 GM TUBE PO PRN (09:08)
[2022-12-03] MEDS ORDERED: DEXTROSE 50% 50 ML SYRINGE IV PRN (09:08)
[2022-12-03] MEDS ORDERED: CARBOHYDRATES FOR HYPOGLYCEMIA PO PRN (09:08)
[2022-12-03] MEDS ORDERED: GLUCAGON FOR INJ 1 MG VIAL SQ PRN (09:08)
[2022-12-03] MEDS ORDERED: ACETAMINOPHEN 325 MG TAB PO PRN (09:08)
[2022-12-03] MEDS ORDERED: NSS + 20MEQ KCL 20 MEQ/1,000 ML BAG IV SCH (09:30)
[2022-12-03] MEDS: INSULIN ASPART PER UNIT CHARGE SC SCH ×4 (10:27→21:36)
[2022-12-03] MEDS: carvediloL 6.25 MG TAB PO SCH ×2 (10:38→17:20)
[2022-12-03] MEDS: DOXAZosin MESYLATE 4 MG TAB PO SCH ×2 (10:39→20:56)
[2022-12-03] MEDS: LOSARTAN POTASSIUM 50 MG TAB PO SCH (10:39)
[2022-12-03] MEDS: PENTOXIFYLLINE 400MG EXT REL TAB PO SCH ×2 (10:39→17:20)
[2022-12-03] MEDS: LEVOTHYROXINE SODIUM 88 MCG TABLET PO SCH (10:39)
[2022-12-03] MEDS: HEPARIN SOD 5,000 UNIT/0.5 ML VIAL SQ SCH ×2 (10:40→20:57)
[2022-12-03 13:29] LABS: Influenza A virus by PCR Negative (Neg); Influenza B virus by PCR Negative (Neg); RSV by PCR Negative (Neg); SARS CoV2 RNA(COVID-19) Ceph NEGATIVE (Negative)
[2022-12-03] MEDS: CLOPIDOGREL BISULFATE 75 MG TAB PO SCH (13:36)
[2022-12-03] MEDS: ASPIRIN 81 MG ECTAB PO SCH (13:36)
[2022-12-03] MEDS: THIAMINE HCL 100 MG TAB PO SCH (13:36)
--- NOTE | 2022-12-03 14:59 | Hospitalist Progress Note ---
Date of Service December 03, 2022 Assessment & Plan (1) Abdominal pain, acute: (2) Hypertensive urgency: (3) Weakness: (4) Hypothyroidism (acquired): (5) Hyperlipidemia: (6) Hypertension: (7) Benign prostatic hyperplasia (BPH) with urinary urgency: (8) Peripheral vascular disease: (9) Diabetic peripheral neuropathy associated with type 2 diabetes mellitus: (10) Melanoma: (11) Lumbar back pain: (12) Lymphadenopathy: (13) Sacral decubitus ulcer: Plan abdominal pain is vague - uncertain etiology - check a lipase; check a KUB - assess fecal load; CT a/p negative; no signs/symptoms of prostatitis ?lymph nodes inguinal region - check limited ultrasound to confirm whether these are lymph nodes HTN urgency - add amlodipine ?confusion - MRI brain, r/o CVA, brain mets, etc severe l-spine pain - check MRI l-spine, r/o severe spinal stenosis, mets, etc attempted to call pt's - no answer, left message on voicemail Admission and Anticipated Discharge Date Admission Date: December 03, 2022 Subjective patient lying in bed with eyes closed upon my arrival he woke up easily when I called his name complains of intermittent vague abdominal discomfort can't really pinpoint a specific location eating doesn't make it worse he reports losing 10-15 pounds of weight over the last 1-2 months had melanoma removed from behind the right ear on of this week had melanoma removed from right back 2-3 weeks ago c/o soreness over buttocks c/o severe low back pain present for "long time" BPs elevated since admission Physical Exam Physical Exam: gen - uncomfortable in bed due to back pain; even just rolling in bed leads to pain eyes - PERRL mouth - MMM head - just behind right ear is a dressing; dressing pealed back - sutures intact, no drainage or erythema neck - no lymph nodes heart - RRR s1 s2 lungs - CTA b/l abd - soft NT ND BS+; no HSM lymph - no axillary lymph nodes; inguinal region - 2 firm lumps suspicious for lymph nodes present ext - no edema, pulses 2+ b/l neuro - strength 5/5 x 4 exts although hip flexion was challenging for him skin - sacral decub ulcer x 2 - stage 2; b/l Results & Data Results & Data Vital Signs (Past 12 Hours) Vital Signs Temp Pulse Pulse Pulse Resp BP BP 12/03/22 14:16 36.5 C 63 16 180/91 H 12/03/22 11:30 36.3 C L 64 16 192/74 H 12/03/22 07:44 73 20 180/88 H 12/03/22 07:29 73 20 180/91 H 12/03/22 05:00 73 22 173/91 H 12/03/22 04:48 78 12/03/22 03:00 74 24 171/82 H Pulse Ox O2 Del Method 12/03/22 14:16 96 Room Air 12/03/22 11:30 97 Room Air 12/03/22 07:44 97 Room Air 12/03/22 07:29 96 Room Air 12/03/22 05:00 94 Room Air 12/03/22 04:48 12/03/22 03:00 99 Room Air PG Care Time/CCT Total # of Minutes Spent Total Time Spent with Patient: Total time spent is greater than 50% in coordination of care (as documented) at patient's floor/unit and/or counseling patient: Coding Level of Care Code None Diagnoses Abdominal pain, acute R10.9 Hypertensive urgency I16.0 Weakness R53.1 Hypothyroidism (acquired) E03.9 Hyperlipidemia E78.5 Hypertension I10 Hypertension type: unspecified Benign prostatic hyperplasia (BPH) with urinary urgency N40.1; R39.15 Peripheral vascular disease I73.9 Diabetic peripheral neuropathy associated with type 2 diabetes mellitus E11.42 Melanoma C43.9 Lumbar back pain M54.50 Lymphadenopathy R59.1 Sacral decubitus ulcer L89.159 (6) Hypertension Hypertension type: unspecified Qualified Code(s): I10 - Essential (primary) hypertension
[2022-12-03] MEDS: HYDROCODONE/ACETAMOPHEN 5/325MG TAB PO PRN (15:46)
[2022-12-03] MEDS ORDERED: amLODIPine BESYLATE 5 MG TAB PO ONE (16:25)
[2022-12-03] MEDS ORDERED: GADOBUTROL 65ML VIAL IV ONE (16:33)
[2022-12-03] MEDS: ACETAMINOPHEN 325 MG TAB PO SCH ×2 (17:16→20:56)
--- NOTE | 2022-12-03 17:16 | Magnetic Resonance Report ---
MR brain wo/w con HISTORY: 82 years-old Male extreme weakness, recent melanoma removal neck acute weakness COMPARISON: Head CT of same day, brain MRI 03/19/2021 TECHNIQUE: Multiplanar multisequence MRI of the brain was obtained both with and without the use of I V contrast. FINDINGS: No shift of diffusion. The midline structures appear unremarkable. Degenerative changes of the imaged cervical spine. Prior suboccipital craniectomy. No acute intracranial hemorrhage, midline shift, abn ormal extra-axial collection, hydrocephalus or intracranial mass. Extensive and confluent T2/FLAIR hy perintense foci throughout the white matter. Cerebral venous sinuses and major arterial flow voids ap pear patent. Chronic lacunar infarcts basal ganglia and jan. Mild diffuse thickening and enhancement of the pachymeninges. No abnormal intra-axial enhancement. Prior bilateral lens repair. Mild mucosal thickening of the paranasal sinuses. The mastoid air cells are clear. Hyperostosis frontalis internal. IMPRESSION: 1. No acute intracranial abnormality. No acute or subacute infarct. 2. Involutional changes with extensive chronic microvascular ischemic disease. 3. No abnormal intra-axial enhancement. 4. Mild thickening and enhancement of the pachymeninges is a nonspecific finding and can be associate d with spontaneous intracranial hypotension. 5. Prior suboccipital craniectomy. ACT 112: Negative or not required by law. The above report was generated using voice recognition software. It may contain grammatical, syntax o r spelling errors. Electronically signed by: Choco Davalos M.D. 12/03/2022 5:14 PM
[2022-12-03] MEDS: CHOLECALCIFEROL 1,000 UNITS 25 MCG TAB PO SCH (17:23)
[2022-12-03] MEDS: hydrALAZINE HCL 20 MG/ML VIAL IV PRN (18:30)
--- NOTE | 2022-12-03 19:24 | Magnetic Resonance Report ---
MR lumbar spine wo/w con CLINICAL HISTORY: 82 years-old Male with severe weakness, back pain; eval mets etc. Acute severe lo w back pain. Patient with history of melanoma COMPARISON: Brain MRI of same day, MRI lumbar spine 07/02/2015 TECHNIQUE: Multiplanar, multi sequence MRI of the lumbar spine was performed both with and without th e use of intravenous contrast. FINDINGS: Motion degraded exam. The imaged intra-abdominal structures demonstrate no acute abnormality. Conus m edullaris is at L1. Signal within the imaged thoracic spinal cord and cauda equina is unremarkable. T here is no acute fracture, subluxation or marrow replacing process. No suspicious areas of enhancemen t. Mild degenerative related enhancement L3-L4 and L5-S1. Lumbar levoscoliosis. T12-L1: Moderate intervertebral disc space narrowing. Tiny post renal disc bulge with moderate facet arthrosis. Ligament flavum thickening with mild facet arthrosis. Central canal and left neuroforamen are patent. Mild right foraminal narrowing. No significant change. L1-L2: Moderate pubis space narrowing with spondylitic spurring and disc osteophyte complex, largest in the left foraminal and left far lateral distribution. Ligament flavum thickening with mild facet arthrosis. The central canal and right neural foramen are patent. Mild left foraminal narrowing has p rogressed. L2-L3: Severe disc space narrowing with degenerative partial bony fusion. Bridging spondylitic spurr ing with posterior disc osteophyte complex. Ligamentum flavum thickening with moderate facet arthrosi s. Mild central canal stenosis with AP dimension of the thecal sac measuring 9 mm. Moderate bilateral foraminal narrowing appears stable. L3-L4: Severe intervertebral disc space narrowing is nonspecific small amount of fluid signal within the disc space. No endplate erosions identified. Circumferential disc osteophyte complex with ligame ntum flavum thickening and advanced facet arthrosis. Mild central canal stenosis with AP dimension of the thecal sac measuring 9 mm. Moderate to severe bilateral foraminal stenosis is unchanged. L4-L5: Severe intervertebral disc space narrowing with degenerative partial bony fusion bridging ost eophytic spurring. Small posterior disc osteophyte complex. Ligamentum flavum thickening with advance d facet arthrosis. Severe bilateral foraminal stenosis is unchanged. L5-S1: Moderate to severe intervertebral disc space narrowing with circumferential disc osteophyte c omplex, largest in the right paracentral distribution measuring 1.4 cm transversely. There is abutmen t without significant displacement of the right S1 nerve root. Central canal is patent. Moderate face t arthrosis with ligamentum flavum thickening. Severe right lateral recess narrowing with severe righ t and moderate to severe left foraminal stenosis, not significantly changed. IMPRESSION: 1. Fluid signal and enhancement at the L3-L4 level is likely on a degenerative basis. Developing acut e discitis/osteomyelitis considered less likely. 2. No marrow replacing lesions identified. 3. Scoliosis with discogenic degeneration and spondylotic spurring as above resulting in multilevel f oraminal narrowing. 4. Mild central canal stenosis at L2-L3. ACT 112: Negative or not required by law. The above report was generated using voice recognition software. It may contain grammatical, syntax o r spelling errors. Electronically signed by: Choco Davalos M.D. 12/03/2022 7:22 PM
[2022-12-03] MEDS: ATORVASTATIN 10 MG TAB PO SCH (20:57)
[2022-12-04] MEDS: LEVOTHYROXINE SODIUM 88 MCG TABLET PO SCH (06:10)
[2022-12-04 08:41] LABS: BUN Creatinine Ratio 20.4 (10-20); Creatinine Clr Calc Pharmacy 61.2 ml/min; Est GFR (African American) 88.3 ml/min; Est GFR (Non-African American) 76.2 ml/min; Potassium 3.7 mmol/L (3.5-5.1)
[2022-12-04 09:19] LABS: Lyme Ab IgG w/WB Rflx Negative (Negative); Lyme Ab IgM w/WB Rflx Negative (Negative)
[2022-12-04] MEDS: INSULIN ASPART PER UNIT CHARGE SC SCH ×4 (09:48→20:59)
[2022-12-04] MEDS: PENTOXIFYLLINE 400MG EXT REL TAB PO SCH ×2 (09:49→17:06)
[2022-12-04] MEDS: LOSARTAN POTASSIUM 50 MG TAB PO SCH (09:49)
[2022-12-04] MEDS: ASPIRIN 81 MG ECTAB PO SCH (09:49)
[2022-12-04] MEDS: carvediloL 6.25 MG TAB PO SCH ×2 (09:50→16:14)
[2022-12-04] MEDS: CLOPIDOGREL BISULFATE 75 MG TAB PO SCH (09:50)
[2022-12-04] MEDS: DOXAZosin MESYLATE 4 MG TAB PO SCH ×2 (09:52→19:46)
[2022-12-04] MEDS: ACETAMINOPHEN 325 MG TAB PO SCH ×3 (09:52→19:44)
[2022-12-04] MEDS: HEPARIN SOD 5,000 UNIT/0.5 ML VIAL SQ SCH ×2 (09:53→19:46)
--- NOTE | 2022-12-04 10:18 | Ultrasound Report ---
US soft tissue groin CLINICAL HISTORY: ? lymph nodes x 2 Left inguinal region/LLQ of abd COMPARISON STUDY: Abdomen and pelvis CT 12/03/2022. FINDINGS: Real-time sonographic imaging of the left inguinal region was performed with advertising sales representative images submitted. There are 2 benign-appearing left inguinal lymph nodes with the largest measuring 29 x 11 x 5 mm. These demonstrate a normal fatty hilum and thin cortex. No fluid collections, masses, or hernia identified. IMPRESSION: Benign-appearing left inguinal lymph nodes. ACT 112: Negative or not required by law. Electronically signed by: Rishabh Dowd M.D. 12/04/2022 10:17 AM
--- NOTE | 2022-12-04 10:20 | XRay Report ---
KUB HISTORY: vague abd pain; constipation? check fecal load COMPARISON: Abdomen and pelvis CT 12/03/2022. FINDINGS: The bowel gas pattern is unremarkable. There are no dilated loops of small bowel to suggest an obstruction. No renal calculi. No ureteral calculi. No pneumoperitoneum or pneumatosis. Mild fec al retention is noted. Vascular calcifications are present. Degenerative changes and scoliosis within the lumbar spine. IMPRESSION: 1. Nonobstructive bowel gas pattern. 2. Mild fecal retention. ACT 112: Negative or not required by law. Electronically signed by: Rishabh Dowd M.D. 12/04/2022 10:18 AM
[2022-12-04] MEDS: THIAMINE HCL 100 MG TAB PO SCH (13:16)
[2022-12-04] MEDS: CHOLECALCIFEROL 1,000 UNITS 25 MCG TAB PO SCH (16:14)
[2022-12-04] MEDS ORDERED: SPIRONOLACTONE 25 MG TAB PO ONE (18:17)
[2022-12-04] MEDS: ATORVASTATIN 10 MG TAB PO SCH (19:45)
[2022-12-04] MEDS: hydrALAZINE HCL 20 MG/ML VIAL IV PRN (19:51)
--- NOTE | 2022-12-04 20:56 | Hospitalist Progress Note ---
Date of Service December 04, 2022 Assessment & Plan (1) Abdominal pain, acute: Plan: present at admission resolved etiology?? LFTs, lipase wnl ua not suggestive of UTI KUB x-ray without constipation CT abd/pelvis negative for acute findings the lymph nodes in the L groin wouldn't cause pain not sure what caused it but monitor for recurrence (2) Hypertensive urgency: Plan: improving albeit slowly did tell pt & that nearly all BPs in the record have been high - many 180+ systolically goal is to gradually reduce the BP rather than do it rapidly and cause harm could have a hyperaldo state start aldactone 25mg daily cont coreg BID cont doxazosin BID cont losartan daily consider renal artery doppler - rule out MARCELLA (3) Weakness: Plan: difficult to say what main culprit is I suspect he has been gradually declining over time with his overall health given his sacral decubs can't ambulate that well due to his gait issues, back pain, etc PT, OT may need rehab no evidence of any infectious process while here sed rate, crp neg lyme neg no UTI no COVID/flu/RSV etc (4) Hypothyroidism (acquired): Plan: TSH mildly high at 7 will inquire with about his compliance first before changing dose cont synthroid (5) Hyperlipidemia: Plan: cont statin (6) Hypertension: Plan: see above (7) Benign prostatic hyperplasia (BPH) with urinary urgency: Plan: cont alpha romain (8) Peripheral vascular disease: Plan: strongly consider renal artery doppler in light of refractory uncontrolled HTN (9) Diabetic peripheral neuropathy associated with type 2 diabetes mellitus: Plan: cont lantus cont novolog a1c 5.9% (10) Melanoma: Plan: s/p removal of lesion from scalp last week s/p removal of a 2nd lesion from shoulder/back about 2 weeks ago no metastatic disease on MRI brain, MRI lumbar spine, or CT abd/pelvis lymph nodes in groin - consider Bx despite the benign appearance on u/s (11) Lumbar back pain: Plan: 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 cont pain meds, etc (12) Lymphadenopathy: Plan: consider bx of L inguinal lymph node (13) Sacral decubitus ulcer: Plan: wound care consult this suggests chronic issues with ability to ambulate, etc I looked at these yesterday and they did not appear infected Plan DVT proph - heparin SC updated pt's extensively at bedside change obs status to full admission status Admission and Anticipated Discharge Date Admission Date: December 04, 2022 Subjective tele stable overnight despite elevated BPs he has no headache, chest pain, abd pain, etc eating fair no dyspnea was at bedside during the visit I confirmed with his why he was brought to the hospital - it was because he was a little "off" for a few days prior to presentation, then had severely elevated BPs at home the night he came he also had complained of vague abd pain confirms he has been losing weight recently confirmed the right scalp melanoma was removed last week, and the back melanoma was removed 2 weeks ago or so finally, confirmed his ambulation has gotten progressively worse over the last year he is now shuffling uses a roll-ator walker and she says he pushes it odd no falls no tremors but he is stiff/rigid Review of Systems Review of Systems: gen - no fevers or chills cv - no chest pain pulm - no dyspnea or cough GI - no abd pain today; no N/V musculo - no change in chronic back pain Physical Exam Physical Exam: gen - NAD, looks more comfortable today, awake/alert; masked facies appearance mouth - MMM head - just behind right ear is a dressing; dressing pealed back - sutures intact, no drainage or erythema heart - RRR s1 s2, no murmur lungs - CTA b/l abd - soft NT ND BS+; no HSM lymph - 2 lymph nodes left groin - no change ext - no edema, pulses 2+ b/l neuro - rigid legs/arms with passive ROM but no cogwheeling; masked facies Results & Data Results & Data Vital Signs (Past 12 Hours) Vital Signs Temp Pulse Pulse Resp BP BP Pulse Ox 12/04/22 19:41 183/79 H 12/04/22 16:00 56 L 12/04/22 16:00 12/04/22 16:49 213/97 H 12/04/22 16:42 215/89 H 210/91 H 12/04/22 16:11 36.5 C 55 L 18 195/83 H 95 12/04/22 11:25 36.3 C L 60 18 187/74 H 98 O2 Del Method 12/04/22 19:41 12/04/22 16:00 12/04/22 16:00 Room Air 12/04/22 16:49 12/04/22 16:42 12/04/22 16:11 Room Air 12/04/22 11:25 Room Air Laboratory Results Laboratory Results - last 24 hr 12/04/22 12/04/22 12/04/22 07:49 07:49 07:49 Sodium 135 L Potassium 3.7 Chloride 102 Carbon Dioxide 29 Anion Gap 4 BUN 19 Creatinine 0.93 Est Cr Clr Drug Dosing 61.2 Est GFR ( Amer) 88.3 Est GFR (Non-Af Amer) 76.2 BUN/Creatinine Ratio 20.4 H Glucose 125 H POC Glucose Estimat Average Glucose Pending Hemoglobin A1c Pending Calcium 9.0 Lipase 68 TSH 7.077 H Lyme Disease IgG Ab Lyme Disease IgM Ab 12/04/22 12/04/22 12/04/22 07:49 08:27 11:44 Sodium Potassium Chloride Carbon Dioxide Anion Gap BUN Creatinine Est Cr Clr Drug Dosing Est GFR ( Amer) Est GFR (Non-Af Amer) BUN/Creatinine Ratio Glucose POC Glucose 125 H 132 H Estimat Average Glucose Hemoglobin A1c Calcium Lipase TSH Lyme Disease IgG Ab Negative Lyme Disease IgM Ab Negative 12/04/22 12/04/22 17:15 20:14 Sodium Potassium Chloride Carbon Dioxide Anion Gap BUN Creatinine Est Cr Clr Drug Dosing Est GFR ( Amer) Est GFR (Non-Af Amer) BUN/Creatinine Ratio Glucose POC Glucose 155 H 240 H Estimat Average Glucose Hemoglobin A1c Calcium Lipase TSH Lyme Disease IgG Ab Lyme Disease IgM Ab Diagnostic Findings blood cx's neg to date PG Care Time/CCT Total # of Minutes Spent Total Time Spent with Patient: Total time spent is greater than 50% in coordination of care (as documented) at patient's floor/unit and/or counseling patient: Coding Level of Care Code 76973 SUB INP/OBS CARE 3/50MIN Diagnoses Abdominal pain, acute R10.9 Hypertensive urgency I16.0 Weakness R53.1 Hypothyroidism (acquired) E03.9 Hyperlipidemia E78.5 Hypertension I10 Hypertension type: unspecified Benign prostatic hyperplasia (BPH) with urinary urgency N40.1; R39.15 Peripheral vascular disease I73.9 Diabetic peripheral neuropathy associated with type 2 diabetes mellitus E11.42 Melanoma C43.9 Lumbar back pain M54.50 Lymphadenopathy R59.1 Sacral decubitus ulcer L89.159 (6) Hypertension Hypertension type: unspecified Qualified Code(s): I10 - Essential (primary) hypertension
[2022-12-04] MEDS: LANTUS PER UNIT CHARGE SQ SCH (22:24)
[2022-12-05] MEDS: HYDROCODONE/ACETAMOPHEN 5/325MG TAB PO PRN (03:22)
[2022-12-05] MEDS: LEVOTHYROXINE SODIUM 100 MCG TABLET PO SCH (06:15)
[2022-12-05 07:53] LABS: Estimated Average Glucose 123 mg/dl; Hemoglobin A1C 5.9 % (4.5-5.6)
[2022-12-05] MEDS: carvediloL 6.25 MG TAB PO SCH ×2 (08:21→17:18)
[2022-12-05] MEDS: PENTOXIFYLLINE 400MG EXT REL TAB PO SCH ×2 (08:22→17:19)
--- NOTE | 2022-12-05 09:01 | Electrocardiogram Report ---
Test Reason : Blood Pressure : / mmHG Vent. Rate : 066 BPM Atrial Rate : 066 BPM P-R Int : 214 ms QRS Dur : 114 ms QT Int : 416 ms P-R-T Axes : 042 010 037 degrees QTc Int : 436 ms Sinus rhythm with 1st degree A-V block Nonspecific ST abnormality Abnormal ECG When compared with ECG of 30-JUL-2021 12:55, Incomplete right bundle branch block is no longer Present Confirmed by Eliezer Amado ([id number]) on 12/05/2022 9:01:18 AM Referred By: REFERRED SELF Confirmed By:Eliezer Amado
[2022-12-05] MEDS: INSULIN ASPART PER UNIT CHARGE SC SCH ×4 (09:14→21:23)
[2022-12-05] MEDS: ACETAMINOPHEN 325 MG TAB PO SCH ×3 (09:24→20:11)
[2022-12-05] MEDS: ASPIRIN 81 MG ECTAB PO SCH (09:26)
[2022-12-05] MEDS: CLOPIDOGREL BISULFATE 75 MG TAB PO SCH (09:27)
[2022-12-05] MEDS: DOXAZosin MESYLATE 4 MG TAB PO SCH ×2 (09:28→20:10)
[2022-12-05] MEDS: HEPARIN SOD 5,000 UNIT/0.5 ML VIAL SQ SCH ×2 (09:29→20:10)
[2022-12-05] MEDS: LOSARTAN POTASSIUM 50 MG TAB PO SCH (09:37)
[2022-12-05] MEDS: THIAMINE HCL 100 MG TAB PO SCH (12:06)
[2022-12-05] MEDS: SPIRONOLACTONE 25 MG TAB PO SCH (12:07)
[2022-12-05] MEDS: CHOLECALCIFEROL 1,000 UNITS 25 MCG TAB PO SCH (16:52)
--- NOTE | 2022-12-05 17:05 | Ultrasound Report ---
US duplex renal artery HISTORY: 82 years-old Male malignant HTN acute hypertension COMPARISON: CT abdomen and pelvis 12/03/2022 TECHNIQUE: Multiple real-time sonographic images of the renal artery vascular structures were obtaine d assessing grayscale appearance, color and spectral flow FINDINGS: Right renal artery peak systolic velocities measure up to 71 cm/s with resistive index measuring up t o 0.7. Left renal artery peak systolic velocities measure up to 93 cm/s with resistive index measuring up to 0.9. Patent bilateral renal arteries. Increased echogenicity of the kidneys suggestive of chronic medical renal disease. Renal calcifications are better seen on the prior CT. Normal plug flow within the abdo jai aorta, peak systolic velocities measuring up to 101 cm/s. IMPRESSION: No evidence of renal arterial stenosis. ACT 112: Negative or not required by law. The above report was generated using voice recognition software. It may contain grammatical, syntax o r spelling errors. Electronically signed by: Choco Davalos M.D. 12/05/2022 5:04 PM
[2022-12-05] MEDS ORDERED: amLODIPine BESYLATE 5 MG TAB PO ONE (19:30)
[2022-12-05] MEDS: ATORVASTATIN 10 MG TAB PO SCH (20:10)
--- NOTE | 2022-12-05 20:38 | Hospitalist Progress Note ---
Date of Service December 05, 2022 Assessment & Plan (1) Abdominal pain, acute: Plan: present at admission resolved - has not occurred etiology?? LFTs, lipase wnl ua not suggestive of UTI KUB x-ray without constipation CT abd/pelvis negative for acute findings the lymph nodes in the L groin wouldn't cause pain not sure what caused it but monitor for recurrence (2) Hypertensive urgency: Plan: nearly all BPs in the record have been high - many 180+ systolically - dating back 2-3 years during most recent office visit with Dr Juárez - nephrology - systolic BP was 180 goal is to gradually reduce the BP rather than do it rapidly and cause harm could have a hyperaldo state started aldactone 25mg daily cont coreg BID cont doxazosin BID cont losartan but use split dosing to have smoother 24 hour control --> thus, 50mg BID add amlodipine - 5mg now, then 2.5mg BID starting 12/06 check renal artery dopplers --> r/o MARCELLA limit hydralazine IV prn to SBPs >200 (3) Weakness: Plan: difficult to say what main culprit is I suspect he has been gradually declining over time with his overall health given his sacral decubs can't ambulate that well due to his gait issues, chronic back pain, etc PT, OT needs rehab no evidence of any infectious process while here sed rate, crp neg lyme neg no UTI no COVID/flu/RSV MRI brain negative MRI lumbar spine with severe DJD but no severe spinal stenosis (4) Hypothyroidism (acquired): Plan: TSH mildly high at 7 patient reports compliance with all meds --> assists with meds further, pharmacy records show ongoing refills on-time thus, increase synthroid from 100mcg to 112mcg daily repeat TSH 6 weeks (5) Hyperlipidemia: Plan: cont statin (6) Hypertension: Plan: see above #2 (7) Benign prostatic hyperplasia (BPH) with urinary urgency: Plan: cont alpha romain as previous (8) Peripheral vascular disease: Plan: obtain renal artery dopplers in light of refractory uncontrolled HTN --> r/o MARCELLA (9) Diabetic peripheral neuropathy associated with type 2 diabetes mellitus: Plan: cont lantus cont novolog Hba1c 5.9% (10) Melanoma: Plan: s/p removal of lesion from right scalp last week s/p removal of a 2nd lesion from shoulder/back about 2 weeks ago no metastatic disease on MRI brain, MRI lumbar spine, or CT abd/pelvis lymph nodes in groin - consider Bx despite the benign appearance on u/s consider CT chest (11) Lumbar back pain: Plan: 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 consider CT chest - r/o lung ca, mets from melanoma, etc consider Bx of L inguinal lymph node if both are done and negative --> weight loss due to a progressive neurological condition? (15) Ambulatory dysfunction: Plan: slow, narrow-based, shuffling gait development of Parkinson's? other? consider neurology referral post-d/c for work-up (16) Abnormal MRI, lumbar spine: Plan: L3-L4 on MRI with findings likely due to degenerative disease radiology suggests osteomyelitis could look similar but less likely sed rate 5 CRP 0 normal wbc count no fevers doubt osteomyelitis/infectious process of spine follow carefully Plan DVT proph - heparin SC updated pt's extensively at bedside yesterday and again by phone this evening Admission and Anticipated Discharge Date Admission Date: December 04, 2022 Subjective no events overnight tele - NSR he continues to complaint of feeling tired and fatigued eating fair denies headache, dyspnea, ANTOINE, or chest pain worked with PT/OT - both advise rehab post-discharge patient reports 20 year history of prior tobacco use Review of Systems Review of Systems: gen - no fevers cv - no chest pain, no orthopnea, no PND GI - no abd pain or N/V pulm - no cough Physical Exam Physical Exam: gen - NAD, awake/alert; masked facies appearance mouth - MMM heart - RRR, s1 s2, no murmur lungs - CTA b/l abd - soft NT ND BS+; no HSM lymph - 2 lymph nodes left groin - no change; both are nontender ext - no edema, pulses 2+ b/l neuro - rigid legs/arms; masked facies per PT/OT - gait is shuffling, slow, forward bend, narrow based gait skin - sutures intact behind right ear on scalp (recent melanoma removal); well- healed incision right upper back from recent melanoma excision Results & Data Results & Data Vital Signs (Past 12 Hours) Vital Signs Temp Pulse Pulse Pulse Resp BP BP 12/05/22 19:25 36.9 C 60 18 202/87 H 12/05/22 15:26 36.7 C 60 18 213/100 H 12/05/22 16:01 68 12/05/22 11:35 36.4 C L 65 18 166/73 H Pulse Ox O2 Del Method 12/05/22 19:25 95 Room Air 12/05/22 15:26 96 Room Air 12/05/22 16:01 12/05/22 11:35 96 Room Air Laboratory Results Laboratory Results - last 24 hr 12/04/22 12/05/22 12/05/22 07:49 07:44 11:46 POC Glucose 93 166 H Estimat Average Glucose 123 Hemoglobin A1c 5.9 H 12/05/22 12/05/22 16:53 20:27 POC Glucose 117 H 187 H Estimat Average Glucose Hemoglobin A1c PG Care Time/CCT Total # of Minutes Spent Total Time Spent with Patient: Total time spent is greater than 50% in coordination of care (as documented) at patient's floor/unit and/or counseling patient: Coding Level of Care Code 45194 SUB INP/OBS CARE 3/50MIN Diagnoses Abdominal pain, acute R10.9 Hypertensive urgency I16.0 Weakness R53.1 Hypothyroidism (acquired) E03.9 Hyperlipidemia E78.5 Hypertension I10 Hypertension type: unspecified Benign prostatic hyperplasia (BPH) with urinary urgency N40.1; R39.15 Peripheral vascular disease I73.9 Diabetic peripheral neuropathy associated with type 2 diabetes mellitus E11.42 Melanoma C43.9 Lumbar back pain M54.50 Lymphadenopathy R59.1 Sacral decubitus ulcer L89.159 Weight loss R63.4 Ambulatory dysfunction R26.2 Abnormal MRI, lumbar spine R93.7 (6) Hypertension Hypertension type: unspecified Qualified Code(s): I10 - Essential (primary) hypertension
[2022-12-05] MEDS ORDERED: LATANOPROST 0.005% OP SOLN 2.5 ML BTL OPB SCH (21:00)
[2022-12-05] MEDS: LANTUS PER UNIT CHARGE SQ SCH (21:23)
[2022-12-05] MEDS: LATANOPROST 0.005% OP SOLN 2.5 ML BTL OPB SCH (21:35)
[2022-12-05] MEDS: DORZOLAMIDE HCL 2% OPH SOLN 10 ML BTL OPB SCH (21:36)
[2022-12-05] MEDS: hydrALAZINE HCL 20 MG/ML VIAL IV PRN (21:59)
[2022-12-06] MEDS: LEVOTHYROXINE SODIUM 100 MCG TABLET PO SCH (06:07)
[2022-12-06 08:31] LABS: BUN Creatinine Ratio 24.7 (10-20); Creatinine Clr Calc Pharmacy 58.7 ml/min; Est GFR (African American) 83.9 ml/min; Est GFR (Non-African American) 72.4 ml/min; Potassium 3.7 mmol/L (3.5-5.1)
[2022-12-06] MEDS: LOSARTAN POTASSIUM 50 MG TAB PO SCH ×2 (09:07→21:04)
[2022-12-06] MEDS: carvediloL 6.25 MG TAB PO SCH ×3 (09:08→17:22)
[2022-12-06] MEDS: amLODIPine BESYLATE 5 MG TAB PO SCH ×2 (09:09→21:05)
[2022-12-06] MEDS: ACETAMINOPHEN 325 MG TAB PO SCH ×3 (09:09→21:05)
[2022-12-06] MEDS: CLOPIDOGREL BISULFATE 75 MG TAB PO SCH (09:09)
[2022-12-06] MEDS: PENTOXIFYLLINE 400MG EXT REL TAB PO SCH ×2 (09:09→17:22)
[2022-12-06] MEDS: ASPIRIN 81 MG ECTAB PO SCH (09:09)
[2022-12-06] MEDS: HEPARIN SOD 5,000 UNIT/0.5 ML VIAL SQ SCH ×2 (09:10→21:04)
[2022-12-06] MEDS: DOXAZosin MESYLATE 4 MG TAB PO SCH ×2 (09:10→21:05)
[2022-12-06] MEDS: DORZOLAMIDE HCL 2% OPH SOLN 10 ML BTL OPB SCH ×2 (09:10→21:06)
[2022-12-06] MEDS ORDERED: SPIRONOLACTONE 25 MG TAB PO ONE (09:24)
[2022-12-06] MEDS: LEVOTHYROXINE SODIUM 112 MCG TABLET PO SCH (09:29)
[2022-12-06] MEDS: INSULIN ASPART PER UNIT CHARGE SC SCH ×4 (10:12→21:10)
[2022-12-06] MEDS: SPIRONOLACTONE 25 MG TAB PO SCH (10:17)
[2022-12-06] MEDS: THIAMINE HCL 100 MG TAB PO SCH (13:15)
[2022-12-06] MEDS ORDERED: POLYETHYLENE (MIRALAX) 17 GM PACK PO PRN (15:53)
[2022-12-06] MEDS: CHOLECALCIFEROL 1,000 UNITS 25 MCG TAB PO SCH (16:53)
--- NOTE | 2022-12-06 17:14 | Hospitalist Progress Note ---
Date of Service December 06, 2022 Assessment & Plan (1) Abdominal pain, acute: Plan: present at admission resolved - has not occurred etiology?? LFTs, lipase wnl ua not suggestive of UTI KUB x-ray without constipation CT abd/pelvis negative for acute findings the lymph nodes in the L groin wouldn't cause pain not sure what caused it but monitor for recurrence (2) Hypertensive urgency: Plan: nearly all BPs in the record have been high - many 180+ systolically - dating back 2-3 years during most recent office visit with Dr Juárez - nephrology - systolic BP was 180 goal is to gradually reduce the BP rather than do it rapidly and cause harm could have a hyperaldo state started on aldactone cont coreg BID cont doxazosin BID cont losartan but use split dosing to have smoother 24 hour control --> thus, 50mg BID Increase amlodipine to 5 mg twice daily Increase Aldactone to 50 mg renal artery dopplers negative for renal artery stenosis limit hydralazine IV prn to SBPs >200 (3) Weakness: Plan: difficult to say what main culprit is I suspect he has been gradually declining over time with his overall health given his sacral decubs can't ambulate that well due to his gait issues, chronic back pain, etc PT, OT needs rehab no evidence of any infectious process while here sed rate, crp neg lyme neg no UTI no COVID/flu/RSV MRI brain negative MRI lumbar spine with severe DJD but no severe spinal stenosis (4) Hypothyroidism (acquired): Plan: TSH mildly high at 7 patient reports compliance with all meds --> assists with meds further, pharmacy records show ongoing refills on-time thus, increase synthroid from 100mcg to 112mcg daily repeat TSH 6 weeks (5) Hyperlipidemia: Plan: cont statin (6) Hypertension: Plan: see above #2 (7) Benign prostatic hyperplasia (BPH) with urinary urgency: Plan: cont alpha romain as previous (8) Peripheral vascular disease: Plan: obtain renal artery dopplers in light of refractory uncontrolled HTN --> r/o MARCELLA (9) Diabetic peripheral neuropathy associated with type 2 diabetes mellitus: Plan: cont lantus cont novolog Hba1c 5.9% (10) Melanoma: Plan: s/p removal of lesion from right scalp last week s/p removal of a 2nd lesion from shoulder/back about 2 weeks ago no metastatic disease on MRI brain, MRI lumbar spine, or CT abd/pelvis lymph nodes in groin - consider Bx despite the benign appearance on u/s consider CT chest (11) Lumbar back pain: Plan: 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 consider CT chest - r/o lung ca, mets from melanoma, etc consider Bx of L inguinal lymph node if both are done and negative --> weight loss due to a progressive neurological condition? (15) Ambulatory dysfunction: Plan: slow, narrow-based, shuffling gait development of Parkinson's? other? consider neurology referral post-d/c for work-up (16) Abnormal MRI, lumbar spine: Plan: L3-L4 on MRI with findings likely due to degenerative disease radiology suggests osteomyelitis could look similar but less likely sed rate 5 CRP 0 normal wbc count no fevers doubt osteomyelitis/infectious process of spine follow carefully Plan DVT proph - heparin SC CODE STATUS: DNR/DNI Admission and Anticipated Discharge Date Admission Date: December 04, 2022 Subjective Patient says that he feels better overall. He could not really describe how Review of Systems Review of Systems: All systems reviewed & are unremarkable except as noted in Subjective Physical Exam Physical Exam: General: Awake, conversant, frail looking Heart: S1, S2/regular rate and rhythm, no murmur rubs or gallops Lungs: Clear to auscultation bilaterally. Normal effort Abdomen: Soft/nontender/nondistended. No hepatosplenomegaly Extremities: No clubbing/cyanosis. No edema Behavior: Appropriate, cooperative Results & Data Results & Data Vital Signs (Past 12 Hours) Vital Signs Temp Pulse Pulse Resp BP BP Pulse Ox 12/06/22 16:00 36.6 C 59 L 16 160/75 H 97 12/06/22 15:15 36.7 C 63 18 170/80 H 96 12/06/22 14:43 36.8 C 74 18 148/89 H 99 12/06/22 11:24 36.4 C L 62 18 134/73 97 12/06/22 08:01 36.7 C 66 18 180/76 H 94 12/06/22 07:35 61 O2 Del Method 12/06/22 16:00 Room Air 12/06/22 15:15 Room Air 12/06/22 14:43 Room Air 12/06/22 11:24 Room Air 12/06/22 08:01 Room Air 12/06/22 07:35 Laboratory Results Abnormal lab results 12/05/22 12/06/22 12/06/22 Range/Units 20:27 06:59 08:00 BUN 24 H (6-23) mg/dl BUN/Creatinine Ratio 24.7 H (10-20) Glucose 108 H (70-99(Fasting)) mg/dl POC Glucose 187 H 122 H (70-99) mg/dl 12/06/22 Range/Units 12:04 BUN (6-23) mg/dl BUN/Creatinine Ratio (10-20) Glucose (70-99(Fasting)) mg/dl POC Glucose 190 H (70-99) mg/dl PG Care Time/CCT Total # of Minutes Spent Total Time Spent with Patient: Total time spent is greater than 50% in coordination of care (as documented) at patient's floor/unit and/or counseling patient: Coding Level of Care Code 50175 SUB INP/OBS CARE 2/35MIN Diagnoses Abdominal pain, acute R10.9 Hypertensive urgency I16.0 Weakness R53.1 Hypothyroidism (acquired) E03.9 Hyperlipidemia E78.5 Hypertension I10 Hypertension type: unspecified Benign prostatic hyperplasia (BPH) with urinary urgency N40.1; R39.15 Peripheral vascular disease I73.9 Diabetic peripheral neuropathy associated with type 2 diabetes mellitus E11.42 Melanoma C43.9 Lumbar back pain M54.50 Lymphadenopathy R59.1 Sacral decubitus ulcer L89.159 Weight loss R63.4 Ambulatory dysfunction R26.2 Abnormal MRI, lumbar spine R93.7 Time Spent (min) 35 (6) Hypertension Hypertension type: unspecified Qualified Code(s): I10 - Essential (primary) hypertension
[2022-12-06] MEDS: ATORVASTATIN 10 MG TAB PO SCH (21:04)
[2022-12-06] MEDS: LATANOPROST 0.005% OP SOLN 2.5 ML BTL OPB SCH (21:06)
[2022-12-06] MEDS: LANTUS PER UNIT CHARGE SQ SCH (21:06)
[2022-12-07] MEDS: LEVOTHYROXINE SODIUM 112 MCG TABLET PO SCH (05:41)
[2022-12-07] MEDS: carvediloL 6.25 MG TAB PO SCH (08:25)
[2022-12-07] MEDS: PENTOXIFYLLINE 400MG EXT REL TAB PO SCH ×2 (08:26→17:22)
[2022-12-07] MEDS: INSULIN ASPART PER UNIT CHARGE SC SCH ×4 (09:00→21:10)
[2022-12-07] MEDS: ACETAMINOPHEN 325 MG TAB PO SCH ×3 (09:13→20:11)
[2022-12-07] MEDS: amLODIPine BESYLATE 5 MG TAB PO SCH ×2 (09:16→20:12)
[2022-12-07] MEDS: ASPIRIN 81 MG ECTAB PO SCH (09:17)
[2022-12-07] MEDS: CLOPIDOGREL BISULFATE 75 MG TAB PO SCH (09:18)
[2022-12-07] MEDS: cloNIDine HCL 0.1 MG TAB PO SCH (09:18)
[2022-12-07] MEDS: DORZOLAMIDE HCL 2% OPH SOLN 10 ML BTL OPB SCH ×2 (09:19→20:13)
[2022-12-07] MEDS: SPIRONOLACTONE 25 MG TAB PO SCH (09:20)
[2022-12-07] MEDS: DOXAZosin MESYLATE 4 MG TAB PO SCH ×2 (09:20→20:12)
[2022-12-07] MEDS: HEPARIN SOD 5,000 UNIT/0.5 ML VIAL SQ SCH ×2 (09:21→20:14)
[2022-12-07] MEDS: LOSARTAN POTASSIUM 50 MG TAB PO SCH ×2 (09:23→20:13)
[2022-12-07 10:21] LABS: Calcium 8.9 mg/dl (8.6-10.3); Creatinine Clr Calc Pharmacy 49.5 ml/min; Est GFR (African American) 68.3 ml/min; Est GFR (Non-African American) 58.9 ml/min; Potassium 4.1 mmol/L (3.5-5.1)
[2022-12-07] MEDS: THIAMINE HCL 100 MG TAB PO SCH (11:53)
--- NOTE | 2022-12-07 15:20 | Hospitalist Progress Note ---
Date of Service December 07, 2022 Assessment & Plan (1) Abdominal pain, acute: Plan: present at admission resolved - has not occurred etiology?? LFTs, lipase wnl ua not suggestive of UTI KUB x-ray without constipation CT abd/pelvis negative for acute findings the lymph nodes in the L groin wouldn't cause pain not sure what caused it but monitor for recurrence (2) Hypertensive urgency: Plan: nearly all BPs in the record have been high - many 180+ systolically - dating back 2-3 years during most recent office visit with Dr Juárez - nephrology - systolic BP was 180 goal is to gradually reduce the BP rather than do it rapidly and cause harm could have a hyperaldo state started on aldactone Discontinue Coreg as having to hold it because of bradycardia anyways. Start clonidine instead 0.1 mg cont doxazosin BID cont losartan but use split dosing to have smoother 24 hour control --> thus, 50mg BID Increase amlodipine to 5 mg twice daily Increase Aldactone to 50 mg renal artery dopplers negative for renal artery stenosis limit hydralazine IV prn to SBPs >200 (3) Weakness: Plan: difficult to say what main culprit is I suspect he has been gradually declining over time with his overall health given his sacral decubs can't ambulate that well due to his gait issues, chronic back pain, etc PT, OT needs rehab no evidence of any infectious process while here sed rate, crp neg lyme neg no UTI no COVID/flu/RSV MRI brain negative MRI lumbar spine with severe DJD but no severe spinal stenosis (4) Hypothyroidism (acquired): Plan: TSH mildly high at 7 patient reports compliance with all meds --> assists with meds further, pharmacy records show ongoing refills on-time thus, increase synthroid from 100mcg to 112mcg daily repeat TSH 6 weeks (5) Hyperlipidemia: Plan: cont statin (6) Hypertension: Plan: see above #2 (7) Benign prostatic hyperplasia (BPH) with urinary urgency: Plan: cont alpha romain as previous (8) Peripheral vascular disease: Plan: obtain renal artery dopplers in light of refractory uncontrolled HTN --> r/o MARCELLA (9) Diabetic peripheral neuropathy associated with type 2 diabetes mellitus: Plan: cont lantus cont novolog Hba1c 5.9% (10) Melanoma: Plan: s/p removal of lesion from right scalp last week s/p removal of a 2nd lesion from shoulder/back about 2 weeks ago no metastatic disease on MRI brain, MRI lumbar spine, or CT abd/pelvis lymph nodes in groin - consider Bx despite the benign appearance on u/s consider CT chest (11) Lumbar back pain: Plan: 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 consider CT chest - r/o lung ca, mets from melanoma, etc consider Bx of L inguinal lymph node if both are done and negative --> weight loss due to a progressive neurological condition? (15) Ambulatory dysfunction: Plan: slow, narrow-based, shuffling gait development of Parkinson's? other? consider neurology referral post-d/c for work-up (16) Abnormal MRI, lumbar spine: Plan: L3-L4 on MRI with findings likely due to degenerative disease radiology suggests osteomyelitis could look similar but less likely sed rate 5 CRP 0 normal wbc count no fevers doubt osteomyelitis/infectious process of spine follow carefully Plan DVT proph - heparin SC CODE STATUS: DNR/DNI Admission and Anticipated Discharge Date Admission Date: December 04, 2022 Subjective patient feels well. Blood pressure was elevated this morning. Started on clonidine. Discontinue Coreg. Review of Systems Review of Systems: All systems reviewed & are unremarkable except as noted in Subjective Physical Exam Physical Exam: General: Awake, conversant, frail looking Heart: S1, S2/regular rate and rhythm, no murmur rubs or gallops Lungs: Clear to auscultation bilaterally. Normal effort Abdomen: Soft/nontender/nondistended. No hepatosplenomegaly Extremities: No clubbing/cyanosis. No edema Behavior: Appropriate, cooperative Results & Data Results & Data Vital Signs (Past 12 Hours) Vital Signs Temp Pulse Pulse Pulse Resp BP Pulse Ox 12/07/22 11:46 36.4 C L 53 L 16 110/62 96 12/07/22 08:23 63 12/07/22 07:40 36.9 C 56 L 16 172/72 H 98 12/07/22 07:38 36.5 C 56 L 18 184/76 H 99 12/07/22 07:23 55 L 12/07/22 03:45 36.4 C L 57 L 18 165/69 H 95 O2 Del Method 12/07/22 11:46 Room Air 12/07/22 08:23 12/07/22 07:40 Room Air 12/07/22 07:38 Room Air 12/07/22 07:23 12/07/22 03:45 Room Air PG Care Time/CCT Total # of Minutes Spent Total Time Spent with Patient: Total time spent is greater than 50% in coordination of care (as documented) at patient's floor/unit and/or counseling patient: Coding Level of Care Code 31718 SUB INP/OBS CARE 2/35MIN Diagnoses Abdominal pain, acute R10.9 Hypertensive urgency I16.0 Weakness R53.1 Hypothyroidism (acquired) E03.9 Hyperlipidemia E78.5 Hypertension I10 Hypertension type: unspecified Benign prostatic hyperplasia (BPH) with urinary urgency N40.1; R39.15 Peripheral vascular disease I73.9 Diabetic peripheral neuropathy associated with type 2 diabetes mellitus E11.42 Melanoma C43.9 Lumbar back pain M54.50 Lymphadenopathy R59.1 Sacral decubitus ulcer L89.159 Weight loss R63.4 Ambulatory dysfunction R26.2 Abnormal MRI, lumbar spine R93.7 Time Spent (min) 35 (6) Hypertension Hypertension type: unspecified Qualified Code(s): I10 - Essential (primary) hypertension
[2022-12-07] MEDS: CHOLECALCIFEROL 1,000 UNITS 25 MCG TAB PO SCH (16:33)
[2022-12-07] MEDS: ATORVASTATIN 10 MG TAB PO SCH (20:12)
[2022-12-07] MEDS: LATANOPROST 0.005% OP SOLN 2.5 ML BTL OPB SCH (20:13)
[2022-12-07] MEDS: LANTUS PER UNIT CHARGE SQ SCH (21:11)
[2022-12-08] MEDS: LEVOTHYROXINE SODIUM 112 MCG TABLET PO SCH (05:48)
[2022-12-08 06:48] LABS: Calcium 8.7 mg/dl (8.6-10.3); Creatinine Clr Calc Pharmacy 55.3 ml/min; Est GFR (Non-African American) 67.3 ml/min; Potassium 3.9 mmol/L (3.5-5.1)
[2022-12-08] MEDS: DOXAZosin MESYLATE 4 MG TAB PO SCH ×2 (08:11→20:59)
[2022-12-08] MEDS: LOSARTAN POTASSIUM 50 MG TAB PO SCH ×2 (08:11→20:59)
[2022-12-08] MEDS: ACETAMINOPHEN 325 MG TAB PO SCH ×3 (08:12→20:58)
[2022-12-08] MEDS: amLODIPine BESYLATE 5 MG TAB PO SCH ×2 (08:12→20:59)
[2022-12-08] MEDS: CLOPIDOGREL BISULFATE 75 MG TAB PO SCH (08:13)
[2022-12-08] MEDS: ASPIRIN 81 MG ECTAB PO SCH (08:13)
[2022-12-08] MEDS: SPIRONOLACTONE 25 MG TAB PO SCH (08:13)
[2022-12-08] MEDS: PENTOXIFYLLINE 400MG EXT REL TAB PO SCH ×2 (08:13→17:40)
[2022-12-08] MEDS: cloNIDine HCL 0.1 MG TAB PO SCH (08:14)
[2022-12-08] MEDS: DORZOLAMIDE HCL 2% OPH SOLN 10 ML BTL OPB SCH ×2 (08:14→20:58)
[2022-12-08] MEDS: HEPARIN SOD 5,000 UNIT/0.5 ML VIAL SQ SCH ×2 (08:15→20:59)
[2022-12-08] MEDS: INSULIN ASPART PER UNIT CHARGE SC SCH ×4 (09:38→20:33)
[2022-12-08] MEDS: THIAMINE HCL 100 MG TAB PO SCH (13:22)
--- NOTE | 2022-12-08 15:03 | Hospitalist Progress Note ---
Date of Service December 08, 2022 Assessment & Plan (1) Abdominal pain, acute: Plan: present at admission resolved - has not occurred etiology?? LFTs, lipase wnl ua not suggestive of UTI KUB x-ray without constipation CT abd/pelvis negative for acute findings the lymph nodes in the L groin wouldn't cause pain not sure what caused it but monitor for recurrence (2) Hypertensive urgency: Plan: nearly all BPs in the record have been high - many 180+ systolically - dating back 2-3 years during most recent office visit with Dr Juárez - nephrology - systolic BP was 180 goal is to gradually reduce the BP rather than do it rapidly and cause harm could have a hyperaldo state started on aldactone Discontinue Coreg as having to hold it because of bradycardia anyways. Started clonidine instead 0.1 mg cont doxazosin BID cont losartan but use split dosing to have smoother 24 hour control --> thus, 50mg BID continue amlodipine to 5 mg twice daily continue Aldactone to 50 mg renal artery dopplers negative for renal artery stenosis blood pressure very well controlled today (3) Weakness: Plan: difficult to say what main culprit is I suspect he has been gradually declining over time with his overall health given his sacral decubs can't ambulate that well due to his gait issues, chronic back pain, etc PT, OT needs rehab no evidence of any infectious process while here sed rate, crp neg lyme neg no UTI no COVID/flu/RSV MRI brain negative MRI lumbar spine with severe DJD but no severe spinal stenosis (4) Hypothyroidism (acquired): Plan: TSH mildly high at 7 patient reports compliance with all meds --> assists with meds further, pharmacy records show ongoing refills on-time thus, increase synthroid from 100mcg to 112mcg daily repeat TSH 6 weeks (5) Hyperlipidemia: Plan: cont statin (6) Hypertension: Plan: see above #2 (7) Benign prostatic hyperplasia (BPH) with urinary urgency: Plan: cont alpha romain as previous (8) Peripheral vascular disease: Plan: obtained renal artery dopplers in light of refractory uncontrolled HTN --> renal artery stenosis ruled out (9) Diabetic peripheral neuropathy associated with type 2 diabetes mellitus: Plan: cont lantus cont novolog Hba1c 5.9% (10) Melanoma: Plan: s/p removal of lesion from right scalp last week s/p removal of a 2nd lesion from shoulder/back about 2 weeks ago no metastatic disease on MRI brain, MRI lumbar spine, or CT abd/pelvis lymph nodes in groin - consider Bx outpatient despite the benign appearance on u/s consider CT chest outpatient (11) Lumbar back pain: Plan: 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 consider CT chest - r/o lung ca, mets from melanoma, etc consider Bx of L inguinal lymph node if both are done and negative --> weight loss due to a progressive neurological condition? (15) Ambulatory dysfunction: Plan: slow, narrow-based, shuffling gait development of Parkinson's? other? consider neurology referral post-d/c for work-up (16) Abnormal MRI, lumbar spine: Plan: L3-L4 on MRI with findings likely due to degenerative disease radiology suggests osteomyelitis could look similar but less likely sed rate 5 CRP 0 normal wbc count no fevers doubt osteomyelitis/infectious process of spine follow carefully Plan DVT proph - heparin SC CODE STATUS: DNR/DNI likely [facility] tomorrow [facility] spoke to skilled nursing case manager Ordered urinalysis that the patient is complaining of burning urination Admission and Anticipated Discharge Date Admission Date: December 04, 2022 Subjective Patient has no new complaints. He is feeling well overall. I spoke to his on the phone Review of Systems Review of Systems: All systems reviewed & are unremarkable except as noted in Subjective Physical Exam Physical Exam: General: Awake, conversant, frail looking Heart: S1, S2/regular rate and rhythm, no murmur rubs or gallops Lungs: Clear to auscultation bilaterally. Normal effort Abdomen: Soft/nontender/nondistended. No hepatosplenomegaly Extremities: No clubbing/cyanosis. No edema Behavior: Appropriate, cooperative Results & Data Results & Data Vital Signs (Past 12 Hours) Vital Signs Temp Pulse Pulse Resp BP BP Pulse Ox 12/08/22 11:38 36.8 C 53 L 18 133/67 94 12/08/22 07:35 36.7 C 55 L 16 165/73 H 95 12/08/22 07:30 54 L 12/08/22 03:05 36.4 C L 53 L 16 164/75 H 96 O2 Del Method 12/08/22 11:38 Room Air 12/08/22 07:35 Room Air 12/08/22 07:30 12/08/22 03:05 Room Air PG Care Time/CCT Total # of Minutes Spent Total Time Spent with Patient: Total time spent is greater than 50% in coordination of care (as documented) at patient's floor/unit and/or counseling patient: Coding Level of Care Code 93407 SUB INP/OBS CARE 235MIN Diagnoses Abdominal pain, acute R10.9 Hypertensive urgency I16.0 Weakness R53.1 Hypothyroidism (acquired) E03.9 Hyperlipidemia E78.5 Hypertension I10 Hypertension type: unspecified Benign prostatic hyperplasia (BPH) with urinary urgency N40.1; R39.15 Peripheral vascular disease I73.9 Diabetic peripheral neuropathy associated with type 2 diabetes mellitus E11.42 Melanoma C43.9 Lumbar back pain M54.50 Lymphadenopathy R59.1 Sacral decubitus ulcer L89.159 Weight loss R63.4 Ambulatory dysfunction R26.2 Abnormal MRI, lumbar spine R93.7 Time Spent (min) 35 (6) Hypertension Hypertension type: unspecified Qualified Code(s): I10 - Essential (primary) hypertension
[2022-12-08] MEDS: CHOLECALCIFEROL 1,000 UNITS 25 MCG TAB PO SCH (17:40)
[2022-12-08 20:56] LABS: Appearance Urine Turbid (Clear); Bacteria Urine Automated 4+ (Negative); Bilirubin Urine Negative (Negative); Blood Urine 2+ (Negative); Color Urine Yellow; Glucose Urine UA Negative (Negative); Ketones Urine Negative (Negative); Leukocyte Esterase Urine 2+ (Negative); Nitrite Urine Negative (Negative); Urobilinogen Urine Negative (Negative); pH Urine >= 9.0 (4.5-7.5)
[2022-12-08] MEDS: LATANOPROST 0.005% OP SOLN 2.5 ML BTL OPB SCH (20:59)
[2022-12-08] MEDS: ATORVASTATIN 10 MG TAB PO SCH (20:59)
[2022-12-08] MEDS: LANTUS PER UNIT CHARGE SQ SCH (21:00)
[2022-12-08 21:12] LABS: Protein Urine 1+ (Negative)
[2022-12-09] MEDS: LEVOTHYROXINE SODIUM 112 MCG TABLET PO SCH (05:24)
[2022-12-09 08:03] LABS: BUN Creatinine Ratio 32.2 (10-20); Calcium 8.7 mg/dl (8.6-10.3); Creatinine Clr Calc Pharmacy 49.5 ml/min; Est GFR (African American) 68.3 ml/min; Est GFR (Non-African American) 58.9 ml/min; Potassium 4.4 mmol/L (3.5-5.1)
[2022-12-09] MEDS: PENTOXIFYLLINE 400MG EXT REL TAB PO SCH (08:27)
[2022-12-09] MEDS: INSULIN ASPART PER UNIT CHARGE SC SCH ×2 (09:47→13:14)
[2022-12-09] MEDS: ACETAMINOPHEN 325 MG TAB PO SCH ×2 (09:58→13:57)
[2022-12-09] MEDS: amLODIPine BESYLATE 5 MG TAB PO SCH (10:00)
[2022-12-09] MEDS: cloNIDine HCL 0.1 MG TAB PO SCH (10:01)
[2022-12-09] MEDS: ASPIRIN 81 MG ECTAB PO SCH (10:01)
[2022-12-09] MEDS: DORZOLAMIDE HCL 2% OPH SOLN 10 ML BTL OPB SCH (10:02)
[2022-12-09] MEDS: CLOPIDOGREL BISULFATE 75 MG TAB PO SCH (10:02)
[2022-12-09] MEDS: HEPARIN SOD 5,000 UNIT/0.5 ML VIAL SQ SCH (10:03)
[2022-12-09] MEDS: DOXAZosin MESYLATE 4 MG TAB PO SCH (10:03)
[2022-12-09] MEDS: LOSARTAN POTASSIUM 50 MG TAB PO SCH (10:08)
[2022-12-09] MEDS: SPIRONOLACTONE 25 MG TAB PO SCH (10:09)
[2022-12-09] MEDS ORDERED: cephALEXin 500 MG CAP PO SCH (11:30)
--- NOTE | 2022-12-09 11:50 | Discharge Summary ---
Date of Service December 09, 2022 Admission HPI Per Admitting Provider The patient is a 82-year-old male with a past medical history including hypothyroidism, hyperlipidemia, hypertension, BPH with LUTS, peripheral vascular disease, diabetic peripheral neuropathy, diabetes mellitus, diabetic foot ulcer, peripheral edema. The patient is very lethargic, hardly able to communicate anything at this time. Family has gone home for the morning. He looks to be extremely fatigued, has an adrenal insufficiency Admission Exam Per Admitting Provider The patient is lethargic and unable to communicate, normocephalic and atraumatic, lying in bed and in no acute distress. HEENT--PERRL, EOMI, mucous membranes and oropharynx dry. Neck--supple. No JVD. No bruits. Thyroid normal, trachea midline, no adenopathy. Heart--normal S1 and S2. No murmurs, rubs or gallops. Lungs--clear bilaterally, no respiratory distress, no accessory muscle use. Abdomen--normal bowel sounds and soft. Nontender. Nondistended, no hernias or masses, no organomegaly. Extremities--no cyanosis or clubbing. No edema. There are good distal pulses b/l. Dermatologic--normal skin turgor, normal color, no abnormal lymph nodes, no rash. Neurologic--cranial nerves II through XII grossly intact. Rheumatologic--limited exam Psychiatric--limited ability to communicate due to severe lethargy and fatigue. Principal Diagnosis hypertensive encephalopathy Uncomplicated UTI, being discharged on Keflex. Follow-up on urine culture results Failure to thrive Generalized deconditioning Ambulatory dysfunction Sacral decubitus ulcer Discharge Exam General: Awake, conversant, frail looking Heart: S1, S2/regular rate and rhythm, no murmur rubs or gallops Lungs: Clear to auscultation bilaterally. Normal effort Abdomen: Soft/nontender/nondistended. No hepatosplenomegaly Extremities: No clubbing/cyanosis. No edema Behavior: Appropriate, cooperative Discharge Data Allergies Allergy/AdvReac Type Severity Reaction Status Date / Time Sulfa (Sulfonamide Allergy Unknown Hives Verified 09/14/22 15:30 Antibiotics) Consultations 12/03/22 03:10 ED Decision to Admit Stat Ordered Studies 12/03/22 01:08 CT head/brain wo con Stat 12/03/22 01:56 CT Abd and Pelvis [CT abd pelvis IV con only] Stat 12/03/22 14:54 MR lumbar spine wo/w con Urgent MRI Brain [MR brain wo/w con] Urgent 12/04/22 07:30 US soft tissue groin Routine 12/05/22 09:52 US duplex renal artery Routine Hospital Course (1) Abdominal pain, acute: present at admission resolved - has not occurred etiology?? LFTs, lipase wnl ua not suggestive of UTI KUB x-ray without constipation CT abd/pelvis negative for acute findings the lymph nodes in the L groin wouldn't cause pain not sure what caused it but monitor for recurrence (2) Hypertensive urgency: nearly all BPs in the record have been high - many 180+ systolically - dating back 2-3 years during most recent office visit with Dr Juárez - nephrology - systolic BP was 180 goal is to gradually reduce the BP rather than do it rapidly and cause harm could have a hyperaldo state started on aldactone Discontinue Coreg as having to hold it because of bradycardia anyways. Started clonidine instead 0.1 mg cont doxazosin BID cont losartan but use split dosing to have smoother 24 hour control --> thus, 50mg BID continue amlodipine to 5 mg twice daily continue Aldactone to 50 mg renal artery dopplers negative for renal artery stenosis blood pressure fairly well controlled today (3) Weakness: difficult to say what main culprit is I suspect he has been gradually declining over time with his overall health given his sacral decubs can't ambulate that well due to his gait issues, chronic back pain, etc PT, OT needs rehab no evidence of any infectious process while here sed rate, crp neg lyme neg no UTI no COVID/flu/RSV MRI brain negative MRI lumbar spine with severe DJD but no severe spinal stenosis (4) Hypothyroidism (acquired): TSH mildly high at 7 patient reports compliance with all meds --> assists with meds further, pharmacy records show ongoing refills on-time thus, increase synthroid from 100mcg to 112mcg daily repeat TSH 6 weeks (5) Hyperlipidemia: cont statin (6) Hypertension: see above #2 (7) Benign prostatic hyperplasia (BPH) with urinary urgency: cont alpha romain as previous (8) Peripheral vascular disease: obtained renal artery dopplers in light of refractory uncontrolled HTN --> renal artery stenosis ruled out (9) Diabetic peripheral neuropathy associated with type 2 diabetes mellitus: cont lantus cont novolog Hba1c 5.9% (10) Melanoma: s/p removal of lesion from right scalp last week s/p removal of a 2nd lesion from shoulder/back about 2 weeks ago no metastatic disease on MRI brain, MRI lumbar spine, or CT abd/pelvis lymph nodes in groin - consider Bx outpatient despite the benign appearance on u/s consider CT chest outpatient (11) Lumbar back pain: 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 consider CT chest - r/o lung ca, mets from melanoma, etc consider Bx of L inguinal lymph node if both are done and negative --> weight loss due to a progressive neurological condition? (15) Ambulatory dysfunction: slow, narrow-based, shuffling gait development of Parkinson's? other? consider neurology referral post-d/c for work-up (16) Abnormal MRI, lumbar spine: L3-L4 on MRI with findings likely due to degenerative disease radiology suggests osteomyelitis could look similar but less likely sed rate 5 CRP 0 normal wbc count no fevers doubt osteomyelitis/infectious process of spine follow carefully (17) UTI (urinary tract infection), uncomplicated: patient has been having dysuria since yesterday. Urine analysis is suggestive of UTI. Urine culture is growing gram-negative rods. Urine culture results will need to be followed upon. The patient has been empirically started on p.o. Keflex. Plan CODE STATUS: DNR/DNI discharged today Total Time Total Time Spent Total Time Spent (In Minutes): 35 Discharge Plan Discharge Items Patient Disposition: Transfer Inpatient Rehab Fac Reason For Visit: PROGRESSIVE WEAKNESS, LETHARGY, HYPERTENSION Discharge Diagnosis: Hypertensive encephalopathy Failure to thrive Deconditioning and ambulatory dysfunction sacral decubitus ulcer Condition on Discharge: Fair Activity: As commented below Activity Comment: Per PT/OT recommendations Non-emergency contact: Primary Care Provider Call non-emergency contact if: you have any medication questions and your symptoms worsen Follow-up/Referrals: Darlin Uribe [Primary Care Provider] - Diet: Carb Consistent or DM2 Addtl Attending Provider Instructions: Advised to be referred to neurology outpatient in 1 month regarding ambulatory dysfunction and possibility of Parkinson's disease Advised to be seen by PCP at the rehab unit within 3 days. As work-up for weight loss and deconditioning, biopsy of the left inguinal lymph node may need to be considered. A CT chest may be considered outpatient as well Wound care recommended for the sacral decubitus ulcer Pending Studies at Discharge: Yes Studies:: urine culture Stand-Alone Forms: [facility] Skilled Items Patient informed of condition?: Yes DNR: Yes Discharge Level of Care: Skilled Communicable Disease: No Discharge Prognosis: Stable Lines: None Urinary Catheter: No Medications and DC Order Prescriptions: New doxazosin 4 mg Tablet 4 mg PO BID 30 Days Qty: 60 0RF losartan 50 mg Tablet 50 mg PO BID 30 Days Qty: 60 0RF amlodipine [Norvasc] 5 mg Tablet 2.5 mg PO BID 30 Days Qty: 30 0RF clonidine HCl 0.1 mg Tablet 0.1 mg PO QAM 30 Days Qty: 30 0RF spironolactone 25 mg Tablet 25 mg PO QAM 30 Days Qty: 30 0RF levothyroxine [Synthroid] 112 mcg Tablet 112 mcg PO DAILYBB 30 Days Qty: 30 0RF cephalexin 500 mg Capsule 500 mg PO QID 7 Days Qty: 28 0RF Continued solifenacin [Vesicare] 10 mg tablet 10 mg PO DAILY Qty: 90 3RF ferrous sulfate 325 mg (65 mg iron) tablet 325 mg PO QAM Lantus Solostar U-100 Insulin 100 unit/mL (3 mL) insulin pen 12 unit SUBCUT QAM multivitamin Tablet 1 tab PO 1200 atorvastatin 10 mg Tablet 10 mg PO HS clopidogrel [Plavix] 75 mg tablet 75 mg PO 1200 pentoxifylline 400 mg tablet extended release 400 mg PO BIDM metformin 1,000 mg tablet 1,000 mg PO BIDM gabapentin [Neurontin] 300 mg capsule 300 mg PO AMHS aspirin [Waqas Low Dose Aspirin] 81 mg Tablet,Delayed Release (Dr/Ec) 81 mg PO 1200 ascorbic acid (vitamin C) [Vitamin C] 500 mg Tablet 500 mg PO BIDM cholecalciferol (vitamin D3) [Vitamin D3] 25 mcg (1,000 unit) Tablet 25 mcg PO QDD thiamine HCl (vitamin B1) 100 mg tablet 100 mg PO 1200 ammonium lactate 12 % lotion 1 applic TOPICAL DAILY PRN (Reason: PER [facility] NEEDED) latanoprost 0.005 % drops 1 drp ophthalmic (eye) HS Discontinued losartan 100 mg tablet 100 mg PO QAM doxazosin 4 mg tablet 4 mg PO AMHS carvedilol 3.125 mg tablet 3.125 mg PO BIDM levothyroxine 100 mcg tablet 100 mcg PO DAILYBB Discharge Orders: Discharge Order (Routine); Ordered 12/09/22 Ordered By: Daphney Boland/Other Patient Handouts: Nutrition for Wound Healing, Managing Type 2 Diabetes Admission Data Admit Date/Time: 12/04/22 18:17 Attending Provider: Daphney Tapia Admit Provider: Felipe Chandler Primary Care Provider: Darlin Uribe Other Providers: Felipe Chandler ; [facility] Other Interventions: Discharge Summary Assessment (RN) Last Done: 12/09/22 13:09 Coding Level of Care Code 04389 INP/OBS DISCH >30 MIN Diagnoses Abdominal pain, acute R10.9 Hypertensive urgency I16.0 Weakness R53.1 Hypothyroidism (acquired) E03.9 Hyperlipidemia E78.5 Hypertension I10 Hypertension type: unspecified Benign prostatic hyperplasia (BPH) with urinary urgency N40.1; R39.15 Peripheral vascular disease I73.9 Diabetic peripheral neuropathy associated with type 2 diabetes mellitus E11.42 Melanoma C43.9 Lumbar back pain M54.50 Lymphadenopathy R59.1 Sacral decubitus ulcer L89.159 Weight loss R63.4 Ambulatory dysfunction R26.2 Abnormal MRI, lumbar spine R93.7 UTI (urinary tract infection), uncomplicated N39.0
[2022-12-09] MEDS: THIAMINE HCL 100 MG TAB PO SCH (11:58)
== END 2022-12-09 14:12 | DRG 392 ==
LOC: 2W 00:30 → ED 00:30 → SUATTDRO 04:29 → 2W 07:44 → SUATTDRO 12-04 18:17

== ENCOUNTER 2023-09-18 16:31 | Inpatient (IN) ==
[2023-09-18 17:16] LABS: Basophils # (auto) 0.04 K/uL (0.00-0.20); Basophils % (auto) 0.6 %; Eosinophils # (auto) 0.33 K/uL (0.00-0.50); Eosinophils % (auto) 4.6 %; Hematocrit (blood only) 34.1 % (42.0-52.0); Hemoglobin 11.9 g/dl (14.0-18.0); Immature Granulocytes # (auto) 0.03 K/uL (0.01-0.20); Immature Granulocytes % (auto) 0.4 %; Lymphocytes # (auto) 1.64 K/uL (1.20-3.40); Lymphocytes % (auto) 22.9 %; Mean Corpuscular Hemoglobin 30.8 pg (25.0-34.0); Mean Corpuscular Hgb Conc 34.9 g/dL (32.0-36.0); Mean Corpuscular Volume 88.3 fL (80.0-100.0); Mean Platelet Volume 10.1 fL (9.4-12.4); Monocytes # (auto) 0.62 K/uL (0.11-0.59); Monocytes % (auto) 8.7 %; Neutrophils % (auto) 62.8 %; Platelet Count 160 K/uL (130-400); RDW Coefficient of Variation 13.3 % (11.5-14.5); RDW Standard Deviation 43.3 fL (36.4-46.3); Red Blood Count 3.86 M/uL (4.70-6.10); White Blood Count 7.16 K/ul (4.8-10.8)
--- NOTE | 2023-09-18 17:27 | CT Scan Report ---
CT head/brain wo con CLINICAL HISTORY: fall Technique: Contiguous axial CT images of the head were acquired from the base of the skull to the pradeep devin without intravenous contrast administration. Images were viewed in brain[facility]. Automated dose lowering techniques and/or adjustment according to patient size were utilized for this exam. Comparison: Comparison is made to CT head 09/17/2023 Findings: Areas of decreased attenuation are present in the periventricular and subcortical white matter bilate rally consistent with small vessel ischemic disease. Generalized cerebral atrophy with commensurate e nlargement of the ventricles, sulci, and cisterns is also present. There is no acute intracranial hem orrhage or evidence of acute territorial infarction. No shift of the midline structures, mass effect, or extra-axial abnormalities are shown. Atherosclerotic calcifications are present in the intracran ial segments of the internal carotid arteries. Imaged portions of the paranasal sinuses and mastoid air cells are clear. The orbits appear normal. There are no acute fractures of the calvaria or scalp swelling. Impression: No acute intracranial hemorrhage, no evidence of acute territorial infarction or other acute intracra nial disease process. ACT 112: Negative or not required by law. Electronically signed by: Aaron Morillo M.D. 09/18/2023 5:26 PM
--- NOTE | 2023-09-18 17:29 | CT Scan Report ---
CT cervical spine wo con CLINICAL HISTORY: fall TECHNIQUE: Multidetector row helical CT of the cervical spine was performed without administration of intravenous contrast. Coronal and sagittal reformations were obtained. Automated dose lowering techn iques and/or adjustment according to patient size were utilized for this exam. Comparison: None available at the time of this dictation. FINDINGS: No acute fractures or subluxations are identified. Degenerative changes are seen in the visualized sp ine. The alignment is normal. Soft tissues are unremarkable. IMPRESSION: Degenerative changes without evidence of acute bony injury. ACT 112: Negative or not required by law. Electronically signed by: Aaron Morillo M.D. 09/18/2023 5:28 PM
[2023-09-18 17:37] LABS: BUN Creatinine Ratio 23.1 (10-20); Calcium 9.2 mg/dl (8.6-10.3); Creatinine Clr Calc Pharmacy 38.5 ml/min; Est GFR (African American) 52.5 ml/min; Est GFR (Non-African American) 45.3 ml/min; Potassium 4.6 mmol/L (3.5-5.1)
--- NOTE | 2023-09-18 17:42 | XRay Report ---
XR chest 1V portable CLINICAL HISTORY: fall TECHNIQUE: Single frontal radiograph of the chest was obtained. Comparison: Comparison is made to chest radiograph 09/17/2023 FINDINGS: No lines and tubes are seen. The cardiomediastinal silhouette is stable. Lungs are underinflated but clear. No evidence of pleural effusion or pneumothorax. IMPRESSION: No acute chest disease. ACT 112: Negative or not required by law. Electronically signed by: Aaron Morillo M.D. 09/18/2023 5:41 PM
[2023-09-18 17:46] LABS: INR 1.1 (0.9-1.1); Partial Thromboplastin Time 27 Seconds (21-31); Prothrombin Time 11.6 Seconds (9.0-12.0)
--- NOTE | 2023-09-18 18:12 | XRay Report ---
XR pelvis 1-2V routine CLINICAL HISTORY: fall TECHNIQUE: A single frontal view of the pelvis was obtained. Comparison: Comparison is made to November radiograph 04/10/2020 FINDINGS: There is no evidence of an acute fracture. Degenerative changes are seen in the hip joints and lumbar spine. Vascular calcifications are noted. IMPRESSION: Degenerative changes without evidence of acute abnormality. ACT 112: Negative or not required by law. Electronically signed by: Aaron Morillo M.D. 09/18/2023 6:10 PM
--- NOTE | 2023-09-18 18:21 | History & Physical Report ---
Date of Service September 18, 2023 Assessment & Plan (1) Fall: Plan: Ground-level fall on 09/17 with head strike Patient reports she was ambulating with his walker, and turning to sit in his chair when his legs gave out on him Imaging negative on arrival UA negative on 09/16 COVID, flu, RSV ordered, pending Per review of prior hospitalizations for similar, his ambulatory dysfunction and weakness appear to be an acute on chronic decline over time Fall precautions PT/OT consulted A.m. CBC, BMP (2) Word finding difficulty: Plan: Patient initially presented to the ED on 09/16 after he woke from a nap and had some confusion, fatigue, and word finding difficulty No slurred speech, facial droop, or unilateral deficits; however was concerned for TIA (history of TIA 20 years ago) DDx: TIA, encephalopathic process (hx of HTN encephalopathy), waxing/waning of vascular dementia, and atypical CVA among other etiologies Head CT revealed no acute findings Brain MRI ordered, pending (3) Sacral ulcer: Plan: Daily wound care Appreciate wound care nurse consult (4) Benign prostatic hyperplasia (BPH) with urinary urgency: Plan: Patient complained of some urinary retention Continue finasteride Bladder scan ordered, pending (5) Lower extremity edema: Plan: Patient was planned to start Lasix on 09/18 Continue Lasix and spironolactone (6) Diabetic peripheral neuropathy associated with type 2 diabetes mellitus: Plan: Last A1c at 5.9% on 12/04/2022 Hold metformin Continue Lantus 12u QAM SSI; with target BSG range 110-140mg/dL, CF 50, carb ratio 15 T2DM diet BSG ACHS Adjust regimen as needed AM A1c (7) Ambulatory dysfunction: Plan Disposition: Admit to [facility] telemetry DNR/DNI T2DM diet VTE PPx: Heparin 5000u SQ q12h History of Present Illness Chief Complaint: Fall Primary Care Provider: Darlin Uribe MD Steph is an 82-year-old male with PMH of T2DM, BPH, PVD, HTN, HLD, hypothyroidism, and FTT. He presented via EMS for a fall at home on 09/17. Patient was initially seen in the ED on the evening of 09/16 for confusion, brain fog, and weakness. Patient's is present at the bedside and provides additional history. She reports that the patient was confused after waking from a nap on 09/16. He was able to state his name and date of , but did not know where he was. Patient's did not notice any facial droop, slurred speech, or unilateral deficits; she asked him to smile and he was able to, as well as raise both arms and he was able to. History of TIA 20 years ago. No prior history of CVA, but patient's was concerned he might have one as patient was demonstrating word finding difficulty. Patient was sent home from the ED, but then fell on 09/17 around 1530 when returning home from a nephrology appointment. He reports he struck his head after he lost his balance while turning his walker to sit in his chair. No LOC. He believes his legs gave out on him. He denies tripping or dizziness/lightheadedness prior to fall. Fall was witnessed by his , who was unable to lift him and decided to call an ambulance. He ambulates with a walker at baseline. Patient does note he had a toe amputation recently, which might be contributing to his ongoing ambulatory dysfunction. Last BM was yesterday. At time of admission, patient is not oriented to month or day of week; oriented to name, , and location. Patient reports that he took all of his regular morning medications today; no recent change in medications. He denies being around any sick contacts recently. Patient's vitals are stable at time of admission. ED course: ROS: Patient endorses fatigue, lower extremity weakness, constipation, word-searching difficulty, mild urinary retention, and confusion. Patient denies fever, chills, night-sweats, dizziness, lightheadedness, ROSS, slurred speech, facial droop, unilateral deficits, chest pain, chest palpitations, pleuritic CP, SOB, cough, abdominal pain, N/V/D, or burning with urination. Allergies Allergy/AdvReac Type Severity Reaction Status Date / Time Sulfa (Sulfonamide Allergy Unknown Hives Verified 09/18/23 13:32 Antibiotics) Home Medications Medication Instructions Recorded Confirmed Type atorvastatin 10 mg tablet 10 mg PO HS 07/23/19 09/18/23 History clopidogrel 75 mg tablet (Plavix) 75 mg PO 1200 07/23/19 09/18/23 History gabapentin 300 mg capsule 300 mg PO AMHS 07/23/19 09/18/23 History (Neurontin) metformin 1,000 mg tablet 1,000 mg PO BIDM 07/23/19 09/18/23 History multivitamin 1 tab PO 1200 07/23/19 09/18/23 History pentoxifylline 400 mg 400 mg PO BIDM 07/23/19 09/18/23 History tablet,extended release aspirin 81 mg tablet,delayed 81 mg PO 1200 04/10/20 09/18/23 History release (Waqas Low Dose Aspirin) ascorbic acid (vitamin C) 500 mg 500 mg PO BIDM 05/10/20 09/18/23 History tablet (Vitamin C) cholecalciferol (vitamin D3) 25 25 mcg PO QDD 05/10/20 09/18/23 History mcg (1,000 unit) tablet (Vitamin D3) ferrous sulfate 325 mg (65 mg 325 mg PO QAM 02/26/21 09/18/23 History iron) tablet insulin glargine 100 unit/mL (3 12 unit subcut QAM 02/26/21 09/18/23 History mL) subcutaneous pen (Lantus Solostar U-100 Insulin) ammonium lactate 12 % lotion 1 applic topical DAILY PRN PER [facility] 07/30/21 09/18/23 History NEEDED thiamine HCl (vitamin B1) 100 mg 100 mg PO 1200 07/30/21 09/18/23 History tablet latanoprost 0.005 % eye drops 1 drp ophthalmic (eye) HS 12/03/22 09/18/23 History amlodipine 10 mg tablet 10 mg PO DAILY 02/15/23 09/18/23 History clonidine HCl 0.1 mg tablet 0.1 mg PO BID 02/15/23 09/18/23 History dorzolamide 2 % eye drops 1 drp ophthalmic (eye) BID 02/15/23 09/18/23 History doxazosin 4 mg tablet (Cardura) 4 mg PO BID 02/15/23 09/18/23 History levothyroxine 125 mcg capsule 125 mcg PO DAILY 02/15/23 09/18/23 History spironolactone 25 mg tablet 25 mg PO DAILY 02/15/23 09/18/23 History finasteride 5 mg tablet 5 mg PO DAILY #90 tabs 08/10/23 09/18/23 Rx solifenacin 10 mg tablet (Vesicare) 10 mg PO DAILY #90 tabs 08/10/23 09/18/23 Rx furosemide 20 mg tablet 20 mg PO DAILY #30 tabs 09/18/23 09/18/23 Rx Past Med/Surg History Problem List (Updated 09/18/23 @ 21:30 by Mj Parr MD) Lower extremity edema Sacral ulcer Word finding difficulty Fall Leg wound, left (Acute) 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 (Acute) UTI (urinary tract infection), uncomplicated Ambulatory dysfunction Weight loss Sacral decubitus ulcer Lymphadenopathy Lumbar back pain Melanoma Weakness (Acute) Confusion and disorientation Failure to thrive in adult Hypertensive urgency (Acute) Abdominal pain, acute (Acute) Cerumen impaction Anemia Peripheral edema Hypothyroidism (acquired) Hyperlipidemia Hypertension (Acute) Benign prostatic hyperplasia (BPH) with urinary urgency Peripheral vascular disease Diabetic peripheral neuropathy associated with type 2 diabetes mellitus Diabetic foot ulcer Diabetes BPH loc w urin obs/LUTS Medical History Brain fog Abnormal MRI, lumbar spine Bradycardia Chiari malformation (02/14/13) Oral candidiasis Pneumonia due to COVID-19 virus Foot infection Surgical History History of appendectomy Family History Father Heart disease Mother Heart disease Other No family history of adverse response to anesthesia No family history of bleeding disorder Social History Smoking Status: Former smoker Tobacco Type: Cigarettes packs per day: 0.5; Cigarettes Per Day: 0.5 packs/day; Second Hand Exposure: No; Do You Dip or Chew Tobacco: No; Hx Alcohol Use: No Hx Substance Use: No Preferred Language: Latvian Communication Ability: Effective Communication Ability Comment: Lack of self memory Visual Impairment: Limited Hearing Ability: Normal Relief Pharmacist Required: No Beliefs That Will Affect Care: None marital status: Current Living Situation: Spouse Current Living Situation Comment: single family home Feels Safe at Home: Yes Safety Concerns: Feels Safe At This Time Diet: regular caffeine: Yes during the past year weight has: decreased > 10 lbs Assistive Devices: Walker Review of Systems 2 Review of Systems: See HPI above Physical Exam 2 Physical Exam: General: no acute distress; lethargic; non-toxic appearing; cooperative; SpO2 100% on RA HEENT: normocephalic, atraumatic; no scleral icterus; PERRLA; moist mucus membrane; vision and hearing intact Neck: supple; no lymphadenopathy; trachea midline Skin: warm, dry without signs of tenting; no cyanosis; no rashes, bruising, lesions, or erythema noted CV: chest wall NTP; RRR; S1/S2 normal; no murmurs/rubs/gallops; pulses intact and symmetric at radial, DP, and PT Lungs: no acute respiratory distress; symmetrical chest wall expansion; clear breath sounds across all lung junior w/o adventitious sounds; no wheezing ABD: Soft, NTP; BS present; no rebound/guarding; no distention MSK: no tics or fasciculations; +1 pitting lower extremity edema B/L; 2/5 strength in the LEs b/l Back: Healing superficial sacral ulcer just above the buttocks (see photo below) Neuro: Oriented to name//location, but not month or day of the week; slow, paused speech; occasionally incoherent speech; no facial droop; no unilateral deficits; sensation intact and symmetric in the LEs b/l Results & Data Results & Data Vital Signs (Past 12 Hours) Vital Signs Temp Pulse Pulse Resp BP BP Pulse Ox 09/18/23 18:03 99 09/18/23 16:41 37.3 C 58 L 19 121/62 95 09/18/23 16:34 37.3 C 57 L 19 121/62 96 O2 Del Method 09/18/23 18:03 Room Air 09/18/23 16:41 Room Air 09/18/23 16:34 Room Air Laboratory Results Abnormal lab results 09/18/23 Range/Units 16:40 RBC 3.86 L (4.70-6.10) M/uL Hgb 11.9 L (14.0-18.0) g/dl Hct 34.1 L (42.0-52.0) % Cassia # (Auto) 0.62 H (0.11-0.59) K/uL Sodium 134 L (136-145) mmol/L BUN 33 H (6-23) mg/dl Creatinine 1.43 H (0.6-1.4) mg/dl BUN/Creatinine Ratio 23.1 H (10-20) Diagnostic Findings Cervical Spine CT 09/18/23 17:01 CT cervical spine wo con CLINICAL HISTORY: fall TECHNIQUE: Multidetector row helical CT of the cervical spine was performed without administration of intravenous contrast. Coronal and sagittal reformations were obtained. Automated dose lowering techniques and/or adjustment according to patient size were utilized for this exam. Comparison: None available at the time of this dictation. FINDINGS: No acute fractures or subluxations are identified. Degenerative changes are seen in the visualized spine. The alignment is normal. Soft tissues are unremarkable. IMPRESSION: Degenerative changes without evidence of acute bony injury. ACT 112: Negative or not required by law. Electronically signed by: Aaron Morillo M.D. 09/18/2023 5:28 PM Chest X-Ray 09/18/23 17:01 XR chest 1V portable CLINICAL HISTORY: fall TECHNIQUE: Single frontal radiograph of the chest was obtained. Comparison: Comparison is made to chest radiograph 09/17/2023 FINDINGS: No lines and tubes are seen. The cardiomediastinal silhouette is stable. Lungs are underinflated but clear. No evidence of pleural effusion or pneumothorax. IMPRESSION: No acute chest disease. ACT 112: Negative or not required by law. Electronically signed by: Aaron Morillo M.D. 09/18/2023 5:[address] 09/18/23 17:01 CT head/brain wo con CLINICAL HISTORY: fall Technique: Contiguous axial CT images of the head were acquired from the base of the skull to the vertex without intravenous contrast administration. Images were viewed in brain, subdural and bone windows. Automated dose lowering techniques and/or adjustment according to patient size were utilized for this exam. Comparison: Comparison is made to CT head 09/17/2023 Findings: Areas of decreased attenuation are present in the periventricular and subcortical white matter bilaterally consistent with small vessel ischemic disease. Generalized cerebral atrophy with commensurate enlargement of the ventricles, sulci, and cisterns is also present. There is no acute intracranial hemorrhage or evidence of acute territorial infarction. No shift of the midline structures, mass effect, or extra-axial abnormalities are shown. Atherosclerotic calcifications are present in the intracranial segments of the internal carotid arteries. Imaged portions of the paranasal sinuses and mastoid air cells are clear. The orbits appear normal. There are no acute fractures of the calvaria or scalp swelling. Impression: No acute intracranial hemorrhage, no evidence of acute territorial infarction or other acute intracranial disease process. ACT 112: Negative or not required by law. Electronically signed by: Aaron Morillo M.D. 09/18/2023 5:26 PM Pelvis X-Ray 09/18/23 17:01 XR pelvis 1-2V routine CLINICAL HISTORY: fall TECHNIQUE: A single frontal view of the pelvis was obtained. Comparison: Comparison is made to November radiograph 04/10/2020 FINDINGS: There is no evidence of an acute fracture. Degenerative changes are seen in the hip joints and lumbar spine. Vascular calcifications are noted. IMPRESSION: Degenerative changes without evidence of acute abnormality. ACT 112: Negative or not required by law. Electronically signed by: Aaron Morillo M.D. 09/18/2023 6:10 PM ECG Additional Comments: ECG on 09/16 revealed sinus bradycardia with first-degree AV block at 50 bpm; QTc 386 AV block is not new when compared to EKG on 05/16/2023 Code Status & VTE Plan Code Status DNR/DNI VTE Prophylaxis Plan VTE Prophylaxis will be ordered: No Supervising Physician Co-Signing Physician Notes I personally saw and examined the patient. I independently reviewed the labs, EKG, imaging, problem list, medication list, past medical history and family history. I verified all best points and agree with Rishabh Toledo PA-C with the following exceptions and/or additions: 82 year old male presents to the ER with acute confusion, generalized PG Care Time/CCT Total # of Minutes Spent Total Time Spent with Patient: Total time spent is greater than 50% in coordination of care (as documented) at patient's floor/unit and/or counseling patient: Coding [place] [address] INT INP/OBS CARE 3/75MIN Patient Type Established Medical Decision Making High Complexity Diagnoses Fall W19.XXXA Word finding difficulty R47.89 Sacral ulcer L98.429 Benign prostatic hyperplasia (BPH) with urinary urgency N40.1; R39.15 Lower extremity edema R60.0 Diabetic peripheral neuropathy associated with type 2 diabetes mellitus E11.42 Ambulatory dysfunction R26.2
[2023-09-18] MEDS ORDERED: GLUCOSE 10 TAB/TUBE PO PRN (21:01)
[2023-09-18] MEDS ORDERED: ACETAMINOPHEN 325 MG TAB PO PRN (21:01)
[2023-09-18] MEDS ORDERED: DEXTROSE 50% 50 ML SYRINGE IV PRN (21:01)
[2023-09-18] MEDS ORDERED: CARBOHYDRATES FOR HYPOGLYCEMIA PO PRN (21:01)
[2023-09-18] MEDS ORDERED: GLUCOSE 40% GEL 15 GM TUBE PO PRN (21:01)
[2023-09-18] MEDS ORDERED: GLUCAGON FOR INJ 1 MG VIAL SQ PRN (21:01)
--- NOTE | 2023-09-18 21:26 | Emergency Department Note ---
History of Present Illness General Chief complaint: Fall Stated complaint: Fall Time Seen by Provider: 09/18/23 16:47 History of Present Illness Provider complaint: Fall 82-year-old male presents emergency department for fall. Patient states he was using his walker and fell. Patient was brought in by EMS who states that the cannot take care of the patient at home anymore. Home Medications Medication Instructions Recorded Confirmed Type atorvastatin 10 mg tablet 10 mg PO HS 07/23/19 09/18/23 History clopidogrel 75 mg tablet (Plavix) 75 mg PO 1200 07/23/19 09/18/23 History gabapentin 300 mg capsule 300 mg PO AMHS 07/23/19 09/18/23 History (Neurontin) metformin 1,000 mg tablet 1,000 mg PO BIDM 07/23/19 09/18/23 History multivitamin 1 tab PO 1200 07/23/19 09/18/23 History pentoxifylline 400 mg 400 mg PO BIDM 07/23/19 09/18/23 History tablet,extended release aspirin 81 mg tablet,delayed 81 mg PO 1200 04/10/20 09/18/23 History release (Waqas Low Dose Aspirin) ascorbic acid (vitamin C) 500 mg 500 mg PO BIDM 05/10/20 09/18/23 History tablet (Vitamin C) cholecalciferol (vitamin D3) 25 25 mcg PO QDD 05/10/20 09/18/23 History mcg (1,000 unit) tablet (Vitamin D3) ferrous sulfate 325 mg (65 mg 325 mg PO QAM 02/26/21 09/18/23 History iron) tablet insulin glargine 100 unit/mL (3 12 unit subcut QAM 02/26/21 09/18/23 History mL) subcutaneous pen (Lantus Solostar U-100 Insulin) ammonium lactate 12 % lotion 1 applic topical DAILY PRN PER [facility] 07/30/21 09/18/23 History NEEDED thiamine HCl (vitamin B1) 100 mg 100 mg PO 1200 07/30/21 09/18/23 History tablet latanoprost 0.005 % eye drops 1 drp ophthalmic (eye) HS 12/03/22 09/18/23 History amlodipine 10 mg tablet 10 mg PO DAILY 02/15/23 09/18/23 History clonidine HCl 0.1 mg tablet 0.1 mg PO BID 02/15/23 09/18/23 History dorzolamide 2 % eye drops 1 drp ophthalmic (eye) BID 02/15/23 09/18/23 History doxazosin 4 mg tablet (Cardura) 4 mg PO BID 02/15/23 09/18/23 History levothyroxine 125 mcg capsule 125 mcg PO DAILY 02/15/23 09/18/23 History spironolactone 25 mg tablet 25 mg PO DAILY 02/15/23 09/18/23 History finasteride 5 mg tablet 5 mg PO DAILY #90 tabs 08/10/23 09/18/23 Rx solifenacin 10 mg tablet (Vesicare) 10 mg PO DAILY #90 tabs 08/10/23 09/18/23 Rx furosemide 20 mg tablet 20 mg PO DAILY #30 tabs 09/18/23 09/18/23 Rx Allergies Allergy/AdvReac Type Severity Reaction Status Date / Time Sulfa (Sulfonamide Allergy Unknown Hives Verified 09/18/23 13:32 Antibiotics) Past Med/Surg History Problem List (Updated 09/18/23 @ 21:30 by Mj Parr MD) Lower extremity edema Sacral ulcer Word finding difficulty Fall Leg wound, left (Acute) 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 (Acute) UTI (urinary tract infection), uncomplicated Ambulatory dysfunction Weight loss Sacral decubitus ulcer Lymphadenopathy Lumbar back pain Melanoma Weakness (Acute) Confusion and disorientation Failure to thrive in adult Hypertensive urgency (Acute) Abdominal pain, acute (Acute) Cerumen impaction Anemia Peripheral edema Hypothyroidism (acquired) Hyperlipidemia Hypertension (Acute) Benign prostatic hyperplasia (BPH) with urinary urgency Peripheral vascular disease Diabetic peripheral neuropathy associated with type 2 diabetes mellitus Diabetic foot ulcer Diabetes BPH loc w urin obs/LUTS Medical History Brain fog Abnormal MRI, lumbar spine Bradycardia Chiari malformation (02/14/13) Oral candidiasis Pneumonia due to COVID-19 virus Foot infection Surgical History History of appendectomy Family History Father Heart disease Mother Heart disease Other No family history of adverse response to anesthesia No family history of bleeding disorder Social History Smoking Status: Former smoker Tobacco Type: Cigarettes packs per day: 0.5; Cigarettes Per Day: 20; Second Hand Exposure: No; Do You Dip or Chew Tobacco: No; Hx Alcohol Use: No Hx Substance Use: No Preferred Language: Yi Communication Ability: Effective Communication Ability Comment: effective at communication, but lack of memory about self and events Visual Impairment: Limited Hearing Ability: Normal Grid Trimmer Required: No Beliefs That Will Affect Care: None marital status: Current Living Situation: Spouse Current Living Situation Comment: single family home Feels Safe at Home: Yes Diet: regular caffeine: Yes during the past year weight has: decreased > 10 lbs Assistive Devices: Lift Chair, Stair Lift, Walker and Other Physical Exam Vital Signs Vital Signs - 24 hr 09/18/23 16:34 09/18/23 16:41 09/18/23 16:43 Temperature 37.3 C 37.3 C Temperature Source Oral Oral Pulse Rate 57 L 54 L Pulse Rate [Apical] 58 L Pulse Strength Normal Respiratory Rate 19 19 Respiratory Effort / Characteristics Non-Labored Spontaneous Non-Labored Spontaneous Respiratory Depth Normal Normal Respiratory Pattern Regular Regular Blood Pressure 121/62 Blood Pressure [Right Arm] 121/62 Blood Pressure Mean 81 Blood Pressure Mean [Right Arm] 81 Pulse Oximetry 96 95 Oxygen Delivery Method Room Air Room Air Sepsis Recent Fever Within 48 Hours No Sepsis New/Unexplained Change in Mental Status No Sepsis Action Taken by Nursing No Action Required 09/18/23 18:03 09/18/23 18:30 Temperature Temperature Source Pulse Rate Pulse Rate [Apical] 52 L Pulse Strength Respiratory Rate 19 Respiratory Effort / Characteristics Non-Labored Spontaneous Respiratory Depth Normal Respiratory Pattern Regular Blood Pressure Blood Pressure [Right Arm] 142/65 H Blood Pressure Mean Blood Pressure Mean [Right Arm] 90 Pulse Oximetry 99 100 Oxygen Delivery Method Room Air Room Air Sepsis Recent Fever Within 48 Hours Sepsis New/Unexplained Change in Mental Status Sepsis Action Taken by Nursing GENERAL: oriented to person, place, and time. appears well-developed and well- nourished. HENT: Exam performed. - Head: Normocephalic and atraumatic. EYES: Conjunctivae and EOM are normal. Right eye exhibits no discharge. Left eye exhibits no discharge. No scleral icterus. NECK: Normal range of motion. Neck supple. No JVD present. CV: Normal rate, regular rhythm, normal heart sounds and intact distal pulses. There is no peripheral edema. Palpable radial pulses bue. PULM/CHEST: Effort normal and breath sounds normal. No respiratory distress. No stridor. no wheezes. no rales. ABD: The abdomen is soft. There is no tenderness. NEURO: Motor and sensation grossly intact. SKIN: Skin is warm and dry. He is not diaphoretic. PSYCH: normal mood and affect. Behavior is normal. Judgment and thought content normal. Course Course 1647: The patient was evaluated in room B6. A complete history and physical exam was performed Medical Decision Making Laboratory Data Attestation: I reviewed the patient's lab results. 09/18/23 16:40 09/18/23 16:40 Lab Results 09/18/23 09/18/23 Range/Units 16:40 18:01 WBC 7.16 (4.8-10.8) K/ul RBC 3.86 L (4.70-6.10) M/uL Hgb 11.9 L (14.0-18.0) g/dl Hct 34.1 L (42.0-52.0) % MCV 88.3 (80.0-100.0) fL MCH 30.8 (25.0-34.0) pg MCHC 34.9 (32.0-36.0) g/dL RDW Std Deviation 43.3 (36.4-46.3) fL RDW Coeff of Jimmy 13.3 (11.5-14.5) % Plt Count 160 (130-400) K/uL MPV 10.1 (9.4-12.4) fL Immature Gran % (Auto) 0.4 % Neut % (Auto) 62.8 % Lymph % (Auto) 22.9 % [place] % (Auto) 8.7 % Eos % (Auto) 4.6 % Baso % (Auto) 0.6 % Neut # (Auto) 4.50 (1.40-6.50) K/uL Lymph # (Auto) 1.64 (1.20-3.40) K/uL [place] # (Auto) 0.62 H (0.11-0.59) K/uL Eos # (Auto) 0.33 (0.00-0.50) K/uL Baso # (Auto) 0.04 (0.00-0.20) K/uL Immature Gran # (Auto) 0.03 (0.01-0.20) K/uL PT 11.6 (9.0-12.0) Seconds INR 1.1 (0.9-1.1) APTT 27 (21-31) Seconds PTT Ratio 1.0 Sodium 134 L (136-145) mmol/L Potassium 4.6 (3.5-5.1) mmol/L Chloride 102 (98-107) mmol/L Carbon Dioxide 26 (21-32) mmol/L Anion Gap 6 (3-11) BUN 33 H (6-23) mg/dl Creatinine 1.43 H (0.6-1.4) mg/dl Est Cr Clr Drug Dosing 38.5 ml/min Est GFR ( Amer) 52.5 ml/min Est GFR (Non-Af Amer) 45.3 ml/min BUN/Creatinine Ratio 23.1 H (10-20) Glucose 75 (70-99(Fasting)) mg/dl POC Glucose 76 (70-99) mg/dl Calcium 9.2 (8.6-10.3) mg/dl Imaging Data Attestation: I personally reviewed and interpreted this imaging study as follows: My Impression: Pelvis x-ray: No acute fracture or dislocation Radiologist's Impression: Cervical Spine CT 09/18/23 17:01 CT cervical spine wo con CLINICAL HISTORY: fall TECHNIQUE: Multidetector row helical CT of the cervical spine was performed without administration of intravenous contrast. Coronal and sagittal reformations were obtained. Automated dose lowering techniques and/or adjustment according to patient size were utilized for this exam. Comparison: None available at the time of this dictation. FINDINGS: No acute fractures or subluxations are identified. Degenerative changes are seen in the visualized spine. The alignment is normal. Soft tissues are unremarkable. IMPRESSION: Degenerative changes without evidence of acute bony injury. ACT 112: Negative or not required by law. Electronically signed by: Aaron Morillo M.D. 09/18/2023 5:28 PM Chest X-Ray 09/18/23 17:01 XR chest 1V portable CLINICAL HISTORY: fall TECHNIQUE: Single frontal radiograph of the chest was obtained. Comparison: Comparison is made to chest radiograph 09/17/2023 FINDINGS: No lines and tubes are seen. The cardiomediastinal silhouette is stable. Lungs are underinflated but clear. No evidence of pleural effusion or pneumothorax. IMPRESSION: No acute chest disease. ACT 112: Negative or not required by law. Electronically signed by: Aaron Morillo M.D. 09/18/2023 5:[address] 09/18/23 17:01 CT head/brain wo con CLINICAL HISTORY: fall Technique: Contiguous axial CT images of the head were acquired from the base of the skull to the vertex without intravenous contrast administration. Images were viewed in brain, subdural and bone windows. Automated dose lowering techniques and/or adjustment according to patient size were utilized for this exam. Comparison: Comparison is made to CT head 09/17/2023 Findings: Areas of decreased attenuation are present in the periventricular and subcortical white matter bilaterally consistent with small vessel ischemic disease. Generalized cerebral atrophy with commensurate enlargement of the ventricles, sulci, and cisterns is also present. There is no acute intracranial hemorrhage or evidence of acute territorial infarction. No shift of the midline structures, mass effect, or extra-axial abnormalities are shown. Atherosclerotic calcifications are present in the intracranial segments of the internal carotid arteries. Imaged portions of the paranasal sinuses and mastoid air cells are clear. The orbits appear normal. There are no acute fractures of the calvaria or scalp swelling. Impression: No acute intracranial hemorrhage, no evidence of acute territorial infarction or other acute intracranial disease process. ACT 112: Negative or not required by law. Electronically signed by: Aaron Morillo M.D. 09/18/2023 5:26 PM Pelvis X-Ray 09/18/23 17:01 XR pelvis 1-2V routine CLINICAL HISTORY: fall TECHNIQUE: A single frontal view of the pelvis was obtained. Comparison: Comparison is made to November radiograph 04/10/2020 FINDINGS: There is no evidence of an acute fracture. Degenerative changes are seen in the hip joints and lumbar spine. Vascular calcifications are noted. IMPRESSION: Degenerative changes without evidence of acute abnormality. ACT 112: Negative or not required by law. Electronically signed by: Aaron Morillo M.D. 09/18/2023 6:10 PM ECG Data Attestation: I personally reviewed and interpreted this ECG as follows: Rate (beats per minute): 50 Rhythm: + normal sinus ECG Intervals/blocks: + First degree AV block, + Normal QRS and + Normal QT-c ECG ST segments: + Normal ST segments MDM Narrative Vital signs stable. Labs and imaging within normal limits. Patient will be admitted to the [facility] team as states she cannot take care of the patient at home. Impression & Plan Weakness Discharge Plan Visit Data Chief Complaint: Fall Stated Complaint: Fall ED Provider: Mj Parr Discharge Problem: Weakness Patient Disposition: Admitted As Inpatient Discharge Instructions Interventions: ED Discharge Assessment Last Done: 09/18/23 21:01
--- NOTE | 2023-09-18 21:38 | Magnetic Resonance Report ---
MR brain wo con CLINICAL HISTORY: Word finding difficulty TECHNIQUE: Multiplanar and multisequence MR images of the brain were obtained without intravenous con trast. Comparison: Comparison is made to CT head 09/18/2023 and MRI brain 12/03/2022 FINDINGS: No abnormal restricted diffusion is identified. Foci of T2 and FLAIR hyperintensity are noted in the paraventricular areas consistent with chronic small vessel ischemic disease. Ex vacuo ventriculomegal y and sulcal enlargement is noted compatible with diffuse volume loss. No mass is seen. There is no m ass effect or midline shift. There is no evidence of acute intraparenchymal hemorrhage. No extra axia l fluid collections are seen. The corpus callosum, pituitary gland, and cerebellar tonsils appear dom ssly unremarkable. Flow voids of the major intracranial arterial vessels are identified. The imaged portions of the para nasal sinuses, mastoid air cells, and orbits are unremarkable. IMPRESSION: No acute abnormality and in particular no evidence of acute infarct. ACT 112: Negative or not required by law. Electronically signed by: Aaron Morillo M.D. 09/18/2023 9:37 PM
[2023-09-18 21:39] LABS: Influenza A virus by PCR Negative (Neg); Influenza B virus by PCR Negative (Neg); RSV by PCR Negative (Neg); SARS CoV2 RNA(COVID-19) Ceph NEGATIVE (Negative)
[2023-09-18] MEDS: cloNIDine HCL 0.1 MG TAB PO SCH (22:06)
[2023-09-18] MEDS: DOXAZosin MESYLATE 4 MG TAB PO SCH (22:08)
[2023-09-18] MEDS: DORZOLAMIDE HCL 2% OPH SOLN 10 ML BTL OP SCH (22:10)
[2023-09-18] MEDS: GABAPENTIN 300 MG CAP PO SCH (22:12)
[2023-09-18] MEDS: ATORVASTATIN 10 MG TAB PO SCH (22:12)
[2023-09-18] MEDS: LATANOPROST 0.005% OP SOLN 2.5 ML BTL OP SCH (22:13)
[2023-09-18] MEDS: INSULIN ASPART PER UNIT CHARGE SC SCH (23:37)
[2023-09-19 04:01] LABS: Basophils # (auto) 0.05 K/uL (0.00-0.20); Basophils % (auto) 0.6 %; Eosinophils # (auto) 0.29 K/uL (0.00-0.50); Eosinophils % (auto) 3.4 %; Hematocrit (blood only) 36.2 % (42.0-52.0); Hemoglobin 12.5 g/dl (14.0-18.0); Immature Granulocytes # (auto) 0.03 K/uL (0.01-0.20); Immature Granulocytes % (auto) 0.4 %; Lymphocytes % (auto) 17.5 %; Mean Corpuscular Hemoglobin 30.3 pg (25.0-34.0); Mean Corpuscular Hgb Conc 34.5 g/dL (32.0-36.0); Mean Corpuscular Volume 87.9 fL (80.0-100.0); Monocytes # (auto) 0.61 K/uL (0.11-0.59); Monocytes % (auto) 7.1 %; Neutrophils # (auto) 6.08 K/uL (1.40-6.50); Platelet Count 157 K/uL (130-400); RDW Coefficient of Variation 13.2 % (11.5-14.5); RDW Standard Deviation 41.9 fL (36.4-46.3); Red Blood Count 4.12 M/uL (4.70-6.10); White Blood Count 8.56 K/ul (4.8-10.8)
[2023-09-19 04:06] LABS: BUN Creatinine Ratio 21.9 (10-20); Calcium 9.4 mg/dl (8.6-10.3); Est GFR (Non-African American) 51.8 ml/min; Potassium 4.3 mmol/L (3.5-5.1)
[2023-09-19] MEDS: LEVOTHYROXINE SODIUM 125 MCG TABLET PO SCH (05:23)
[2023-09-19 07:11] LABS: Estimated Average Glucose 137 mg/dl; Hemoglobin A1C 6.4 % (4.5-5.6)
[2023-09-19] MEDS: LANTUS PER UNIT CHARGE SQ SCH (09:04)
[2023-09-19] MEDS: FUROSEMIDE 20 MG TAB PO SCH (09:05)
[2023-09-19] MEDS: FINASTERIDE 5 MG TAB PO SCH (09:05)
[2023-09-19] MEDS: FERROUS SULFATE 325 MG TAB PO SCH (09:06)
[2023-09-19] MEDS: SPIRONOLACTONE 25 MG TAB PO SCH (09:06)
[2023-09-19] MEDS: OXYBUTYNIN CHLORIDE XL 5 MG TABCR PO SCH (09:07)
[2023-09-19] MEDS: amLODIPine BESYLATE 5 MG TAB PO SCH (09:07)
[2023-09-19] MEDS: PENTOXIFYLLINE 400MG EXT REL TAB PO SCH (09:07)
[2023-09-19] MEDS: HEPARIN SOD 5,000 UNIT/0.5 ML VIAL SQ SCH (09:07)
[2023-09-19] MEDS: ASPIRIN 81 MG ECTAB PO SCH (12:04)
[2023-09-19] MEDS: CLOPIDOGREL BISULFATE 75 MG TAB PO SCH (12:04)
--- NOTE | 2023-09-19 14:52 | Hospitalist Progress Note ---
Date of Service September 19, 2023 Assessment & Plan (1) Fall: Plan: Presented with ground-level fall on 09/17 with head strike-ambulating with his walker, and turning to sit in his chair when his legs gave out on him. No syncope CT head and cervical spine, pelvis x-ray, chest x-ray all negative for fracture No evidence of infection, ECG without ischemic changes and no arrhythmia on telemetry His ambulatory dysfunction is acute on chronic decline over time, but also his recently worsening LE edema is making ambulation more difficult-diuresis ongoing Fall precautions PT/OT consulted-needs rehab (2) Lower extremity edema: Plan: Significantly worse as per in the last several weeks although his weight is not up much from previous Last echocardiogram in 2020 with preserved EF. No evidence of pulmonary edema or cardiomegaly on chest x-ray He has had issues with uncontrolled hypertension the last 6 months and has been following with nephrology He is on amlodipine 10 mg daily but has been for 6 months although this could be contributing-consider cutting down on dose Continue Lasix 20 mg daily-this was just started on 09/17 Continue spironolactone Tubigrip's in place Check echocardiogram and BNP in the morning (3) Word finding difficulty: Plan: Patient initially presented to the ED on 09/16 after he woke from a nap and had some confusion, fatigue, and word finding difficulty No slurred speech, facial droop, or unilateral deficits; however was concerned for TIA (history of TIA 20 years ago) Head CT revealed no acute findings and brain MRI negative for stroke but does show diffuse atrophy Resolved Continue blood pressure control, DAPT for PAD (4) Sacral ulcer: Plan: Daily wound care Appreciate wound care nurse consult (5) Benign prostatic hyperplasia (BPH) with urinary urgency: Plan: No issues here with retention as per nursing. Asked her to BladderScan after next void Continue finasteride (6) Diabetic peripheral neuropathy associated with type 2 diabetes mellitus: Plan: Hgb A1c only 6.4% Hold metformin from home and use basal-bolus insulin while inpatient (7) Hypothyroidism (acquired): Plan: TSH normal at 2.1 Continue home dose of levothyroxine (8) Hypertension: Plan: With issues with uncontrolled blood pressure in the last 6 months now improved Continue amlodipine, clonidine, doxazosin, furosemide, spironolactone Plan Disposition: Continued stay on [facility] telemetry, PT/OT recommend rehab- referrals made but needs a 3 midnight stay-earliest discharge would be 6/6 DNR/DNI VTE PPx: Heparin 5000u SQ q12h Admission and Anticipated Discharge Date Admission Date: September 18, 2023 Subjective Patient reports feeling okay but legs are still swollen. reports the swelling is down from previous and starting Lasix. Denies shortness of breath or chest pains. Nursing reports he is ambulating to the bathroom and back with assistance. No issues with urination. Telemetry with normal sinus rhythm and first-degree AV block with rates in the 50s to 60s Physical Exam Constitutional: average body habitus; no acute distress Respiratory: normal respiratory effort, lungs clear to auscultation Cardiovascular: Rate/Rhythm: regular rate and regular rhythm Heart Sounds: no murmur Extremities: + edema (2+ pitting edema to the knees bilaterally) Gastrointestinal (Abdomen): normal bowel sounds, soft, nontender, no hepatosplenomegaly Psychiatric: Orientation: alert, oriented to person, oriented to place and cooperative Results & Data Results & Data Vital Signs (Past 12 Hours) Vital Signs Temp Pulse Pulse Resp BP Pulse Ox O2 Del Method 09/19/23 11:42 36.5 C 75 18 150/72 H 97 Room Air 09/19/23 09:00 Room Air 09/19/23 07:43 36.3 C L 53 L 18 159/74 H 98 Room Air 09/19/23 07:24 51 L 09/19/23 05:03 Room Air 09/19/23 05:00 51 L 09/19/23 04:45 36.3 C L 51 L 18 147/70 H 97 Room Air Laboratory Results CBC, BMP, hemoglobin A1c, blood cultures reviewed PG Care Time/CCT Total # of Minutes Spent Total Time Spent with Patient: Total time spent is greater than 50% in coordination of care (as documented) at patient's floor/unit and/or counseling patient: Coding Level of Care Code 45133 SUB INP/OBS CARE 2/35MIN Diagnoses Fall W19.XXXA Lower extremity edema R60.0 Word finding difficulty R47.89 Sacral ulcer L98.429 Benign prostatic hyperplasia (BPH) with urinary urgency N40.1; R39.15 Diabetic peripheral neuropathy associated with type 2 diabetes mellitus E11.42 Hypothyroidism (acquired) E03.9 Hypertension I10 Hypertension type: unspecified (8) Hypertension Hypertension type: unspecified Qualified Code(s): I10 - Essential (primary) hypertension
[2023-09-19] MEDS: PSYLLIUM or GUAR GUM FIBER 4GM PACKET PO SCH (16:22)
[2023-09-19] MEDS: DOCUSATE SODIUM/SENNA 50/8.6MG TAB PO SCH (16:22)
[2023-09-19] MEDS: PNEUMOCOCCAL VACCINE (PCV20) 20-VAL CONJ-DIP CRM/PF 0.5 ML SYR IM ONE (22:32)
[2023-09-19] MEDS: CHOLECALCIFEROL 25 MCG (1000 UNITS) TAB PO SCH (22:38)
[2023-09-19] MEDS: ASCORBIC ACID 500 MG TAB PO SCH (22:38)
--- NOTE | 2023-09-20 06:21 | Electrocardiogram Report ---
Test Reason : Blood Pressure : / mmHG Vent. Rate : 057 BPM Atrial Rate : 057 BPM P-R Int : 244 ms QRS Dur : 108 ms QT Int : 406 ms P-R-T Axes : 041 012 043 degrees QTc Int : 395 ms Sinus bradycardia with 1st degree A-V block Incomplete right bundle branch block Abnormal ECG When compared with ECG of 17-SEP-2023 19:54, No significant change Confirmed by Robles Smith ([id number]) on 09/20/2023 6:20:50 AM Referred By: REFERRED SELF Confirmed By:Robles Smith
[2023-09-20 08:21] LABS: BUN Creatinine Ratio 19.8 (10-20); Calcium 8.6 mg/dl (8.6-10.3); Creatinine Clr Calc Pharmacy 42.1 ml/min; Est GFR (African American) 58.4 ml/min; Est GFR (Non-African American) 50.3 ml/min; Magnesium 1.7 mg/dl (1.7-2.4); Potassium 4.4 mmol/L (3.5-5.1)
[2023-09-20] MEDS: MULTIVITAMIN TAB PO SCH (12:27)
[2023-09-20] MEDS: THIAMINE HCL 100 MG TAB PO SCH (12:27)
--- NOTE | 2023-09-20 17:18 | XCELERA ---
[id number]
--- NOTE | 2023-09-20 18:05 | Hospitalist Progress Note ---
Date of Service September 20, 2023 Assessment & Plan (1) Fall: Plan: Presented with ground-level fall on 09/17 with head strike-ambulating with his walker, and turning to sit in his chair when his legs gave out on him. No syncope CT head and cervical spine, pelvis x-ray, chest x-ray all negative for fracture No evidence of infection, ECG without ischemic changes and no arrhythmia on telemetry His ambulatory dysfunction is acute on chronic decline over time, but also his recently worsening LE edema is making ambulation more difficult-diuresis ongoing Fall precautions PT/OT consulted-needs rehab (2) Lower extremity edema: Plan: Significantly worse LE edema bilat as per in the last several weeks although his weight is not up much from previous Last echocardiogram in 2019 with preserved EF. No evidence of pulmonary edema or cardiomegaly on chest x-ray He has had issues with uncontrolled hypertension the last 6 months and has been following with nephrology He is on amlodipine 10 mg daily but has been for 6 months although this could be contributing to edema--> consider cutting down on dose BNP here normal, ECHO preserved EF, no significant valve issues Continue Lasix 20 mg daily-this was just started on 09/17 Continue spironolactone Tubigrip's in place (3) Word finding difficulty: Plan: Patient initially presented to the ED on 09/16 after he woke from a nap and had some confusion, fatigue, and word finding difficulty No slurred speech, facial droop, or unilateral deficits; however was concerned for TIA (history of TIA 20 years ago) Head CT revealed no acute findings and brain MRI negative for stroke but does show diffuse atrophy Resolved Continue blood pressure control, DAPT for PAD (4) Sacral ulcer: Plan: Daily wound care Appreciate wound care nurse consult (5) Benign prostatic hyperplasia (BPH) with urinary urgency: Plan: No issues here with retention as per nursing Continue finasteride (6) Diabetic peripheral neuropathy associated with type 2 diabetes mellitus: Plan: Hgb A1c only 6.4% Hold metformin from home and use basal-bolus insulin while inpatient (7) Hypothyroidism (acquired): Plan: TSH normal at 2.1 Continue home dose of levothyroxine (8) Hypertension: Plan: With issues with uncontrolled blood pressure in the last 6 months now improved Continue amlodipine, clonidine, doxazosin, furosemide, spironolactone Plan Disposition: Continued stay on [facility] telemetry, PT/OT recommend rehab- referrals made but needs a 3 midnight stay-earliest discharge would be 6/6 DNR/DNI VTE PPx: Heparin 5000u SQ q12h Admission and Anticipated Discharge Date Admission Date: September 18, 2023 Anticipated date of discharge: 09/21/23 Subjective Pt has no complaints, is pleasantly confused. Says "it was nice to get outside for a walk today." Physical Exam Constitutional: average body habitus; no acute distress Respiratory: normal respiratory effort, lungs clear to auscultation Cardiovascular: Rate/Rhythm: regular rate and regular rhythm Heart Sounds: no murmur Extremities: + edema (1+ pitting edema to the knees bilaterally, improved) Gastrointestinal (Abdomen): normal bowel sounds, soft, nontender, no hepatosplenomegaly Psychiatric: Orientation: alert, oriented to person and cooperative; + not oriented to place and + not oriented to time Results & Data Results & Data Vital Signs (Past 12 Hours) Vital Signs Temp Pulse Pulse Resp BP Pulse Ox Pulse Ox 09/20/23 15:00 36.6 C 90 16 135/72 98 09/20/23 12:49 36.7 C 59 L 16 120/66 98 09/20/23 08:38 36.9 C 50 L 14 145/71 H 95 09/20/23 08:36 95 09/20/23 07:31 O2 Del Method O2 Del Method 09/20/23 15:00 Room Air 09/20/23 12:49 Room Air 09/20/23 08:38 Room Air 09/20/23 08:36 Room Air 09/20/23 07:31 Room Air Laboratory Results BMP, BNP, magnesium, blood cxs reviewed PG Care Time/CCT Total # of Minutes Spent Total Time Spent with Patient: Total time spent is greater than 50% in coordination of care (as documented) at patient's floor/unit and/or counseling patient: Coding Level of Care Code 67563 SUB INP/OBS CARE 2/35MIN Diagnoses Fall W19.XXXA Lower extremity edema R60.0 Word finding difficulty R47.89 Sacral ulcer L98.429 Benign prostatic hyperplasia (BPH) with urinary urgency N40.1; R39.15 Diabetic peripheral neuropathy associated with type 2 diabetes mellitus E11.42 Hypothyroidism (acquired) E03.9 Hypertension I10 Hypertension type: unspecified (8) Hypertension Hypertension type: unspecified Qualified Code(s): I10 - Essential (primary) hypertension
[2023-09-21 07:09] LABS: BUN Creatinine Ratio 23.2 (10-20); Calcium 8.7 mg/dl (8.6-10.3); Creatinine Clr Calc Pharmacy 39.9 ml/min; Est GFR (African American) 54.8 ml/min; Est GFR (Non-African American) 47.3 ml/min; Potassium 4.3 mmol/L (3.5-5.1)
--- NOTE | 2023-09-21 18:43 | Discharge Summary ---
Discharge Summary Date of Service September 21, 2023 Principal Dx & Hospital Course #1 = Principal Diagnosis (1) Fall: Presented with ground-level fall on 09/17 with head strike-ambulating with his walker, and turning to sit in his chair when his legs gave out on him. No syncope CT head and cervical spine, pelvis x-ray, chest x-ray all negative for fracture No evidence of infection, ECG without ischemic changes and no arrhythmia on telemetry His ambulatory dysfunction is acute on chronic decline over time, but also his recently worsening LE edema is making ambulation more difficult-diuresis ongoing PT/OT recommended rehab upon discharge (2) Lower extremity edema: Significantly worse LE edema bilat as per in the last several weeks although his weight is not up much from previous Last echocardiogram in 2019 with preserved EF. No evidence of pulmonary edema or cardiomegaly on chest x-ray He has had issues with uncontrolled hypertension the last 6 months and has been following with nephrology He is on amlodipine 10 mg daily but has been for 6 months although this could be contributing to edema--> consider cutting down on dose BNP here normal, ECHO preserved EF, no significant valve issues Continue Lasix 20 mg daily-this was just started on 09/17 Continue spironolactone (3) Word finding difficulty: Patient initially presented to the ED on 09/16 after he woke from a nap and had some confusion, fatigue, and word finding difficulty No slurred speech, facial droop, or unilateral deficits; however was concerned for TIA (history of TIA 20 years ago) Head CT revealed no acute findings and brain MRI negative for stroke but does show diffuse atrophy Resolved Continue blood pressure control, DAPT for PAD (4) Sacral ulcer: Daily wound care (5) Benign prostatic hyperplasia (BPH) with urinary urgency: No issues here with retention as per nursing Continue finasteride (6) Diabetic peripheral neuropathy associated with type 2 diabetes mellitus: Hgb A1c only 6.4% Hold metformin from home and use basal-bolus insulin while inpatient Continue metformin upon discharge (7) Hypothyroidism (acquired): TSH normal at 2.1 Continue home dose of levothyroxine (8) Hypertension: With issues with uncontrolled blood pressure in the last 6 months now improved Continue amlodipine, clonidine, doxazosin, furosemide, spironolactone Plan Patient discharged to [facility] for rehab CODE STATUS: DNR/DNI Notes For Next Care Provider Consider decreasing amlodipine dosage due to lower extremity edema Medication Changes From Visit Started Lasix 20 mg daily Admission HPI Per Admitting Provider Steph is an 82-year-old male with PMH of T2DM, BPH, PVD, HTN, HLD, hypothyroidism, and FTT. He presented via EMS for a fall at home on 09/17. Patient was initially seen in the ED on the evening of 09/16 for confusion, brain fog, and weakness. Patient's is present at the bedside and provides additional history. She reports that the patient was confused after waking from a nap on 09/16. He was able to state his name and date of , but did not know where he was. Patient's did not notice any facial droop, slurred speech, or unilateral deficits; she asked him to smile and he was able to, as well as raise both arms and he was able to. History of TIA 20 years ago. No prior history of CVA, but patient's was concerned he might have one as patient was demonstrating word finding difficulty. Patient was sent home from the ED, but then fell on 09/17 around 1530 when returning home from a nephrology appointment. He reports he struck his head after he lost his balance while turning his walker to sit in his chair. No LOC. He believes his legs gave out on him. He denies tripping or dizziness/lightheadedness prior to fall. Fall was witnessed by his , who was unable to lift him and decided to call an ambulance. He ambulates with a walker at baseline. Patient does note he had a toe amputation recently, which might be contributing to his ongoing ambulatory dysfunction. Last BM was yesterday. At time of admission, patient is not oriented to month or day of week; oriented to name, , and location. Patient reports that he took all of his regular morning medications today; no recent change in medications. He denies being around any sick contacts recently. Patient's vitals are stable at time of admission. ED course: ROS: Patient endorses fatigue, lower extremity weakness, constipation, word-searching difficulty, mild urinary retention, and confusion. Patient denies fever, chills, night-sweats, dizziness, lightheadedness, ROSS, slurred speech, facial droop, unilateral deficits, chest pain, chest palpitatio ns, pleuritic CP, SOB, cough, abdominal pain, N/V/D, or burning with urination. Admission Exam Per Admitting Provider General: no acute distress; lethargic; non-toxic appearing; cooperative; SpO2 100% on RA HEENT: normocephalic, atraumatic; no scleral icterus; PERRLA; moist mucus membrane; vision and hearing intact Neck: supple; no lymphadenopathy; trachea midline Skin: warm, dry without signs of tenting; no cyanosis; no rashes, bruising, lesions, or erythema noted CV: chest wall NTP; RRR; S1/S2 normal; no murmurs/rubs/gallops; pulses intact and symmetric at radial, DP, and PT Lungs: no acute respiratory distress; symmetrical chest wall expansion; clear breath sounds across all lung junior w/o adventitious sounds; no wheezing ABD: Soft, NTP; BS present; no rebound/guarding; no distention MSK: no tics or fasciculations; +1 pitting lower extremity edema B/L; 2/5 strength in the LEs b/l Back: Healing superficial sacral ulcer just above the buttocks (see photo below) Neuro: Oriented to name//location, but not month or day of the week; slow, paused speech; occasionally incoherent speech; no facial droop; no unilateral deficits; sensation intact and symmetric in the LEs b/l Discharge Exam General: No acute distress, nondiaphoretic, well-developed, well-nourished. Skin: The skin was without rashes, erythema, edema, or bruising. Healing superficial sacral ulcer. Cardiac: Regular rate and rhythm without murmurs gallops or rubs. Pulm: Clear to auscultation bilaterally without wheezes, rales or rhonchi. No retractions or accessory muscle use. Abdominal: Positive bowel sounds x 4. Soft, nontender, without masses or organomegaly. No guarding or rebound tenderness. Neuro: A&O x2 (not time). No focal neurological deficits. Updated Medication List Medication Instructions Recorded Confirmed Type atorvastatin 10 mg tablet 10 mg PO HS 07/23/19 09/18/23 History clopidogrel 75 mg tablet (Plavix) 75 mg PO 1200 07/23/19 09/18/23 History gabapentin 300 mg capsule 300 mg PO AMHS 07/23/19 09/18/23 History (Neurontin) metformin 1,000 mg tablet 1,000 mg PO BIDM 07/23/19 09/18/23 History multivitamin 1 tab PO 1200 07/23/19 09/18/23 History pentoxifylline 400 mg 400 mg PO BIDM 07/23/19 09/18/23 History tablet,extended release aspirin 81 mg tablet,delayed 81 mg PO 1200 04/10/20 09/18/23 History release (Waqas Low Dose Aspirin) ascorbic acid (vitamin C) 500 mg 500 mg PO BIDM 05/10/20 09/18/23 History tablet (Vitamin C) cholecalciferol (vitamin D3) 25 25 mcg PO QDD 05/10/20 09/18/23 History mcg (1,000 unit) tablet (Vitamin D3) ferrous sulfate 325 mg (65 mg 325 mg PO QAM 02/26/21 09/18/23 History iron) tablet insulin glargine 100 unit/mL (3 12 unit subcut QAM 02/26/21 09/18/23 History mL) subcutaneous pen (Lantus Solostar U-100 Insulin) ammonium lactate 12 % lotion 1 applic topical DAILY PRN PER [facility] 07/30/21 09/18/23 History NEEDED thiamine HCl (vitamin B1) 100 mg 100 mg PO 1200 07/30/21 09/18/23 History tablet latanoprost 0.005 % eye drops 1 drp ophthalmic (eye) HS 12/03/22 09/18/23 History amlodipine 10 mg tablet 10 mg PO DAILY 02/15/23 09/18/23 History clonidine HCl 0.1 mg tablet 0.1 mg PO BID 02/15/23 09/18/23 History dorzolamide 2 % eye drops 1 drp ophthalmic (eye) BID 02/15/23 09/18/23 History doxazosin 4 mg tablet (Cardura) 4 mg PO BID 02/15/23 09/18/23 History levothyroxine 125 mcg capsule 125 mcg PO DAILY 02/15/23 09/18/23 History spironolactone 25 mg tablet 25 mg PO DAILY 02/15/23 09/18/23 History finasteride 5 mg tablet 5 mg PO DAILY #90 tabs 08/10/23 09/18/23 Rx solifenacin 10 mg tablet (Vesicare) 10 mg PO DAILY #90 tabs 08/10/23 09/18/23 Rx furosemide 20 mg tablet 20 mg PO DAILY #30 tabs 09/18/23 09/18/23 Rx Hospital Stay Data Consultations 09/18/23 17:57 ED Decision to Admit Stat Diagnostic Imagining Performed 09/18/23 17:01 CT cervical spine wo con Stat CT head/brain wo con Stat 09/18/23 19:53 MR brain wo con Stat Pending Results Patient Have Any Pending Studies at Discharge: No Discharge Instructions Given to Patient (Per Discharging Provider) FOR [facility]: Mr. Baird presented after ground-level fall on 09/18/2023 with head strike while ambulating with his walker when his legs gave out on him. CT head and cervical spine, pelvis x-ray, chest x-ray all were negative for acute fracture. His ambulatory dysfunction is acute on chronic with decline over time, but also his recently worsening lower extremity edema has made ambulation more difficult. He is on amlodipine 10 mg daily and has been on this for 6 months, although this could be contributing to edema. Edema has improved with diuresis while inpatient. I recommend follow-up with PCP to consider decreasing amlodipine dose upon discharge from [facility]. Upon discharge from the hospital: * Continue Lasix 20 mg daily this was just restarted on 09/18/2023. * Continue spironolactone for hypertension/heart failure. * Continue amlodipine, clonidine, doxazosin for hypertension. * Continue DAPT for PAD. * Continue finasteride for BPH. * Continue metformin for diabetes. * Continue levothyroxine for hypothyroidism. * Continue all other medications as prescribed. * Continue daily wound care for sacral ulcer. Thank you, Carolyn Leavitt PA-C Total Time Total Time Spent Total Time Spent (In Minutes): Greater than 30 minutes spent completing this discharge process including direct patient care, medication reconciliation, documentation, review of labs and images, and coordination of care. Coding Level of Care Code 70418 INP/OBS DISCH >30 MIN Diagnoses Fall W19.XXXA Lower extremity edema R60.0 Word finding difficulty R47.89 Sacral ulcer L98.429 Benign prostatic hyperplasia (BPH) with urinary urgency N40.1; R39.15 Diabetic peripheral neuropathy associated with type 2 diabetes mellitus E11.42 Hypothyroidism (acquired) E03.9 Hypertension I10 Hypertension type: unspecified
== END 2023-09-21 13:56 | DRG 93 ==
LOC: ED 16:31 → EDINP 19:19 → SUATTDRO 19:19 → 2N 21:01 → 3W 09-19 22:03
DX: E11.42 Type 2 diabetes mellitus with diabetic polyneuropathy; Z79.890 Hormone replacement therapy; Z88.2 Allergy status to sulfonamides; W18.09XA Striking against other object with subsequent fall, initial encounter; Z79.4 Long term (current) use of insulin; E78.5 Hyperlipidemia, unspecified; Z66 Do not resuscitate; Z79.02 Long term (current) use of antithrombotics/antiplatelets; Z63.8 Other specified problems related to primary support group; L89.159 Pressure ulcer of sacral region, unspecified stage; Z86.73 Personal history of transient ischemic attack (TIA), and cerebral infarction without residual deficits; Y92.019 Unspecified place in single-family (private) house as the place of occurrence of the external cause; R39.15 Urgency of urination; R26.89 Other abnormalities of gait and mobility; Z87.891 Personal history of nicotine dependence; L98.429 Non-pressure chronic ulcer of back with unspecified severity; Z79.82 Long term (current) use of aspirin; I10 Essential (primary) hypertension; N40.1 Benign prostatic hyperplasia with lower urinary tract symptoms; R53.1 Weakness; E03.9 Hypothyroidism, unspecified